=== PATIENT | male | born 1940 | race Caucasian/White ===

== ENCOUNTER 2023-09-08 05:59 | Emergency (ER) | payer MEDICARE, SELFPAY ==
[2023-09-08 05:59] VITALS: BP 202/78; PULSE 56; RESP 18; TEMP 36.4; O2SAT 100
--- NOTE | 2023-09-08 06:22 | PC.NURSE ---
Pt presents to ER via EMS for altered mental status Pt is extremely hard of hearing - to communicate we must write out our questions on paper Pt states he formerly had hearing aids but was told he needs implants Pt denies friends or family, he lives alone, pt explains his nightly and morning routine pt states he had driven to [employer] this morning but they were not open yet and he fell asleep in his car Employees called 911 This nurse believes PD and EMS did not recognize the pt's level of deafness and were not efficiently able to communicate with the pt which is what made them believe he was altered Pt denies allergies and medications Pt is angery that they made him come here, pt has a sense of humor but just wants to go home
--- NOTE | 2023-09-08 06:30 | ED_ITS ---
HPI - Altered Mental Status General Chief Complaint: Altered Mental Status Stated Complaint: altered mental status Time Seen by Provider: 09/08/23 06:30 Source: patient, EMR and law enforcement Mode of arrival: ambulance Limitations: no limitations History of Present Illness HPI narrative: This 82-year-old male is brought to the emergency department by EMS. The patient was found sleeping in the parking lot of the [facility] [employer]. It was thought that he was confused and altered. It is cold outside. Upon arrival to the emergency department the patient is angry and admits that he is deaf. 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. He is able to provide his Route that he drives. He states that he goes to [facility] [employer] in the morning to get his breakfast before going home. He states that when he got to [employer] this morning they were not open yet so he fell asleep in his car. He states that he formerly had hearing aids and was told that he needed cochlear implants but he refused that. He denies any complaint of pain. He lives alone. He is a . He denies that he has any friends, family or children locally that can come pick him up. He is agitated and angry that he was brought to the ER. He is oriented to person, place and time and gives detailed history when questions are written down for him. Related Data Allergies Allergy/AdvReac Type Severity Reaction Status Date / Time No Known Drug Allergies Allergy Verified 09/08/23 06:12 Review of Systems ROS Status of ROS 10 or more systems reviewed and unremarkable except as noted in history and below [facility] Social History Smoking status: Never smoker Exam Narrative Exam Narrative: Nurses note and vital signs reviewed and patient is not hypoxic. Blood pressure is elevated upon arrival at 202/78 General: The patient appears well and in no apparent distress. Patient is resting comfortably on cart. He is well appearing and well groomed, clothes are clean. Skin: Warm, dry, no pallor noted. There is no rash noted. Head: Normocephalic, atraumatic Eye: Normal conjunctiva, no drainage, EOMI. PERRL, vision grossly intact, extremely hard of hearing/deaf Ears, Nose, Mouth, and Throat: oral mucosa is moist. Nares patent. Mouth without vesicles. Ear canals patent. Tm's without Erythema Cardiovascular: Regular Rate and Rhythm Respiratory: Patient is in no distress, no accessory muscle use, lungs are clear to auscultation, no wheezing, rales or rhonchi Back: non-tender, no CVA tenderness bilaterally to percussion. GI: Normal bowel sounds, no tenderness to palpation, no masses appreciated. No rebound, guarding, or rigidity noted. Musculoskeletal: The patient has no evidence of calf tenderness, no pitting edema, symmetrical pulses noted bilaterally Neurological: A&O x4, normal speech Constitutional Vital Signs, click to edit/add: Last Vital Signs Temp 97.6 F 09/08/23 05:59 Pulse 56 L 09/08/23 05:59 Resp 18 09/08/23 05:59 BP 160/80 H 09/08/23 07:39 Pulse Ox 100 09/08/23 05:59 O2 Del Method Room Air 09/08/23 05:59 Course Vital Signs Vital signs: Vital Signs Temperature 97.6 F 09/08/23 05:59 Pulse Rate 56 L 09/08/23 05:59 Respiratory Rate 18 09/08/23 05:59 Blood Pressure 202/78 H 09/08/23 05:59 Pulse Oximetry 100 09/08/23 05:59 Oxygen Delivery Method Room Air 09/08/23 05:59 Temperature 97.6 F 09/08/23 05:59 Pulse Rate 56 L 09/08/23 05:59 Respiratory Rate 18 09/08/23 05:59 Blood Pressure 160/80 H 09/08/23 07:39 Pulse Oximetry 100 09/08/23 05:59 Oxygen Delivery Method Room Air 09/08/23 05:59 MDM - Altered Mental Status MDM Narrative Medical decision making narrative: This 82-year-old male with a history of hearing loss is brought to the emergency department by EMS after he was found sleeping in the parking lot at [facility]. He does not appear to be confused. I spoke to his family practitioner, Dr. Patel, the story that he gives about going to see fisherman in the [facility] is something that he talks about during his office visits. He does not have a history of dementia and does not appear to be confused this morning. He is well- known to Dr. Patel and does have a history of severe hearing loss. He does not have any local friends or family to pick him up. The police will be called to return him to his car so that he can return home. He was encouraged to follow-up for hearing aids. Discharge Plan Discharge Chief Complaint: Altered Mental Status Clinical Impression: Hearing loss Patient Disposition: Home, Self-Care Time of Disposition Decision: 06:43 Condition: Good Mode of Transportation: Other Instructions: Hearing Loss (ED) Additional Instructions: Follow-up with your physician for further evaluation of your hearing loss and consider hearing aid use Stand Alone Forms: Portal Instructions Discharge Date/Time: 09/08/23 07:41
[2023-09-08 07:39] VITALS: BP 160/80
== END 2023-09-08 07:41 | disposition home or self-care (01) ==
PROVIDERS: Emergency Provider Emergency Medicine; PCP Family Medicine
DX: H91.93 Unspecified hearing loss, bilateral (principal)
CPT/HCPCS: 99281

== ENCOUNTER 2023-10-22 12:00 | Observation (INO) | payer MEDICARE, SELFPAY ==
[2023-10-22] VITALS (25 sets, daily range): BP systolic 142–179; BP diastolic 63–105; PULSE 41–55; RESP 10–22; TEMP 36.6–36.8; O2SAT 94–100; BMI 28.2; BMI 26.0
--- NOTE | 2023-10-22 12:20 | PC.NURSE ---
nonbleeding area to inside ankle
--- NOTE | 2023-10-22 12:21 | PC.NURSE ---
pt's daughter has not seen pt in 5-6 yrs, has been in contact for the last 2 wks. pt presents like dementia. no slurred speech and no facial dropping.
--- NOTE | 2023-10-22 12:22 | XR_ITS ---
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 Poststernotomy changes are again identified There are a few scattered subcentimeter granuloma of the lungs, stable from 01/11/2017. The lungs are otherwise clear. There is no evidence of pleural effusion or pneumothorax. XR/XR chest 1V IMPRESSION: Stable poststernotomy chest. Electronically authenticated by: CHRISTINE BECERRIL Date: 10/22/2023 13:52
--- NOTE | 2023-10-22 12:22 | CT_ITS ---
The [address] [address] Patient Name: KAPIL FUNES MRN: [id number] date: 1940 Sex: M Assigned Patient Location: ED.MAIN Current Patient Location: Accession/Order Number: [id number] Exam Date: 10/22/2023 13:14 Report Date: 10/22/2023 13:57 At the request of: KARLY AGUAYO Procedure: CT head/brain wo con EXAM: CT head/brain wo con HISTORY: Altered mentation. COMPARISON: Study: CT head without contrast 01/30/2020. HISTORY: altered mentation Technique: CT images of the head were acquired without intravenous contrast. Dose reduction technique used: Automatic exposure control and/or adjustment of the mA and/or kV according to patient size and/or use of degenerative reconstruction technique. Findings: No acute hemorrhage. Senescent calcifications are noted at the basal ganglia. No mass effect or herniation. No territorial loss of cunningham-white matter differentiation. Periventricular and deep white matter hypoattenuation is nonspecific, favored to represent chronic microvascular ischemic changes. Generalized parenchymal volume loss is associated with compensatory prominence of the ventricles and CSF spaces. 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 EXTRACRANIAL STRUCTURES: No destructive osseous lesion. Normal soft tissues. Mastoids are clear. ORBITS: Negative lenses are surgically absent. PARANASAL SINUSES: Normal. CT/CT head/brain wo con IMPRESSION: 1. No acute intracranial abnormality. 2. Senescent parenchymal volume loss and chronic microangiopathic ischemic changes. Electronically authenticated by: AJAY ALARCON Date: 10/22/2023 13:57
--- NOTE | 2023-10-22 12:22 | ECG_ITS ---
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
[2023-10-22 12:34] LABS: PCO2 VBG 42.3 mmHg (40.0-52.0); pH VBG 7.403 (7.330-7.430)
[2023-10-22 12:38] LABS: Basophils Absolute Auto 0.1 10^3/uL (0.0-0.1); Basophils Percent Auto 1.2 % (0.2-2.0); Eosinophils Absolute Auto 0.3 10^3/uL (0.0-0.7); Eosinophils Percent Auto 4.6 % (0.9-7.0); Hematocrit 39.6 % (42.0-54.0); Hemoglobin 12.9 g/dL (14.0-18.0); Immature Granulocytes Abs Auto 0.02 10^3/uL (0.00-0.03); Immature Granulocytes Pct Auto 0.4 % (0.0-0.5); Lymphocytes Absolute Auto 1.2 10^3/uL (1.2-3.8); Lymphocytes Percent Auto 20.9 % (20.5-60.0); Mean Corpuscular HGB Conc 32.6 g/dL (29.9-35.2); Mean Corpuscular Hemoglobin 30.9 pg (25.9-34.0); Mean Platelet Volume 11.7 fL (9.5-13.5); Monocytes Absolute Auto 0.5 10^3/uL (0.3-0.8); Monocytes Percent Auto 8.2 % (1.7-12.0); Neutrophils Absolute Auto 3.7 10^3/uL (1.4-6.5); Neutrophils Percent Auto 64.7 % (43.0-75.0); Platelet Count 111 10^3/uL (150-450); Red Blood Count 4.17 10^6/uL (4.70-6.10); Red Cell Distribution Width 13.4 % (11.0-15.0); White Blood Count 5.7 10^3/uL (4.0-11.0)
[2023-10-22 12:42] LABS: Acetone NEGATIVE (NEGATIVE)
[2023-10-22 12:55] LABS: Acetaminophen <2.0 ug/mL (10.0-30.0); Ethanol <3 mg/dL
[2023-10-22 12:56] LABS: Alanine Aminotransferase 19 U/L (16-63); Albumin Globulin Ratio 0.8; Alkaline Phosphatase 98 U/L (46-116); Ammonia <10 umol/L (11-32); Anion Gap 10.7; Aspartate Amino Transferase 15 U/L (15-37); BUN Creatinine Ratio 16.4; Bilirubin Total 0.6 mg/dL (0.2-1.0); Calcium 8.5 mg/dL (8.5-10.1); Carbon Dioxide 26.4 mmol/L (21.0-32.0); Chloride 101 mmol/L (98-107); Estimated GFR (African America 51 (>=60); Estimated GFR (Non-African Ame 42 (>=60); Globulin 3.7 g/dL; Glucose 365 mg/dL (74-106); Potassium 4.1 mmol/L (3.5-5.1); Sodium 134 mmol/L (136-145); Total Protein 6.7 g/dL (6.4-8.2)
[2023-10-22 12:58] LABS: Salicylate <2.8 mg/dL (<=19.9)
--- NOTE | 2023-10-22 13:12 | ED_ITS ---
HPI - Altered Mental Status General Chief Complaint: Altered Mental Status Stated Complaint: ALTERED MENTAL Time Seen by Provider: 10/22/23 12:05 Source: family Mode of arrival: Wheelchair History of Present Illness HPI narrative: Patient lives alone. Daughter - who had been estranged for the last 5 years, she told me, got phone calls from neighbors and friends of the patient stating that his behavior had become erratic, so she came to his house to see him. She said that she has been staying with him for the past 2 weeks and during that time noted that he is: - confused, sometimes calling his daughter by another name or confusing who she is - forgetful - complaining of pain along the low back bilaterally - unkempt and hoarding items in his house, which is not properly cleaned. On questioning she admits that he eats and drinks normally. He is very hard of hearing so she often communicates with him through writing. No fever or chills. No vomiting or diarrhea. No cough. She said that his left arm seemed weak . She has concerns that he is unable to care for himself. She also mentioned that this morning, the patient complained of increased pain in the right lower leg and had difficulty walking due to the pain. He has a chronic right lower leg wound that has never fully healed - a small ulcer that gets a bloody scab and in the past has been infected and required antibiotics but no surgery, she told me. She is concerned that he might have an infection or possibly had a stroke. 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 His PCP is Dr Patel. Related Data Home Medications Medication Instructions Recorded Confirmed mupirocin 2 % topical ointment 1 applic topical DAILY 10/22/23 10/22/23 Allergies Allergy/AdvReac Type Severity Reaction Status Date / Time No Known Drug Allergies Allergy Verified 09/08/23 06:12 [facility] Medical History (Updated 10/22/23 @ 14:24 by Karly Aguayo) Fall ?W19.XXXA - Unspecified fall, initial encounter (ICD-10) Diabetes ?E11.9 - Type 2 diabetes mellitus without complications (ICD-10) FH: CABG (coronary artery bypass surgery) ?Z82.49 - Family history of ischemic heart disease and other diseases of the circulatory system (ICD-10) Leg fracture, right ?S82.91XA - Unspecified fracture of right lower leg, initial encounter for closed fracture (ICD-10) Social History Smoking status: Never smoker Exam Narrative Exam Narrative: Nurses notes and vital signs reviewed and patient is not hypoxic. afebrile General: Well-appearing and in no apparent distress. Skin: Warm, dry, no pallor noted. No rash. Head: Normocephalic, atraumatic. Neck: Supple, non-tender. No meningismus Eye: Pupils are equal, round and EOMI. No scleral icterus. No nystagmus Ears, Nose, Mouth, and Throat: TM are clear, no posterior oropharynx erythema or nasal mucosal hypertrophy, uvula is mid-line Oral mucosa is moist Cardiovascular: James Rate and Regular Rhythm without murmur, gallop or rub. Respiratory: No accessory muscle use or respiratory distress. Lungs are clear to auscultation, no wheezing, rales or rhonchi Back: No midline thoracic or lumbar vertebral tenderness. No CVA tenderness Musculoskeletal: all extremities with normal ROM, no calf or popliteal tenderness, no lower extremity edema/swelling. No weakness observed. Right lower leg with bloody scab anteriorly - no surrounding erythema or purulent discharge. GI: Abdomen is soft, non-distended. Normal bowel sounds. No masses appreciated. No tenderness to palpation. No rebound, guarding, or rigidity noted. Neurological: A&O x4. He is very hard of hearing. No additional cranial nerve dysfunction observed. No truncal ataxia. Moves all extremities. Sensation intact. Psychiatric: Cooperative and interactive. Normal mood and affect. Constitutional Vital Signs, click to edit/add: Last Vital Signs Temp 98.2 F 10/22/23 12:04 Pulse 49 L 10/22/23 13:50 Resp 15 10/22/23 13:50 BP 168/74 H 10/22/23 13:32 Pulse Ox 99 10/22/23 13:32 O2 Del Method Room Air 10/22/23 12:19 Course Vital Signs Vital signs: Vital Signs Temperature 98.2 F 10/22/23 12:04 Pulse Rate 54 L 10/22/23 12:04 Respiratory Rate 16 10/22/23 12:04 Blood Pressure 164/82 H 10/22/23 12:04 Pulse Oximetry 98 10/22/23 12:04 Oxygen Delivery Method Room Air 10/22/23 12:04 Temperature 98.2 F 10/22/23 12:04 Pulse Rate 49 L 10/22/23 13:50 Respiratory Rate 15 10/22/23 13:50 Blood Pressure 168/74 H 10/22/23 13:32 Pulse Oximetry 99 10/22/23 13:32 Oxygen Delivery Method Room Air 10/22/23 12:19 MDM - Altered Mental Status MDM Narrative Medical decision making narrative: Patient was placed on ekg monitor and EKG obtained. Blood drawn and sent for evaluation. Noncontrast head CT and chest x-ray obtained. CBC with normal white blood cell count, minimally decreased hemoglobin and hematocrit, decreased platelet at 111. Venous blood gas with normal pH. Acetone negative. CMP revealed essentially normal electrolytes with elevated BUN and creatinine at 2 6, 1.59, respectively. Glucose also elevated at 365. LFTs normal. Ammonia negative. Ethanol, salicylate and acetaminophen all negative. Head CT and chest x-ray did not reveal any focal worrisome findings. Patient unable to care for himself at home. He is confused and not taking his meds. I discussed the case with Dr Patel - who knows the patient well - and he agreed to admit the patient to his service - inpatient, medsur - to continue to work him up for his altereed mentation and difficulty walking. Jose informed of the plan and is agreeable. Lab Data Attestation: I reviewed the patient's lab results. Labs: Lab Results 10/22/23 Range/Units 12:30 WBC 5.7 (4.0-11.0) 10^3/uL RBC 4.17 L (4.70-6.10) 10^6/uL Hgb 12.9 L (14.0-18.0) g/dL Hct 39.6 L (42.0-54.0) % MCV 95.0 H (80.0-94.0) fL MCH 30.9 (25.9-34.0) pg MCHC 32.6 (29.9-35.2) g/dL RDW 13.4 (11.0-15.0) % Plt Count 111 L (150-450) 10^3/uL MPV 11.7 (9.5-13.5) fL Neut % (Auto) 64.7 (43.0-75.0) % Lymph % (Auto) 20.9 (20.5-60.0) % [place] % (Auto) 8.2 (1.7-12.0) % Eos % (Auto) 4.6 (0.9-7.0) % Baso % (Auto) 1.2 (0.2-2.0) % Neut # (Auto) 3.7 (1.4-6.5) 10^3/uL Lymph # (Auto) 1.2 (1.2-3.8) 10^3/uL [place] # (Auto) 0.5 (0.3-0.8) 10^3/uL Eos # (Auto) 0.3 (0.0-0.7) 10^3/uL Baso # (Auto) 0.1 (0.0-0.1) 10^3/uL Abs Immat Gran (auto) 0.02 (0.00-0.03) 10^3/uL Imm/Tot Granulo (auto) 0.4 (0.0-0.5) % VBG pH 7.403 (7.330-7.430) VBG pCO2 42.3 (40.0-52.0) mmHg Sodium 134 L (136-145) mmol/L Potassium 4.1 (3.5-5.1) mmol/L Chloride 101 (98-107) mmol/L Carbon Dioxide 26.4 (21.0-32.0) mmol/L Anion Gap 10.7 BUN 26.0 H (7.0-18.0) mg/dL Creatinine 1.59 H (0.70-1.30) mg/dL Est GFR ( Amer) 51 L (>=60) Est GFR (Non-Af Amer) 42 L (>=60) BUN/Creatinine Ratio 16.4 Glucose 365 H (74-106) mg/dL Calcium 8.5 (8.5-10.1) mg/dL Total Bilirubin 0.6 (0.2-1.0) mg/dL AST 15 (15-37) U/L ALT 19 (16-63) U/L Alkaline Phosphatase 98 (46-116) U/L Ammonia <10 L (11-32) umol/L Total Protein 6.7 (6.4-8.2) g/dL Albumin 3.0 L (3.4-5.0) g/dL Globulin 3.7 g/dL Albumin/Globulin Ratio 0.8 Salicylates <2.8 (<=19.9) mg/dL Acetaminophen <2.0 L (10.0-30.0) ug/mL Ethanol Quant <3 mg/dL Acetone, Qual Negative (NEGATIVE) Imaging Data Chest x-ray: Radiologist's impression: Patient Name: KAPIL FUNES MRN: [id number] date: 1940 Sex: M Assigned Patient Location: ER Current Patient Location: ER Accession/Order Number: [id number] Exam Date: 10/22/2023 13:10 Report Date: 10/22/2023 13:52 At the request of: KARLY AGUAYO Procedure: XR chest 1V PROCEDURE: XR chest 1V DATE: 10/22/2023 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 Poststernotomy changes are again identified There are a few scattered subcentimeter granuloma of the lungs, stable from 01/11/2017. The lungs are otherwise clear. There is no evidence of pleural effusion or pneumothorax. IMPRESSION: Stable poststernotomy chest. Electronically authenticated by: CHRISTINE BECERRIL Date: 10/22/2023 13:52 CT scan - head: Radiologist's impression: Patient Name: KAPIL FUNES MRN: [id number] date: 1940 Sex: M Assigned Patient Location: ED.MAIN Current Patient Location: ER Accession/Order Number: [id number] Exam Date: 10/22/2023 13:14 Report Date: 10/22/2023 13:57 At the request of: KARLY AGUAYO Procedure: CT head/brain wo con EXAM: CT head/brain wo con HISTORY: Altered mentation. COMPARISON: Study: CT head without contrast 01/30/2020. HISTORY: altered mentation Technique: CT images of the head were acquired without intravenous contrast. Dose reduction technique used: Automatic exposure control and/or adjustment of the mA and/or kV according to patient size and/or use of degenerative reconstruction technique. Findings: No acute hemorrhage. Senescent calcifications are noted at the basal ganglia. No mass effect or herniation. No territorial loss of cunningham-white matter differentiation. Periventricular and deep white matter hypoattenuation is nonspecific, favored to represent chronic microvascular ischemic changes. Generalized parenchymal volume loss is associated with compensatory prominence of the ventricles and CSF spaces. 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 EXTRACRANIAL STRUCTURES: No destructive osseous lesion. Normal soft tissues. Mastoids are clear. ORBITS: Negative lenses are surgically absent. PARANASAL SINUSES: Normal. IMPRESSION: 1. No acute intracranial abnormality. 2. Senescent parenchymal volume loss and chronic microangiopathic ischemic changes. Electronically authenticated by: AJAY ALARCON Date: 10/22/2023 13:57 ECG Data Attestation: I personally reviewed and interpreted this ECG as follows: Interpretation: EKG interpretation: Emergency Department physician interpretation. James sinus rhythm at 52bpm. 1st degree AV block. Normal axis and no ST segment elevation or depression. Discharge Plan Discharge Chief Complaint: Altered Mental Status Clinical Impression: Medical non-compliance, Acute hyperglycemia, Altered mental status Patient Disposition: Admitted As Inpatient Time of Disposition Decision: 14:24 Prescriptions / Home Meds: No Action mupirocin 2 % ointment 1 applic TOPICAL DAILY Referrals: Savage Patel MD [Primary Care Provider] - 1 week
[2023-10-22] MEDS: INSULIN REGULAR 300 UNITS/3 ML 5 UNIT SUBQ (13:55)
[2023-10-22] MEDS: 0.9 % SODIUM CHLORIDE 1,000 ML 1000 ML IV (13:57)
[2023-10-22 14:35] LABS: Glucometer 220 mg/dL (74-106)
--- NOTE | 2023-10-22 14:40 | P.HP_ITS ---
H&P: HPI History of Present Illness Chief complaint: ALTERED MENTAL STATUS Narrative: Seen and evaluated patient while he was still in the emergency room secondary to altered mental status. I know this patient for a long period of time. As well as the rest of the family. He did recognize me when I came into the room, was not aware of where he was at. Discussed his living situation and was not aware of the degree of mass located at his house. Patient states has not been taking any medications since May Review of Systems ROS Status of ROS 10 or more systems reviewed and unremark able except as noted in history and below (Patient denying everything, showing lack of insight into overall condition) [facility] Medical History (Updated 10/22/23 @ 15:01 by Shayna Miller) Fall ?W19.XXXA - Unspecified fall, initial encounter (ICD-10) Diabetes ?E11.9 - Type 2 diabetes mellitus without complications (ICD-10) Leg fracture, right ?S82.91XA - Unspecified fracture of right lower leg, initial encounter for closed fracture (ICD-10) Surgical History (Updated 10/22/23 @ 15:01 by Shayna Miller) FH: CABG (coronary artery bypass surgery) ?Z82.49 - Family history of ischemic heart disease and other diseases of the circulatory system (ICD-10) Family History (Updated 10/22/23 @ 15:04 by Shayna Miller) Father Family history of cancer Social History (Updated 10/22/23 @ 15:07 by Shayna Miller) Within the past year, how often did you have a drink containing alcohol: never Within the past year, how many standard drinks containing alcohol did you have on a typical day: 1 or 2 Within the past year, how often did you have six or more drinks on one occasion: never Total score: 0 Score interpretation: A score less than 4 is consistent with normal alcohol consumption. Smoking status: Never smoker Non-prescribed substance use: denies use Previous occupational history: retired Highest level of school completed/degree received: 11th grade Are you now , , , , never or living with a partner: In a typical week, how many times do you talk on the telephone with family, friends, or neighbors: twice per week How often do you get together with friends or relatives: twice per week How often do you attend scientology or presybeterian services: never Do you belong to any clubs or organizations such as scientology groups unions, fraternal or athletic groups, or school groups: no Total score: 1 Score interpretation: A score of less than or equal to 1 indicates the most socially isolated. Little interest or pleasure in doing things: not at all Feeling down, depressed, or hopeless: not at all Feel stressed/tense/nervous/anxious/difficulty sleeping: not at all Meds Home Medications and Allergies Home Medications Medication Instructions Recorded Confirmed Type lisinopril 10 mg tablet 10 mg PO DAILY 10/22/23 10/22/23 History metformin 500 mg tablet 500 mg PO BID 10/22/23 10/22/23 History mupirocin 2 % topical ointment 1 applic topical DAILY 10/22/23 10/22/23 History Allergies Allergy/AdvReac Type Severity Reaction Status Date / Time No Known Drug Allergies Allergy Verified 09/08/23 06:12 Exam Constitutional Vital Signs, click to edit/add: Last Vital Signs Temp 98.2 F 10/23/23 06:00 Pulse 52 L 10/23/23 08:00 Resp 16 10/23/23 06:00 BP 144/67 H 10/23/23 06:00 Pulse Ox 93 L 10/23/23 06:00 O2 Del Method Room Air 10/23/23 06:00 Documenting provider has reviewed patient's vital signs: yes Common normals: no apparent distress (Not oriented to location) HENMT Common normals: oral mucous membranes not moist Chest Common normals: inspection of chest normal Respiratory Common normals: normal respiratory effort, no use of accessory muscles and clear to auscultation bilaterally Cardio Common normals: regular rate, regular rhythm and no murmurs GI Common normals: Normal to inspection, nondistended, normoactive bowel sounds present Neuro Common normals: not oriented x3 Sensorium/orientation: oriented to person; not oriented to place Other: No focal neurological deficits Results Labs Labs: Short CBC 10/22/23 10/23/23 Range/Units 12:30 05:23 WBC 5.7 6.3 (4.0-11.0) 10^3/uL Hgb 12.9 L 13.0 L (14.0-18.0) g/dL Hct 39.6 L 39.3 L (42.0-54.0) % Plt Count 111 L 127 L (150-450) 10^3/uL BMP 10/22/23 10/23/23 12:30 05:23 Sodium 134 L 135 L Potassium 4.1 4.1 Chloride 101 102 Carbon Dioxide 26.4 24.3 BUN 26.0 H 25.0 H Creatinine 1.59 H 1.41 H Glucose 365 H 313 H Calcium 8.5 8.3 L Liver Function 10/22/23 10/23/23 Range/Units 12:30 05:23 Total Bilirubin 0.6 0.3 (0.2-1.0) mg/dL AST 15 17 (15-37) U/L ALT 19 18 (16-63) U/L Alkaline Phosphatase 98 97 (46-116) U/L Albumin 3.0 L 2.8 L (3.4-5.0) g/dL Urine 10/22/23 Range/Units 14:20 Urine Color Lt. yellow (YELLOW) Urine Clarity Clear (CLEAR) Urine pH 7.0 (5.0-9.0) Ur Specific [place] 1.015 (1.005-1.025) Urine Protein 30 A (NEG/TRACE) mg/dL Urine Glucose (UA) >=1000 A (NEGATIVE) mg/dL ABG ABG results: 10/22/23 12:30 VBG pH 7.403 VBG pCO2 42.3 Assessment and Plan Assessment and Plan (1) Altered mental status: (2) Acute hyperglycemia: (3) Medical non-compliance: (4) Hearing loss: Plan Altered mental status with lack of insight into overall condition-patient appears to be dehydrated. Will start IV fluids and reinstitute home medications Tachycardia, hyperglycemia secondary to dehydration-IV fluids Poorly controlled diabetes mellitus-restart home medications, insulin sliding scale, IV fluid resuscitation Uncontrolled hypertension-restart home medications Iron deficiency anemia monitor daily Thrombocytopenia-monitor daily Acute kidney injury-1-1/2 times his baseline-monitor daily This is a degree of altered mental status and pertinent abnormal labs will place patient inpatient status-likely here 2 to 3-day hospital stay
[2023-10-22 14:45] LABS: Bilirubin Urine NEGATIVE (NEGATIVE); Blood Urine NEGATIVE (NEGATIVE); Clarity Urine CLEAR (CLEAR); Color Urine LT. YELLOW (YELLOW); Glucose Urine UA >=1000 mg/dL (NEGATIVE); Ketones Urine NEGATIVE (NEGATIVE); Leukocyte Esterase Urine NEGATIVE (NEGATIVE); Nitrite Urine NEGATIVE (NEGATIVE); Protein Urine 30 mg/dL (NEG/TRACE); Specific Gravity Urine 1.015 (1.005-1.025); Urobilinogen Urine 0.2 EU/dL (0.2-1.0)
[2023-10-22 14:46] LABS: Urine Microscopic Indicated YES
[2023-10-22 14:51] LABS: Bacteria Urine NONE SEEN #/HPF (NONE SEEN); Cast Seen? NONE SEEN #/LPF (NONE SEEN); Crystals Seen? None Seen #/HPF (None Seen); Mucus Urine NONE SEEN (NONE SEEN); RBC Urine NONE SEEN #/HPF (0-2); Squamous Epithelial Cell Urine RARE #/LPF (NONE/RARE); Urine Culture Indicated NO; WBC Urine NONE SEEN #/HPF (NONE SEEN)
--- NOTE | 2023-10-22 14:51 | PM.HP ---
H&P: HPI History of Present Illness Chief complaint: ALTERED MENTAL STATUS [facility] Medical History (Updated 10/22/23 @ 14:24 by Louis Ye) Fall ?W19.XXXA - Unspecified fall, initial encounter (ICD-10) Diabetes ?E11.9 - Type 2 diabetes mellitus without complications (ICD-10) FH: CABG (coronary artery bypass surgery) ?Z82.49 - Family history of ischemic heart disease and other diseases of the circulatory system (ICD-10) Leg fracture, right ?S82.91XA - Unspecified fracture of right lower leg, initial encounter for closed fracture (ICD-10) Social History Smoking status: Never smoker Meds Home Medications and Allergies Home Medications Medication Instructions Recorded Confirmed Type mupirocin 2 % topical ointment 1 applic topical DAILY 10/22/23 10/22/23 History Allergies Allergy/AdvReac Type Severity Reaction Status Date / Time No Known Drug Allergies Allergy Verified 09/08/23 06:12 Exam Constitutional Vital Signs, click to edit/add: Last Vital Signs Temp 98.2 F 10/22/23 12:04 Pulse 49 L 10/22/23 13:50 Resp 15 10/22/23 13:50 BP 168/74 H 10/22/23 13:32 Pulse Ox 99 10/22/23 13:32 O2 Del Method Room Air 10/22/23 12:19 Results Labs Labs: Short CBC 10/22/23 Range/Units 12:30 WBC 5.7 (4.0-11.0) 10^3/uL Hgb 12.9 L (14.0-18.0) g/dL Hct 39.6 L (42.0-54.0) % Plt Count 111 L (150-450) 10^3/uL BMP 10/22/23 12:30 Sodium 134 L Potassium 4.1 Chloride 101 Carbon Dioxide 26.4 BUN 26.0 H Creatinine 1.59 H Glucose 365 H Calcium 8.5 Liver Function 10/22/23 Range/Units 12:30 Total Bilirubin 0.6 (0.2-1.0) mg/dL AST 15 (15-37) U/L ALT 19 (16-63) U/L Alkaline Phosphatase 98 (46-116) U/L Albumin 3.0 L (3.4-5.0) g/dL Urine 10/22/23 Range/Units 14:20 Urine Color Lt. yellow (YELLOW) Urine Clarity Clear (CLEAR) Urine pH 7.0 (5.0-9.0) Ur Specific [place] 1.015 (1.005-1.025) Urine Protein 30 A (NEG/TRACE) mg/dL Urine Glucose (UA) >=1000 A (NEGATIVE) mg/dL ABG ABG results: 10/22/23 12:30 VBG pH 7.403 VBG pCO2 42.3
[2023-10-22 15:03] LABS: C Reactive Protein <0.50 mg/dL (<=0.50)
[2023-10-22 15:08] LABS: Lactate/Lactic Acid 1.8 mmol/L (0.4-2.0)
[2023-10-22 15:17] LABS: Free T3 1.73 pg/mL (2.18-3.98); Thyroid Stimulating Hormone 1.135 uIU/mL (0.358-3.740)
[2023-10-22 16:09] LABS: Glucometer 138 mg/dL (74-106)
[2023-10-22] MEDS: CEFTRIAXONE 1,000 MG in 0.9 % SODIUM CHLORIDE 50 ML 100 MG IV (16:14)
[2023-10-22] MEDS: CLINDAMYCIN PHOSPHATE/D5W 600 MG/50 ML PIGGYBACK 100 MG IV ×2 (16:14→22:21)
[2023-10-22] MEDS: METFORMIN HCL 500 MG TABLET PO (16:15)
[2023-10-22] MEDS: INSULIN ASPART 300 UNIT/3 ML PEN SUBQ (16:15)
[2023-10-22] MEDS: LISINOPRIL 10 MG TABLET PO (16:15)
[2023-10-22] MEDS: LACTATED RINGER'S SOLUTION 1,000 ML 100 ML IV (16:15)
[2023-10-22 18:55] LABS: Glucometer 66 mg/dL (74-106)
[2023-10-22 19:37] LABS: Glucometer 97 mg/dL (74-106)
[2023-10-22] MEDS: L. ACIDOPHILUS/L.BULGARICUS 1 PACKET GRAN.PACK PO (22:21)
[2023-10-23] VITALS (19 sets, daily range): BP systolic 144–170; BP diastolic 61–75; PULSE 47–65; RESP 16–18; TEMP 36.8–37.1; O2SAT 92–97
[2023-10-23] MEDS: LACTATED RINGER'S SOLUTION 1,000 ML 100 ML IV ×3 (03:36→23:41)
[2023-10-23] MEDS: CLINDAMYCIN PHOSPHATE/D5W 600 MG/50 ML PIGGYBACK 100 MG IV ×4 (04:00→23:42)
[2023-10-23 05:33] LABS: Basophils Absolute Auto 0.1 10^3/uL (0.0-0.1); Basophils Percent Auto 0.9 % (0.2-2.0); Eosinophils Absolute Auto 0.4 10^3/uL (0.0-0.7); Eosinophils Percent Auto 6.3 % (0.9-7.0); Hematocrit 39.3 % (42.0-54.0); Immature Granulocytes Abs Auto 0.02 10^3/uL (0.00-0.03); Immature Granulocytes Pct Auto 0.3 % (0.0-0.5); Lymphocytes Absolute Auto 1.5 10^3/uL (1.2-3.8); Lymphocytes Percent Auto 24.3 % (20.5-60.0); Mean Corpuscular HGB Conc 33.1 g/dL (29.9-35.2); Mean Corpuscular Hemoglobin 31.4 pg (25.9-34.0); Mean Corpuscular Volume 94.9 fL (80.0-94.0); Monocytes Absolute Auto 0.6 10^3/uL (0.3-0.8); Monocytes Percent Auto 9.5 % (1.7-12.0); Neutrophils Absolute Auto 3.7 10^3/uL (1.4-6.5); Neutrophils Percent Auto 58.7 % (43.0-75.0); Platelet Count 127 10^3/uL (150-450); Red Blood Count 4.14 10^6/uL (4.70-6.10); Red Cell Distribution Width 13.3 % (11.0-15.0); White Blood Count 6.3 10^3/uL (4.0-11.0)
[2023-10-23 06:18] LABS: Alanine Aminotransferase 18 U/L (16-63); Albumin Globulin Ratio 0.8; Albumin Level 2.8 g/dL (3.4-5.0); Alkaline Phosphatase 97 U/L (46-116); Anion Gap 12.8; Aspartate Amino Transferase 17 U/L (15-37); BUN Creatinine Ratio 17.7; Bilirubin Total 0.3 mg/dL (0.2-1.0); Calcium 8.3 mg/dL (8.5-10.1); Carbon Dioxide 24.3 mmol/L (21.0-32.0); Chloride 102 mmol/L (98-107); Estimated GFR (African America 59 (>=60); Estimated GFR (Non-African Ame 48 (>=60); Globulin 3.6 g/dL; Glucose 313 mg/dL (74-106); Magnesium 1.8 mg/dL (1.8-2.4); Potassium 4.1 mmol/L (3.5-5.1); Sodium 135 mmol/L (136-145); Total Protein 6.4 g/dL (6.4-8.2); Troponin I High Sensitivity 24.2 pg/mL (4.0-76.1)
[2023-10-23 06:54] LABS: Ammonia 35 umol/L (11-32)
[2023-10-23 07:43] LABS: Glucometer 306 mg/dL (74-106)
[2023-10-23] MEDS: INSULIN ASPART 300 UNIT/3 ML PEN SUBQ ×2 (08:59→21:23)
[2023-10-23] MEDS: LACTULOSE 10 GM/15 ML (237ML) SOLUTION 30 GM PO ×2 (09:00→20:43)
[2023-10-23] MEDS: LISINOPRIL 20 MG TABLET PO (09:01)
[2023-10-23] MEDS: METFORMIN HCL 500 MG TABLET PO ×2 (09:01→16:26)
[2023-10-23] MEDS: L. ACIDOPHILUS/L.BULGARICUS 1 PACKET GRAN.PACK PO ×2 (09:01→20:43)
[2023-10-23] MEDS: LIOTHYRONINE SODIUM 5 MCG TABLET 10 MCG PO (09:01)
[2023-10-23] MEDS: MUPIROCIN 2% OINTMENT 22 GRAM TUBE 1 APPLIC TOPICAL (09:02)
--- NOTE | 2023-10-23 09:31 | P.PN_ITS ---
Progress Note: Subjective Subjective Interval history: Difficult to have conversation with secondary to him being hard of hearing, no new complaints Exam Constitutional Vital Signs, click to edit/add: Last Vital Signs Temp 98.2 F 10/23/23 06:00 Pulse 52 L 10/23/23 08:00 Resp 16 10/23/23 06:00 BP 144/67 H 10/23/23 06:00 Pulse Ox 93 L 10/23/23 06:00 O2 Del Method Room Air 10/23/23 06:00 Documenting provider has reviewed patient's vital signs: yes Common normals: no apparent distress HENMT Common normals: oral mucous membranes not moist Chest Common normals: inspection of chest normal Respiratory Common normals: normal respiratory effort, no use of accessory muscles and clear to auscultation bilaterally Cardio Common normals: regular rate, regular rhythm and no murmurs GI Common normals: Normal to inspection, nondistended, normoactive bowel sounds present Neuro Sensorium/orientation: oriented to person, oriented to place and oriented to time Other: No focal neurological deficits Progress Note: Objective Labs Labs: Short CBC 10/22/23 10/23/23 Range/Units 12:30 05:23 WBC 5.7 6.3 (4.0-11.0) 10^3/uL Hgb 12.9 L 13.0 L (14.0-18.0) g/dL Hct 39.6 L 39.3 L (42.0-54.0) % Plt Count 111 L 127 L (150-450) 10^3/uL BMP 10/22/23 10/23/23 12:30 05:23 Sodium 134 L 135 L Potassium 4.1 4.1 Chloride 101 102 Carbon Dioxide 26.4 24.3 BUN 26.0 H 25.0 H Creatinine 1.59 H 1.41 H Glucose 365 H 313 H Calcium 8.5 8.3 L Liver Function 10/22/23 10/23/23 Range/Units 12:30 05:23 Total Bilirubin 0.6 0.3 (0.2-1.0) mg/dL AST 15 17 (15-37) U/L ALT 19 18 (16-63) U/L Alkaline Phosphatase 98 97 (46-116) U/L Albumin 3.0 L 2.8 L (3.4-5.0) g/dL Urine 10/22/23 Range/Units 14:20 Urine Color Lt. yellow (YELLOW) Urine Clarity Clear (CLEAR) Urine pH 7.0 (5.0-9.0) Ur Specific [place] 1.015 (1.005-1.025) Urine Protein 30 A (NEG/TRACE) mg/dL Urine Glucose (UA) >=1000 A (NEGATIVE) mg/dL Progress Note: A&P Assessment and Plan (1) Altered mental status: Plan Altered mental status with lack of insight into overall condition-patient appears to be dehydrated. Will start IV fluids and reinstitute home medications-continue with fluid resuscitation Hyperammonemia-this may be the cause for his altered mental status, continue to monitor liver enzymes and repeat ammonia in a.m., start lactulose today. Tachycardia, hyperglycemia secondary to dehydration-IV fluids-improved Poorly controlled diabetes mellitus-restart home medications, insulin sliding scale, IV fluid resuscitation-fluctuating a lot here. Will continue to monitor and adjust as needed Uncontrolled hypertension-increase dose of lisinopril today Iron deficiency anemia monitor daily Thrombocytopenia-monitor daily-improved Hypothyroidism-this could be a combination of his cause for his altered mental status-will start Cytomel today. Acute kidney injury-1-1/2 times his baseline-monitor daily This is a degree of altered mental status and pertinent abnormal labs will place patient inpatient status-likely here 1-2 more days
[2023-10-23 11:12] LABS: Glucometer 101 mg/dL (74-106)
[2023-10-23 15:57] LABS: Glucometer 130 mg/dL (74-106)
[2023-10-23] MEDS: CEFTRIAXONE 1,000 MG in 0.9 % SODIUM CHLORIDE 50 ML 100 MG IV (16:26)
[2023-10-23 19:58] LABS: Glucometer 227 mg/dL (74-106)
[2023-10-24] VITALS (17 sets, daily range): BP systolic 140–177; BP diastolic 68–98; PULSE 47–59; RESP 16–18; TEMP 36.4–36.8; O2SAT 93–95
[2023-10-24 05:11] LABS: Basophils Absolute Auto 0.1 10^3/uL (0.0-0.1); Basophils Percent Auto 1.2 % (0.2-2.0); Eosinophils Absolute Auto 0.5 10^3/uL (0.0-0.7); Eosinophils Percent Auto 7.1 % (0.9-7.0); Hematocrit 39.8 % (42.0-54.0); Hemoglobin 12.9 g/dL (14.0-18.0); Immature Granulocytes Abs Auto 0.02 10^3/uL (0.00-0.03); Immature Granulocytes Pct Auto 0.3 % (0.0-0.5); Lymphocytes Absolute Auto 1.7 10^3/uL (1.2-3.8); Lymphocytes Percent Auto 25.8 % (20.5-60.0); Mean Corpuscular HGB Conc 32.4 g/dL (29.9-35.2); Mean Corpuscular Hemoglobin 30.7 pg (25.9-34.0); Mean Corpuscular Volume 94.8 fL (80.0-94.0); Mean Platelet Volume 11.7 fL (9.5-13.5); Monocytes Absolute Auto 0.5 10^3/uL (0.3-0.8); Neutrophils Absolute Auto 3.8 10^3/uL (1.4-6.5); Neutrophils Percent Auto 57.6 % (43.0-75.0); Platelet Count 129 10^3/uL (150-450); Red Cell Distribution Width 13.6 % (11.0-15.0); White Blood Count 6.6 10^3/uL (4.0-11.0)
[2023-10-24 05:22] LABS: Ammonia 17 umol/L (11-32)
[2023-10-24 05:37] LABS: Alanine Aminotransferase 9 U/L (16-63); Albumin Globulin Ratio 0.8; Albumin Level 2.8 g/dL (3.4-5.0); Alkaline Phosphatase 86 U/L (46-116); Anion Gap 10.9; Aspartate Amino Transferase 15 U/L (15-37); BUN Creatinine Ratio 16.8; Bilirubin Total 0.5 mg/dL (0.2-1.0); Calcium 8.6 mg/dL (8.5-10.1); Carbon Dioxide 26.9 mmol/L (21.0-32.0); Chloride 102 mmol/L (98-107); Estimated GFR (African America >60 (>=60); Estimated GFR (Non-African Ame 50 (>=60); Globulin 3.6 g/dL; Glucose 141 mg/dL (74-106); Magnesium 1.7 mg/dL (1.8-2.4); Potassium 3.8 mmol/L (3.5-5.1); Sodium 136 mmol/L (136-145); Total Protein 6.4 g/dL (6.4-8.2)
[2023-10-24] MEDS: CLINDAMYCIN PHOSPHATE/D5W 600 MG/50 ML PIGGYBACK 100 MG IV ×3 (05:46→16:37)
[2023-10-24] MEDS: LIOTHYRONINE SODIUM 5 MCG TABLET 10 MCG PO (08:33)
[2023-10-24] MEDS: L. ACIDOPHILUS/L.BULGARICUS 1 PACKET GRAN.PACK PO ×2 (08:34→20:40)
[2023-10-24] MEDS: MAGNESIUM OXIDE 400 MG TABLET PO (08:34)
[2023-10-24] MEDS: LISINOPRIL 20 MG TABLET 30 MG PO (08:34)
[2023-10-24] MEDS: METFORMIN HCL 500 MG TABLET PO ×2 (08:34→16:37)
[2023-10-24] MEDS: MUPIROCIN 2% OINTMENT 22 GRAM TUBE 1 APPLIC TOPICAL (08:35)
--- NOTE | 2023-10-24 08:52 | P.PN_ITS ---
Progress Note: Subjective Subjective Interval history: Difficult to have conversation with secondary to him being hard of hearing, patient confused this morning. 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 Exam Constitutional Vital Signs, click to edit/add: Last Vital Signs Temp 98.3 F 10/24/23 05:04 Pulse 54 L 10/24/23 07:51 Resp 18 10/24/23 05:04 BP 163/71 H 10/24/23 05:53 Pulse Ox 94 L 10/24/23 05:04 O2 Del Method Room Air 10/24/23 05:04 Documenting provider has reviewed patient's vital signs: yes Common normals: no apparent distress HENMT Common normals: oral mucous membranes not moist Chest Common normals: inspection of chest normal Respiratory Common normals: normal respiratory effort, no use of accessory muscles and clear to auscultation bilaterally Cardio Common normals: regular rate, regular rhythm and no murmurs GI Common normals: Normal to inspection, nondistended, normoactive bowel sounds present Neuro Sensorium/orientation: not oriented to person, not oriented to place and not oriented to time Other: No focal neurological deficits Progress Note: Objective Labs Labs: Short CBC 10/24/23 Range/Units 05:00 WBC 6.6 (4.0-11.0) 10^3/uL Hgb 12.9 L (14.0-18.0) g/dL Hct 39.8 L (42.0-54.0) % Plt Count 129 L (150-450) 10^3/uL BMP 10/24/23 05:00 Sodium 136 Potassium 3.8 Chloride 102 Carbon Dioxide 26.9 BUN 23.0 H Creatinine 1.37 H Glucose 141 H Calcium 8.6 Liver Function 10/24/23 Range/Units 05:00 Total Bilirubin 0.5 (0.2-1.0) mg/dL AST 15 (15-37) U/L ALT 9 L (16-63) U/L Alkaline Phosphatase 86 (46-116) U/L Albumin 2.8 L (3.4-5.0) g/dL Progress Note: A&P Assessment and Plan (1) Altered mental status: Plan Altered mental status with lack of insight into overall condition-dehydration seems to be improving, mental status continues to fluctuate, will check teleneuro consult-patient overall from mental status is worse this morning Hyperammonemia-this may be the cause for his altered mental status, improved this morning Tachycardia, hyperglycemia secondary to zpcgpyyffiq-elklqwlu-rebsow locked Poorly controlled diabetes mellitus-restart home medications, insulin sliding scale, IV fluid resuscitation-fluctuating a lot here. Will continue to monitor and adjust as needed Uncontrolled hypertension-increase dose of lisinopril today Iron deficiency anemia monitor daily Thrombocytopenia-monitor daily-improved Hypothyroidism-this could be a combination of his cause for his altered mental status-will start Cytomel. Acute kidney injury-1-1/2 times his baseline-monitor daily-improving Wound on left lower extremity-continue with current antibiotics, cellulitis appears to be improving Patient likely here at least 1-2 more days with waxing and waning mental status. I think his overall physical condition is somewhat better but neurologically is unstable
--- NOTE | 2023-10-24 09:12 | CM.NOTE ---
Rounds made with Dr. Patel. Potential plan for discharge today depending on the living situation. Dr. Patel to call and speak with daughter.
--- NOTE | 2023-10-24 10:35 | CM.NOTE ---
Important Message From Medicare discussed with pt, pt verbalizes understanding and signs paper. Original given to pt and copy placed on pt's chart.
[2023-10-24 11:35] LABS: Glucometer 293 mg/dL (74-106)
[2023-10-24] MEDS: INSULIN ASPART 300 UNIT/3 ML PEN SUBQ ×2 (11:44→21:38)
--- NOTE | 2023-10-24 12:07 | CM.NOTE ---
No discharge needs identified for patient.
[2023-10-24] MEDS: CEFTRIAXONE 1,000 MG in 0.9 % SODIUM CHLORIDE 50 ML 100 MG IV (16:37)
[2023-10-24 20:44] LABS: Glucometer 158 mg/dL (74-106)
[2023-10-24] MEDS: QUETIAPINE FUMARATE 25 MG TABLET PO (21:38)
[2023-10-25] VITALS (14 sets, daily range): BP systolic 145–176; BP diastolic 60–90; PULSE 47–58; RESP 16–18; TEMP 36.3–36.6; O2SAT 91–95
[2023-10-25 04:55] LABS: Ammonia <10 umol/L (11-32); Basophils Absolute Auto 0.1 10^3/uL (0.0-0.1); Basophils Percent Auto 0.9 % (0.2-2.0); Eosinophils Absolute Auto 0.5 10^3/uL (0.0-0.7); Eosinophils Percent Auto 7.1 % (0.9-7.0); Hematocrit 38.9 % (42.0-54.0); Hemoglobin 12.4 g/dL (14.0-18.0); Immature Granulocytes Abs Auto 0.02 10^3/uL (0.00-0.03); Immature Granulocytes Pct Auto 0.3 % (0.0-0.5); Lymphocytes Absolute Auto 1.8 10^3/uL (1.2-3.8); Lymphocytes Percent Auto 27.6 % (20.5-60.0); Mean Corpuscular HGB Conc 31.9 g/dL (29.9-35.2); Mean Corpuscular Hemoglobin 30.4 pg (25.9-34.0); Mean Corpuscular Volume 95.3 fL (80.0-94.0); Mean Platelet Volume 12.4 fL (9.5-13.5); Monocytes Absolute Auto 0.6 10^3/uL (0.3-0.8); Monocytes Percent Auto 8.4 % (1.7-12.0); Neutrophils Absolute Auto 3.6 10^3/uL (1.4-6.5); Neutrophils Percent Auto 55.7 % (43.0-75.0); Platelet Count 118 10^3/uL (150-450); Red Blood Count 4.08 10^6/uL (4.70-6.10); Red Cell Distribution Width 13.6 % (11.0-15.0); White Blood Count 6.5 10^3/uL (4.0-11.0)
[2023-10-25 05:13] LABS: Alanine Aminotransferase 12 U/L (16-63); Albumin Globulin Ratio 0.8; Albumin Level 2.5 g/dL (3.4-5.0); Alkaline Phosphatase 80 U/L (46-116); Anion Gap 11.9; Aspartate Amino Transferase 12 U/L (15-37); BUN Creatinine Ratio 16.2; Bilirubin Total 0.5 mg/dL (0.2-1.0); Calcium 8.3 mg/dL (8.5-10.1); Chloride 107 mmol/L (98-107); Estimated GFR (African America >60 (>=60); Estimated GFR (Non-African Ame 50 (>=60); Globulin 3.2 g/dL; Glucose 132 mg/dL (74-106); Magnesium 1.8 mg/dL (1.8-2.4); Potassium 3.9 mmol/L (3.5-5.1); Sodium 142 mmol/L (136-145); Total Protein 5.7 g/dL (6.4-8.2); Troponin I High Sensitivity 21.1 pg/mL (4.0-76.1)
--- NOTE | 2023-10-25 07:29 | CM.NOTE ---
Rounding with Dr. Patel. Pt. is extremely hard of hearing. Pt. does know who Dr. Patel is and does answer that he is in the hospital. Dr. Patel discussed with patient getting MRI of Brain today. Discharge plan to be determined.
[2023-10-25] MEDS: JUVEN PACKET 1 PACKET PO ×2 (08:40→21:15)
[2023-10-25] MEDS: ENSURE HP 237 ML LIQUID PO ×2 (08:40→21:15)
[2023-10-25] MEDS: LACTULOSE 10 GM/15 ML UD CUP 15 GM PO (08:40)
[2023-10-25] MEDS: LISINOPRIL 20 MG TABLET 40 MG PO (08:41)
[2023-10-25] MEDS: LIOTHYRONINE SODIUM 5 MCG TABLET 10 MCG PO (08:41)
[2023-10-25] MEDS: METFORMIN HCL 500 MG TABLET PO ×2 (08:41→16:17)
[2023-10-25] MEDS: L. ACIDOPHILUS/L.BULGARICUS 1 PACKET GRAN.PACK PO ×2 (08:41→21:15)
[2023-10-25] MEDS: MAGNESIUM OXIDE 400 MG TABLET PO (08:41)
[2023-10-25] MEDS: MUPIROCIN 2% OINTMENT 22 GRAM TUBE 1 APPLIC TOPICAL (08:42)
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
--- NOTE | 2023-10-25 10:54 | PT.DAILY ---
Physical Therapy Daily Note PT Daily Note/Assess Start: 10/24/23 09:59 Freq: Status: Active Protocol: Document 10/25/23 10:46 CHEVY (Rec: 10/25/23 10:54 CHEVY [id number]) Physical Therapy Daily Note/Assessment Time In/Time Out Time In 10:25 Time Out 10:35 Pain In Pain N/A Pain Out Pain N/A Subjective Subjective Sitting in BS chair. Needs to write on white board to communicate with PT. Initially refused but then does agree to seated ex in BS chair. Therapeutic Exercise Time Therapeutic Exercise Minutes (minutes) 8 Therapeutic Exercise Units 1 Therapeutic Exercise Treatment Therapeutic Exercise Treatment Seated bilat AP, LAQ, marches, add squeezes, abd step outs, manually resisted abd and marches 10x ea. Pt does doze off while in chair - offered to assist him to lay down but he declines and wishes to stay in chair. remains seated in BS chair with call light in reach and needs met. Total Physical Therapy Time Total Therapy Minutes 8 Total Physical Therapy Units 1 Summary Daily Note Summary limited session due to cooperation. Pt is very [place] so there is also a communication barrier that makes it difficult to persuade to participate. Denies pain with seated ex.
[2023-10-25 11:26] LABS: Glucometer 269 mg/dL (74-106)
--- NOTE | 2023-10-25 12:01 | PC.NURSE ---
Daughter, Fanta, arrived at bedside. Engine Installer wrote on white board in patient's room, asking if she could be added as his emergency contact and also to give her health information. Patient states this is OK. Nurse Kickboxing Instructor present and heard the OK as well. Information send to registration to add as emergency contact.
[2023-10-25] MEDS: CEFTRIAXONE 1,000 MG in 0.9 % SODIUM CHLORIDE 50 ML 100 MG IV (16:07)
[2023-10-25] MEDS: INSULIN ASPART 300 UNIT/3 ML PEN SUBQ (16:21)
[2023-10-25 16:24] LABS: Glucometer 179 mg/dL (74-106)
--- NOTE | 2023-10-25 16:40 | CM.NOTE ---
Pt's daughter arrives and would like to speak with Case Management. Daughter requesting pt to go into a skilled rehab, explained to daughter requirements for skilled therapy. Pt does well with occupational therapy, Physical therapy ( no needs). Explained that he would be able to go to skilled rehab for out of pocket expense but pt does not agree to skilled therapy at this time. Daughter states he would not be able to afford to pay out of pocket expense. Pt is oriented to self, and where he is at when asked. Pt answers questions appropriately at this time. Discussed HH options, pt is in agreement to HH services. Daughter also states he is [facility] and [facility], again pt would have to be in agreement and is not agreeing at this time. Case Management and daughter will further discuss discharge plan with Dr. Patel in the AM. Daughter states she has also notified Adult protective services d/t hoarding issues and she feels as he has underlying mental issues. Daughter states they were unable to give her assistance at this time.
--- NOTE | 2023-10-25 19:38 | MR_ITS ---
The [address] [address] Patient Name: KAPIL FUNES MRN: [id number] date: 1940 Sex: M Assigned Patient Location: [place] Current Patient Location: [place] Accession/Order Number: [id number] Exam Date: 10/25/2023 11:40 Report Date: 10/25/2023 12:41 At the request of: JONH POOLE Procedure: MR head/brain wo con EXAM: MR head/brain wo con HISTORY: Lewy body dementia Comparison: CT head 10/12/2023 Technique: Sagittal T1-weighted and axial T2-weighted, turboFLAIR and diffusion-weighted with ADC map images of the brain were obtained without intravenous contrast. Findings: These images reveal no intracranial mass lesion, mass effect, midline shift or abnormal extraaxial fluid collection. The ventricles and sulci are normal for age. No abnormality of reduced diffusion. Normal intravascular flow voids. There is marked generalized cerebral atrophy, as well as moderate to marked periventricular and subcortical high signal intensity abnormality on T2/flair, statistically most consistent with sequelae of small vessel ischemic disease. Mild to moderate high signal patchy signal changes are also seen in the cerebellar hemispheres. There is moderate cerebellar atrophy. The brainstem appears within normal limits. Bilateral pseudophakia. MR/MR head/brain wo con Impression: No acute intracranial pathology. No evidence for acute infarct. There is marked generalized cerebral atrophy, as well as moderate to marked high signal intensity abnormality in the white matter, statistically most consistent with sequelae of small vessel ischemic disease. Electronically authenticated by: PADDY WHITE Date: 10/25/2023 12:41
[2023-10-25 19:58] LABS: Glucometer 124 mg/dL (74-106)
[2023-10-25] MEDS: QUETIAPINE FUMARATE 25 MG TABLET PO (21:15)
[2023-10-26] VITALS (11 sets, daily range): BP systolic 129–160; BP diastolic 67–68; PULSE 51–68; RESP 18; TEMP 36.4–36.7; O2SAT 94–98
[2023-10-26 05:14] LABS: Basophils Absolute Auto 0.1 10^3/uL (0.0-0.1); Basophils Percent Auto 1.1 % (0.2-2.0); Eosinophils Absolute Auto 0.5 10^3/uL (0.0-0.7); Eosinophils Percent Auto 6.6 % (0.9-7.0); Hematocrit 38.4 % (42.0-54.0); Hemoglobin 12.5 g/dL (14.0-18.0); Immature Granulocytes Abs Auto 0.02 10^3/uL (0.00-0.03); Immature Granulocytes Pct Auto 0.3 % (0.0-0.5); Lymphocytes Absolute Auto 1.9 10^3/uL (1.2-3.8); Lymphocytes Percent Auto 24.5 % (20.5-60.0); Mean Corpuscular HGB Conc 32.6 g/dL (29.9-35.2); Mean Corpuscular Hemoglobin 31.3 pg (25.9-34.0); Mean Corpuscular Volume 96.2 fL (80.0-94.0); Mean Platelet Volume 11.9 fL (9.5-13.5); Monocytes Absolute Auto 0.6 10^3/uL (0.3-0.8); Monocytes Percent Auto 8.1 % (1.7-12.0); Neutrophils Absolute Auto 4.7 10^3/uL (1.4-6.5); Neutrophils Percent Auto 59.4 % (43.0-75.0); Platelet Count 119 10^3/uL (150-450); Red Blood Count 3.99 10^6/uL (4.70-6.10); Red Cell Distribution Width 13.4 % (11.0-15.0); White Blood Count 7.9 10^3/uL (4.0-11.0)
[2023-10-26 05:33] LABS: Ammonia 34 umol/L (11-32)
[2023-10-26 05:42] LABS: Alanine Aminotransferase 18 U/L (16-63); Albumin Globulin Ratio 0.7; Albumin Level 2.5 g/dL (3.4-5.0); Alkaline Phosphatase 80 U/L (46-116); Anion Gap 10.5; Aspartate Amino Transferase 14 U/L (15-37); Bilirubin Total 0.3 mg/dL (0.2-1.0); Carbon Dioxide 26.5 mmol/L (21.0-32.0); Chloride 105 mmol/L (98-107); Estimated GFR (African America >60 (>=60); Estimated GFR (Non-African Ame 54 (>=60); Globulin 3.5 g/dL; Glucose 190 mg/dL (74-106); Magnesium 1.8 mg/dL (1.8-2.4); Sodium 138 mmol/L (136-145); Troponin I High Sensitivity 19.9 pg/mL (4.0-76.1)
[2023-10-26 07:25] LABS: Glucometer 159 mg/dL (74-106)
--- NOTE | 2023-10-26 07:53 | CM.NOTE ---
Spoke with pt and Dr. Patel today regarding discharge planning, pt is ok [facility] or [facility] for medication adjustment when discussed. Dr. Ptael will also reach out to pt's daughter regarding plan of care. Called and faxed clinical to intake department at [facility] and also left message at [facility] [place] to check on bed availability.
--- NOTE | 2023-10-26 08:07 | CM.NOTE ---
Dr. Patel just spoke with pt's daughter, if unable to get pt into [facility] or [facility] for terminal computer operator care the plan is for patient to stay with a friend in [place].
--- NOTE | 2023-10-26 08:10 | P.DS_ITS ---
DS: Providers Provider Date of admission: 10/22/23 14:40 Primary care physician: Savage Patel MD Consults: 10/22/23 14:43 Occupational Therapy Eval and Treat Routine Reason for consultation: Only if needed for Rehab Has provider been notified: No Physical Therapy Eval and Treat Routine Reason for consultation: Eval and Treat Has provider been notified: No 10/24/23 08:53 Consult to Oral And Maxillofacial Surgeon Routine Reason for consult:: Intermediate Other reason:: Assisted living - unsafe to go home 10/24/23 13:30 Consult to TeleNeurology Routine Reason for consultation: AMS - waxing and waning Has provider been notified: No DS: Diagnosis Discharge Diagnosis (1) Altered mental status: Assessment and plan: Altered mental status with 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 In ER was not aware to person place or time. This slowly improved although he still confused as to place. Evaluation by teleneurology looking at the whole big picture he does have a metabolic encephalopathy but complicated by Lewy body dementia. He was started on Seroquel. Also some mild hypothyroidism that may be contributing factor. This can be followed as an outpatient. Patient is not necessarily stable at this point but no further intervention necessary in the hospital. Looking at 3 options of discharge, 1 being [facility], for [facility] of [facility], as a last resort he is going to go stay with a friend. Deftly needs to be monitored closely. Scripts were printed. I will continue to follow patient as an outpatient if he does go to the friend's house otherwise we will follow-up after discharge from surgery was placed, hopefully states that the [facility] is a long-term solution second long-term solution is to possibly go to [place] where he has a sister. Time Spent with Patient Time attestation: Total time spent providing and/or coordinating discharge services: Exam Constitutional Vital Signs, click to edit/add: Last Vital Signs Temp 97.6 F 10/26/23 05:43 Pulse 63 10/26/23 06:00 Resp 18 10/26/23 05:43 BP 160/68 H 10/26/23 05:43 Pulse Ox 95 10/26/23 05:43 O2 Del Method Room Air 10/26/23 05:43 Documenting provider has reviewed patient's vital signs: yes Common normals: no apparent distress HENMT Common normals: oral mucous membranes not moist Chest Common normals: inspection of chest normal Respiratory Common normals: normal respiratory effort, no use of accessory muscles and clear to auscultation bilaterally Cardio Common normals: regular rate, regular rhythm and no murmurs GI Common normals: Normal to inspection, nondistended, normoactive bowel sounds present Neuro Sensorium/orientation: not oriented to person, not oriented to place and not oriented to time Other: No focal neurological deficits DS: Data Data Completed and Pending Labs on day of discharge: Labs from last 24 hours 10/26/23 10/26/23 10/25/23 07:25 04:49 19:56 WBC 7.9 RBC 3.99 L Hgb 12.5 L Hct 38.4 L MCV 96.2 H MCH 31.3 MCHC 32.6 RDW 13.4 Plt Count 119 L MPV 11.9 Neut % (Auto) 59.4 Lymph % (Auto) 24.5 [place] % (Auto) 8.1 Eos % (Auto) 6.6 Baso % (Auto) 1.1 Neut # (Auto) 4.7 Lymph # (Auto) 1.9 [place] # (Auto) 0.6 Eos # (Auto) 0.5 Baso # (Auto) 0.1 Abs Immat Gran (auto) 0.02 Imm/Tot Granulo (auto) 0.3 Sodium 138 Potassium 4.0 Chloride 105 Carbon Dioxide 26.5 Anion Gap 10.5 BUN 33.0 H Creatinine 1.27 Est GFR ( Amer) >60 Est GFR (Non-Af Amer) 54 L BUN/Creatinine Ratio 26.0 Glucose 190 H Calcium 9.0 Magnesium 1.8 Total Bilirubin 0.3 AST 14 L ALT 18 Alkaline Phosphatase 80 Ammonia 34 H Troponin I High Sens 19.9 NT-Pro-B Natriuret Pep 1057.0 Total Protein 6.0 L Albumin 2.5 L Globulin 3.5 Albumin/Globulin Ratio 0.7 POC Glucose 159 H 124 H 10/25/23 10/25/23 16:13 11:23 WBC RBC Hgb Hct MCV MCH MCHC RDW Plt Count MPV Neut % (Auto) Lymph % (Auto) [place] % (Auto) Eos % (Auto) Baso % (Auto) Neut # (Auto) Lymph # (Auto) [place] # (Auto) Eos # (Auto) Baso # (Auto) Abs Immat Gran (auto) Imm/Tot Granulo (auto) Sodium Potassium Chloride Carbon Dioxide Anion Gap BUN Creatinine Est GFR ( Amer) Est GFR (Non-Af Amer) BUN/Creatinine Ratio Glucose Calcium Magnesium Total Bilirubin AST ALT Alkaline Phosphatase Ammonia Troponin I High Sens NT-Pro-B Natriuret Pep Total Protein Albumin Globulin Albumin/Globulin Ratio POC Glucose 179 H 269 H Discharge Plan Discharge Disposition: Xfer SNF Discharge Medications: New quetiapine 25 mg Tablet 25 mg PO HS Qty: 30 11RF clonidine HCl 0.1 mg Tablet 0.1 mg PO BID Qty: 60 11RF doxycycline monohydrate 100 mg Capsule 100 mg PO BID Qty: 20 0RF Continued mupirocin 2 % ointment 1 applic TOPICAL DAILY metformin 500 mg tablet 500 mg PO BID lisinopril 10 mg tablet 10 mg PO DAILY Forms: Portal Instructions Follow Up Appointments: @ 1:30pm with Dr. Patel [phone]
[2023-10-26] MEDS: LISINOPRIL 20 MG TABLET PO (08:29)
[2023-10-26] MEDS: JUVEN PACKET 1 PACKET PO (08:29)
[2023-10-26] MEDS: ENSURE HP 237 ML LIQUID PO (08:29)
[2023-10-26] MEDS: CLONIDINE HCL 0.1 MG TABLET PO (08:30)
[2023-10-26] MEDS: DOXYCYCLINE MONOHYDRATE 100 MG CAPSULE PO (08:30)
[2023-10-26] MEDS: METFORMIN HCL 500 MG TABLET PO (08:30)
[2023-10-26] MEDS: MAGNESIUM OXIDE 400 MG TABLET PO (08:30)
[2023-10-26] MEDS: L. ACIDOPHILUS/L.BULGARICUS 1 PACKET GRAN.PACK PO (08:30)
[2023-10-26] MEDS: INSULIN ASPART 300 UNIT/3 ML PEN SUBQ ×2 (08:34→12:11)
[2023-10-26] MEDS: MUPIROCIN 2% OINTMENT 22 GRAM TUBE 1 APPLIC TOPICAL (08:35)
[2023-10-26] MEDS: LACTULOSE 10 GM/15 ML UD CUP 15 GM PO (08:44)
[2023-10-26 09:06] LABS: SARS-CoV-2 Ag NEGATIVE (NEGATIVE)
[2023-10-26] MEDS: LIOTHYRONINE SODIUM 5 MCG TABLET 10 MCG PO (09:27)
--- NOTE | 2023-10-26 10:39 | CM.NOTE ---
Called [facility] again, message left to get update on referral.
[2023-10-26 10:58] LABS: Glucometer 188 mg/dL (74-106)
--- NOTE | 2023-10-26 11:06 | PT.DAILY ---
Physical Therapy Daily Note PT Daily Note/Assess Start: 10/24/23 09:59 Freq: Status: Active Protocol: Document 10/26/23 11:02 JAVITENARAHAT (Rec: 10/26/23 11:05 CHEVY [id number]) Physical Therapy Daily Note/Assessment Time In/Time Out Time In 10:50 Time Out 11:01 Pain In Pain N/A Pain Out Pain N/A Subjective Subjective Supine upon arrival. Using writing board to communicate - pt is agreeable to amb in [place]. Therapeutic Activity Time Therapeutic Activity Minutes (minutes) 10 Therapeutic Activity Units 1 Therapeutic Activity Treatment Bed Mobility Ability Independent Chair Transfer Ability Independent Therapeutic Activity Comments Supine>sit IND. Able to tanja and tie shoes while sitting EOB with set up only. Pt sit> stand IND. Amb 300' without AD , fast yessy. Stair training up/down 12 steps SUP with bilat UE support for safety. Amb another 300' back to room and remains in BS chair upon completion. Call light within reach and chair alarm set. Total Physical Therapy Time Total Therapy Minutes 10 Total Physical Therapy Units 1 Summary Daily Note Summary Ind with transfer. Steady with gait. Safe with stair training.
--- NOTE | 2023-10-26 13:16 | CM.NOTE ---
Andrade from [facility] called back and does not feel patient has enough to meet for inpatient. Andrade will run it by the physician at [facility] and call case management back with response.
--- NOTE | 2023-10-26 14:54 | CM.NOTE ---
[facility] called back and are unable to accept pt. Pt will go home and stay with a friend in [place]. Daughter is speaking with [facility] to get him on [facility] list for [facility] [place]. Pt would like services at discharge. Called [facility] and they do take pt's insurance, clinical faxed. Updated pt's RN and Dr. Patel on discharge plan.
--- NOTE | 2023-10-26 15:14 | CM.NOTE ---
[facility] called and [facility] Once application completed [facility] will call him to schedule an interview. Updated pt's daughter and RN.
--- NOTE | 2023-10-26 15:42 | CM.NOTE ---
[facility] confirms they can accept the patient and the [facility] for [facility] facility. Application placed in a bright yellow folder and highlighted the area for daughter of where to send the completed application and contact phone number. Also updated patient's RN Alyssa with the above information and gave the folder to Alyssa to give to his friend picking him up to ensure his daughter receives the application.
--- NOTE | 2023-10-26 20:52 | PC.NURSE ---
pt's family called and said that the script for the pt were not at the drug store. [facility] [place] [facility] and did not have any new scripts on file. Attempted to contact Daughter that called ( Fanta Venegas [phone]) but no answer and message left. Did call pts home number and talked to a lady who pt was with. She said that they would like the scripts sent [facility] the [facility] [place]. [facility] contacted, Fax number obtained and scripts for Clonidine, Doxycycline and quetiapine faxed.
[2023-10-27 16:01] LABS: SARS-CoV-2 NAA INCONCLUSIVE (NOT DETECTE)
--- NOTE | 2023-10-28 14:12 | CM.NOTE ---
Fanta( pt's daughter) called and friend that pt was staying with was unable to handle patient. Pt was brought back to daughter's house and daughter picked up groceries for patient and took him back home. She is working on [facility] to turn in for placement. Fanta would like Case Management to notify [facility] that patient is now at his residence. Called [facility] to update and called pt's daughter back. [facility] was also given daughter's telephone number. Discussed with daughter about bringing in care givers around the clock. Daughter states he is unable to afford this service as out of pocket expense.
== END 2023-10-26 15:50 | disposition home health service (06) ==
LOC: ER 14:24 → MS 10-24 07:32
PROVIDERS: Admitting Provider Family Medicine; Emergency Provider Emergency Medicine; PCP Family Medicine; Visit Provider Family Medicine
DX: E86.0 Dehydration (principal); N17.9 Acute kidney failure, unspecified; G93.41 Metabolic encephalopathy; G31.83 Neurocognitive disorder with Lewy bodies; F02.80 Dementia in other diseases classified elsewhere, unspecified severity, without behavioral disturbance, psychotic disturbance, mood disturbance, and anxiety; E72.20 Disorder of urea cycle metabolism, unspecified; R00.0 Tachycardia, unspecified; E11.65 Type 2 diabetes mellitus with hyperglycemia; L03.115 Cellulitis of right lower limb; B95.61 Methicillin susceptible Staphylococcus aureus infection as the cause of diseases classified elsewhere; I10 Essential (primary) hypertension; D50.9 Iron deficiency anemia, unspecified; E03.9 Hypothyroidism, unspecified; D69.6 Thrombocytopenia, unspecified; Z79.899 Other long term (current) drug therapy; Z79.84 Long term (current) use of oral hypoglycemic drugs; H91.90 Unspecified hearing loss, unspecified ear; Z91.148 Patient's other noncompliance with medication regimen for other reason; Z20.822 Contact with and (suspected) exposure to COVID-19
CPT/HCPCS: 36415; 70450; 70551; 71045; 80053; 80179; 80320; 80329; 81001; 82009; 82140; 82800; 82948; 83605; 83735; 83880; 84436; 84443; 84481; 84484; 85025; 86140; 87070; 87086; 87150; 87186; 87635; 87811; 93005; 94761; 96361; 96365; 96366; 96368; 97110; 97161; 97165; 97530; 99285; G0378; Q3014

== ENCOUNTER 2023-11-28 15:50 | Observation (INO) | payer MEDICARE, SELFPAY ==
[2023-11-28] VITALS (34 sets, daily range): BP systolic 108–180; BP diastolic 53–96; PULSE 40–57; RESP 0–18; TEMP 36.6–36.8; O2SAT 79–100; BMI 31.6; BMI 26.3
--- NOTE | 2023-11-28 16:10 | XR_ITS ---
The [address] [address] Patient Name: KAPIL FUNES MRN: [id number] date: 1940 Sex: M Assigned Patient Location: ER Current Patient Location: ER Accession/Order Number: [id number] Exam Date: 11/28/2023 16:25 Report Date: 11/28/2023 16:49 At the request of: NENITA DIAMOND Procedure: XR chest 1V EXAM: XR chest 1V at 1620 hours HISTORY: Confusion COMPARISON: 10/22/2023 TECHNIQUE: AP upright portable chest x-ray FINDINGS: The heart is not enlarged and the vasculature is not distended. No acute infiltrate, effusion or pneumothorax is identified. Slight chronic interstitial changes are seen at the right lung base. Multiple sternal wire sutures are present. A calcified granuloma seen at the left lung base. The osseous structures are grossly intact. XR/XR chest 1V IMPRESSION: No acute infiltrate or evidence of cardiac decompensation. Chronic changes are present. The overall appearance of the chest is unchanged. Electronically authenticated by: ZANE MARTINEZ Date: 11/28/2023 16:49
--- NOTE | 2023-11-28 16:10 | ECG_ITS ---
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
[2023-11-28 16:11] LABS: Glucometer 202 mg/dL (74-106)
--- NOTE | 2023-11-28 16:11 | CT_ITS ---
[address] [address] Patient Name: KAPIL FUNES MRN: [id number] date: 1940 Sex: M Assigned Patient Location: ER Current Patient Location: ER Accession/Order Number: [id number] Exam Date: 11/28/2023 16:28 Report Date: 11/28/2023 16:54 At the request of: NENITA DIAMOND Procedure: CT head/brain wo con EXAM: CT head/brain wo con CLINICAL INDICATION: Confusion COMPARISON: CT head 10/22/2023. TECHNIQUE: Axial CT images of the brain were obtained without contrast. Coronal and sagittal reformats were obtained. Dose reduction techniques were achieved by using automated exposure control and/or adjustment of mA and/or kV according to patient size and/or use of iterative reconstruction technique. FINDINGS: No intracranial hemorrhage, extra-axial fluid collection, hydrocephalus, midline shift, or acute large vessel territory infarction. No other mass effect. Patchy and confluent periventricular and subcortical hypoattenuation is likely on the basis of chronic microvascular angiopathic changes. Moderate symmetric global volume loss without lobar predominance. Commensurate prominence of the ventricular system. Basal cisterns are patent. Left cerebellar encephalomalacia/gliosis. No calvarial fracture. Normal soft tissues. Paranasal sinuses and mastoid air cells are well-aerated. CT/CT head/brain wo con IMPRESSION: No acute intracranial process. No substantial change since 10/22/2023. Electronically authenticated by: CHUY MARQUEZ Date: 11/28/2023 16:54
--- NOTE | 2023-11-28 16:12 | ED.GENADUL1 ---
HPI - General Adult General Chief complaint: Altered Mental Status Stated complaint: General Weakness Time Seen by Provider: 11/28/23 15:59 Source: patient Mode of arrival: Wheelchair Limitations: no limitations Related Data Home Medications Medication Instructions Recorded Confirmed lisinopril 10 mg tablet 10 mg PO DAILY 10/22/23 10/22/23 metformin 500 mg tablet 500 mg PO BID 10/22/23 10/22/23 mupirocin 2 % topical ointment 1 applic topical DAILY 10/22/23 10/22/23 Previous Rx's Medication Instructions Recorded clonidine HCl 0.1 mg tablet 0.1 mg PO BID #60 tabs 10/26/23 doxycycline monohydrate 100 mg 100 mg PO BID #20 caps 10/26/23 capsule quetiapine 25 mg tablet 25 mg PO HS #30 tabs 10/26/23 Allergies Allergy/AdvReac Type Severity Reaction Status Date / Time No Known Drug Allergies Allergy Verified 09/08/23 06:12 [facility] Medical History (Updated 10/30/23 @ 00:00 by ) Altered mental status ?R41.82 - Altered mental status, unspecified (ICD-10) Acute hyperglycemia ?R73.9 - Hyperglycemia, unspecified (ICD-10) Medical non-compliance ?Z91.199 - Patient's noncompliance with other medical treatment and regimen due to unspecified reason (ICD-10) Hearing loss ?H91.90 - Unspecified hearing loss, unspecified ear (ICD-10) Fall ?W19.XXXA - Unspecified fall, initial encounter (ICD-10) Diabetes ?E11.9 - Type 2 diabetes mellitus without complications (ICD-10) Leg fracture, right ?S82.91XA - Unspecified fracture of right lower leg, initial encounter for closed fracture (ICD-10) Surgical History (Updated 10/22/23 @ 15:01 by Shayna Miller) FH: CABG (coronary artery bypass surgery) ?Z82.49 - Family history of ischemic heart disease and other diseases of the circulatory system (ICD-10) Family History (Updated 10/22/23 @ 15:04 by Shayna Miller) Father Family history of cancer Social History (Updated 10/22/23 @ 15:07 by Shayna Miller) Within the past year, how often did you have a drink containing alcohol: never Within the past year, how many standard drinks containing alcohol did you have on a typical day: 1 or 2 Within the past year, how often did you have six or more drinks on one occasion: never Total score: 0 Score interpretation: A score less than 4 is consistent with normal alcohol consumption. Smoking status: Never smoker Non-prescribed substance use: denies use Previous occupational history: retired Highest level of school completed/degree received: 11th grade Are you now , , , , never or living with a partner: In a typical week, how many times do you talk on the telephone with family, friends, or neighbors: twice per week How often do you get together with friends or relatives: twice per week How often do you attend orthodoxy or buddhism services: never Do you belong to any clubs or organizations such as orthodoxy groups unions, [employer] or athletic groups, or school groups: no Total score: 1 Score interpretation: A score of less than or equal to 1 indicates the most socially isolated. Little interest or pleasure in doing things: not at all Feeling down, depressed, or hopeless: not at all Feel stressed/tense/nervous/anxious/difficulty sleeping: not at all Exam Constitutional Vital Signs, click to edit/add: Last Vital Signs Temp 98.2 F 11/28/23 15:58 Pulse 42 L 11/28/23 15:58 Resp 10 L 11/28/23 15:58 BP 110/53 11/28/23 15:58 Pulse Ox 96 11/28/23 15:58 O2 Del Method Room Air 11/28/23 15:58 Course Vital Signs Vital signs: Vital Signs Temperature 98.2 F 11/28/23 15:58 Pulse Rate 42 L 11/28/23 15:58 Respiratory Rate 10 L 11/28/23 15:58 Blood Pressure 110/53 11/28/23 15:58 Pulse Oximetry 96 11/28/23 15:58 Oxygen Delivery Method Room Air 11/28/23 15:58 Temperature 98.2 F 11/28/23 15:58 Pulse Rate 42 L 11/28/23 15:58 Respiratory Rate 10 L 11/28/23 15:58 Blood Pressure 110/53 11/28/23 15:58 Pulse Oximetry 96 11/28/23 15:58 Oxygen Delivery Method Room Air 11/28/23 15:58 Medical Decision Making Lab Data Labs: Lab Results 11/28/23 Range/Units 16:10 POC Glucose 202 H (74-106) mg/dL Discharge Plan Discharge Chief Complaint: Altered Mental Status Prescriptions / Home Meds: No Action mupirocin 2 % ointment 1 applic TOPICAL DAILY metformin 500 mg tablet 500 mg PO BID lisinopril 10 mg tablet 10 mg PO DAILY quetiapine 25 mg Tablet 25 mg PO HS Qty: 30 11RF clonidine HCl 0.1 mg Tablet 0.1 mg PO BID Qty: 60 11RF doxycycline monohydrate 100 mg Capsule 100 mg PO BID Qty: 20 0RF Referrals: Savage Patel MD [Primary Care Provider] - 1 week
--- OUTSIDE RECORDS SUMMARY | 2023-11-28 16:17 | XMS_ITS | CCD ---
Author Name Unknown Address [address] [facility] [address] [place] [address] Organization [facility] Care Team Providers Care Credit Reporter Name Role Phone CHARISMA MCKEON Unavailable Unavailable CHARISMA MCKEON Unavailable Unavailable JONH PATEL Unavailable Unavailable JONH PATEL Unavailable Unavailable MD Jonh Patel Primary Care Provider [phone] MD Jonh Patel Attending Provider [phone] JONH PATEL Attending Unavailable VIRGILIO, DR BORJA Consulting Unavailable DR JONH PATEL Primary Care Unavailable DR JONH PATEL Admitting Unavailable MD Jonh Patel Primary Care Provider [phone] MD Grady Peters Attending Provider [phone] Grady Peters Unavailable Jonh Patel Primary Care Unavailable Jonh Patel Attending Unavailable Jonh Patel Admitting Unavailable Grady Peters Admitting Unavailable Grady Peters Attending Unavailable Jonh Patel Primary Care Unavailable Medications Current Medications Medication Drug Class(es) Dates Sig (Normalized) Sig (Original) Lisinopril (1 source) Angiotensin Converting Enzyme Inhibitor Lisinopril Active metFORMIN hydrochloride 500 mg oral tablet (1 source) Biguanide metFORMIN HCl 50 0 MG 1 tablet with a meal Orally Active simvastatin 80 mg oral tablet (1 source) HMG-CoA Reductase Inhibitor take 1 tablet by mouth in the evening Simvastatin 80 MG 1 tablet in the evening Orally Active Problems Active Problems Problem Classification Problem Date Documented Da te Episodic/Chronic Open wounds of extremities (5 sources) Unspecified open wound, right lower leg, initial encounter; Translations: [UNS OPEN WOUND RT LOWER LEG INITIAL] Onset: 06-17-2022 Episodic Unclassified (2 sources) Unknown / UNK(Unknown) Onset: 01-06-2017 Unclassified (1 source) 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; Translations: [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] Onset: 04-27-2022 Past or Other Problems Problem Classification Problem Date Documented Da te Episodic/Chronic Fracture of lower limb (5 sources) Displaced segmental fracture of shaft of right tibia, subsequent encounter for open fracture type I or II with routine healing; Translations: [Displaced segmental fracture of shaft of right fibula, subsequent encounter for closed fracture with routine healing] Onset: 01-06-2017 Episodic Other diseases of veins and lymphatics (1 source) Other specified disorders of veins; Translations: [Other specified disorders of veins] Onset: 07-30-2022 Episodic Results Test Name Value Interpretation Reference Range Facility US ankle/arm indiceson 07-31 US ankle/arm indices [facility] Main [place] [address] [place] [address] Ultrasound Report Signed Patient: Navi Funes Jr MR#: [id number] : 1940 Acct:[id number] Age/Sex: 81 / M ADM Date: 07/30/22 Loc: Room: Type: [facility] Attending Dr: Grady Peters MD Ordering Provider: Grady Peters MD Date of Service: 07/30/22 US/US ankle/arm indices: FRACTURE, NON HEALING WOUND Copies to: Grady Peters MD LOWER EXTREMITY SEGMENTAL ARTERIAL DOPSCAN (PVR) INDICATION: Nonhealing leg wound PROCEDURE: Right arm blood pressure is 122 , left is 122 . Pressures at the right ankle are 139 using the posterior tibial artery, and 149 using the dorsalis pedis artery with ankle- brachial index of 1.14 1.22 . Pressures at the left ankle are 150 using the posterior tibial artery, and 150 with ankle- brachial index of 1.23 1.23 . Wave forms by plethysmography are normal. US/US ankle/arm indices IMPRESSION: NO HEMODYNAMICALLY SIGNIFICANT PERIPHERAL VASCULAR OCCLUSIVE DISEASE AT REST IN EITHER LOWER EXTREMITY. Impression dictated by: Ruben Dumont MD07/31/2022 3:20 PM Dictation Location: [place] [address] Tech: Katt Baron Transcribed By: HANNAH 07/31/22 1520 Dictated By: Ruben Dumont MD 07/31/22 1519 Signed By: 07/31/22 152 [facility] US venous duplex LE BIon US venous duplex LE BI [facility] Main [place] [id number] Ultrasound Report Signed Patient: Navi Funes Jr MR#: [id number] : 1940 Acct:[id number] Age/Sex: 81 / M ADM Date: 07/30/22 Loc: Room: Type: [facility] Attending Dr: Grady Peters MD Ordering Provider: Grady Peters MD Date of Service: 07/30/22 US/US venous duplex LE BI: FRACTURE, NON HEALING WOUND Copies to: Grady Peters MD BILATERAL LOWER EXTREMITY VENOUS DUPLEX INDICATION: Nonhealing leg wounds PROCEDURE: Color-flow duplex scanning is used to interrogate the deep venous system of the right and left lower extremities. The common femoral vein, femoral vein and popliteal vein show good compressibility with normal proximal and distal augmentation. The calf veins are compressible. US/US venous duplex LE BI IMPRESSION: NO EVIDENCE FOR DEEP VEIN THROMBOSIS OR PROXIMAL SUPERFICIAL THROMBOPHLEBITIS IN THE RIGHT OR LEFT LOWER EXTREMITY. Continuous flow was identified in the right common femoral and superficial femoral junction. Otherwise no reflux was identified in the deep or superficial system, bilaterally. This was a technically challenging study. The patient is a poor historian and unable to follow commands. Impression dictated by: Ruben Dumont MD07/31/2022 3:22 PM Dictation Location: [id number] Tech: Katt Mendez Transcribed By: HANNAH 07/31/22 152 Dictated By: Ruben Dumont MD 07/31/22 152 Signed By: 07/31/22 152 [facility] XR ankle RT min 3V*on 2021 XR ankle RT min 3V* [facility] Main [address] [address] XRay Report Signed Patient: Navi Funes Jr MR#: [id number] : 1940 Acct:[id number] Age/Sex: 81 / M ADM Date: 07/30/22 Loc: Room: Type: [facility] Attending Dr: Grady Peters MD Copies to: Grady Peters MD Ordering Provider: Grady Peters MD Date of Service: 07/30/22 XR/XR ankle RT min 3V*: .. RIGHT ANKLE - 3 views CLINICAL HISTORY: Right ankle fracture with nonhealing wound medial side with drainage. COMPARISON: None FINDINGS: Mild soft tissue swelling is noted. Partially visualized internal fixation involving the tibia without radiographic complication. Residual deformity of a healed distal fibular fracture. Ankle mortise appears intact. XR/XR ankle RT min 3V* IMPRESSION: SOFT TISSUE SWELLING WITHOUT ACUTE BONY PROCESS. Impression dictated by: Navi King Jr., D.O.07/30/2022 4:33 PM Dictation Location: [place] [address] Transcribed By: [facility] 07/30/22 1633 Dictated By: Navi King Jr, DO 07/30/22 1632 Signed By: 07/30/22 1633 Normal [facility] Consultation Noteon 07-15-20 Consultation Note [id number] .[id number]:127 Normal [facility] HIPAA Privacy Documentson HIPAA Privacy Documents [id number] .[id number]:127 Normal [facility] WOUND CULTUREon 06-20-2022 Bacteria identified Aer cx Nom (Unsp spec) Final report Normal [facility] Comment on above: Performed By: #### C XWND #### [facility] [address] [place] [address] [address] Eddie Gaitan Result 1 Comment Normal [facility] Comment on above: Result Comment: No g rowth in 36 - 48 hours. Performed By: #### C XWND #### [facility] [address] [place] [address] [address] Eddie Gaitan Physician Referralon 022 Physician Referral [id number] .[id number]:127 Normal [facility] A1C with Estimated Average Bin hernandez 04-27-2022 Glucose [Mass/Vol] 151 mg/dL Normal [facility] Comment on above: Result Comment: PERF ORMED BY: [place] [address] PATHOLOGIST CHEMICAL APPLICATOR BRIDGETT MANZO M.D. Performed By: #### T 4T, TSH3, CBC, PSAS, T3F, A1C WT eA, CMP, LIPID #### [facility] [address] HbA1c (Bld) [Mass fraction] 6.9 % High 4.3-5.6 [facility] Comment on above: Result Comment: Incr eased risk for diabetes: 5.7 - 6.4 diabetes: >6.4 glycemic control for adults with diabetes: <7.0 Performed By: #### T 4T, TSH3, CBC, PSAS, T3F, A1C WTH eA, CMP, LIPID #### [facility] [address] Basophils Auto (Bld) [#/Vol] Ordered By: Jonh Patel on 04-27-2022 Basophils (Bld) [#/Vol] 0.1 10*3/uL 0.0-0.2 [facility] Basophils/100 WBC Auto (Bld) Ordered By: Jonh Patel on 04-27-2022 Basophils/100 WBC (Bld) 1.1 % F [facility] Blood hemoglobin measurement (mass/volume)Ordered By: Jonh Patel on 04-27-2022 Hemoglobin (Bld) [Mass/Vol] 13.3 g/dL 13.0-17.0 [facility] Blood leukocytes automated c ount (number/volume)Ordered By: Jonh Patel on 04-27-2022 WBC (Bld) [#/Vol] 5.0 10*3/uL 4.5-11.0 [facility] Body fluid albumin measureme nt (mass/volume)Ordered By: Jonh Patel on 04-27-2022 Albumin (Body fld) [Mass/Vol] 3.6 g/dL 3.2-5.5 [facility] Cholesterol [Mass/volume] in Serum or PlasmaOrdered By: Jonh Patel on 04-27-2022 Cholesterol [Mass/Vol] 168 mg/dL 140-200 [facility] Comment on above: Chol less than 200 m g/dl low risk Chol 201-239 mg/dl borderline risk Chol 240 mg/dl and greater high risk Cholesterol in LDL Calc [Mas s/Vol]Ordered By: Jonh Patel on 04-27-2022 Cholesterol in LDL [Mass/Vol] 112 mg/dL 0-100 [facility] Comment on above: LDL ATP III CLASSIFI CATION LDL less than 100 mg/dL Optimal LDL 100-129 mg/dL Near or above optimal LDL 130-159 mg/dL Borderline high LDL 160-189 mg/dL High LDL greater than 189 mg/dL Very high Cholesterol in VLDL Calc [Ma ss/Vol]Ordered By: Jonh Patel on 04-27-2022 Cholesterol in VLDL [Mass/Vol] 17 mg/dL [facility] Complete Blood Count Auto Di ffon 04-27-2022 Basophils (Bld) [#/Vol] 0.1 10*3/uL Normal 0.0-0.2 [facility] Comment on above: Result Comment: PERF ORMED BY: [place] [address] PATHOLOGIST CHEMICAL APPLICATOR BRIDGETT MANZO M.D. Performed By: #### T 4T, TSH3, CBC, PSAS, T3F, A1C WTH eA, CMP, LIPID #### [facility] [address] [place] [address] [place] Basophils/100 WBC (Bld) 1.1 % Normal . F [facility] Comment on above: Performed By: #### T 4T, TSH3, CBC, PSAS, T3F, A1C WTH eA, CMP, LIPID #### [facility] [address] [place] [address] [place] Eosinophils (Bld) [#/Vol] 0.3 10*3/uL Normal 0.0-0.45 [facility] Comment on above: Performed By: #### T 4T, TSH3, CBC, PSAS, T3F, A1C WTH eA, CMP, LIPID #### [facility] [address] [place] [address] [place] Eosinophils/100 WBC (Bld) 6.5 % Normal . [facility] Comment on above: Performed By: #### T 4T, TSH3, CBC, PSAS, T3F, A1C WTH eA, CMP, LIPID #### [address] Erythrocyte distribution width (RBC) [Ratio] 15.0 % High 12.0-14.8 [facility] Comment on above: Performed By: #### T 4T, TSH3, CBC, PSAS, T3F, A1C WTH eA, CMP, LIPID #### [address] Hematocrit (Bld) [Volume fraction] 39.9 % Normal 38.8-50.0 [facility] Comment on above: Performed By: #### T 4T, TSH3, CBC, PSAS, T3F, A1C WTH eA, CMP, LIPID #### [address] Hemoglobin (Bld) [Mass/Vol] 13.3 g/dL Normal 13.0-17.0 [facility] Comment on above: Performed By: #### T 4T, TSH3, CBC, PSAS, T3F, A1C WTH eA, CMP, LIPID #### [address] Lymphocytes (Bld) [#/Vol] 1.3 10*3/uL Normal 1.00-4.8 [facility] Comment on above: Performed By: #### T 4T, TSH3, CBC, PSAS, T3F, A1C WTH eA, CMP, LIPID #### [address] Lymphocytes/100 WBC (Bld) 25.6 % Normal . [facility] Comment on above: Performed By: #### T 4T, TSH3, CBC, PSAS, T3F, A1C WTH eA, CMP, LIPID #### [facility] [address] MCH (RBC) [Entitic mass] 31.2 pg Normal 27.5-35.2 [facility] Comment on above: Performed By: #### T 4T, TSH3, CBC, PSAS, T3F, A1C WTH eA, CMP, LIPID #### [facility] [address] MCV (RBC) [Entitic vol] 93.5 fL Normal 83.5-101 F [facility] Comment on above: Performed By: #### T 4T, TSH3, CBC, PSAS, T3F, A1C WTH eA, CMP, LIPID #### [address] Mean Corpuscular HGB Conc 33.4 g/dL Normal 32.5-35.6 [facility] Comment on above: Performed By: #### T 4T, TSH3, CBC, PSAS, T3F, A1C WTH eA, CMP, LIPID #### [address] Monocytes (Bld) [#/Vol] 0.4 10*3/uL Normal 0.0-0.8 [facility] Comment on above: Performed By: #### T 4T, TSH3, CBC, PSAS, T3F, A1C WTH eA, CMP, LIPID #### [address] Monocytes/100 WBC (Bld) 8.3 % Normal . [facility] Comment on above: Performed By: #### T 4T, TSH3, CBC, PSAS, T3F, A1C WTH eA, CMP, LIPID #### [address] Neutrophils (Bld) [#/Vol] 2.9 10*3/uL Normal 1.8-7.7 [facility] Comment on above: Performed By: #### T 4T, TSH3, CBC, PSAS, T3F, A1C WTH eA, CMP, LIPID #### [facility] [address] [place] [address] [place] Neutrophils/100 WBC (Bld) 58.5 % Normal . [facility] Comment on above: Performed By: #### T 4T, TSH3, CBC, PSAS, T3F, A1C WTH eA, CMP, LIPID #### [facility] [address] [place] [address] [place] Nucleated RBC/100 WBC (Bld) [Ratio] 0.0 % Normal 0-0.5 [facility] Comment on above: Performed By: #### T 4T, TSH3, CBC, PSAS, T3F, A1C WTH eA, CMP, LIPID #### [facility] [address] [place] [address] [place] Platelet mean volume (Bld) [Entitic vol] 11.0 fL High 6.6-10.1 [facility] Comment on above: Performed By: #### T 4T, TSH3, CBC, PSAS, T3F, A1C WTH eA, CMP, LIPID #### [facility] [address] [place] [address] [place] Platelets (Bld) [#/Vol] 116 10*3/uL Low 150-450 [facility] Comment on above: Performed By: #### T 4T, TSH3, CBC, PSAS, T3F, A1C WTH eA, CMP, LIPID #### [facility] [address] [place] [address] [place] RBC (Bld) [#/Vol] 4.27 10*6/uL Normal 3.90-5.60 [facility] Comment on above: Performed By: #### T 4T, TSH3, CBC, PSAS, T3F, A1C WTH eA, CMP, LIPID #### [facility] [address] [place] [address] [place] WBC (Bld) [#/Vol] 5.0 10*3/uL Normal 4.5-11.0 [facility] Comment on above: Performed By: #### T 4T, TSH3, CBC, PSAS, T3F, A1C WTH eA, CMP, LIPID #### [facility] [address] Comprehensive Metabolic Pane alexandra 04-27-2022 Albumin [Mass/Vol] 3.6 g/dL Normal 3.2-5.5 [facility] Comment on above: Performed By: #### T 4T, TSH3, CBC, PSAS, T3F, A1C WTH eA, CMP, LIPID #### [facility] [address] Albumin/Globulin [Mass ratio] 1.3 {ratio} Normal [facility] Comment on above: Performed By: #### T 4T, TSH3, CBC, PSAS, T3F, A1C WTH eA, CMP, LIPID #### [facility] [address] ALP [Catalytic activity/Vol] 71 U/L Normal 32-92 [facility] Comment on above: Performed By: #### T 4T, TSH3, CBC, PSAS, T3F, A1C WTH eA, CMP, LIPID #### [facility] [address] ALT [Catalytic activity/Vol] 12 U/L Normal 10-60 [facility] Comment on above: Performed By: #### T 4T, TSH3, CBC, PSAS, T3F, A1C WTH eA, CMP, LIPID #### [facility] [address] [place] [id number] [facility] AST [Catalytic activity/Vol] 18 U/L Normal 10-42 [facility] Comment on above: Performed By: #### T 4T, TSH3, CBC, PSAS, T3F, A1C WTH eA, CMP, LIPID #### [facility] [address] [place] [address] [place] Bilirubin [Mass/Vol] 0.8 mg/dL Normal 0.3-1.2 [facility] Comment on above: Performed By: #### T 4T, TSH3, CBC, PSAS, T3F, A1C WTH eA, CMP, LIPID #### [facility] [address] [place] [address] [place] Calcium [Mass/Vol] 9.0 mg/dL Normal 8.2-10.2 [facility] Comment on above: Performed By: #### T 4T, TSH3, CBC, PSAS, T3F, A1C WTH eA, CMP, LIPID #### [facility] [address] Chloride [Moles/Vol] 104 mmol/L Normal 95-114 [facility] Comment on above: Performed By: #### T 4T, TSH3, CBC, PSAS, T3F, A1C WTH eA, CMP, LIPID #### [facility] [address] CO2 [Moles/Vol] 22.4 mmol/L Normal 22.0-30.0 [facility] Comment on above: Performed By: #### T 4T, TSH3, CBC, PSAS, T3F, A1C WTH eA, CMP, LIPID #### [facility] [address] Creatinine [Mass/Vol] 1.47 mg/dL High 0.64-1.27 [facility] Comment on above: Performed By: #### T 4T, TSH3, CBC, PSAS, T3F, A1C WTH eA, CMP, LIPID #### [facility] [address] Estimated GFR ( Evelyn 56 [facility] Comment on above: Result Comment: GFR estimated reference range: According to KDOQI guidelines, <60 ml/min/1.73m2 is sufficient to diagnose a patient with chronic kidney disease. Performed By: #### T 4T, TSH3, CBC, PSAS, T3F, A1C WTH eA, CMP, LIPID #### [facility] [address] Estimated GFR (Non- Am 46 [facility] Comment on above: Performed By: #### T 4T, TSH3, CBC, PSAS, T3F, A1C WTH eA, CMP, LIPID #### [facility] [address] Globulin (S) [Mass/Vol] 2.8 g/dL Normal F [facility] Comment on above: Performed By: #### T 4T, TSH3, CBC, PSAS, T3F, A1C WTH eA, CMP, LIPID #### [facility] [address] Glucose [Mass/Vol] 139 mg/dL High 70-100 [facility] Comment on above: Result Comment: [facility] Glucose Reference Range is dependent on time and content of last meal. Glucose of more than 200 mg/dL in a nonstressed, ambulatory subject supports the diagnosis of Diabetes Mellitus. ADA recommended reference range Performed By: #### T 4T, TSH3, CBC, PSAS, T3F, A1C WTH eA, CMP, LIPID #### [facility] [address] Potassium [Moles/Vol] 4.4 mmol/L Normal 3.5-5.1 [facility] Comment on above: Performed By: #### T 4T, TSH3, CBC, PSAS, T3F, A1C WTH eA, CMP, LIPID #### [facility] [address] [place] [address] [place] Protein [Mass/Vol] 6.4 g/dL Normal 6.1-7.9 [facility] Comment on above: Performed By: #### T 4T, TSH3, CBC, PSAS, T3F, A1C WTH eA, CMP, LIPID #### [facility] [address] [place] [address] [place] Sodium [Moles/Vol] 136 mmol/L Normal 136-146 [facility] Comment on above: Performed By: #### T 4T, TSH3, CBC, PSAS, T3F, A1C WTH eA, CMP, LIPID #### [facility] [address] [place] [address] [place] Urea nitrogen [Mass/Vol] 23 mg/dL Normal 9-23 [facility] Comment on above: Performed By: #### T 4T, TSH3, CBC, PSAS, T3F, A1C WTH eA, CMP, LIPID #### [facility] [address] [place] [address] [place] Creatinine and Glomerular fi ltration rate.predicted panel (S/P/Bld)Ordered By: Jonh Patel on 04-27-2022 Creatinine [Mass/Vol] 1.47 mg/dL 0.64-1.27 [facility] Eosinophils Auto (Bld) [#/Vo l]Ordered By: Jonh Patel on 04-27-2022 Eosinophils (Bld) [#/Vol] 0.3 10*3/uL 0.0-0.45 [facility] Eosinophils/100 WBC Auto (Bl d)Ordered By: Jonh Patel on 04-27-2022 Eosinophils/100 WBC (Bld) 6.5 % [facility] Erythrocyte distribution wid th Auto (RBC) [Ratio]Ordered By: Jonh Patel on 04-27-2022 Erythrocyte distribution width (RBC) [Ratio] 15.0 % 12.0-14.8 [facility] Estimated glomerular filtrat ion rate (GFR) non- AmericanOrdered By: Jonh Patel on 04-27-2022 GFR/1.73 sq M.predicted among non-blacks MDRD (S/P/Bld) [Vol rate/Area] 46 mL/Min [facility] Globulin Calc (S) [Mass/Vol] Ordered By: Jonh Patel on 04-27-2022 Globulin (S) [Mass/Vol] 2.8 g/dL F [facility] Glucose mean value [Mass/vol ume] in Blood Estimated from glycated hemoglobinOrdered By: Jonh Patel on 04-27-2022 Average glucose Estimated from glycated hemoglobin (Bld) [Mass/Vol] 151 mg/dL [facility] Hematocrit Auto (Bld) [Volum e fraction]Ordered By: Jonh Patel on 04-27-2022 Hematocrit (Bld) [Volume fraction] 39.9 % 38.8-50.0 [facility] Hemoglobin A1c percentageOrd ered By: Jonh Patel on 04-27-2022 HbA1c (Bld) [Mass fraction] 6.9 % 4.3-5.6 [facility] Comment on above: Increased risk for d iabetes: 5.7 - 6.4 diabetes: >6.4 glycemic control for adults with diabetes: <7.0 Laboratory - Hematology and Cell countsOrdered By: Jonh Patel on 04-27-2022 Nucleated RBC/100 WBC (Bld) [Ratio] 0.0 % 0-0.5 [facility] Lipid Panelon 04-27-2022 Cholesterol [Mass/Vol] 168 mg/dL Normal 140-200 [facility] Comment on above: Result Comment: Chol less than 200 mg/dl low risk Chol 201-239 mg/dl borderline risk Chol 240 mg/dl and greater high risk Performed By: #### T 4T, TSH3, CBC, PSAS, T3F, A1C WTH eA, CMP, LIPID #### [facility] [address] [place] [address] [place] Cholesterol in HDL [Mass/Vol] 38 mg/dL Normal 29-71 [facility] Comment on above: Result Comment: HDL CHOL ATP-III CLASSIFICATION Cardiovascular Risk HDL > or equal to 60 mg/dL LOW HDL < 40 mg/dL HIGH Performed By: #### T 4T, TSH3, CBC, PSAS, T3F, A1C WTH eA, CMP, LIPID #### [facility] [address] [place] [address] [place] Cholesterol.total/Tresa sterol in HDL [Mass ratio] 4.4 {ratio} Normal <5.0 [facility] Comment on above: Performed By: #### T 4T, TSH3, CBC, PSAS, T3F, A1C WTH eA, CMP, LIPID #### [facility] [address] [place] [address] [place] LDL Cholesterol,Calculated 112 mg/dL High 0-100 [facility] Comment on above: Result Comment: LDL ATP III CLASSIFICATION LDL less than 100 mg/dL Optimal LDL 100-129 mg/dL Near or above optimal LDL 130-159 mg/dL Borderline high LDL 160-189 mg/dL High LDL greater than 189 mg/dL Very high Performed By: #### T 4T, TSH3, CBC, PSAS, T3F, A1C WTH eA, CMP, LIPID #### [facility] [address] [place] [address] [place] Triglyceride w/Reflex 88 mg/dL Normal 35-149 [facility] Comment on above: Result Comment: TRIG ATP III CLASSIFICATION TRIG less than 150 mg/dL Normal TRIG 150-199 mg/dL Borderline high TRIG 200-500 mg/dL High TRIG greater than 500 mg/dL Very high Standard traceable to the Center for Disease Conrtrol and Prevention (CDC) test method. Performed By: #### T 4T, TSH3, CBC, PSAS, T3F, A1C WTH eA, CMP, LIPID #### [facility] [address] VLDL CHOLESTEROL 17 mg/dL Normal [facility] Comment on above: Performed By: #### T 4T, TSH3, CBC, PSAS, T3F, A1C WTH eA, CMP, LIPID #### [facility] [address] Lymphocytes Auto (Bld) [#/Vo l]Ordered By: Jonh Patel on 04-27-2022 Lymphocytes (Bld) [#/Vol] 1.3 10*3/uL 1.00-4.8 [facility] Lymphocytes/100 WBC Auto (Bl d)Ordered By: Jonh Patel on 04-27-2022 Lymphocytes/100 WBC (Bld) 25.6 % [facility] MCH Auto (RBC) [Entitic mass ]Ordered By: Jonh Patel on 04-27-2022 MCH (RBC) [Entitic mass] 31.2 pg 27.5-35.2 [facility] MCHC Auto (RBC) [Mass/Vol]Or dered By: Jonh Patel on 04-27-2022 MCHC (RBC) [Mass/Vol] 33.4 g/dL 32.5-35.6 [facility] MCV Auto (RBC) [Entitic vol] Ordered By: Jonh Patel on 04-27-2022 MCV (RBC) [Entitic vol] 93.5 fL 83.5-101 F [facility] Monocytes Auto (Bld) [#/Vol] Ordered By: Jonh Patel on 04-27-2022 Monocytes (Bld) [#/Vol] 0.4 10*3/uL 0.0-0.8 [facility] Monocytes/100 WBC Auto (Bld) Ordered By: Jonh Patel on 04-27-2022 Monocytes/100 WBC (Bld) 8.3 % F [facility] Neutrophils Auto (Bld) [#/Vo l]Ordered By: Jonh Patel on 04-27-2022 Neutrophils (Bld) [#/Vol] 2.9 10*3/uL 1.8-7.7 [facility] Neutrophils/100 WBC Auto (Bl d)Ordered By: Jonh Patel on 04-27-2022 Neutrophils/100 WBC (Bld) 58.5 % [facility] No Panel InformationOrdered By: Jonh Patel on 04-27-2022 Estimated GFR () 56 mL/Min [facility] Comment on above: GFR estimated refere nce range: According to KDOQI guidelines, <60 ml/min/1.73m2 is sufficient to diagnose a patient with chronic kidney disease. Pharmacy Creatinine Clearance (Chem N/A [facility] Prostate Specific Antigen Screen 0.860 ng/mL 0.000-4.000 [facility] PSA Screen (Yearly Only)on 0 04-27-2022 PSA Screen (Yearly Only) 0.860 ng/mL Normal 0.000-4.000 [facility] Comment on above: Order Comment: Is pa tient <50 yrs? Medicare does not pay <50.: Y Is Medicare the insurance?: Y Result Comment: PERF ORMED BY: [place] [address] PATHOLOGIST CHEMICAL APPLICATOR BRIDGETT MANZO M.D. Performed By: #### T 4T, TSH3, CBC, PSAS, T3F, A1C WTH eA, CMP, LIPID #### [facility] [address] Platelet mean volume Auto (B ld) [Entitic vol]Ordered By: Jonh Patel on 04-27-2022 Platelet mean volume (Bld) [Entitic vol] 11.0 fL 6.6-10.1 [facility] Platelets Auto (Bld) [#/Vol] Ordered By: Jonh Patel on 04-27-2022 Platelets (Bld) [#/Vol] 116 10*3/uL 150-450 [facility] Protein [Mass/volume] in Ser um or PlasmaOrdered By: Jonh Patel on 04-27-2022 Protein [Mass/Vol] 6.4 g/dL 6.1-7.9 [facility] RBC Auto (Bld) [#/Vol]Ordere d By: Jonh Patel on 04-27-2022 RBC (Bld) [#/Vol] 4.27 10*6/uL 3.90-5.60 [facility] Serum or plasma alanine garner otransferase measurement without P-5'-P (enzymatic activiOrdered By: Jonh Patel on 04-27-2022 ALT No additional P-5'-P [Catalytic activity/Vol] 12 U/L 10-60 [facility] Serum or plasma albumin/glob ulin mass ratioOrdered By: Jonh Patel on 04-27-2022 Albumin/Globulin [Mass ratio] 1.3 {ratio} [facility] Serum or plasma alkaline anna sphatase measurement (enzymatic activity/volume)Ordered By: Jonh Patel on 04-27-2022 ALP [Catalytic activity/Vol] 71 U/L 32-92 [facility] Serum or plasma aspartate am inotransferase measurement (enzymatic activity/volume)Ordered By: Jonh Patel on 04-27-2022 AST [Catalytic activity/Vol] 18 U/L 10-42 [facility] Serum or plasma calcium josiah urement (mass/volume)Ordered By: Jonh Patel on 04-27-2022 Calcium [Mass/Vol] 9.0 mg/dL 8.2-10.2 [facility] Serum or plasma chloride jerica surement (moles/volume)Ordered By: Jonh Patel on 04-27-2022 Chloride [Moles/Vol] 104 mmol/L 95-114 [facility] Serum or plasma glucose josiah urement (mass/volume)Ordered By: Jonh Patel on 04-27-2022 Glucose [Mass/Vol] 139 mg/dL 70-100 [facility] Comment on above: ADA recommended refe rence range Random Glucose Reference Range is dependent on time and content of last meal. Glucose of more than 200 mg/dL in a nonstressed, ambulatory subject supports the diagnosis of Diabetes Mellitus. Serum or plasma high density lipoprotein (HDL) cholesterol measurementOrdered By: Jonh Patel on 04-27-2022 Cholesterol in HDL [Mass/Vol] 38 mg/dL 29-71 [facility] Comment on above: HDL CHOL ATP-III CLA SSIFICATION Cardiovascular Risk HDL > or equal to 60 mg/dL LOW HDL < 40 mg/dL HIGH Serum or plasma potassium me asurement (moles/volume)Ordered By: Jonh Patel on 04-27-2022 Potassium [Moles/Vol] 4.4 mmol/L 3.5-5.1 [facility] Serum or plasma sodium measu rement (moles/volume)Ordered By: Jonh Patel on 04-27-2022 Sodium [Moles/Vol] 136 mmol/L 136-146 [facility] Serum or plasma thyroxine (T 4) measurement (mass/volume)Ordered By: Jonh Patel on 04-27-2022 T4 [Mass/Vol] 9.08 ug/dL 5.39-11.82 [facility] Serum or plasma total biliru bin measurement (mass/volume)Ordered By: Jonh Patel on 04-27-2022 Bilirubin [Mass/Vol] 0.8 mg/dL 0.3-1.2 [facility] Serum or plasma total carbon dioxide measurement (moles/volume)Ordered By: Jonh Patel on 04-27-2022 CO2 [Moles/Vol] 22.4 mmol/L 22.0-30.0 [facility] Serum or plasma total choles terol/high density lipoprotein (HDL) cholesterol mass ratOrdered By: Jonh Patel on 04-27-2022 Cholesterol.total/Tresa sterol in HDL [Mass ratio] 4.4 {ratio} [facility] Serum or plasma urea nitroge n measurement (mass/volume)Ordered By: Jonh Patel on 04-27-2022 Urea nitrogen [Mass/Vol] 23 mg/dL 9-23 [facility] Stool Occult Blood (Immuno)o n 04-27-2022 Stool Occult Blood (Immuno) Occult Blood (Immuno) Negative for Occult Blood by Immunochemical Methodology Reference range = Negative PERFORMED BY: [place] [address] PATHOLOGIST CHEMICAL APPLICATOR BRIDGETT MANZO M.D. Normal [facility] Comment on above: Performed By: #### O B(IMMUNO) #### [facility] [address] [place] [address] TSH DL <= 0.005 mIU/L QnOrde red By: Jonh Patel on 04-27-2022 TSH Qn 1.16 m[IU]/L 0.45-5.33 [facility] Thyroid Stimulating Hormoneo n 04-27-2022 TSH Qn 1.16 m[IU]/L Normal 0.45-5.33 [facility] Comment on above: Result Comment: PERF ORMED BY: [place] [address] PATHOLOGIST CHEMICAL APPLICATOR BRIDGETT MANZO M.D. Performed By: #### T 4T, TSH3, CBC, PSAS, T3F, A1C WTH eA, CMP, LIPID ####[place] [id number] [place] [id number] [facility] Thyroxine (T4) Totalon 04-27 T4 [Mass/Vol] 9.08 ug/dL Normal 5.39-11.82 [facility] Comment on above: Performed By: #### T 4T, TSH3, CBC, PSAS, T3F, A1C WTH eA, CMP, LIPID ####[place] [id number] [place] [id number] [facility] Triglyceride [Mass/volume] i n Serum or PlasmaOrdered By: Jonh Patel on 04-27-2022 Triglyceride [Mass/Vol] 88 mg/dL 35-149 [facility] Comment on above: TRIG ATP III CLASSIF ICATION TRIG less than 150 mg/dL Normal TRIG 150-199 mg/dL Borderline high TRIG 200-500 mg/dL High TRIG greater than 500 mg/dL Very high Standard traceable to the Center for Disease Conrtrol and Prevention (CDC) test method. Triiodothyronine (T3) Freeon 04-27-2022 Triiodothyronine (T3) Free 2.51 pg/mL Normal 2.50-3.90 [facility] Comment on above: Result Comment: PERF ORMED BY: [facility] [address] [place] [id number] PATHOLOGIST CHEMICAL APPLICATOR BRIDGETT MANZO M.D. Performed By: #### T 4T, TSH3, CBC, PSAS, T3F, A1C WTH eA, CMP, LIPID #### [facility] [address] Triiodothyronine (T3) Free [ Mass/volume] in Serum or PlasmaOrdered By: Jonh Patel on 04-27-2022 Free T3 [Mass/Vol] 2.51 pg/mL 2.50-3.90 [facility] [place] [facility] October 27, 2021 Jonh Patel, [address] [facility] [facility] [address] [place] [address] Re: NAVI FUNES Date of : 1940 Thank you for your referral of Navi Funes who was seen on consultation on 10/23/2021, for nodule right taylor with underlying cellulitis. I have enclosed my consultation note for your review. I will be happy to follow Navi. Sincerely, Josiah Gallego MD General Surgery Normal [facility] Ambulatory Clinical Summaryo n 10-23-2021 Ambulatory Clinical Summary {[id number] Normal [facility] Physician Referralon 021 Physician Referral [id number] 2 [id number] Normal [facility] Vital Signs Date Time Vital Sign Value Performing Clinician Facility 08-10-2022 10:45-0400 Body height 177.8 cm Grady Peters Other [facility] Other 08-10-2022 10:45-0400 Body mass index (BMI) [Ratio] 26.54 kg/m2 Grady Peters Other [facility] Other 08-10-2022 10:45-0400 Body temperature 97.3 [degF] Grady Peters Other [facility] Other 08-10-2022 10:45-0400 Body weight 83.92 kg Grady Peters Other [facility] Other 08-10-2022 10:45-0400 Diastolic blood pressure 72 mm[Hg] Grady Peters Other [facility] Other 08-10-2022 10:45-0400 SaO2% (BldA) [Mass fraction] 98 % Grady Peters Other [facility] Other 08-10-2022 10:45-0400 Systolic blood pressure 146 mm[Hg] Grady Juarezredari Other [facility] Other Encounters Encounter Date Encounter Type Care Provider Facility Start: 08-10-2022 End: 08-10-2022 ambulatory Grady Peters Other [facility] Other Start: 08-10-2022 Office outpatient vi sit 25 minutes Grady Peters [facility] Start: 07-30-2022 End: 07-30-2022 ambulatory Grady Peters Facility:[facility] Start: 07-30-2022 End: 07-30-2022 Patient encounter procedure MD Jonh Patel Work Phone: [facility] [place] Start: 06-17-2022 End: 06-17-[address] JONH PATEL Facility: Start: 04-27-2022 End: 04-27-2022 ambulatory Jonh Patel Facility:[facility] Start: 04-27-2022 End: 04-27-2022 Patient encounter procedure MD Jonh Patel Work Phone: [facility] Start: 01-06-2017 End: 01-07-2017 Ambulatory CHARISMA MCKEON Facility:[facility] [[email or web address] Procedures Date Procedure Procedure Detail Performing Clinician Start: 07-30-2022 X-ray of right ankle MD Jonh Patel Work Phone: Start: 04-27-2022 End: 04-27-2022 Screening for occult blood in feces MD Jonh Patel Work Phone: Plan of Treatment Date Care Activity Detail Author Start: 07-30-2022 Ankle brachial press ure index [facility] Start: 07-30-2022 Duplex scan of lower limb veins US venous duplex LE BI [facility] Start: 07-30-2022 US Lower extremity v ein - bilateral [facility] Work Phone: Payers Date Payer Category Payer Medicaid [id number] 2022 Self-pay [id number] 1957 Unknown [id number] 1940 Unknown [id number] Unknown [facility] [id number] Unknown [id number] Unknown [id number] Social History Date Type Detail Facility Tobacco smoking status NHIS Unknown if ever smoked [facility] Work Phone: Start: 1940 Sex Assigned At Male F [facility] Sex Assigned At Sex Assigned At Bir th [facility] Other Evaluation note 08-10-2022 Note Date & Type Note Facility 08-10-2022 Evaluation note Encounter Date Diagnosis Assessment Notes Aug, Non-healing wound of right lower extremity (ICD-10 - S81.801A) Aug, Other Nonhealing wound right leg Arterial studies are certainly normal and he does not require revascularizatio n. Venous studies show mild abnormalities but I doubt if venous insufficiency is the primary etiology of his nonhealing wound. There is no hardware immediately under the punctate opening on his malleolus but there is a screw in close proximity. Whether or not removal of this would help is uncertain at this time. I called Dr. Gallego and informed him of the findings. We will see this patient back on an as-needed basis. [facility] Other Clinical Note 06-22-2022 Note Date & Type Note Facility 06-22-2022 Note Chief Complaint consultation for cellulitis HPI Staff 81 year old male presents on consultation from Dr. Patel for right lower extremity cellulitis. Reports long standing history of leg issues post fracture 7 years ago. Reports intermittent redness and swelling with occasional open areas. Prescribed Cipro 500mg BID x 10 days and Doxycycline 100mg BID x 10 days, continues antibiotics with noted improvement. History of Present Illness 81 yo male with h/o DM, htn, CAD, hyperlipidemia, referred for possible RLE cellulitis; had 2 areas of right lower extremity with swelling/erythema and drainage; more proximal area was hit and had increased swelling after that; patient has h/o extensive fractures to RLE with hardware in place; was treated by Dr Patel with antibiotics, improvement in erythema, only minimal drainage from lower area; denies pain. Review of Systems PHQ Score Initial Depression Screen Score: 0 ROS - Provider Constitutional: no fever, no sweats, no weight loss. Eyes: no glasses, no blurred vision, no visual loss. ENMT: no dentures, no hoarseness, no swallowing difficulties, no hearing loss, no ear infection(s), no nose bleeds. Cardiovascular: normal blood pressure, no chest pain, regular heartbeat, no heart murmur. Respiratory: no shortness of breath, no cough, no asthma, no wheezing. Gastrointestinal: no nausea, no vomiting, no diarrhea, no constipation, no blood in stool, no change in bowel habits, no abdominal pain, no hepatitis. Genitourinary: no kidney stones, no urine infection, no dysuria. Musculoskeletal: no pain, no weakness. Skin: no changing moles, no rash, no skin lumps. Neurologic: no seizures, no epilepsy, no headache. Psychiatric: no emotional or psychiatric problem. Heme/Lymph: no bleeding problems, no anemia, no blood clots, no transfusions. Allergy/Immunologic: no swollen lymph nodes/glands, no IV drug abuse. Other: Additional ROS info: Except as noted in the above Review of Systems and in the History of Present Illness, all other systems have been reviewed and are negative or noncontributory. Physical Exam Vitals & Measurements HR: 80(Peripheral) RR: 16 BP: 128/84 HT: 177.8 cm HT: 177.8 cm WT: 86.4 kg WT: 86.4 kg BMI: 27.33 HEENT: normal conjunctiva, sclera clear, no scleral icterus, EOM intact, PERRLA, oral mucosa moist without lesions. Neck: trachea midline, no mass, symmetric, no thyromegaly or nodules, no adenopathy Musculoskeletal: abnormal gait, digits and nails without infection, nodes, clubbing. Skin: no rashes, no lesions, RLE with chronic venous stasis changes; scarring; small superficial ulceration over medial malleolus, no drainage; some cyanosis of right foot. Psychiatric/Neuro: oriented to time, place, person, judgement normal, affect appropriate for age, insight intact, no focal deficits. Tests: review of old records completed, Assessment/Plan 1. Venous stasis dermatitis (I87.2: Venous insufficiency (chronic) (peripheral)) possible chronic ischemic changes as well, patient denies pain; will refer to Vascular surgery for recommendations; patient requests [facility]. Ordered: E&M of Est. Patient Low 20-29 Min [id number] [facility] External Ambulatory Referral Follow-up No qualifying data available Problem List/Past Medical History Ongoing BMI 27.0-27.9,adult Diabetes Diabetic neuropathy Dysequilibrium Elevated blood pressure reading with diagnosis of hypertension Familial hypercholesterolemia GERD (gastroesophageal reflux disease) Hearing deficit Hematoma of right lower extremity Venous stasis dermatitis Historical No qualifying data Procedure/Surgical History ORIF - Open reduction and internal fixation of fracture (12/21/2016), CABG - Coronary artery bypass graft, CE - Cataract extraction. Medications Amaryl 4 mg Tab, 4 mg= 1 tab(s), Oral, Daily aspirin 81 mg Oral EC Tab, 81 mg= 1 tab(s), Oral, Daily Januvia 100 mg Tab, 100 mg= 1 tab(s), Oral, Daily lisinopril 10 mg Tab, 10 mg= 1 tab(s), Oral, Daily metformin 500 mg oral tablet, 500 mg= 1 tab(s), Oral, Daily simvastatin 80 mg Tab, 80 mg= 1 tab(s), Oral, Once a day (at bedtime) Allergies No Known Allergies No Known Medication Allergies Social History Alcohol - Denies Alcohol Use, 10/23/2021 Substance Abuse - Denies Substance Abuse, 10/23/2021 Tobacco Former smoker, quit more than 30 days ago Tobacco Use:. Never Smokeless Tobacco Use:. Cigarettes, 0.25 per day. Started age 21.0 Years. Stopped age 22 Years., 10/23/2021 Family History Cardiac arrest: Mother and Father. Primary malignant neoplasm of lung: Brother. Immunizations Vaccine Date Status SARS-CoV-2 (COVID-19) Ad26 vaccine 04/09/2021 Recorded SARS-CoV-2 (COVID-19) Ad26 vaccine 03/19/2021 Recorded [facility] Comment on above: Result Comment: Elec tronically Signed By: CLAUDIA OG, Josiah Daley\Date and Time Signed: 06/22/22 10:14 EDT Clinical Note 10-23-2021 Note Date & Type Note Facility 10-23-2021 Note Chief Complaint consultation for right taylor nodule HPI Staff 81 year old male presents on consultation from Dr. Patel for nodule right taylor with underlying cellulitis. Roughly one week ago, ladder fell on top of limb. By the next morning, he noted large mass, redness and pain to extremity. Saw PCP 10/19- placed on Cipro 500mg BID x 10 days and Doxycycline 100mg BID x 10 days, he is taking both as prescribed. Mass has decreased in size. Redness and pain have resolved. History of Present Illness 81 yo male with multiple medical problems, including chronic venous stasis disease; multiple fractures of RLE; referred for selling/mass RLE after trauma several weeks ago; had latter fall on area; had acute swelling/hematoma; had some bloody drainage, then fluctuance; treatment with several antibiotics with marked improvement; no pain or drainage currently, no fevers; area shrinking down. Review of Systems PHQ Score Initial Depression Screen Score: 0 ROS - Provider Constitutional: no fever, no sweats, no weight loss. Eyes: no glasses, no blurred vision, no visual loss. ENMT: no dentures, no hoarseness, no swallowing difficulties, no hearing loss, no ear infection(s), no nose bleeds. Cardiovascular: normal blood pressure, no chest pain, regular heartbeat, no heart murmur. Respiratory: no shortness of breath, no cough, no asthma, no wheezing. Gastrointestinal: no nausea, no vomiting, no diarrhea, no constipation, no blood in stool, no change in bowel habits, no abdominal pain, no hepatitis. Genitourinary: no kidney stones, no urine infection, no dysuria. Musculoskeletal: no pain, no weakness. Skin: no changing moles, no rash, yes skin lumps. Neurologic: no seizures, no epilepsy, no headache. Psychiatric: no emotional or psychiatric problem. Heme/Lymph: no bleeding problems, no anemia, no blood clots, no transfusions. Allergy/Immunologic: no swollen lymph nodes/glands, no IV drug abuse. Other: Additional ROS info: Except as noted in the above Review of Systems and in the History of Present Illness, all other systems have been reviewed and are negative or noncontributory. Physical Exam Vitals & Measurements T: 36.4 ?C(Temporal Artery) HR: 68(Peripheral) RR: 16 BP: 128/76 HT: 177.8 cm HT: 177.8 cm WT: 87.9 kg WT: 87.9 kg BMI: 27.81 HEENT: normal conjunctiva, sclera clear, no scleral icterus, EOM intact, PERRLA, oral mucosa moist without lesions. Neck: trachea midline, no mass, symmetric, no thyromegaly or nodules, no adenopathy Musculoskeletal: normal gait, digits and nails without infection, nodes, cyanosis, clubbing. Skin: no rashes, no lesions, RLE with 3 cm area of flat induration, nontender, no fluctuance, 5 mm central scab. Psychiatric/Neuro: oriented to time, place, person, judgement normal, affect appropriate for age, insight intact, no focal deficits. Tests: review of old records completed, Assessment/Plan 1. Hematoma of right lower extremity (S80.11XA: Contusion of right lower leg, initial encounter) resolving, no evidence of infection or skin necrosis; small central scab; keep area clean and dry; call with problems/questions. Follow-up No qualifying data available Problem List/Past Medical History Ongoing BMI 27.0-27.9,adult Diabetes Diabetic neuropathy Dysequilibrium Elevated blood pressure reading with diagnosis of hypertension Familial hypercholesterolemia GERD (gastroesophageal reflux disease) Hearing deficit Hematoma of right lower extremity Venous stasis dermatitis Historical No qualifying data Procedure/Surgical History ORIF - Open reduction and internal fixation of fracture (12/21/2016), CABG - Coronary artery bypass graft, CE - Cataract extraction. Medications Amaryl 4 mg Tab, 4 mg= 1 tab(s), Oral, Daily aspirin 81 mg Oral EC Tab, 81 mg= 1 tab(s), Oral, Daily Cipro 500 mg Tab, 500 mg= 1 tab(s), Oral, q12hr doxycycline monohydrate 100 mg oral capsule, 100 mg= 1 cap(s), Oral, BID Januvia 100 mg Tab, 100 mg= 1 tab(s), Oral, Daily levofloxacin 750 mg Tab, 750 mg= 1 tab(s), Oral, q24hr lisinopril 10 mg Tab, 10 mg= 1 tab(s), Oral, Daily metformin 500 mg oral tablet, 500 mg= 1 tab(s), Oral, Daily simvastatin 80 mg Tab, 80 mg= 1 tab(s), Oral, Once a day (at bedtime) Allergies No Known Allergies No Known Medication Allergies Social History Alcohol - Denies Alcohol Use, 10/23/2021 Substance Abuse - Denies Substance Abuse, 10/23/2021 Tobacco Former smoker, quit more than 30 days ago Tobacco Use:. Never Smokeless Tobacco Use:. Cigarettes, 0.25 per day. Started age 21.0 Years. Stopped age 22 Years., 10/23/2021 Family History Cardiac arrest: Mother and Father. Primary malignant neoplasm of lung: Brother. Immunizations Vaccine Date Status SARS-CoV-2 (COVID-19) Ad26 vaccine 04/09/2021 Recorded SARS-CoV-2 (COVID-19) Ad26 vaccine 03/19/2021 Recorded [facility] Comment on above: Result Comment: Elec tronically Signed By: CLAUDIA OG, Josiah Daley\Date and Time Signed: 10/23/21 16:30 EST Evaluation note Note Date & Type Note Facility Evaluation note No assessment information availa [facility] Work Phone: History general Narrative - Reported Note Date & Type Note Facility History general Narrative - Reported Type Medical History hypercholesterolemia Medical History hypertension Medical History diabetes mallitus Surgical History CABG Surgical History Open reduction inter nal fixation right lower extremity fracture Hospitalization History see above [facility] Other Summary Purpose Family History No Family History Records FoundNo Family History Records FoundNo Family History Records FoundNo Family History Records Found Advance Directives No Advanced Directives Records Found Advance Directive Response Recorded Date/ Time Advance Directives No April 27 7:54am Chief Complaint and Reason for Visit Chief Complaint E78.01 I10 E11.65 Z7 9.899 Z12.5 Z12.11 Chief Complaint Fx w/ nonhealing wou nd, venous stasis Additional Source Comments (unrecognized sect ion and content) No Status Records FoundNo Status Records FoundNo Status Records FoundNo Status Records Found INFORMATION SOURCE (unrecogn ized section and content) DATE CREATED AUTHOR 05/03/2018 [facility] DATE CREATED AUTHOR AUTHOR'S ORGANIZ ATION 06/20/2022 [facility] DATE CREATED AUTHOR AUTHOR'S ORGANIZ ATION 07/16/2022 [facility] DATE CREATED AUTHOR AUTHOR'S ORGANIZ ATION 12/23/2022 [facility] Care Teams (unrecognized sec tion and content) Team Status: Inactive Member Role Status Vianca Patel MD Primary Care Provider, Attending Pr gigi Active Team Status: Active Member Role Status Dates Jonh Patel MD Primary Care Provider Active Team Status: Inactive Member Role Status Dates Jonh Patel MD Primary Care Provider Active Grady Peters MD Attending Provider Active Goals (unrecognized section and content) Goals may be documented in a n alternate sectionGoals may be documented in an alternate sectionNo Information REASON FOR VISIT (unrecogniz ed section and content) REVIEW TESTING; MARIAH AND FF V ENOUS AT [facility], Follow-up noninvasive studies FOR RECORDS PERTAINING TO PATIENTS WHO ARE OR HAVE BEEN ENROLLED IN A CHEMICAL DEPENDENCY/SUBSTANCEABUSE PROGRAM, SOME INFORMATION MAY BE OMITTED. This clinical summary was aggregated from multiple sources. Caution should be exercised in using it in the provision of clinical care. This summary normalizes information from multiple sources, and as a consequence, information in this document may materially change the coding, format and clinical context of patient data. In addition, data may be omitted in some cases. CLINICAL DECISIONS SHOULD BE BASED ON THE PRIMARY CLINICAL RECORDS. [facility] [employer] provides no warranty or guarantee of the accuracy or completeness of information in this document.
[2023-11-28 16:32] LABS: Basophils Absolute Auto 0.1 10^3/uL (0.0-0.1); Basophils Percent Auto 1.3 % (0.2-2.0); Eosinophils Absolute Auto 0.3 10^3/uL (0.0-0.7); Eosinophils Percent Auto 4.5 % (0.9-7.0); Hematocrit 36.9 % (42.0-54.0); Lymphocytes Absolute Auto 1.7 10^3/uL (1.2-3.8); Lymphocytes Percent Auto 30.4 % (20.5-60.0); Mean Corpuscular HGB Conc 32.5 g/dL (29.9-35.2); Mean Corpuscular Hemoglobin 31.1 pg (25.9-34.0); Mean Corpuscular Volume 95.6 fL (80.0-94.0); Mean Platelet Volume 11.5 fL (9.5-13.5); Monocytes Absolute Auto 0.5 10^3/uL (0.3-0.8); Monocytes Percent Auto 9.7 % (1.7-12.0); Neutrophils Percent Auto 54.1 % (43.0-75.0); Platelet Count 139 10^3/uL (150-450); Red Blood Count 3.86 10^6/uL (4.70-6.10); Red Cell Distribution Width 13.7 % (11.0-15.0); White Blood Count 5.6 10^3/uL (4.0-11.0)
[2023-11-28] MEDS: 0.9 % SODIUM CHLORIDE 1,000 ML 1000 ML IV (16:41)
[2023-11-28 16:44] LABS: Prothrombin Time 10.6 sec (9.0-11.6)
[2023-11-28 16:48] LABS: Ammonia 22 umol/L (11-32); Lactate/Lactic Acid 0.6 mmol/L (0.4-2.0)
[2023-11-28 16:55] LABS: Alanine Aminotransferase 18 U/L (16-63); Albumin Globulin Ratio 0.9; Albumin Level 3.2 g/dL (3.4-5.0); Alkaline Phosphatase 90 U/L (46-116); Anion Gap 6.9; Aspartate Amino Transferase 12 U/L (15-37); BUN Creatinine Ratio 20.3; Bilirubin Total 0.7 mg/dL (0.2-1.0); Calcium 8.8 mg/dL (8.5-10.1); Carbon Dioxide 29.5 mmol/L (21.0-32.0); Chloride 102 mmol/L (98-107); Estimated GFR (African America 58 (>=60); Estimated GFR (Non-African Ame 47 (>=60); Globulin 3.7 g/dL; Glucose 206 mg/dL (74-106); Potassium 4.4 mmol/L (3.5-5.1); Sodium 134 mmol/L (136-145); Thyroid Stimulating Hormone 1.444 uIU/mL (0.358-3.740); Total Protein 6.9 g/dL (6.4-8.2); Troponin I High Sensitivity 12.6 pg/mL (4.0-76.1)
[2023-11-28 17:31] LABS: Ethanol <3 mg/dL
--- NOTE | 2023-11-28 17:44 | ED_ITS ---
HPI - Altered Mental Status General Chief Complaint: Altered Mental Status Stated Complaint: General Weakness Time Seen by Provider: 11/28/23 15:59 Source: patient Mode of arrival: Wheelchair Limitations: no limitations History of Present Illness HPI narrative: Patient is an 83-year-old male who presents to the emergency department with his daughter for the evaluation of worsening confusion, generalized weakness and medication noncompliance. Patient was seen in this emergency department 1 month ago, daughter states he is unstable at home and unable to care for himself. She is not able to be a caregiver for him as they were estranged up until recently. She states that the patient has been more weak, confused and was recently diagnosed with dementia. He was discharged from this facility 1 month ago as he was not able to be placed in long-term care. Patient has been refusing to take his medications at home. No falls or injuries that the family is aware of. Related Data Home Medications Medication Instructions Recorded Confirmed lisinopril 10 mg tablet 10 mg PO DAILY 10/22/23 10/22/23 metformin 500 mg tablet 500 mg PO BID 10/22/23 10/22/23 mupirocin 2 % topical ointment 1 applic topical DAILY 10/22/23 10/22/23 Previous Rx's Medication Instructions Recorded clonidine HCl 0.1 mg tablet 0.1 mg PO BID #60 tabs 10/26/23 doxycycline monohydrate 100 mg 100 mg PO BID #20 caps 10/26/23 capsule quetiapine 25 mg tablet 25 mg PO HS #30 tabs 10/26/23 Allergies Allergy/AdvReac Type Severity Reaction Status Date / Time No Known Drug Allergies Allergy Verified 09/08/23 06:12 Review of Systems ROS Constitutional Denies: fever or chills Ears, nose, mouth, and throat Denies: throat pain or nasal congestion Cardiovascular Denies: chest pain Respiratory Denies: shortness of breath Gastrointestinal Denies: nausea or vomiting Integumentary/Breast Denies: rash Neurological Reports: weakness in extremities, lack of coordination, confusion, behavioral changes and slurred speech Hematologic/Lymphatic Denies: easy bruising [facility] Medical History (Updated 11/28/23 @ 17:51 by CALVIN Escobedo) Altered mental status ?R41.82 - Altered mental status, unspecified (ICD-10) Acute hyperglycemia ?R73.9 - Hyperglycemia, unspecified (ICD-10) Medical non-compliance ?Z91.199 - Patient's noncompliance with other medical treatment and regimen due to unspecified reason (ICD-10) Hearing loss ?H91.90 - Unspecified hearing loss, unspecified ear (ICD-10) Fall ?W19.XXXA - Unspecified fall, initial encounter (ICD-10) Diabetes ?E11.9 - Type 2 diabetes mellitus without complications (ICD-10) Leg fracture, right ?S82.91XA - Unspecified fracture of right lower leg, initial encounter for closed fracture (ICD-10) Surgical History (Updated 10/22/23 @ 15:01 by Shayna Miller) FH: CABG (coronary artery bypass surgery) ?Z82.49 - Family history of ischemic heart disease and other diseases of the circulatory system (ICD-10) Family History (Updated 10/22/23 @ 15:04 by Shayna Miller) Father Family history of cancer Social History Within the past year, how often did you have a drink containing alcohol: never Within the past year, how many standard drinks containing alcohol did you have on a typical day: 1 or 2 Within the past year, how often did you have six or more drinks on one occasion: never Total score: 0 Score interpretation: A score less than 4 is consistent with normal alcohol consumption. Smoking status: Never smoker Non-prescribed substance use: denies use Previous occupational history: retired Highest level of school completed/degree received: 11th grade Are you now , , , , never or living with a partner: In a typical week, how many times do you talk on the telephone with family, friends, or neighbors: twice per week How often do you get together with friends or relatives: twice per week How often do you attend yazidi or adventism services: never Do you belong to any clubs or organizations such as yazidi groups unions, fraternal or athletic groups, or school groups: no Total score: 1 Score interpretation: A score of less than or equal to 1 indicates the most socially isolated. Little interest or pleasure in doing things: not at all Feeling down, depressed, or hopeless: not at all Feel stressed/tense/nervous/anxious/difficulty sleeping: not at all Exam Narrative Exam Narrative: Gen.: Awake, alert, in no distress Head: Normocephalic, atraumatic ENT: Moist mucous membranes Respiratory: No respiratory distress, lungs clear bilaterally Cardio: Regular rate and rhythm Gastrointestinal: Abdomen is soft, nondistended and nontender to palpation Extremities: Moves extremities equally Psych: Normal mood and affect Neuro: No focal neuro deficit Skin: Warm, dry, intact Constitutional Vital Signs, click to edit/add: Last Vital Signs Temp 98.2 F 11/28/23 15:58 Pulse 51 L 11/28/23 17:10 Resp 16 11/28/23 17:10 BP 150/61 H 11/28/23 17:01 Pulse Ox 99 11/28/23 17:10 O2 Del Method Room Air 11/28/23 15:58 Course Vital Signs Vital signs: Vital Signs Temperature 98.2 F 11/28/23 15:58 Pulse Rate 42 L 11/28/23 15:58 Respiratory Rate 10 L 11/28/23 15:58 Blood Pressure 110/53 11/28/23 15:58 Pulse Oximetry 96 11/28/23 15:58 Oxygen Delivery Method Room Air 11/28/23 15:58 Temperature 98.2 F 11/28/23 15:58 Pulse Rate 51 L 11/28/23 17:10 Respiratory Rate 16 11/28/23 17:10 Blood Pressure 150/61 H 11/28/23 17:01 Pulse Oximetry 99 11/28/23 17:10 Oxygen Delivery Method Room Air 11/28/23 15:58 MDM - Altered Mental Status MDM Narrative Medical decision making narrative: Patient treated with IV fluids, labs, urine obtained. CT of the brain and chest x-ray are unremarkable. Patient will be admitted to PCP for further evaluation and treatment as his altered mental status is worsening. He is otherwise hemodynamically stable, bradycardia is not new for the patient. Medical Records Attestation: I reviewed the patient's medical records. Lab Data Attestation: I reviewed the patient's lab results. Labs: Lab Results 11/28/23 Range/Units 16:10 WBC 5.6 (4.0-11.0) 10^3/uL RBC 3.86 L (4.70-6.10) 10^6/uL Hgb 12.0 L (14.0-18.0) g/dL Hct 36.9 L (42.0-54.0) % MCV 95.6 H (80.0-94.0) fL MCH 31.1 (25.9-34.0) pg MCHC 32.5 (29.9-35.2) g/dL RDW 13.7 (11.0-15.0) % Plt Count 139 L (150-450) 10^3/uL MPV 11.5 (9.5-13.5) fL Neut % (Auto) 54.1 (43.0-75.0) % Lymph % (Auto) 30.4 (20.5-60.0) % Gregg % (Auto) 9.7 (1.7-12.0) % Eos % (Auto) 4.5 (0.9-7.0) % Baso % (Auto) 1.3 (0.2-2.0) % Neut # (Auto) 3.0 (1.4-6.5) 10^3/uL Lymph # (Auto) 1.7 (1.2-3.8) 10^3/uL Gregg # (Auto) 0.5 (0.3-0.8) 10^3/uL Eos # (Auto) 0.3 (0.0-0.7) 10^3/uL Baso # (Auto) 0.1 (0.0-0.1) 10^3/uL Abs Immat Gran (auto) 0.00 (0.00-0.03) 10^3/uL Imm/Tot Granulo (auto) 0.0 (0.0-0.5) % PT 10.6 (9.0-11.6) sec INR 1.00 Sodium 134 L (136-145) mmol/L Potassium 4.4 (3.5-5.1) mmol/L Chloride 102 (98-107) mmol/L Carbon Dioxide 29.5 (21.0-32.0) mmol/L Anion Gap 6.9 BUN 29.0 H (7.0-18.0) mg/dL Creatinine 1.43 H (0.70-1.30) mg/dL Est GFR ( Amer) 58 L (>=60) Est GFR (Non-Af Amer) 47 L (>=60) BUN/Creatinine Ratio 20.3 Glucose 206 H (74-106) mg/dL Lactate 0.6 (0.4-2.0) mmol/L Calcium 8.8 (8.5-10.1) mg/dL Total Bilirubin 0.7 (0.2-1.0) mg/dL AST 12 L (15-37) U/L ALT 18 (16-63) U/L Alkaline Phosphatase 90 (46-116) U/L Ammonia 22 (11-32) umol/L Troponin I High Sens 12.6 (4.0-76.1) pg/mL Total Protein 6.9 (6.4-8.2) g/dL Albumin 3.2 L (3.4-5.0) g/dL Globulin 3.7 g/dL Albumin/Globulin Ratio 0.9 TSH 1.444 (0.358-3.740) uIU/mL Ethanol Quant <3 mg/dL POC Glucose 202 H (74-106) mg/dL Imaging Data CT scan - head: Radiologist's impression: ITS Impressions Chest X-Ray 11/28/23 16:10 IMPRESSION: No acute infiltrate or evidence of cardiac decompensation. Chronic changes are present. The overall appearance of the chest is unchanged. Electronically authenticated by: ZANE MARTINEZ Date: 11/28/2023 16:[address] 11/28/23 16:11 IMPRESSION: No acute intracranial process. No substantial change since 10/22/2023. Electronically authenticated by: CHUY MARQUEZ Date: 11/28/2023 16:54 ECG Data Attestation: I personally reviewed and interpreted this ECG as follows: (Sinus bradycardia at a rate of 43, first-degree AV block with no acute ST elevation or ectopy. EKG reviewed by attending physician) Discharge Plan Discharge Chief Complaint: Altered Mental Status Patient Disposition: Admitted as Observation Time of Disposition Decision: 17:51 Prescriptions / Home Meds: No Action mupirocin 2 % ointment 1 applic TOPICAL DAILY metformin 500 mg tablet 500 mg PO BID lisinopril 10 mg tablet 10 mg PO DAILY quetiapine 25 mg Tablet 25 mg PO HS Qty: 30 11RF clonidine HCl 0.1 mg Tablet 0.1 mg PO BID Qty: 60 11RF doxycycline monohydrate 100 mg Capsule 100 mg PO BID Qty: 20 0RF Referrals: Savage Patel MD [Primary Care Provider] - 1 week
[2023-11-28 18:08] LABS: Bilirubin Urine NEGATIVE (NEGATIVE); Blood Urine NEGATIVE (NEGATIVE); Clarity Urine CLEAR (CLEAR); Color Urine YELLOW (YELLOW); Glucose Urine UA NEGATIVE (NEGATIVE); Ketones Urine NEGATIVE (NEGATIVE); Leukocyte Esterase Urine NEGATIVE (NEGATIVE); Nitrite Urine NEGATIVE (NEGATIVE); Protein Urine 100 mg/dL (NEG/TRACE); Urobilinogen Urine 0.2 EU/dL (0.2-1.0)
[2023-11-28 18:45] LABS: Urine Microscopic Indicated YES
--- OUTSIDE RECORDS SUMMARY | 2023-11-28 18:53 | XMS_ITS | CCD ---
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 Name Role Phone CHARISMA MCKEON Unavailable Unavailable CHARISMA MCKEON Unavailable Unavailable JONH PATEL Unavailable Unavailable JONH PATEL Unavailable Unavailable MD Jonh Patel Primary Care Provider [phone] MD Jonh Patel Attending Provider DR JONH PATEL Attending Unavailable VIRGILIO, DR BORJA Consulting Unavailable DR JONH PATEL Primary Care Unavailable DR JONH PATEL Admitting Unavailable MD Jonh Patel Primary Care Provider [phone] MD Grady Peters Attending Provider [phone] Grady Peters Unavailable Jonh Patel Primary Care [...] US ankle/arm indiceson 07-31 US ankle/arm indices [facility] Main [place] [address] [place] [address] Ultrasound Report Signed Patient: Navi Funes Jr MR#: [id number] : 1940 Acct:[id number] Age/Sex: 81 / M ADM Date: 07/30/22 Loc: Room: Type: [facility] Attending Dr: Grady Peters MD Ordering [...] Ruben Dumont MD07/31/2022 3:20 PM Dictation Location: [place] [address] Tech: Katt Baron Transcribed By: HANNAH 07/31/22 1520 Dictated By: Ruben Dumont MD 07/31/22 1519 Signed By: 07/31/[address] [facility] US venous duplex LE BIon US venous duplex LE BI [facility] Main [place] [id number] Ultrasound Report Signed Patient: Navi Funes Jr MR#: [id number] : 1940 Acct:[id number] Age/Sex: 81 / M ADM Date: 07/30/22 Loc: Room: Type: [facility] Attending Dr: Grady Peters MD Ordering [...] MD 07/31/22 152 Signed By: 07/31/[address] [facility] XR ankle RT min 3V*on 2021 XR ankle RT min 3V* [facility] Main [address] [address] XRay Report Signed Patient: Navi Funes Jr MR#: [id number] : 1940 Acct:[id number] Age/Sex: 81 / M ADM Date: 07/30/22 Loc: Room: Type: [facility] Attending Dr: Grady Peters MD Copies to: [...] King Jr., D.O.07/30/2022 4:33 PM Dictation Location: [place] [address] Transcribed By: [facility] 07/30/22 1633 Dictated By: Navi King Jr, DO 07/30/22 1632 Signed By: 07/30/22 1633 Normal [facility] Consultation Noteon 07-15-20 Consultation Note [id number]:127 Normal [facility] HIPAA Privacy Documentson HIPAA Privacy Documents [id number]:127 Normal [facility] WOUND CULTUREon 06-20-2022 Bacteria identified Aer cx Nom (Unsp spec) Final report Normal [facility] Comment on above: Performed By: #### C XWND #### [facility] [address] [place] [address] [address] Eddie Gaitan Result 1 Comment Normal [facility] Comment on above: Result Comment: No g rowth in 36 - 48 hours. Performed By: #### C XWND #### [facility] [address] [place] [address] [address] Eddie Gaitan Physician Referralon 022 Physician Referral [id number]:127 Normal [facility] A1C with Estimated Average Bin hernandez 04-27-2022 Glucose [Mass/Vol] 151 mg/dL Normal [facility] Comment on above: Result Comment: PERF ORMED BY: [place] [address] PATHOLOGIST RISK MANAGEMENT MANAGER BRIDGETT MANZO M.D. Performed By: #### T 4T, TSH3, CBC, PSAS, T3F, A1C WT eA, CMP, LIPID #### [facility] [address] HbA1c (Bld) [Mass fraction] 6.9 % High 4.3-5.6 [facility] Comment on above: Result Comment: Incr eased risk for diabetes: 5.7 - 6.4 diabetes: >6.4 glycemic control for adults with diabetes: <7.0 Performed By: #### T 4T, TSH3, CBC, PSAS, T3F, A1C WTH eA, CMP, LIPID #### [facility] [address] Basophils Auto (Bld) [#/Vol] Ordered By: Jonh Patel on 04-27-2022 Basophils (Bld) [#/Vol] 0.1 10*3/uL 0.0-0.2 [facility] Basophils/100 WBC Auto (Bld) Ordered By: Jonh Patel on 04-27-2022 Basophils/100 WBC (Bld) 1.1 % [facility] Blood hemoglobin measurement (mass/volume)Ordered By: Jonh Patel on 04-27-2022 Hemoglobin (Bld) [Mass/Vol] 13.3 g/dL 13.0-17.0 [facility] Blood leukocytes automated c ount (number/volume)Ordered By: Jonh Patel on 04-27-2022 WBC (Bld) [#/Vol] 5.0 10*3/uL 4.5-11.0 [facility] Body fluid albumin measureme nt (mass/volume)Ordered By: Jonh Patel on 04-27-2022 Albumin (Body fld) [Mass/Vol] 3.6 g/dL 3.2-5.5 [facility] Cholesterol [Mass/volume] in Serum or PlasmaOrdered By: John Patel on 04-27-2022 Cholesterol [Mass/Vol] 168 mg/dL 140-200 [facility] Comment on above: Chol less than 200 m g/dl low risk Chol 201-239 mg/dl borderline risk Chol 240 mg/dl and greater high risk Cholesterol in LDL Calc [Mas s/Vol]Ordered By: Jonh Patel on 04-27-2022 Cholesterol in LDL [Mass/Vol] 112 mg/dL 0-100 [facility] Comment on above: LDL ATP III CLASSIFI CATION LDL less than 100 mg/dL Optimal LDL 100-129 mg/dL Near or above optimal LDL 130-159 mg/dL Borderline high LDL 160-189 mg/dL High LDL greater than 189 mg/dL Very high Cholesterol in VLDL Calc [Ma ss/Vol]Ordered By: Jonh Patel on 04-27-2022 Cholesterol in VLDL [Mass/Vol] 17 mg/dL [facility] Complete Blood Count Auto Di ffon 04-27-2022 Basophils (Bld) [#/Vol] 0.1 10*3/uL Normal 0.0-0.2 [facility] Comment on above: Result Comment: PERF ORMED BY: [place] [address] PATHOLOGIST RISK MANAGEMENT MANAGER BRIDGETT MANZO M.D. Performed By: #### T 4T, TSH3, CBC, PSAS, T3F, A1C WTH eA, CMP, LIPID #### [facility] [address] [place] [address] [place] Basophils/100 WBC (Bld) 1.1 % Normal . [facility] Comment on above: Performed By: #### T 4T, TSH3, CBC, PSAS, T3F, A1C WTH eA, CMP, LIPID #### [facility] [address] [place] [address] [place] Eosinophils (Bld) [#/Vol] 0.3 10*3/uL Normal 0.0-0.45 [facility] Comment on above: Performed By: #### T 4T, TSH3, CBC, PSAS, T3F, A1C WTH eA, CMP, LIPID #### [facility] [address] [place] [address] [place] Eosinophils/100 WBC (Bld) 6.5 % Normal . [facility] Comment on above: Performed By: #### T 4T, TSH3, CBC, PSAS, T3F, A1C WTH eA, CMP, LIPID #### [address] Erythrocyte distribution width (RBC) [Ratio] 15.0 % High 12.0-14.8 [facility] Comment on above: Performed By: #### T 4T, TSH3, CBC, PSAS, T3F, A1C WTH eA, CMP, LIPID #### [address] Hematocrit (Bld) [Volume fraction] 39.9 % Normal 38.8-50.0 [facility] Comment on above: Performed By: #### T 4T, TSH3, CBC, PSAS, T3F, A1C WTH eA, CMP, LIPID #### [address] Hemoglobin (Bld) [Mass/Vol] 13.3 g/dL Normal 13.0-17.0 [facility] Comment on above: Performed By: #### T 4T, TSH3, CBC, PSAS, T3F, A1C WTH eA, CMP, LIPID #### [address] Lymphocytes (Bld) [#/Vol] 1.3 10*3/uL Normal 1.00-4.8 [facility] Comment on above: Performed By: #### T 4T, TSH3, CBC, PSAS, T3F, A1C WTH eA, CMP, LIPID #### [address] Lymphocytes/100 WBC (Bld) 25.6 % Normal . [facility] Comment on above: Performed By: #### T 4T, TSH3, CBC, PSAS, T3F, A1C WTH eA, CMP, LIPID #### [facility] [address] MCH (RBC) [Entitic mass] 31.2 pg Normal 27.5-35.2 [facility] Comment on above: Performed By: #### T 4T, TSH3, CBC, PSAS, T3F, A1C WTH eA, CMP, LIPID #### [facility] [address] MCV (RBC) [Entitic vol] 93.5 fL Normal 83.5-101 [facility] Comment on above: Performed By: #### T 4T, TSH3, CBC, PSAS, T3F, A1C WTH eA, CMP, LIPID #### [address] Mean Corpuscular HGB Conc 33.4 g/dL Normal 32.5-35.6 [facility] Comment on above: Performed By: #### T 4T, TSH3, CBC, PSAS, T3F, A1C WTH eA, CMP, LIPID #### [address] Monocytes (Bld) [#/Vol] 0.4 10*3/uL Normal 0.0-0.8 [facility] Comment on above: Performed By: #### T 4T, TSH3, CBC, PSAS, T3F, A1C WTH eA, CMP, LIPID #### [address] Monocytes/100 WBC (Bld) 8.3 % Normal . [facility] Comment on above: Performed By: #### T 4T, TSH3, CBC, PSAS, T3F, A1C WTH eA, CMP, LIPID #### [address] Neutrophils (Bld) [#/Vol] 2.9 10*3/uL Normal 1.8-7.7 [facility] Comment on above: Performed By: #### T 4T, TSH3, CBC, PSAS, T3F, A1C WTH eA, CMP, LIPID #### [facility] [address] [place] [address] [place] Neutrophils/100 WBC (Bld) 58.5 % Normal . [facility] Comment on above: Performed By: #### T 4T, TSH3, CBC, PSAS, T3F, A1C WTH eA, CMP, LIPID #### [facility] [address] [place] [address] [place] Nucleated RBC/100 WBC (Bld) [Ratio] 0.0 % Normal 0-0.5 [facility] Comment on above: Performed By: #### T 4T, TSH3, CBC, PSAS, T3F, A1C WTH eA, CMP, LIPID #### [facility] [address] [place] [address] [place] Platelet mean volume (Bld) [Entitic vol] 11.0 fL High 6.6-10.1 [facility] Comment on above: Performed By: #### T 4T, TSH3, CBC, PSAS, T3F, A1C WTH eA, CMP, LIPID #### [facility] [address] [place] [address] [place] Platelets (Bld) [#/Vol] 116 10*3/uL Low 150-450 [facility] Comment on above: Performed By: #### T 4T, TSH3, CBC, PSAS, T3F, A1C WTH eA, CMP, LIPID #### [facility] [address] [place] [address] [place] RBC (Bld) [#/Vol] 4.27 10*6/uL Normal 3.90-5.60 [facility] Comment on above: Performed By: #### T 4T, TSH3, CBC, PSAS, T3F, A1C WTH eA, CMP, LIPID #### [facility] [address] [place] [address] [place] WBC (Bld) [#/Vol] 5.0 10*3/uL Normal 4.5-11.0 [facility] Comment on above: Performed By: #### T 4T, TSH3, CBC, PSAS, T3F, A1C WTH eA, CMP, LIPID #### [facility] [address] Comprehensive Metabolic Pane alexandra 04-27-2022 Albumin [Mass/Vol] 3.6 g/dL Normal 3.2-5.5 [facility] Comment on above: Performed By: #### T 4T, TSH3, CBC, PSAS, T3F, A1C WTH eA, CMP, LIPID #### [facility] [address] Albumin/Globulin [Mass ratio] 1.3 {ratio} Normal [facility] Comment on above: Performed By: #### T 4T, TSH3, CBC, PSAS, T3F, A1C WTH eA, CMP, LIPID #### [facility] [address] ALP [Catalytic activity/Vol] 71 U/L Normal 32-92 [facility] Comment on above: Performed By: #### T 4T, TSH3, CBC, PSAS, T3F, A1C WTH eA, CMP, LIPID #### [facility] [address] ALT [Catalytic activity/Vol] 12 U/L Normal 10-60 [facility] Comment on above: Performed By: #### T 4T, TSH3, CBC, PSAS, T3F, A1C WTH eA, CMP, LIPID #### [facility] [address] [place] [id number] [facility] AST [Catalytic activity/Vol] 18 U/L Normal 10-42 [facility] Comment on above: Performed By: #### T 4T, TSH3, CBC, PSAS, T3F, A1C WTH eA, CMP, LIPID #### [facility] [address] [place] [address] [place] Bilirubin [Mass/Vol] 0.8 mg/dL Normal 0.3-1.2 [facility] Comment on above: Performed By: #### T 4T, TSH3, CBC, PSAS, T3F, A1C WTH eA, CMP, LIPID #### [facility] [address] [place] [address] [place] Calcium [Mass/Vol] 9.0 mg/dL Normal 8.2-10.2 [facility] Comment on above: Performed By: #### T 4T, TSH3, CBC, PSAS, T3F, A1C WTH eA, CMP, LIPID #### [facility] [address] Chloride [Moles/Vol] 104 mmol/L Normal 95-114 [facility] Comment on above: Performed By: #### T 4T, TSH3, CBC, PSAS, T3F, A1C WTH eA, CMP, LIPID #### [facility] [address] CO2 [Moles/Vol] 22.4 mmol/L Normal 22.0-30.0 [facility] Comment on above: Performed By: #### T 4T, TSH3, CBC, PSAS, T3F, A1C WTH eA, CMP, LIPID #### [facility] [address] Creatinine [Mass/Vol] 1.47 mg/dL High 0.64-1.27 [facility] Comment on above: Performed By: #### T 4T, TSH3, CBC, PSAS, T3F, A1C WTH eA, CMP, LIPID #### [facility] [address] Estimated GFR ( Evelyn [address] [facility] Comment on above: Result Comment: GFR estimated reference range: According to KDOQI guidelines, <60 ml/min/1.73m2 is sufficient to diagnose a patient with chronic kidney disease. Performed By: #### T 4T, TSH3, CBC, PSAS, T3F, A1C WTH eA, CMP, LIPID #### [facility] [address] Estimated GFR (Non- Am [address] [facility] Comment on above: Performed By: #### T 4T, TSH3, CBC, PSAS, T3F, A1C WTH eA, CMP, LIPID #### [facility] [address] Globulin (S) [Mass/Vol] 2.8 g/dL Normal [facility] Comment on above: Performed By: #### T 4T, TSH3, CBC, PSAS, T3F, A1C WTH eA, CMP, LIPID #### [facility] [address] Glucose [Mass/Vol] 139 mg/dL High 70-100 [facility] Comment on above: Result Comment: [facility] Glucose Reference Range is dependent on time and content of last meal. Glucose of more than 200 mg/dL in a nonstressed, ambulatory subject supports the diagnosis of Diabetes Mellitus. ADA recommended reference range Performed By: #### T 4T, TSH3, CBC, PSAS, T3F, A1C WTH eA, CMP, LIPID #### [facility] [address] Potassium [Moles/Vol] 4.4 mmol/L Normal 3.5-5.1 [facility] Comment on above: Performed By: #### T 4T, TSH3, CBC, PSAS, T3F, A1C WTH eA, CMP, LIPID #### [facility] [address] [place] [address] [place] Protein [Mass/Vol] 6.4 g/dL Normal 6.1-7.9 [facility] Comment on above: Performed By: #### T 4T, TSH3, CBC, PSAS, T3F, A1C WTH eA, CMP, LIPID #### [facility] [address] [place] [address] [place] Sodium [Moles/Vol] 136 mmol/L Normal 136-146 [facility] Comment on above: Performed By: #### T 4T, TSH3, CBC, PSAS, T3F, A1C WTH eA, CMP, LIPID #### [facility] [address] [place] [address] [place] Urea nitrogen [Mass/Vol] 23 mg/dL Normal 9-23 [facility] Comment on above: Performed By: #### T 4T, TSH3, CBC, PSAS, T3F, A1C WTH eA, CMP, LIPID #### [facility] [address] [place] [address] [place] Creatinine and Glomerular fi ltration rate.predicted panel (S/P/Bld)Ordered By: Jonh Patel on 04-27-2022 Creatinine [Mass/Vol] 1.47 mg/dL 0.64-1.27 [facility] Eosinophils Auto (Bld) [#/Vo l]Ordered By: Jonh Patel on 04-27-2022 Eosinophils (Bld) [#/Vol] 0.3 10*3/uL 0.0-0.45 [facility] Eosinophils/100 WBC Auto (Bl d)Ordered By: Jonh Patel on 04-27-2022 Eosinophils/100 WBC (Bld) 6.5 % [facility] Erythrocyte distribution wid th Auto (RBC) [Ratio]Ordered By: Jonh Patel on 04-27-2022 Erythrocyte distribution width (RBC) [Ratio] 15.0 % 12.0-14.8 [facility] Estimated glomerular filtrat ion rate (GFR) non- AmericanOrdered By: Jonh Patel on 04-27-2022 GFR/1.73 sq M.predicted among non-blacks MDRD (S/P/Bld) [Vol rate/Area] 46 mL/Min [facility] Globulin Calc (S) [Mass/Vol] Ordered By: Jonh Patel on 04-27-2022 Globulin (S) [Mass/Vol] 2.8 g/dL [facility] Glucose mean value [Mass/vol ume] in Blood Estimated from glycated hemoglobinOrdered By: Jonh Patel on 04-27-2022 Average glucose Estimated from glycated hemoglobin (Bld) [Mass/Vol] 151 mg/dL [facility] Hematocrit Auto (Bld) [Volum e fraction]Ordered By: Jonh Patel on 04-27-2022 Hematocrit (Bld) [Volume fraction] 39.9 % 38.8-50.0 [facility] Hemoglobin A1c percentageOrd ered By: Jonh Patel on 04-27-2022 HbA1c (Bld) [Mass fraction] 6.9 % 4.3-5.6 [facility] Comment on above: Increased risk for d iabetes: 5.7 - 6.4 diabetes: >6.4 glycemic control for adults with diabetes: <7.0 Laboratory - Hematology and Cell countsOrdered By: Jonh Patel on 04-27-2022 Nucleated RBC/100 WBC (Bld) [Ratio] 0.0 % 0-0.5 [facility] Lipid Panelon 04-27-2022 Cholesterol [Mass/Vol] 168 mg/dL Normal 140-200 [facility] Comment on above: Result Comment: Chol less than 200 mg/dl low risk Chol 201-239 mg/dl borderline risk Chol 240 mg/dl and greater high risk Performed By: #### T 4T, TSH3, CBC, PSAS, T3F, A1C WTH eA, CMP, LIPID #### [facility] [address] [place] [address] [place] Cholesterol in HDL [Mass/Vol] 38 mg/dL Normal 29-71 [facility] Comment on above: Result Comment: HDL CHOL ATP-III CLASSIFICATION Cardiovascular Risk HDL > or equal to 60 mg/dL LOW HDL < 40 mg/dL HIGH Performed By: #### T 4T, TSH3, CBC, PSAS, T3F, A1C WTH eA, CMP, LIPID #### [facility] [address] [place] [address] [place] Cholesterol.total/Tresa sterol in HDL [Mass ratio] 4.4 {ratio} Normal <5.0 [facility] Comment on above: Performed By: #### T 4T, TSH3, CBC, PSAS, T3F, A1C WTH eA, CMP, LIPID #### [facility] [address] [place] [address] [place] LDL Cholesterol,Calculated 112 mg/dL High 0-100 [facility] Comment on above: Result Comment: LDL ATP III CLASSIFICATION LDL less than 100 mg/dL Optimal LDL 100-129 mg/dL Near or above optimal LDL 130-159 mg/dL Borderline high LDL 160-189 mg/dL High LDL greater than 189 mg/dL Very high Performed By: #### T 4T, TSH3, CBC, PSAS, T3F, A1C WTH eA, CMP, LIPID #### [facility] [address] [place] [address] [place] Triglyceride w/Reflex 88 mg/dL Normal 35-149 [facility] Comment on above: Result Comment: TRIG ATP III CLASSIFICATION TRIG less than 150 mg/dL Normal TRIG 150-199 mg/dL Borderline high TRIG 200-500 mg/dL High TRIG greater than 500 mg/dL Very high Standard traceable to the Center for Disease Conrtrol and Prevention (CDC) test method. Performed By: #### T 4T, TSH3, CBC, PSAS, T3F, A1C WTH eA, CMP, LIPID #### [facility] [address] VLDL CHOLESTEROL 17 mg/dL Normal [facility] Comment on above: Performed By: #### T 4T, TSH3, CBC, PSAS, T3F, A1C WTH eA, CMP, LIPID #### [facility] [address] Lymphocytes Auto (Bld) [#/Vo l]Ordered By: Jonh Patel on 04-27-2022 Lymphocytes (Bld) [#/Vol] 1.3 10*3/uL 1.00-4.8 [facility] Lymphocytes/100 WBC Auto (Bl d)Ordered By: Jonh Patel on 04-27-2022 Lymphocytes/100 WBC (Bld) 25.6 % [facility] MCH Auto (RBC) [Entitic mass ]Ordered By: Jonh Patel on 04-27-2022 MCH (RBC) [Entitic mass] 31.2 pg 27.5-35.2 [facility] MCHC Auto (RBC) [Mass/Vol]Or dered By: Jonh Patel on 04-27-2022 MCHC (RBC) [Mass/Vol] 33.4 g/dL 32.5-35.6 [facility] MCV Auto (RBC) [Entitic vol] Ordered By: Jonh Patel on 04-27-2022 MCV (RBC) [Entitic vol] 93.5 fL 83.5-101 [facility] Monocytes Auto (Bld) [#/Vol] Ordered By: Jonh Patel on 04-27-2022 Monocytes (Bld) [#/Vol] 0.4 10*3/uL 0.0-0.8 [facility] Monocytes/100 WBC Auto (Bld) Ordered By: Jonh Patel on 04-27-2022 Monocytes/100 WBC (Bld) 8.3 % [facility] Neutrophils Auto (Bld) [#/Vo l]Ordered By: Jonh Patel on 04-27-2022 Neutrophils (Bld) [#/Vol] 2.9 10*3/uL 1.8-7.7 [facility] Neutrophils/100 WBC Auto (Bl d)Ordered By: Jonh Patel on 04-27-2022 Neutrophils/100 WBC (Bld) 58.5 % [facility] No Panel InformationOrdered By: Jonh Patel on 04-27-2022 Estimated GFR () 56 mL/Min [facility] Comment on above: GFR estimated refere nce range: According to KDOQI guidelines, <60 ml/min/1.73m2 is sufficient to diagnose a patient with chronic kidney disease. Pharmacy Creatinine Clearance (Chem N/A [facility] Prostate Specific Antigen Screen 0.860 ng/mL 0.000-4.000 [facility] PSA Screen (Yearly Only)on 0 04-27-2022 PSA Screen (Yearly Only) 0.860 ng/mL Normal 0.000-4.000 [facility] Comment on above: Order Comment: Is pa tient <50 yrs? Medicare does not pay <50.: Y Is Medicare the insurance?: Y Result Comment: PERF ORMED BY: [place] [address] PATHOLOGIST RISK MANAGEMENT MANAGER BRIDGETT MANZO M.D. Performed By: #### T 4T, TSH3, CBC, PSAS, T3F, A1C WTH eA, CMP, LIPID #### [facility] [address] Platelet mean volume Auto (B ld) [Entitic vol]Ordered By: Jonh Patel on 04-27-2022 Platelet mean volume (Bld) [Entitic vol] 11.0 fL 6.6-10.1 [facility] Platelets Auto (Bld) [#/Vol] Ordered By: Jonh Patel on 04-27-2022 Platelets (Bld) [#/Vol] 116 10*3/uL 150-450 [facility] Protein [Mass/volume] in Ser um or PlasmaOrdered By: Jonh Patel on 04-27-2022 Protein [Mass/Vol] 6.4 g/dL 6.1-7.9 [facility] RBC Auto (Bld) [#/Vol]Ordere d By: Jonh Patel on 04-27-2022 RBC (Bld) [#/Vol] 4.27 10*6/uL 3.90-5.60 [facility] Serum or plasma alanine garner otransferase measurement without P-5'-P (enzymatic activiOrdered By: Jonh Patel on 04-27-2022 ALT No additional P-5'-P [Catalytic activity/Vol] 12 U/L 10-60 [facility] Serum or plasma albumin/glob ulin mass ratioOrdered By: Jonh Patel on 04-27-2022 Albumin/Globulin [Mass ratio] 1.3 {ratio} [facility] Serum or plasma alkaline anna sphatase measurement (enzymatic activity/volume)Ordered By: Jonh Patel on 04-27-2022 ALP [Catalytic activity/Vol] 71 U/L 32-92 [facility] Serum or plasma aspartate am inotransferase measurement (enzymatic activity/volume)Ordered By: Jonh Patel on 04-27-2022 AST [Catalytic activity/Vol] 18 U/L 10-42 [facility] Serum or plasma calcium josiah urement (mass/volume)Ordered By: Jonh Patel on 04-27-2022 Calcium [Mass/Vol] 9.0 mg/dL 8.2-10.2 [facility] Serum or plasma chloride jerica surement (moles/volume)Ordered By: Jonh Patel on 04-27-2022 Chloride [Moles/Vol] 104 mmol/L 95-114 [facility] Serum or plasma glucose josiah urement (mass/volume)Ordered By: Jonh Patel on 04-27-2022 Glucose [Mass/Vol] 139 mg/dL 70-100 [facility] Comment on above: ADA recommended refe rence range Random Glucose Reference Range is dependent on time and content of last meal. Glucose of more than 200 mg/dL in a nonstressed, ambulatory subject supports the diagnosis of Diabetes Mellitus. Serum or plasma high density lipoprotein (HDL) cholesterol measurementOrdered By: Jonh Patel on 04-27-2022 Cholesterol in HDL [Mass/Vol] 38 mg/dL 29-71 [facility] Comment on above: HDL CHOL ATP-III CLA SSIFICATION Cardiovascular Risk HDL > or equal to 60 mg/dL LOW HDL < 40 mg/dL HIGH Serum or plasma potassium me asurement (moles/volume)Ordered By: Jonh Patel on 04-27-2022 Potassium [Moles/Vol] 4.4 mmol/L 3.5-5.1 [facility] Serum or plasma sodium measu rement (moles/volume)Ordered By: Jonh Patel on 04-27-2022 Sodium [Moles/Vol] 136 mmol/L 136-146 [facility] Serum or plasma thyroxine (T 4) measurement (mass/volume)Ordered By: Jonh Patel on 04-27-2022 T4 [Mass/Vol] 9.08 ug/dL 5.39-11.82 [facility] Serum or plasma total biliru bin measurement (mass/volume)Ordered By: Jonh Patel on 04-27-2022 Bilirubin [Mass/Vol] 0.8 mg/dL 0.3-1.2 [facility] Serum or plasma total carbon dioxide measurement (moles/volume)Ordered By: Jonh Patel on 04-27-2022 CO2 [Moles/Vol] 22.4 mmol/L 22.0-30.0 [facility] Serum or plasma total choles terol/high density lipoprotein (HDL) cholesterol mass ratOrdered By: Jonh Patel on 04-27-2022 Cholesterol.total/Tresa sterol in HDL [Mass ratio] 4.4 {ratio} [facility] Serum or plasma urea nitroge n measurement (mass/volume)Ordered By: Jonh Patel on 04-27-2022 Urea nitrogen [Mass/Vol] 23 mg/dL 9-23 [facility] Stool Occult Blood (Immuno)o n 04-27-2022 Stool Occult Blood (Immuno) Occult Blood (Immuno) Negative for Occult Blood by Immunochemical Methodology Reference range = Negative PERFORMED BY: [place] [address] PATHOLOGIST RISK MANAGEMENT MANAGER BRIDGETT MANZO M.D. Normal [facility] Comment on above: Performed By: #### O B(IMMUNO) #### [facility] [address] [place] [address] TSH DL <= 0.005 mIU/L QnOrde red By: Jonh aPtel on 04-27-2022 TSH Qn 1.16 m[IU]/L 0.45-5.33 [facility] Thyroid Stimulating Hormoneo n 04-27-2022 TSH Qn 1.16 m[IU]/L Normal 0.45-5.33 [facility] Comment on above: Result Comment: PERF ORMED BY: [place] [address] PATHOLOGIST RISK MANAGEMENT MANAGER BRIDGETT MANZO M.D. Performed By: #### T 4T, TSH3, CBC, PSAS, T3F, A1C WTH eA, CMP, LIPID ####[place] [id number] [place] [id number] [facility] Thyroxine (T4) Totalon 04-27 T4 [Mass/Vol] 9.08 ug/dL Normal 5.39-11.82 [facility] Comment on above: Performed By: #### T 4T, TSH3, CBC, PSAS, T3F, A1C WTH eA, CMP, LIPID ####[place] [id number] [place] [id number] [facility] Triglyceride [Mass/volume] i n Serum or PlasmaOrdered By: Jonh Patel on 04-27-2022 Triglyceride [Mass/Vol] 88 mg/dL 35-149 [facility] Comment on above: TRIG ATP III CLASSIF ICATION TRIG less than 150 mg/dL Normal TRIG 150-199 mg/dL Borderline high TRIG 200-500 mg/dL High TRIG greater than 500 mg/dL Very high Standard traceable to the Center for Disease Conrtrol and Prevention (CDC) test method. Triiodothyronine (T3) Freeon 04-27-2022 Triiodothyronine (T3) Free 2.51 pg/mL Normal 2.50-3.90 [facility] Comment on above: Result Comment: PERF ORMED BY: [facility] [address] [place] [id number] PATHOLOGIST RISK MANAGEMENT MANAGER BRIDGETT MANZO M.D. Performed By: #### T 4T, TSH3, CBC, PSAS, T3F, A1C WTH eA, CMP, LIPID #### [facility] [address] Triiodothyronine (T3) Free [ Mass/volume] in Serum or PlasmaOrdered By: Jonh Patel on 04-27-2022 Free T3 [Mass/Vol] 2.51 pg/mL 2.50-3.90 [facility] October 27, 2021 Jonh Patel, [address] [place] [address] [place] [address] Re: NAVI FUNES Date of : 1940 Thank you for your referral of Navi Funes who was seen on consultation on 10/23/2021, for nodule right taylor with underlying cellulitis. I have enclosed my consultation note for your review. I will be happy to follow Navi. Sincerely, Josiah Gallego MD General Surgery Normal [facility] Ambulatory Clinical Summaryo n 10-23-2021 Ambulatory Clinical Summary {[id number]}CD:[id number] Normal [facility] Physician Referralon 021 Physician Referral [id number]:[id number] Normal [facility] Vital Signs Date Time Vital Sign Value Performing Clinician Facility 08-10-2022 10:45-0400 Body height 177.8 cm Grady Peters Other CX Other 08-10-2022 10:45-0400 Body mass index (BMI) [Ratio] 26.54 kg/m2 Grady Peters Other CX Other 08-10-2022 10:45-0400 Body temperature 97.3 [degF] Grady Peters Other CX Other 08-10-2022 10:45-0400 Body weight 83.92 kg Gardy Peters Other CX Other 08-10-2022 10:45-0400 Diastolic blood pressure 72 mm[Hg] Grady Peters Other CX Other 08-10-2022 10:45-0400 SaO2% (BldA) [Mass fraction] 98 % Grady Peters Other CX Other 08-10-2022 10:45-0400 Systolic blood pressure 146 mm[Hg] Grady Juarezredari Other CX Other Encounters Encounter Date Encounter Type Care Provider Facility Start: 08-10-2022 End: 08-10-2022 ambulatory Grady Peters Other CX Other Start: 08-10-2022 Office outpatient vi sit 25 minutes Grady Peters [facility] Start: 07-30-2022 End: 07-30-2022 ambulatory Grady Peters Facility:[facility] Start: 07-30-2022 End: 07-30-2022 Patient encounter procedure MD Jonh Patel Work Phone: [facility] [place] Start: 06-17-2022 End: 06-17-[address] JONH PATEL Facility: Start: 04-27-2022 End: 04-27-2022 ambulatory Jonh Patel Facility:[facility] Start: 04-27-2022 End: 04-27-2022 Patient encounter procedure MD Jonh Patel Work Phone: [facility] Start: 01-06-2017 End: 01-07-2017 Ambulatory CHARISMA MCKEON Facility:[facility] Procedures Date Procedure Procedure Detail Performing Clinician Start: 07-30-2022 X-ray of right ankle MD Jonh Patel Work Phone: Start: 04-27-2022 End: 04-27-2022 Screening for occult blood in feces MD Jonh Patel Work Phone: Plan of Treatment Date Care Activity Detail Author Start: 07-30-2022 Ankle brachial press ure index [facility] Start: 07-30-2022 Duplex scan of lower limb veins US venous duplex LE BI [facility] Start: 07-30-2022 US Lower extremity v ein - bilateral [facility] Work Phone: Payers Date Payer Category Payer Medicaid [id number] 2022 Self-pay [id number] b 1957 Unknown [id number] 1940 Unknown [id number] Unknown [facility] [id number] Unknown [id number] Unknown [id number] Social History Date Type Detail Facility Tobacco smoking status NHIS Unknown if ever smoked [facility] Work Phone: Start: 1940 Sex Assigned At Male [facility] Sex Assigned At Sex Assigned At Bir th CX Other Evaluation note 08-10-2022 Note Date & [...] this patient back on an as-needed basis. CX Other Clinical Note 06-22-2022 Note Date & [...] to Vascular surgery for recommendations; patient requests [facility]. Ordered: E&M of Est. Patient Low 20-29 Min [id number] [facility] External Ambulatory Referral Follow-up No qualifying data [...] Recorded SARS-CoV-2 (COVID-19) Ad26 vaccine 03/19/2021 Recorded [facility] Comment on above: Result Comment: Elec tronically [...] Recorded SARS-CoV-2 (COVID-19) Ad26 vaccine 03/19/2021 Recorded [facility] Comment on above: Result Comment: Elec tronically Signed By: CLAUDIA OG, Josiah Daley\Date and Time Signed: 10/23/21 16:30 EST Evaluation note Note Date & Type Note Facility Evaluation note No assessment information availa [facility] Work Phone: History general Narrative - Reported Note Date & Type Note Facility History general Narrative - Reported Type Medical History hypercholesterolemia Medical History hypertension Medical History diabetes mallitus Surgical History CABG Surgical History Open reduction inter nal fixation right lower extremity fracture Hospitalization History see above CX Other Summary Purpose Family History No Family [...] section and content) DATE CREATED AUTHOR 05/03/2018 [facility] DATE CREATED AUTHOR AUTHOR'S ORGANIZ ATION 06/20/2022 [facility] DATE CREATED AUTHOR AUTHOR'S ORGANIZ ATION 07/16/2022 [facility] DATE CREATED AUTHOR AUTHOR'S ORGANIZ ATION 12/23/2022 [facility] Care Teams (unrecognized sec tion and content) [...] TESTING; MARIAH AND FF V ENOUS AT [facility], Follow-up noninvasive studies FOR RECORDS PERTAINING TO [...] BE BASED ON THE PRIMARY CLINICAL RECORDS. [facility] [employer] provides no warranty or guarantee of the accuracy or completeness of information in this document.
[2023-11-28 18:57] LABS: Bacteria Urine NONE SEEN #/HPF (NONE SEEN); Cast Seen? NONE SEEN #/LPF (NONE SEEN); Crystals Seen? None Seen #/HPF (None Seen); Mucus Urine NONE SEEN (NONE SEEN); RBC Urine 0-2 #/HPF (0-2); Squamous Epithelial Cell Urine NONE SEEN #/LPF (NONE/RARE); WBC Urine 0-2 #/HPF (NONE SEEN)
--- NOTE | 2023-11-28 20:33 | PC.NURSE ---
Patient poor historian. Unable to obtain med rec
[2023-11-28 20:39] LABS: Glucometer 149 mg/dL (74-106)
[2023-11-28] MEDS: 0.9 % SODIUM CHLORIDE 1,000 ML 75 ML IV (22:30)
[2023-11-28] MEDS: MEMANTINE HCL 7 MG CAP XR PO (22:31)
[2023-11-28] MEDS: QUETIAPINE FUMARATE 25 MG TABLET PO (22:31)
[2023-11-28] MEDS: METFORMIN HCL 500 MG TABLET PO (22:31)
[2023-11-28] MEDS: CLONIDINE HCL 0.1 MG TABLET PO (22:31)
[2023-11-28] MEDS: INSULIN ASPART 300 UNIT/3 ML PEN SUBQ (22:44)
[2023-11-29] VITALS (9 sets, daily range): BP systolic 158–172; BP diastolic 54–58; PULSE 45–56; RESP 18; TEMP 36.5; O2SAT 96
[2023-11-29 05:34] LABS: Basophils Absolute Auto 0.1 10^3/uL (0.0-0.1); Basophils Percent Auto 1.1 % (0.2-2.0); Eosinophils Absolute Auto 0.3 10^3/uL (0.0-0.7); Eosinophils Percent Auto 6.3 % (0.9-7.0); Hematocrit 36.6 % (42.0-54.0); Hemoglobin 11.9 g/dL (14.0-18.0); Lymphocytes Absolute Auto 1.8 10^3/uL (1.2-3.8); Lymphocytes Percent Auto 32.2 % (20.5-60.0); Mean Corpuscular HGB Conc 32.5 g/dL (29.9-35.2); Mean Corpuscular Hemoglobin 30.6 pg (25.9-34.0); Mean Corpuscular Volume 94.1 fL (80.0-94.0); Mean Platelet Volume 12.1 fL (9.5-13.5); Monocytes Absolute Auto 0.5 10^3/uL (0.3-0.8); Monocytes Percent Auto 9.4 % (1.7-12.0); Neutrophils Absolute Auto 2.8 10^3/uL (1.4-6.5); Platelet Count 118 10^3/uL (150-450); Red Blood Count 3.89 10^6/uL (4.70-6.10); Red Cell Distribution Width 13.6 % (11.0-15.0); White Blood Count 5.4 10^3/uL (4.0-11.0)
[2023-11-29 05:38] LABS: Ammonia <11 umol/L (11-32)
[2023-11-29 06:03] LABS: Alanine Aminotransferase 16 U/L (16-63); Albumin Globulin Ratio 0.8; Albumin Level 2.7 g/dL (3.4-5.0); Alkaline Phosphatase 77 U/L (46-116); Anion Gap 10.9; Aspartate Amino Transferase 15 U/L (15-37); BUN Creatinine Ratio 18.9; Bilirubin Total 0.7 mg/dL (0.2-1.0); Calcium 8.7 mg/dL (8.5-10.1); Carbon Dioxide 25.1 mmol/L (21.0-32.0); Chloride 109 mmol/L (98-107); Estimated GFR (African America >60 (>=60); Estimated GFR (Non-African Ame >60 (>=60); Globulin 3.4 g/dL; Glucose 115 mg/dL (74-106); Sodium 141 mmol/L (136-145); Total Protein 6.1 g/dL (6.4-8.2)
--- NOTE | 2023-11-29 07:08 | P.HP_ITS ---
H&P: HPI History of Present Illness Chief complaint: General Weakness Altered Mental Status Narrative: Patient is emergency room with some slurred speech noted by family. Leg weakness as well. In ER workup for stroke with negative. Appeared to be dehydrated. Patient not taking his medications given. Patient also states he was out of his house for 2 days and that was why he did not take his medications. Cannot state where he was at. Confused to location this morning. Patient was admitted secondary to the dehydration and worsening altered mental status Review of Systems ROS Status of ROS 10 or more systems reviewed and unremark able except as noted in history and below [facility] Medical History (Updated 11/28/23 @ 17:51 by CALVIN Escobedo) Altered mental status ?R41.82 - Altered mental status, unspecified (ICD-10) Acute hyperglycemia ?R73.9 - Hyperglycemia, unspecified (ICD-10) Medical non-compliance ?Z91.199 - Patient's noncompliance with other medical treatment and regimen due to unspecified reason (ICD-10) Hearing loss ?H91.90 - Unspecified hearing loss, unspecified ear (ICD-10) Fall ?W19.XXXA - Unspecified fall, initial encounter (ICD-10) Diabetes ?E11.9 - Type 2 diabetes mellitus without complications (ICD-10) Leg fracture, right ?S82.91XA - Unspecified fracture of right lower leg, initial encounter for closed fracture (ICD-10) Surgical History (Updated 10/22/23 @ 15:01 by Shayna Miller) FH: CABG (coronary artery bypass surgery) ?Z82.49 - Family history of ischemic heart disease and other diseases of the circulatory system (ICD-10) Family History (Updated 10/22/23 @ 15:04 by Shayna Miller) Father Family history of cancer Social History Within the past year, how often did you have a drink containing alcohol: never Within the past year, how many standard drinks containing alcohol did you have on a typical day: 1 or 2 Within the past year, how often did you have six or more drinks on one occasion: never Total score: 0 Score interpretation: A score less than 4 is consistent with normal alcohol consumption. Smoking status: Never smoker Non-prescribed substance use: denies use Previous occupational history: retired Highest level of school completed/degree received: 11th grade Are you now , , , , never or living with a partner: In a typical week, how many times do you talk on the telephone with family, friends, or neighbors: twice per week How often do you get together with friends or relatives: twice per week How often do you attend shinto or gnosticist services: never Do you belong to any clubs or organizations such as shinto groups unions, [employer] or athletic groups, or school groups: no Total score: 1 Score interpretation: A score of less than or equal to 1 indicates the most socially isolated. Little interest or pleasure in doing things: not at all Feeling down, depressed, or hopeless: not at all Feel stressed/tense/nervous/anxious/difficulty sleeping: not at all Meds Home Medications and Allergies Home Medications Medication Instructions Recorded Confirmed Type lisinopril 10 mg tablet 10 mg PO DAILY 10/22/23 10/22/23 History metformin 500 mg tablet 500 mg PO BID 10/22/23 10/22/23 History mupirocin 2 % topical ointment 1 applic topical DAILY 10/22/23 10/22/23 History clonidine HCl 0.1 mg tablet 0.1 mg PO BID #60 tabs 10/26/23 Rx doxycycline monohydrate 100 mg 100 mg PO BID #20 caps 10/26/23 Rx capsule quetiapine 25 mg tablet 25 mg PO HS #30 tabs 10/26/23 Rx Allergies Allergy/AdvReac Type Severity Reaction Status Date / Time No Known Drug Allergies Allergy Verified 09/08/23 06:12 Exam Constitutional Vital Signs, click to edit/add: Last Vital Signs Temp 97.7 F 11/29/23 05:33 Pulse 52 L 11/29/23 05:53 Resp 18 11/29/23 05:33 BP 158/58 H 11/29/23 05:33 Pulse Ox 96 11/29/23 05:33 O2 Del Method Room Air 11/29/23 05:33 Documenting provider has reviewed patient's vital signs: yes Common normals: no apparent distress HENMT Common normals: normocephalic and head/scalp atraumatic Chest Common normals: inspection of chest normal Respiratory Common normals: normal respiratory effort and no retractions Cardio Common normals: regular rhythm; irregular rate Rate: bradycardic Neuro Common normals: CN's II-XII intact bilaterally and moves all extremities; not oriented x3 (altered to location and my name) Results Labs Labs: Short CBC 11/28/23 11/29/23 Range/Units 16:10 04:59 WBC 5.6 5.4 (4.0-11.0) 10^3/uL Hgb 12.0 L 11.9 L (14.0-18.0) g/dL Hct 36.9 L 36.6 L (42.0-54.0) % Plt Count 139 L 118 L (150-450) 10^3/uL BMP 11/28/23 11/29/23 16:10 04:59 Sodium 134 L 141 Potassium 4.4 4.0 Chloride 102 109 H Carbon Dioxide 29.5 25.1 BUN 29.0 H 21.0 H Creatinine 1.43 H 1.11 Glucose 206 H 115 H Calcium 8.8 8.7 Liver Function 11/28/23 11/29/23 Range/Units 16:10 04:59 Total Bilirubin 0.7 0.7 (0.2-1.0) mg/dL AST 12 L 15 (15-37) U/L ALT 18 16 (16-63) U/L Alkaline Phosphatase 90 77 (46-116) U/L Albumin 3.2 L 2.7 L (3.4-5.0) g/dL Urine 11/28/23 Range/Units 17:10 Urine Color Yellow (YELLOW) Urine Clarity Clear (CLEAR) Urine pH 6.0 (5.0-9.0) Ur Specific [place] 1.020 (1.005-1.025) Urine Protein 100 A (NEG/TRACE) mg/dL Urine Glucose (UA) Negative (NEGATIVE) mg/dL Assessment and Plan Assessment and Plan (1) Altered mental status: (2) Weakness: (3) Acute hyperglycemia: Plan Altered mental status secondary to worsening dementia and complicated by the d ehydration. Start patient on dementia medications. Hopefully continue these as an outpatient. Dehydration-continue with IV fluids, sodium is improving creatinine is improved Acute kidney injury with elevation in his creatinine of over 30%. Improved Diabetes mellitus-sugars improved this morning, continue with medications Hypertension-continue with current medications, blood pressure improved With the altered mental status. Patient unable to care for himself secondary to the dementia. Needs further evaluation in the prolonged treatment. Recommend [facility] evaluation Will maintain current observation status
[2023-11-29] MEDS: LISINOPRIL 10 MG TABLET PO (09:11)
[2023-11-29] MEDS: METFORMIN HCL 500 MG TABLET PO (09:12)
[2023-11-29] MEDS: CLONIDINE HCL 0.1 MG TABLET PO (09:12)
[2023-11-29] MEDS: DONEPEZIL HCL 5 MG TABLET PO (09:13)
[2023-11-29] MEDS: MEMANTINE HCL 7 MG CAP XR PO (09:43)
--- NOTE | 2023-11-29 10:41 | SWNOTE1 ---
MELINDA spoke with case management prior to seeing pt. Pt was here back in October. He has 1 daughter and until recently they were estranged. Pt was up ambulatory in halls during last stay and had no need for SNF. The last stay pt had agreed to visit with the [facility] assisted [facility] and potentially move in. Case management had called and they had an opening. Once pt was discharged, unsure if they went to [facility] for assessment. Pt is hard of hearing, but was alert and oriented. MELINDA met with pt and daughter in room. Once pt was discharged last time, he did not go to the [facility] for the assessment and meeting. Pt's daughter did voice he is weaker than last time and has forgot to take meds at times. She also voiced he only has a small walk way that she has cleared through out his home. She also voiced she does not know how he will manage finances at home, get groceries, go up the stairs. SW did let her know that we will have therapy work with him and we can determine if he is appropriate for SNF. SW explained that his insurance will look at the therapy evaluations, but if he is walking up and down the hallway, he would not qualify for SNF. SW let her know that SW called [facility] [place] and they take [place] as payment. Daughter voiced she does not want that close to his home because he will just go home. Pt's daughter stated his medicaid just kicked back in yesterday. She stated he had medicaid but let it lapse. Daughter asked about the [facility]. SW let her know that the [facility] has limited medicaid beds. SW let her know [facility] [place] and [facility]. [facility]INDA then [facility] and [facility] would [facility] get him. MELINDA explained to the daughter that if pt is alert and oriented, I can not force him to go to a facility. MELINDA then spoke with the patient. Pt is alert and oriented. MELINDA spoke with him about going to the [facility] [place]. MELINDA explained it may not be forever, potentially just a few months so his daughter can get his house organized and get caregivers lined up to come to the home. Pt stated no. SW and pt spoke for about 30-45 minutes in regards to going in to assisted or independent living. Pt told several stories about his past. Pt did not voice any concerns about returning home. SW asked several times what he was going to do about food, bills, etc. Pt did not voice concerns, but also avoided the questions. SW asked several times if he was willing to go to Independent living or assisted living. Pt answered no to this question every time. Physical therapy came in room to completed assessment. SW to stop back in after. SW reviewed RICE form with pt's daughter. Pt's daughter voiced understanding, no questions. Pt's daughter signed form. Copy placed in chart, original given to daughter.
[2023-11-29 11:06] LABS: Glucometer 174 mg/dL (74-106)
--- NOTE | 2023-11-29 12:34 | SWNOTE1 ---
MELINDA spoke with pt and family again. MELINDA spent another 30-45 minutes in room. Pt still refusing to go to any facility, he wants to go home. At this time MELINDA explained to daughter we can't force him to go and that SW can call APS, daughter is familiar with the process of calling APS and she called when they first saw the home. SW to reach out to doctor and work on getting tour scheduled. Daughter has voiced to MELINDA that she is going stop bringing food, stop cleaning for him, stop doing laundry. She voiced she has his bills set up for auto pay. She will take him to a tour if we get scheduled. MELINDA updated doctor.
--- NOTE | 2023-11-29 13:14 | SWNOTE1 ---
MELINDA spoke Yue from the [place] and she remembered pt and daughter. She stated to have daughter call her to re-schedule tour/interview. They still have openings at the [place]. SW called and spoke with daughter to let her know pt will be discharged today. SW let her know to call Yue from the [place] to schedule tour. SW let her know that SW will call Adult Protective Services. SW asked daughter if she would like SW to schedule transport home or if she is taking pt home. At this time pt's daughter is trying to step away and will have SW set up transport. MELINDA updated nursing.
[2023-11-29] MEDS: INSULIN ASPART 300 UNIT/3 ML PEN SUBQ (13:15)
--- NOTE | 2023-11-29 13:55 | SWNOTE1 ---
SW called Adult Protective Services and made report.
--- NOTE | 2023-11-29 16:00 | P.DS_ITS ---
DS: Providers Provider Date of admission: 11/28/23 18:48 Primary care physician: Savage Patel MD Consults: 11/28/23 17:57 Consult to Rn Case Management Routine Reason for consult:: Housing/Halfway Other reason:: Sojourns? [facility] AL? 11/28/23 18:02 Physical Therapy Eval and Treat Routine Reason for consultation: Eval and Treat Has provider been notified: No DS: Diagnosis Discharge Diagnosis (1) Altered mental status: (2) Weakness: (3) Acute hyperglycemia: Plan Altered mental status secondary to worsening dementia and complicated by the dehydration. Dehydration Acute kidney injury with elevation in his creatinine of over 30%. Diabetes mellitus Hypertension With the altered mental status. DS: Summary Hospital Course Hospital Course: Patient mated to hospital with dehydration and acute kidney injury with creatinine 30% above baseline, given IV fluids, still confused in the morning. To me and to place. Over the course of the day however patient's cognition did improve. He was ambulating well. Patient will be discharged home in improving condition. Medications see list. Follow-up with me in the office within the next week. Patient needs placement in either an assisted living program or [facility] the [facility]. Time Spent with Patient Time attestation: Total time spent providing and/or coordinating discharge services: Exam Constitutional Vital Signs, click to edit/add: Last Vital Signs Temp 97.7 F 11/29/23 05:33 Pulse 51 L 11/29/23 12:00 Resp 18 11/29/23 08:00 BP 172/54 H 11/29/23 09:12 Pulse Ox 96 11/29/23 05:33 O2 Del Method Room Air 11/29/23 05:33 Documenting provider has reviewed patient's vital signs: yes Common normals: no apparent distress HENMT Common normals: normocephalic and head/scalp atraumatic Chest Common normals: inspection of chest normal Respiratory Common normals: normal respiratory effort and no retractions Cardio Common normals: regular rhythm; irregular rate Rate: bradycardic Neuro Common normals: CN's II-XII intact bilaterally and moves all extremities; not oriented x3 (altered to location and my name) Discharge Plan Discharge Disposition: Home, Self-Care Discharge Medications: New donepezil 5 mg Tablet 5 mg PO QD Qty: 30 11RF memantine 7 mg Capsule,Sprinkle,Er 24hr 7 mg PO QD Qty: 30 11RF Continued mupirocin 2 % ointment 1 applic TOPICAL DAILY metformin 500 mg tablet 500 mg PO BID lisinopril 10 mg tablet 10 mg PO DAILY quetiapine 25 mg Tablet 25 mg PO HS Qty: 30 11RF clonidine HCl 0.1 mg Tablet 0.1 mg PO BID Qty: 60 11RF doxycycline monohydrate 100 mg Capsule 100 mg PO BID Qty: 20 0RF Activity: increase activity as tolerated Diet: advance to your usual diet Patient Instructions: Donepezil (By mouth) (Aricept, Aricept ODT), Memantine (By mouth) (Namenda, Namenda XR, Namenda XR en envase..., Dementia (ED) Forms: Portal Instructions Follow Up Appointments: @ 1:30pm with Dr. Patel [phone] Discharge Date/Time: 11/29/23 13:57
--- NOTE | 2023-11-30 15:09 | CM.DCFOLLOWU ---
Person spoke with: Daughter How are you feeling? He is good, but wondering all over town and hitchhiking. [facility]t [facility] with [facility] to [facility]. How is your pain? None Did you understand your discharge instructions? Yes Do you have any questions about your discharge instructions? No Were you given any prescriptions at discharge? Yes we just filled them and dropped them off Were you able to get your prescriptions filled? yes Do you understand how to take your medications as ordered? Yes Do you have any questions about your follow up appointment and do you plan to keep your follow up appointment? No they are scheduled Is there anything else that you would like to discuss? No Questions/Comments/Concerns/Other:
== END 2023-11-29 13:57 | disposition home or self-care (01) ==
LOC: ER 17:51 → MS 18:51
PROVIDERS: Physician Assistant; Admitting Provider Family Medicine; Emergency Provider Emergency Medicine; PCP Family Medicine; Visit Provider Family Medicine
DX: E86.0 Dehydration (principal); F03.90 Unspecified dementia, unspecified severity, without behavioral disturbance, psychotic disturbance, mood disturbance, and anxiety; N17.9 Acute kidney failure, unspecified; I10 Essential (primary) hypertension; E11.65 Type 2 diabetes mellitus with hyperglycemia; R41.82 Altered mental status, unspecified; R53.1 Weakness; Z91.148 Patient's other noncompliance with medication regimen for other reason; H91.90 Unspecified hearing loss, unspecified ear; Z79.899 Other long term (current) drug therapy; Z79.84 Long term (current) use of oral hypoglycemic drugs
CPT/HCPCS: 36415; 70450; 71045; 80053; 80320; 81001; 82140; 82948; 83605; 83735; 83880; 84443; 84481; 84484; 85025; 85610; 87086; 93005; 94667; 94761; 96360; 96361; 97163; 99285; G0378

== ENCOUNTER 2023-12-26 15:36 | Inpatient (IN) | payer MEDICARE, SELFPAY ==
[2023-12-26 15:44] VITALS: BP 143/60; PULSE 50; RESP 20; TEMP 36.6; O2SAT 94; BMI 27.3
--- OUTSIDE RECORDS SUMMARY | 2023-12-26 15:47 | XMS_ITS | CCD ---
Author Name Unknown Address [address] [facility] [address] [place] [address] Organization [facility] Care Team Providers Care [employer] Layup Line Back Feeder Name Role Phone CHARISMA MCKEON Unavailable Unavailable CHARISMA MCKEON Unavailable Unavailable JONH PATEL Unavailable Unavailable JONH PATEL Unavailable Unavailable MD Jonh Patel Primary Care Provider [phone] MD Jonh Patel Attending Provider [phone] JONH PATEL Attending Unavailable VIRGILIO, DR BORJA Consulting Unavailable DR JONH PATEL Primary Care Unavailable DR JONH PATEL Admitting Unavailable MD Jonh Patel Primary Care Provider [phone] MD Grady Peters Attending Provider Grady Peters Unavailable Jonh Patel Primary Care [...] US ankle/arm indiceson 07-31 US ankle/arm indices [facility] Main [place] [address] [place] [address] Ultrasound Report Signed Patient: Navi Funes Jr MR#: [id number] : 1940 Acct:[id number] Age/Sex: 81 / M ADM Date: 07/30/22 Loc: Room: Type: [facility] Attending Dr: Grady Peters MD Ordering [...] Ruben Dumont MD07/31/2022 3:20 PM Dictation Location: [place] [address] Tech: Katt Baron Transcribed By: HANNAH 07/31/22 1520 Dictated By: Ruben Dumont MD 07/31/22 1519 Signed By: 07/31/22 152 [facility] US venous duplex LE BIon US venous duplex LE BI [facility] Main [place] [id number] Ultrasound Report Signed Patient: Navi Funes Jr MR#: [id number] : 1940 Acct:[id number] Age/Sex: 81 / M ADM Date: 07/30/22 Loc: Room: Type: [facility] Attending Dr: Grady Peters MD Ordering [...] MD 07/31/22 152 Signed By: 07/31/22 152 [facility] XR ankle RT min 3V*on 2021 XR ankle RT min 3V* [facility] Main [address] [address] XRay Report Signed Patient: Navi Funes Jr MR#: [id number] : 1940 Acct:[id number] Age/Sex: 81 / M ADM Date: 07/30/22 Loc: Room: Type: [facility] Attending Dr: Grady Peters MD Copies [...] King Jr., D.O.07/30/2022 4:33 PM Dictation Location: [place] [address] Transcribed By: [facility] 07/30/22 1633 Dictated By: Navi King Jr, DO 07/30/22 1632 Signed By: 07/30/22 1633 Normal [facility] Consultation Noteon 07-15-20 Consultation Note [id number]:127 Normal [facility] HIPAA Privacy Documentson HIPAA Privacy Documents [id number]:127 Normal [facility] WOUND CULTUREon 06-20-2022 Bacteria identified Aer cx Nom (Unsp spec) Final report Normal [facility] Comment on above: Performed By: #### C XWND #### [facility] [address] [place] [address] [address] Eddie Gaitan Result 1 Comment Normal [facility] Comment on above: Result Comment: No g rowth in 36 - 48 hours. Performed By: #### C XWND #### [facility] [address] [address] [address] Eddie Gaitan Physician Referralon 022 Physician Referral [id number]:127 Normal [facility] A1C with Estimated Average Bin hernandez 04-27-2022 Glucose [Mass/Vol] 151 mg/dL Normal [facility] Comment on above: Result Comment: PERF ORMED BY: [place] [address] PATHOLOGIST DIRECTOR OF PROMOTIONS BRIDGETT MANZO M.D. Performed By: #### T 4T, TSH3, CBC, PSAS, T3F, A1C WT eA, CMP, LIPID #### [facility] [address] HbA1c (Bld) [Mass fraction] 6.9 % High 4.3-5.6 [facility] Comment on above: Result Comment: Incr eased risk for diabetes: 5.7 - 6.4 diabetes: >6.4 glycemic control for adults with diabetes: <7.0 Performed By: #### T 4T, TSH3, CBC, PSAS, T3F, A1C WTH eA, CMP, LIPID #### [facility] [address] Basophils Auto (Bld) [#/Vol] Ordered By: Jonh Patel on 04-27-2022 Basophils (Bld) [#/Vol] 0.1 10*3/uL 0.0-0.2 [facility] Basophils/100 WBC Auto (Bld) Ordered By: Jonh Patel on 04-27-2022 Basophils/100 WBC (Bld) 1.1 % F [facility] Blood hemoglobin measurement (mass/volume)Ordered By: Jonh Patel on 04-27-2022 Hemoglobin (Bld) [Mass/Vol] 13.3 g/dL 13.0-17.0 [facility] Blood leukocytes automated c ount (number/volume)Ordered By: Jonh Patel on 04-27-2022 WBC (Bld) [#/Vol] 5.0 10*3/uL 4.5-11.0 [facility] Body fluid albumin measureme nt (mass/volume)Ordered By: Jonh Patel on 04-27-2022 Albumin (Body fld) [Mass/Vol] 3.6 g/dL 3.2-5.5 [facility] Cholesterol [Mass/volume] in Serum or PlasmaOrdered By: Jonh Patel on 04-27-2022 Cholesterol [Mass/Vol] 168 mg/dL 140-200 [facility] Comment on above: Chol less than 200 m g/dl low risk Chol 201-239 mg/dl borderline risk Chol 240 mg/dl and greater high risk Cholesterol in LDL Calc [Mas s/Vol]Ordered By: Jonh Patel on 04-27-2022 Cholesterol in LDL [Mass/Vol] 112 mg/dL 0-100 [facility] Comment on above: LDL ATP III CLASSIFI CATION LDL less than 100 mg/dL Optimal LDL 100-129 mg/dL Near or above optimal LDL 130-159 mg/dL Borderline high LDL 160-189 mg/dL High LDL greater than 189 mg/dL Very high Cholesterol in VLDL Calc [Ma ss/Vol]Ordered By: Jonh Patel on 04-27-2022 Cholesterol in VLDL [Mass/Vol] 17 mg/dL [facility] Complete Blood Count Auto Di ffon 04-27-2022 Basophils (Bld) [#/Vol] 0.1 10*3/uL Normal 0.0-0.2 [facility] Comment on above: Result Comment: PERF ORMED BY: [place] [address] PATHOLOGIST DIRECTOR OF [employer]OMOTIONS BRIDGETT MANZO M.D. Performed By: #### T 4T, TSH3, CBC, PSAS, T3F, A1C WTH eA, CMP, LIPID #### [facility] [address] [place] [address] [place] Basophils/100 WBC (Bld) 1.1 % Normal . F [facility] Comment on above: Performed By: #### T 4T, TSH3, CBC, PSAS, T3F, A1C WTH eA, CMP, LIPID #### [facility] [address] [place] [address] [place] Eosinophils (Bld) [#/Vol] 0.3 10*3/uL Normal 0.0-0.45 [facility] Comment on above: Performed By: #### T 4T, TSH3, CBC, PSAS, T3F, A1C WTH eA, CMP, LIPID #### [facility] [address] [place] [address] [place] Eosinophils/100 WBC (Bld) 6.5 % Normal . [facility] Comment on above: Performed By: #### T 4T, TSH3, CBC, PSAS, T3F, A1C WTH eA, CMP, LIPID #### [address] Erythrocyte distribution width (RBC) [Ratio] 15.0 % High 12.0-14.8 [facility] Comment on above: Performed By: #### T 4T, TSH3, CBC, PSAS, T3F, A1C WTH eA, CMP, LIPID #### [address] Hematocrit (Bld) [Volume fraction] 39.9 % Normal 38.8-50.0 [facility] Comment on above: Performed By: #### T 4T, TSH3, CBC, PSAS, T3F, A1C WTH eA, CMP, LIPID #### [address] Hemoglobin (Bld) [Mass/Vol] 13.3 g/dL Normal 13.0-17.0 [facility] Comment on above: Performed By: #### T 4T, TSH3, CBC, PSAS, T3F, A1C WTH eA, CMP, LIPID #### [address] Lymphocytes (Bld) [#/Vol] 1.3 10*3/uL Normal 1.00-4.8 [facility] Comment on above: Performed By: #### T 4T, TSH3, CBC, PSAS, T3F, A1C WTH eA, CMP, LIPID #### [address] Lymphocytes/100 WBC (Bld) 25.6 % Normal . [facility] Comment on above: Performed By: #### T 4T, TSH3, CBC, PSAS, T3F, A1C WTH eA, CMP, LIPID #### [facility] [address] MCH (RBC) [Entitic mass] 31.2 pg Normal 27.5-35.2 [facility] Comment on above: Performed By: #### T 4T, TSH3, CBC, PSAS, T3F, A1C WTH eA, CMP, LIPID #### [facility] [address] MCV (RBC) [Entitic vol] 93.5 fL Normal 83.5-[address] [facility] Comment on above: Performed By: #### T 4T, TSH3, CBC, PSAS, T3F, A1C WTH eA, CMP, LIPID #### [address] Mean Corpuscular HGB Conc 33.4 g/dL Normal 32.5-35.6 [facility] Comment on above: Performed By: #### T 4T, TSH3, CBC, PSAS, T3F, A1C WTH eA, CMP, LIPID #### [address] Monocytes (Bld) [#/Vol] 0.4 10*3/uL Normal 0.0-0.8 [facility] Comment on above: Performed By: #### T 4T, TSH3, CBC, PSAS, T3F, A1C WTH eA, CMP, LIPID #### [address] Monocytes/100 WBC (Bld) 8.3 % Normal . F [facility] Comment on above: Performed By: #### T 4T, TSH3, CBC, PSAS, T3F, A1C WTH eA, CMP, LIPID #### [address] Neutrophils (Bld) [#/Vol] 2.9 10*3/uL Normal 1.8-7.7 [facility] Comment on above: Performed By: #### T 4T, TSH3, CBC, PSAS, T3F, A1C WTH eA, CMP, LIPID #### [facility] [address] [place] [address] [place] Neutrophils/100 WBC (Bld) 58.5 % Normal . [facility] Comment on above: Performed By: #### T 4T, TSH3, CBC, PSAS, T3F, A1C WTH eA, CMP, LIPID #### [facility] [address] [place] [address] [place] Nucleated RBC/100 WBC (Bld) [Ratio] 0.0 % Normal 0-0.5 [facility] Comment on above: Performed By: #### T 4T, TSH3, CBC, PSAS, T3F, A1C WTH eA, CMP, LIPID #### [facility] [address] [place] [address] [place] Platelet mean volume (Bld) [Entitic vol] 11.0 fL High 6.6-10.1 [facility] Comment on above: Performed By: #### T 4T, TSH3, CBC, PSAS, T3F, A1C WTH eA, CMP, LIPID #### [facility] [address] [place] [address] [place] Platelets (Bld) [#/Vol] 116 10*3/uL Low 150-450 [facility] Comment on above: Performed By: #### T 4T, TSH3, CBC, PSAS, T3F, A1C WTH eA, CMP, LIPID #### [facility] [address] [place] [address] [place] RBC (Bld) [#/Vol] 4.27 10*6/uL Normal 3.90-5.[address] [facility] Comment on above: Performed By: #### T 4T, TSH3, CBC, PSAS, T3F, A1C WTH eA, CMP, LIPID #### [facility] [address] [place] [address] [place] WBC (Bld) [#/Vol] 5.0 10*3/uL Normal 4.5-11.0 [facility] Comment on above: Performed By: #### T 4T, TSH3, CBC, PSAS, T3F, A1C WTH eA, CMP, LIPID #### [facility] [address] Comprehensive Metabolic Pane alexandra 04-27-2022 Albumin [Mass/Vol] 3.6 g/dL Normal 3.2-5.5 [facility] Comment on above: Performed By: #### T 4T, TSH3, CBC, PSAS, T3F, A1C WTH eA, CMP, LIPID #### [facility] [address] Albumin/Globulin [Mass ratio] 1.3 {ratio} Normal [facility] Comment on above: Performed By: #### T 4T, TSH3, CBC, PSAS, T3F, A1C WTH eA, CMP, LIPID #### [facility] [address] ALP [Catalytic activity/Vol] 71 U/L Normal 32-92 [facility] Comment on above: Performed By: #### T 4T, TSH3, CBC, PSAS, T3F, A1C WTH eA, CMP, LIPID #### [facility] [address] ALT [Catalytic activity/Vol] 12 U/L Normal 10-60 [facility] Comment on above: Performed By: #### T 4T, TSH3, CBC, PSAS, T3F, A1C WTH eA, CMP, LIPID #### [facility] [address] [place] [id number] [facility] AST [Catalytic activity/Vol] 18 U/L Normal 10-42 [facility] Comment on above: Performed By: #### T 4T, TSH3, CBC, PSAS, T3F, A1C WTH eA, CMP, LIPID #### [facility] [address] [place] [address] [place] Bilirubin [Mass/Vol] 0.8 mg/dL Normal 0.3-1.2 [facility] Comment on above: Performed By: #### T 4T, TSH3, CBC, PSAS, T3F, A1C WTH eA, CMP, LIPID #### [facility] [address] [place] [address] [place] Calcium [Mass/Vol] 9.0 mg/dL Normal 8.2-10.2 [facility] Comment on above: Performed By: #### T 4T, TSH3, CBC, PSAS, T3F, A1C WTH eA, CMP, LIPID #### [facility] [address] Chloride [Moles/Vol] 104 mmol/L Normal 95-114 [facility] Comment on above: Performed By: #### T 4T, TSH3, CBC, PSAS, T3F, A1C WTH eA, CMP, LIPID #### [facility] [address] CO2 [Moles/Vol] 22.4 mmol/L Normal 22.0-30.0 [facility] Comment on above: Performed By: #### T 4T, TSH3, CBC, PSAS, T3F, A1C WTH eA, CMP, LIPID #### [facility] [address] Creatinine [Mass/Vol] 1.47 mg/dL High 0.64-1.27 [facility] Comment on above: Performed By: #### T 4T, TSH3, CBC, PSAS, T3F, A1C WTH eA, CMP, LIPID #### [facility] [address] Estimated GFR ( Evelyn 56 [facility] Comment on above: Result Comment: GFR estimated reference range: According to KDOQI guidelines, <60 ml/min/1.73m2 is sufficient to diagnose a patient with chronic kidney disease. Performed By: #### T 4T, TSH3, CBC, PSAS, T3F, A1C WTH eA, CMP, LIPID #### [facility] [address] Estimated GFR (Non- Am 46 [facility] Comment on above: Performed By: #### T 4T, TSH3, CBC, PSAS, T3F, A1C WTH eA, CMP, LIPID #### [facility] [address] Globulin (S) [Mass/Vol] 2.8 g/dL Normal F [facility] Comment on above: Performed By: #### T 4T, TSH3, CBC, PSAS, T3F, A1C WTH eA, CMP, LIPID #### [facility] [address] Glucose [Mass/Vol] 139 mg/dL High 70-100 [facility] Comment on above: Result Comment: Formerly named [facility] Glucose Reference Range is dependent on time and content of last meal. Glucose of more than 200 mg/dL in a nonstressed, ambulatory subject supports the diagnosis of Diabetes Mellitus. ADA recommended reference range Performed By: #### T 4T, TSH3, CBC, PSAS, T3F, A1C WTH eA, CMP, LIPID #### [facility] [address] Potassium [Moles/Vol] 4.4 mmol/L Normal 3.5-5.1 [facility] Comment on above: Performed By: #### T 4T, TSH3, CBC, PSAS, T3F, A1C WTH eA, CMP, LIPID #### [facility] [address] [place] [address] [place] Protein [Mass/Vol] 6.4 g/dL Normal 6.1-7.9 [facility] Comment on above: Performed By: #### T 4T, TSH3, CBC, PSAS, T3F, A1C WTH eA, CMP, LIPID #### [facility] [address] [place] [address] [place] Sodium [Moles/Vol] 136 mmol/L Normal 136-146 [facility] Comment on above: Performed By: #### T 4T, TSH3, CBC, PSAS, T3F, A1C WTH eA, CMP, LIPID #### [facility] [address] [place] [address] [place] Urea nitrogen [Mass/Vol] 23 mg/dL Normal 9-23 [facility] Comment on above: Performed By: #### T 4T, TSH3, CBC, PSAS, T3F, A1C WTH eA, CMP, LIPID #### [facility] [address] [place] [address] [place] Creatinine and Glomerular fi ltration rate.predicted panel (S/P/Bld)Ordered By: Jonh Patel on 04-27-2022 Creatinine [Mass/Vol] 1.47 mg/dL 0.64-1.27 [facility] Eosinophils Auto (Bld) [#/Vo l]Ordered By: Jonh Patel on 04-27-2022 Eosinophils (Bld) [#/Vol] 0.3 10*3/uL 0.0-0.45 [facility] Eosinophils/100 WBC Auto (Bl d)Ordered By: Jonh Patel on 04-27-2022 Eosinophils/100 WBC (Bld) 6.5 % [facility] Erythrocyte distribution wid th Auto (RBC) [Ratio]Ordered By: Jonh Patel on 04-27-2022 Erythrocyte distribution width (RBC) [Ratio] 15.0 % 12.0-14.8 [facility] Estimated glomerular filtrat ion rate (GFR) non- AmericanOrdered By: Jonh Patel on 04-27-2022 GFR/1.73 sq M.predicted among non-blacks MDRD (S/P/Bld) [Vol rate/Area] 46 mL/Min [facility] Globulin Calc (S) [Mass/Vol] Ordered By: Jonh Patel on 04-27-2022 Globulin (S) [Mass/Vol] 2.8 g/dL F [facility] Glucose mean value [Mass/vol ume] in Blood Estimated from glycated hemoglobinOrdered By: Jonh Patel on 04-27-2022 Average glucose Estimated from glycated hemoglobin (Bld) [Mass/Vol] 151 mg/dL [facility] Hematocrit Auto (Bld) [Volum e fraction]Ordered By: Jonh Patel on 04-27-2022 Hematocrit (Bld) [Volume fraction] 39.9 % 38.8-50.0 [facility] Hemoglobin A1c percentageOrd ered By: Jonh Patel on 04-27-2022 HbA1c (Bld) [Mass fraction] 6.9 % 4.3-5.6 [facility] Comment on above: Increased risk for d iabetes: 5.7 - 6.4 diabetes: >6.4 glycemic control for adults with diabetes: <7.0 Laboratory - Hematology and Cell countsOrdered By: Jonh Patel on 04-27-2022 Nucleated RBC/100 WBC (Bld) [Ratio] 0.0 % 0-0.5 [facility] Lipid Panelon 04-27-2022 Cholesterol [Mass/Vol] 168 mg/dL Normal 140-200 [facility] Comment on above: Result Comment: Chol less than 200 mg/dl low risk Chol 201-239 mg/dl borderline risk Chol 240 mg/dl and greater high risk Performed By: #### T 4T, TSH3, CBC, PSAS, T3F, A1C WTH eA, CMP, LIPID #### [facility] [address] [place] [address] [place] Cholesterol in HDL [Mass/Vol] 38 mg/dL Normal 29-71 [facility] Comment on above: Result Comment: HDL CHOL ATP-III CLASSIFICATION Cardiovascular Risk HDL > or equal to 60 mg/dL LOW HDL < 40 mg/dL HIGH Performed By: #### T 4T, TSH3, CBC, PSAS, T3F, A1C WTH eA, CMP, LIPID #### [facility] [address] [place] [address] [place] Cholesterol.total/Tresa sterol in HDL [Mass ratio] 4.4 {ratio} Normal <5.0 [facility] Comment on above: Performed By: #### T 4T, TSH3, CBC, PSAS, T3F, A1C WTH eA, CMP, LIPID #### [facility] [address] [place] [address] [place] LDL Cholesterol,Calculated 112 mg/dL High 0-100 [facility] Comment on above: Result Comment: LDL ATP III CLASSIFICATION LDL less than 100 mg/dL Optimal LDL 100-129 mg/dL Near or above optimal LDL 130-159 mg/dL Borderline high LDL 160-189 mg/dL High LDL greater than 189 mg/dL Very high Performed By: #### T 4T, TSH3, CBC, PSAS, T3F, A1C WTH eA, CMP, LIPID #### [facility] [address] [place] [address] [place] Triglyceride w/Reflex 88 mg/dL Normal 35-149 [facility] Comment on above: Result Comment: TRIG ATP III CLASSIFICATION TRIG less than 150 mg/dL Normal TRIG 150-199 mg/dL Borderline high TRIG 200-500 mg/dL High TRIG greater than 500 mg/dL Very high Standard traceable to the Center for Disease Conrtrol and Prevention (CDC) test method. Performed By: #### T 4T, TSH3, CBC, PSAS, T3F, A1C WTH eA, CMP, LIPID #### [facility] [address] VLDL CHOLESTEROL 17 mg/dL Normal [facility] Comment on above: Performed By: #### T 4T, TSH3, CBC, PSAS, T3F, A1C WTH eA, CMP, LIPID #### [facility] [address] Lymphocytes Auto (Bld) [#/Vo l]Ordered By: Jonh Patel on 04-27-2022 Lymphocytes (Bld) [#/Vol] 1.3 10*3/uL 1.00-4.8 [facility] Lymphocytes/100 WBC Auto (Bl d)Ordered By: Jonh Patel on 04-27-2022 Lymphocytes/100 WBC (Bld) 25.6 % [facility] MCH Auto (RBC) [Entitic mass ]Ordered By: Jonh Patel on 04-27-2022 MCH (RBC) [Entitic mass] 31.2 pg 27.5-35.2 [facility] MCHC Auto (RBC) [Mass/Vol]Or dered By: Jonh Patel on 04-27-2022 MCHC (RBC) [Mass/Vol] 33.4 g/dL 32.5-35.6 [facility] MCV Auto (RBC) [Entitic vol] Ordered By: Jonh Patel on 04-27-2022 MCV (RBC) [Entitic vol] 93.5 fL 83.5-[address] [facility] Monocytes Auto (Bld) [#/Vol] Ordered By: Jonh Patel on 04-27-2022 Monocytes (Bld) [#/Vol] 0.4 10*3/uL 0.0-0.8 [facility] Monocytes/100 WBC Auto (Bld) Ordered By: Jonh Patel on 04-27-2022 Monocytes/100 WBC (Bld) 8.3 % F [facility] Neutrophils Auto (Bld) [#/Vo l]Ordered By: Jonh Patel on 04-27-2022 Neutrophils (Bld) [#/Vol] 2.9 10*3/uL 1.8-7.7 [facility] Neutrophils/100 WBC Auto (Bl d)Ordered By: Jonh Patel on 04-27-2022 Neutrophils/100 WBC (Bld) 58.5 % [facility] No Panel InformationOrdered By: Jonh Patel on 04-27-2022 Estimated GFR () 56 mL/Min [facility] Comment on above: GFR estimated refere nce range: According to KDOQI guidelines, <60 ml/min/1.73m2 is sufficient to diagnose a patient with chronic kidney disease. Pharmacy Creatinine Clearance (Chem N/A [facility] Prostate Specific Antigen Screen 0.860 ng/mL 0.000-4.000 [facility] PSA Screen (Yearly Only)on 0 04-27-2022 PSA Screen (Yearly Only) 0.860 ng/mL Normal 0.000-4.000 [facility] Comment on above: Order Comment: Is pa tient <50 yrs? Medicare does not pay <50.: Y Is Medicare the insurance?: Y Result Comment: PERF ORMED BY: [place] [address] PATHOLOGIST DIRECTOR OF PROMOTIONS BRIDGETT MANZO M.D. Performed By: #### T 4T, TSH3, CBC, PSAS, T3F, A1C WTH eA, CMP, LIPID #### [facility] [address] Platelet mean volume Auto (B ld) [Entitic vol]Ordered By: Jonh Patel on 04-27-2022 Platelet mean volume (Bld) [Entitic vol] 11.0 fL 6.6-10.1 [facility] Platelets Auto (Bld) [#/Vol] Ordered By: Jonh Patel on 04-27-2022 Platelets (Bld) [#/Vol] 116 10*3/uL 150-450 [facility] Protein [Mass/volume] in Ser um or PlasmaOrdered By: Jonh Patel on 04-27-2022 Protein [Mass/Vol] 6.4 g/dL 6.1-7.9 [facility] RBC Auto (Bld) [#/Vol]Ordere d By: Jonh Patel on 04-27-2022 RBC (Bld) [#/Vol] 4.27 10*6/uL 3.90-5.[address] [facility] Serum or plasma alanine garner otransferase measurement without P-5'-P (enzymatic activiOrdered By: Jonh Patel on 04-27-2022 ALT No additional P-5'-P [Catalytic activity/Vol] 12 U/L 10-60 [facility] Serum or plasma albumin/glob ulin mass ratioOrdered By: Jonh Patel on 04-27-2022 Albumin/Globulin [Mass ratio] 1.3 {ratio} [facility] Serum or plasma alkaline anna sphatase measurement (enzymatic activity/volume)Ordered By: Jonh Patel on 04-27-2022 ALP [Catalytic activity/Vol] 71 U/L 32-92 [facility] Serum or plasma aspartate am inotransferase measurement (enzymatic activity/volume)Ordered By: Jonh Patel on 04-27-2022 AST [Catalytic activity/Vol] 18 U/L 10-42 [facility] Serum or plasma calcium josiah urement (mass/volume)Ordered By: Jonh Patel on 04-27-2022 Calcium [Mass/Vol] 9.0 mg/dL 8.2-10.2 [facility] Serum or plasma chloride jerica surement (moles/volume)Ordered By: Jonh Patel on 04-27-2022 Chloride [Moles/Vol] 104 mmol/L 95-114 [facility] Serum or plasma glucose josiah urement (mass/volume)Ordered By: Jonh Patel on 04-27-2022 Glucose [Mass/Vol] 139 mg/dL 70-100 [facility] Comment on above: ADA recommended refe rence range Random Glucose Reference Range is dependent on time and content of last meal. Glucose of more than 200 mg/dL in a nonstressed, ambulatory subject supports the diagnosis of Diabetes Mellitus. Serum or plasma high density lipoprotein (HDL) cholesterol measurementOrdered By: Jonh Patel on 04-27-2022 Cholesterol in HDL [Mass/Vol] 38 mg/dL 29-71 [facility] Comment on above: HDL CHOL ATP-III CLA SSIFICATION Cardiovascular Risk HDL > or equal to 60 mg/dL LOW HDL < 40 mg/dL HIGH Serum or plasma potassium me asurement (moles/volume)Ordered By: Jonh Patel on 04-27-2022 Potassium [Moles/Vol] 4.4 mmol/L 3.5-5.1 [facility] Serum or plasma sodium measu rement (moles/volume)Ordered By: Jonh Patel on 04-27-2022 Sodium [Moles/Vol] 136 mmol/L 136-146 [facility] Serum or plasma thyroxine (T 4) measurement (mass/volume)Ordered By: Jonh Patel on 04-27-2022 T4 [Mass/Vol] 9.08 ug/dL 5.39-11.82 [facility] Serum or plasma total biliru bin measurement (mass/volume)Ordered By: Jonh Patel on 04-27-2022 Bilirubin [Mass/Vol] 0.8 mg/dL 0.3-1.2 [facility] Serum or plasma total carbon dioxide measurement (moles/volume)Ordered By: Jonh Patel on 04-27-2022 CO2 [Moles/Vol] 22.4 mmol/L 22.0-30.0 [facility] Serum or plasma total choles terol/high density lipoprotein (HDL) cholesterol mass ratOrdered By: Jonh Patel on 04-27-2022 Cholesterol.total/Tresa sterol in HDL [Mass ratio] 4.4 {ratio} [facility] Serum or plasma urea nitroge n measurement (mass/volume)Ordered By: Jonh Patel on 04-27-2022 Urea nitrogen [Mass/Vol] 23 mg/dL 9-23 [facility] Stool Occult Blood (Immuno)o n 04-27-2022 Stool Occult Blood (Immuno) Occult Blood (Immuno) Negative for Occult Blood by Immunochemical Methodology Reference range = Negative PERFORMED BY: [place] [address] PATHOLOGIST DIRECTOR OF PROMOTIONS BRIDGETT MANZO M.D. Normal [facility] Comment on above: Performed By: #### O B(IMMUNO) #### [facility] [address] [place] [address] TSH DL <= 0.005 mIU/L QnOrde red By: Jonh Patel on 04-27-2022 TSH Qn 1.16 m[IU]/L 0.45-5.33 [facility] Thyroid Stimulating Hormoneo n 04-27-2022 TSH Qn 1.16 m[IU]/L Normal 0.45-5.33 [facility] Comment on above: Result Comment: PERF ORMED BY: [place] [address] PATHOLOGIST DIRECTOR OF PROMOTIONS BRIDGETT MANZO M.D. Performed By: #### T 4T, TSH3, CBC, PSAS, T3F, A1C WTH eA, CMP, LIPID ####[place] [address] [place] [id number] [facility] Thyroxine (T4) Totalon 04-27 T4 [Mass/Vol] 9.08 ug/dL Normal 5.39-11.82 [facility] Comment on above: Performed By: #### T 4T, TSH3, CBC, PSAS, T3F, A1C WTH eA, CMP, LIPID ####[place] [address] [place] [id number] [facility] Triglyceride [Mass/volume] i n Serum or PlasmaOrdered By: Jonh Patel on 04-27-2022 Triglyceride [Mass/Vol] 88 mg/dL 35-[address] [facility] Comment on above: TRIG ATP III CLASSIF ICATION TRIG less than 150 mg/dL Normal TRIG 150-199 mg/dL Borderline high TRIG 200-500 mg/dL High TRIG greater than 500 mg/dL Very high Standard traceable to the Center for Disease Conrtrol and Prevention (CDC) test method. Triiodothyronine (T3) Freeon 04-27-2022 Triiodothyronine (T3) Free 2.51 pg/mL Normal 2.50-3.90 [facility] Comment on above: Result Comment: PERF ORMED BY: [facility] [address] [place] [id number] PATHOLOGIST DIRECTOR OF PROMOTIONS BRIDGETT MANZO M.D. Performed By: #### T 4T, TSH3, CBC, PSAS, T3F, A1C WTH eA, CMP, LIPID #### [facility] [address] Triiodothyronine (T3) Free [ Mass/volume] in Serum or PlasmaOrdered By: Jonh Patel on 04-27-2022 Free T3 [Mass/Vol] 2.51 pg/mL 2.50-3.90 [facility] Provider [place] [facility] Provider Letter [facility] October 27, 2021 Jonh Patel, [address] [place] [address] [place] [address] Re: NAVI FUNES Date of : 1940 Thank you for your referral of Navi Funes who was seen on consultation on 10/23/2021, for nodule right taylor with underlying cellulitis. I have enclosed my consultation note for your review. I will be happy to follow Navi. Sincerely, Josiah Gallego MD General Surgery Normal [facility] Ambulatory Clinical Summaryo n 10-23-2021 Ambulatory Clinical Summary {[id number]}CD:[id number] Normal [facility] Physician Referralon 021 Physician Referral [id number] 2 [id number]:127 Normal [facility] Vital Signs Date Time Vital Sign Value Performing Clinician Facility 08-10-2022 10:45-0400 Body height 177.8 cm Grady Peters Other [facility] Other 08-10-2022 10:45-0400 Body mass index (BMI) [Ratio] 26.54 kg/m2 Grady Peters Other [facility] Other 08-10-2022 10:45-0400 Body temperature 97.3 [degF] Grady Peters Other [facility] Other 08-10-2022 10:45-0400 Body weight 83.92 kg Grady Peters Other [facility] Other 08-10-2022 10:45-0400 Diastolic blood pressure 72 mm[Hg] Grady Peters Other [facility] Other 08-10-2022 10:45-0400 SaO2% (BldA) [Mass fraction] 98 % Grady Peters Other [facility] Other 08-10-2022 10:45-0400 Systolic blood pressure 146 mm[Hg] Grady Juarezredari Other [facility] Other Encounters Encounter Date Encounter Type Care Provider Facility Start: 08-10-2022 End: 08-10-2022 ambulatory Grady Peters Other [facility] Other Start: 08-10-2022 Office outpatient vi sit 25 minutes Grady Peters [facility] Start: 07-30-2022 End: 07-30-2022 ambulatory Grayd Peters Facility:[facility] Start: 07-30-2022 End: 07-30-2022 Patient encounter procedure MD Jonh Patel Work Phone: [facility] [place] Start: 06-17-2022 End: 06-17-[address] JONH PATEL Facility: Start: 04-27-2022 End: 04-27-2022 ambulatory Jonh Patel Facility:[facility] Start: 04-27-2022 End: 04-27-2022 Patient encounter procedure MD Jonh Patel Work Phone: [facility] Start: 01-06-2017 End: 01-07-2017 Ambulatory CHARISMA MCKEON Facility:[facility] Procedures Date Procedure Procedure Detail Performing Clinician Start: 07-30-2022 X-ray of right ankle MD Jonh Patel Work Phone: Start: 04-27-2022 End: 04-27-2022 Screening for occult blood in feces MD Jonh Patel Work Phone: Plan of Treatment Date Care Activity Detail Author Start: 07-30-2022 Ankle brachial press ure index [facility] Start: 07-30-2022 Duplex scan of lower limb veins US venous duplex LE BI [facility] Start: 07-30-2022 US Lower extremity v ein - bilateral [facility] Work Phone: Payers Date Payer Category Payer Medicaid [id number] a 2022 Self-pay [id number] 1957 Unknown [id number] 1940 Unknown [id number] Unknown [facility] [id number] Unknown [id number] Unknown [id number] Social History Date Type Detail Facility Tobacco smoking status NHIS Unknown if ever smoked [facility] Work Phone: Start: 1940 Sex Assigned At Male F [facility] Sex Assigned At Sex Assigned At Bir th [facility] Other Evaluation note 08-10-2022 Note Date & [...] this patient back on an as-needed basis. [facility] Other Clinical Note 06-22-2022 Note Date & [...] to Vascular surgery for recommendations; patient requests [facility]. Ordered: E&M of Est. Patient Low 20-29 Min [id number] [facility] External Ambulatory Referral Follow-up No qualifying data [...] Recorded SARS-CoV-2 (COVID-19) Ad26 vaccine 03/19/2021 Recorded [facility] Comment on above: Result Comment: Elec tronically [...] Recorded SARS-CoV-2 (COVID-19) Ad26 vaccine 03/19/2021 Recorded [facility] Comment on above: Result Comment: Elec tronically Signed By: CLAUDIA OG, Josiah Daley\Date and Time Signed: 10/23/21 16:30 EST Evaluation note Note Date & Type Note Facility Evaluation note No assessment information availa [facility] Work Phone: History general Narrative - Reported Note Date & Type Note Facility History general Narrative - Reported Type Medical History hypercholesterolemia Medical History hypertension Medical History diabetes mallitus Surgical History CABG Surgical History Open reduction inter nal fixation right lower extremity fracture Hospitalization History see above [facility] Other Summary Purpose Family History No Family [...] section and content) DATE CREATED AUTHOR 05/03/2018 [facility] DATE CREATED AUTHOR AUTHOR'S ORGANIZ ATION 06/20/2022 [facility] DATE CREATED AUTHOR AUTHOR'S ORGANIZ ATION 07/16/2022 [facility] DATE CREATED AUTHOR AUTHOR'S ORGANIZ ATION 12/23/2022 [facility] Care Teams (unrecognized sec tion and [...] TESTING; MARIAH AND FF V ENOUS AT [facility], Follow-up noninvasive studies FOR RECORDS PERTAINING TO [...] BE BASED ON THE PRIMARY CLINICAL RECORDS. [facility] [employer] provides no warranty or guarantee of the accuracy or completeness of information in this document.
--- NOTE | 2023-12-26 17:58 | US_ITS ---
The [place] [id number] Patient Name: KAPIL FUNES MRN: [id number] date: 1940 Sex: M Assigned Patient Location: [place] Current Patient Location: [place] Accession/Order Number: [id number] Exam Date: 12/26/2023 19:26 Report Date: 12/26/2023 20:50 At the request of: JONH POOLE Procedure: US venous doppler LE BI US venous doppler LE BI, 12/26/2023 7:26 PM EST INDICATION: edema COMPARISON: None available at the time of dictation. FINDINGS: Bilateral lower extremity venous duplex The visualized veins of the venous system of each lower extremity are within normal limits with regard to spontaneous flow, phasic flow, augmentation and compression. No intraluminal thrombus formation is identified. No superficial venous thrombus is present. US/US venous doppler LE BI IMPRESSION: No evidence of acute deep or superficial venous thrombosis. Electronically authenticated by: MONI MOHAMUD Date: 12/26/2023 20:50
[2023-12-26 18:53] LABS: Basophils Absolute Auto 0.1 10^3/uL (0.0-0.1); Basophils Percent Auto 0.8 % (0.2-2.0); Eosinophils Absolute Auto 0.3 10^3/uL (0.0-0.7); Eosinophils Percent Auto 3.9 % (0.9-7.0); Hematocrit 41.3 % (42.0-54.0); Hemoglobin 12.4 g/dL (14.0-18.0); Immature Granulocytes Abs Auto 0.02 10^3/uL (0.00-0.03); Immature Granulocytes Pct Auto 0.3 % (0.0-0.5); Lymphocytes Absolute Auto 1.6 10^3/uL (1.2-3.8); Mean Corpuscular Hemoglobin 30.5 pg (25.9-34.0); Mean Corpuscular Volume 101.7 fL (80.0-94.0); Mean Platelet Volume 12.8 fL (9.5-13.5); Monocytes Absolute Auto 0.7 10^3/uL (0.3-0.8); Monocytes Percent Auto 8.8 % (1.7-12.0); Neutrophils Absolute Auto 5.1 10^3/uL (1.4-6.5); Neutrophils Percent Auto 66.2 % (43.0-75.0); Platelet Count 72 10^3/uL (150-450); Red Blood Count 4.06 10^6/uL (4.70-6.10); Red Cell Distribution Width 14.5 % (11.0-15.0); White Blood Count 7.8 10^3/uL (4.0-11.0)
[2023-12-26 19:07] LABS: Erythrocyte Sedimentation Rate 21 mm/hr (<=20)
[2023-12-26 19:08] LABS: Ammonia 18 umol/L (11-32)
[2023-12-26 19:21] LABS: Alanine Aminotransferase 17 U/L (16-63); Albumin Globulin Ratio 0.8; Albumin Level 3.1 g/dL (3.4-5.0); Alkaline Phosphatase 97 U/L (46-116); Anion Gap 12.1; Aspartate Amino Transferase 13 U/L (15-37); BUN Creatinine Ratio 16.9; Bilirubin Total 0.5 mg/dL (0.2-1.0); C Reactive Protein 2.57 mg/dL (<=0.50); Calcium 8.7 mg/dL (8.5-10.1); Carbon Dioxide 28.6 mmol/L (21.0-32.0); Chloride 109 mmol/L (98-107); Estimated GFR (African America 55 (>=60); Estimated GFR (Non-African Ame 46 (>=60); Globulin 3.8 g/dL; Glucose 150 mg/dL (74-106); Potassium 4.7 mmol/L (3.5-5.1); Sodium 145 mmol/L (136-145); Thyroid Stimulating Hormone 1.342 uIU/mL (0.358-3.740); Total Protein 6.9 g/dL (6.4-8.2)
[2023-12-26] MEDS: VANCOMYCIN HCL 1,500 MG in 0.9 % SODIUM CHLORIDE 500 ML 175 MG IV (19:59)
[2023-12-26 20:24] VITALS: O2SAT 95
[2023-12-26 21:26] VITALS: BP 173/69; PULSE 56; RESP 16; TEMP 36.9; O2SAT 94
[2023-12-26 21:33] LABS: Glucometer 202 mg/dL (74-106)
[2023-12-26] MEDS: INSULIN ASPART 300 UNIT/3 ML PEN SUBQ (21:41)
[2023-12-26] MEDS: QUETIAPINE FUMARATE 25 MG TABLET PO (21:41)
[2023-12-26] MEDS: CLONIDINE HCL 0.1 MG TABLET PO (21:41)
[2023-12-26] MEDS: PIPERACILLIN SODIUM/TAZOBACTAM 3.375 GM in 0.9 % SODIUM CHLORIDE 50 ML IV (21:41)
[2023-12-26] MEDS: DONEPEZIL HCL 5 MG TABLET PO (21:41)
[2023-12-27 04:47] VITALS: BP 132/83; PULSE 57; RESP 20; TEMP 37.2; O2SAT 92
[2023-12-27] MEDS: PIPERACILLIN SODIUM/TAZOBACTAM 3.375 GM in 0.9 % SODIUM CHLORIDE 50 ML IV ×3 (05:14→21:56)
[2023-12-27 05:32] LABS: Basophils Absolute Auto 0.1 10^3/uL (0.0-0.1); Basophils Percent Auto 0.7 % (0.2-2.0); Eosinophils Absolute Auto 0.3 10^3/uL (0.0-0.7); Hematocrit 34.1 % (42.0-54.0); Hemoglobin 10.6 g/dL (14.0-18.0); Lymphocytes Absolute Auto 1.3 10^3/uL (1.2-3.8); Mean Corpuscular HGB Conc 31.1 g/dL (29.9-35.2); Mean Corpuscular Hemoglobin 30.2 pg (25.9-34.0); Mean Corpuscular Volume 97.2 fL (80.0-94.0); Mean Platelet Volume 11.8 fL (9.5-13.5); Monocytes Absolute Auto 0.6 10^3/uL (0.3-0.8); Neutrophils Absolute Auto 4.7 10^3/uL (1.4-6.5); Neutrophils Percent Auto 67.3 % (43.0-75.0); Platelet Count 112 10^3/uL (150-450); Red Blood Count 3.51 10^6/uL (4.70-6.10); Red Cell Distribution Width 14.5 % (11.0-15.0)
[2023-12-27 05:43] LABS: Erythrocyte Sedimentation Rate 14 mm/hr (<=20)
[2023-12-27 05:51] VITALS: O2SAT 90
[2023-12-27 06:03] LABS: Alanine Aminotransferase 15 U/L (16-63); Albumin Globulin Ratio 0.8; Albumin Level 2.6 g/dL (3.4-5.0); Alkaline Phosphatase 80 U/L (46-116); Anion Gap 11.6; Aspartate Amino Transferase 17 U/L (15-37); BUN Creatinine Ratio 17.4; Bilirubin Total 0.7 mg/dL (0.2-1.0); Calcium 8.1 mg/dL (8.5-10.1); Carbon Dioxide 24.8 mmol/L (21.0-32.0); Chloride 108 mmol/L (98-107); Estimated GFR (African America 60 (>=60); Estimated GFR (Non-African Ame 49 (>=60); Globulin 3.3 g/dL; Glucose 136 mg/dL (74-106); Potassium 4.4 mmol/L (3.5-5.1); Sodium 140 mmol/L (136-145); Total Protein 5.9 g/dL (6.4-8.2)
--- OUTSIDE RECORDS SUMMARY | 2023-12-27 08:04 | XMS_ITS | CCD ---
Author Name Unknown Address [address] [place] [address] Organization [facility] Care Team Providers Care Lead Maintenance Technician Name Role Phone CHARISMA MCKEON Unavailable Unavailable CHARISMA MCKEON Unavailable Unavailable JONH PATEL Unavailable Unavailable JONH PATLE Unavailable Unavailable MD Jonh Patel Primary Care Provider [phone] MD Jonh Patel Attending Provider DR JONH PATEL Attending Unavailable VIRGILIO, DR BORJA Consulting Unavailable DR JONH PATEL Primary Care Unavailable DR JONH PATEL Admitting Unavailable MD Jonh Patel Primary Care Provider [phone] MD Grady Peters Attending Provider [phone] Grady Peters Unavailable Jonh Patel Primary Care Unavailable Jonh Patel Attending Unavailable Jonh Patel Admitting Unavailable Grady Peters Admitting Unavailable Grady Peters Attending Unavailable oJnh Patel Primary Care Unavailable Medications Current Medications [...] US ankle/arm indiceson 07-31 US ankle/arm indices [facility] Main [place] [address] [place] [address] Ultrasound Report Signed Patient: Navi Funes Jr MR#: [id number] : 1940 Acct:[id number] Age/Sex: 81 / M ADM Date: 07/30/22 Loc: Room: Type: [facility] Attending Dr: Grady Peters MD Ordering [...] Ruben Dumont MD07/31/2022 3:20 PM Dictation Location: [place] [address] Tech: Katt Baron Transcribed By: HANNAH 07/31/22 1520 Dictated By: Ruben Dumont MD 07/31/22 1519 Signed By: 07/31/22 152 [facility] US venous duplex LE BIon US venous duplex LE BI [facility] Main [place] [id number] Ultrasound Report Signed Patient: Navi Funes Jr MR#: [id number] : 1940 Acct:[id number] Age/Sex: 81 / M ADM Date: 07/30/22 Loc: Room: Type: [facility] Attending Dr: Grady Peters MD Ordering [...] MD 07/31/22 152 Signed By: 07/31/22 152 [facility] XR ankle RT min 3V*on 2021 XR ankle RT min 3V* [facility] Main [address] [address] XRay Report Signed Patient: Navi Funes Jr MR#: [id number] : 1940 Acct:[id number] Age/Sex: 81 / M ADM Date: 07/30/22 Loc: Room: Type: [facility] Attending Dr: Grady Peters MD Copies to: [...] King Jr., D.O.07/30/2022 4:33 PM Dictation Location: [place] [address] Transcribed By: [facility] 07/30/22 1633 Dictated By: Navi King Jr, DO 07/30/22 1632 Signed By: 07/30/22 1633 Normal [facility] Consultation Noteon 07-15-20 Consultation Note [id number]:127 Normal [facility] HIPAA Privacy Documentson HIPAA Privacy Documents [id number]:127 Normal [facility] WOUND CULTUREon 06-20-2022 Bacteria identified Aer cx Nom (Unsp spec) Final report Normal [facility] Comment on above: Performed By: #### C XWND #### [facility] [address] [place] [address] [address] Eddie Gaitan Result [address] [facility] Comment on above: Result Comment: No g rowth in 36 - 48 hours. Performed By: #### C XWND #### [facility] [address] [place] [address] [address] Eddie Gaitan Physician Referralon 022 Physician Referral [id number]:127 Normal [facility] A1C with Estimated Average Bin hernandez 04-27-2022 Glucose [Mass/Vol] 151 mg/dL Normal [facility] Comment on above: Result Comment: PERF ORMED BY: [place] [address] PATHOLOGIST BIOPHYSICS SCIENTIST BRIDGETT MANZO M.D. Performed By: #### T 4T, TSH3, CBC, PSAS, T3F, A1C WT eA, CMP, LIPID #### [facility] [address] HbA1c (Bld) [Mass fraction] 6.9 % High 4.3-5.6 [facility] Comment on above: Result Comment: Incr eased risk for diabetes: 5.7 - 6.4 diabetes: >6.4 glycemic control for adults with diabetes: <7.0 Performed By: #### T 4T, TSH3, CBC, PSAS, T3F, A1C WTH eA, CMP, LIPID #### [facility] [address] Basophils Auto (Bld) [#/Vol] Ordered By: Jonh Patel on 04-27-2022 Basophils (Bld) [#/Vol] 0.1 10*3/uL 0.0-0.2 [facility] Basophils/100 WBC Auto (Bld) Ordered By: Jonh Patel on 04-27-2022 Basophils/100 WBC (Bld) 1.1 % F [facility] Blood hemoglobin measurement (mass/volume)Ordered By: Jonh Patel on 04-27-2022 Hemoglobin (Bld) [Mass/Vol] 13.3 g/dL 13.0-17.0 [facility] Blood leukocytes automated c ount (number/volume)Ordered By: Jonh Patel on 04-27-2022 WBC (Bld) [#/Vol] 5.0 10*3/uL 4.5-11.0 [facility] Body fluid albumin measureme nt (mass/volume)Ordered By: Jonh Patel on 04-27-2022 Albumin (Body fld) [Mass/Vol] 3.6 g/dL 3.2-5.5 [facility] Cholesterol [Mass/volume] in Serum or PlasmaOrdered By: Jonh Patel on 04-27-2022 Cholesterol [Mass/Vol] 168 mg/dL 140-200 [facility] Comment on above: Chol less than 200 m g/dl low risk Chol 201-239 mg/dl borderline risk Chol 240 mg/dl and greater high risk Cholesterol in LDL Calc [Mas s/Vol]Ordered By: Jonh Patel on 04-27-2022 Cholesterol in LDL [Mass/Vol] 112 mg/dL 0-100 [facility] Comment on above: LDL ATP III CLASSIFI CATION LDL less than 100 mg/dL Optimal LDL 100-129 mg/dL Near or above optimal LDL 130-159 mg/dL Borderline high LDL 160-189 mg/dL High LDL greater than 189 mg/dL Very high Cholesterol in VLDL Calc [Ma ss/Vol]Ordered By: Jonh Patel on 04-27-2022 Cholesterol in VLDL [Mass/Vol] 17 mg/dL [facility] Complete Blood Count Auto Di ffon 04-27-2022 Basophils (Bld) [#/Vol] 0.1 10*3/uL Normal 0.0-0.2 [facility] Comment on above: Result Comment: PERF ORMED BY: [place] [address] PATHOLOGIST BIOPHYSICS SCIENTIST BRIDGETT MANZO M.D. Performed By: #### T 4T, TSH3, CBC, PSAS, T3F, A1C WTH eA, CMP, LIPID #### [facility] [address] [place] [address] [place] Basophils/100 WBC (Bld) 1.1 % Normal . F [facility] Comment on above: Performed By: #### T 4T, TSH3, CBC, PSAS, T3F, A1C WTH eA, CMP, LIPID #### [facility] [address] [place] [address] [place] Eosinophils (Bld) [#/Vol] 0.3 10*3/uL Normal 0.0-0.45 [facility] Comment on above: Performed By: #### T 4T, TSH3, CBC, PSAS, T3F, A1C WTH eA, CMP, LIPID #### [facility] [address] [place] [address] [place] Eosinophils/100 WBC (Bld) 6.5 % Normal . [facility] Comment on above: Performed By: #### T 4T, TSH3, CBC, PSAS, T3F, A1C WTH eA, CMP, LIPID #### [address] Erythrocyte distribution width (RBC) [Ratio] 15.0 % High 12.0-14.8 [facility] Comment on above: Performed By: #### T 4T, TSH3, CBC, PSAS, T3F, A1C WTH eA, CMP, LIPID #### [address] Hematocrit (Bld) [Volume fraction] 39.9 % Normal 38.8-50.0 [facility] Comment on above: Performed By: #### T 4T, TSH3, CBC, PSAS, T3F, A1C WTH eA, CMP, LIPID #### [address] Hemoglobin (Bld) [Mass/Vol] 13.3 g/dL Normal 13.0-17.0 [facility] Comment on above: Performed By: #### T 4T, TSH3, CBC, PSAS, T3F, A1C WTH eA, CMP, LIPID #### [address] Lymphocytes (Bld) [#/Vol] 1.3 10*3/uL Normal 1.00-4.8 [facility] Comment on above: Performed By: #### T 4T, TSH3, CBC, PSAS, T3F, A1C WTH eA, CMP, LIPID #### [address] Lymphocytes/100 WBC (Bld) 25.6 % Normal . [facility] Comment on above: Performed By: #### T 4T, TSH3, CBC, PSAS, T3F, A1C WTH eA, CMP, LIPID #### [facility] [address] MCH (RBC) [Entitic mass] 31.2 pg Normal 27.5-35.2 [facility] Comment on above: Performed By: #### T 4T, TSH3, CBC, PSAS, T3F, A1C WTH eA, CMP, LIPID #### [facility] [address] MCV (RBC) [Entitic vol] 93.5 fL Normal 83.5-101 F [facility] Comment on above: Performed By: #### T 4T, TSH3, CBC, PSAS, T3F, A1C WTH eA, CMP, LIPID #### [address] Mean Corpuscular HGB Conc 33.4 g/dL Normal 32.5-35.6 [facility] Comment on above: Performed By: #### T 4T, TSH3, CBC, PSAS, T3F, A1C WTH eA, CMP, LIPID #### [address] Monocytes (Bld) [#/Vol] 0.4 10*3/uL Normal 0.0-0.8 [facility] Comment on above: Performed By: #### T 4T, TSH3, CBC, PSAS, T3F, A1C WTH eA, CMP, LIPID #### [address] Monocytes/100 WBC (Bld) 8.3 % Normal . F [facility] Comment on above: Performed By: #### T 4T, TSH3, CBC, PSAS, T3F, A1C WTH eA, CMP, LIPID #### [address] Neutrophils (Bld) [#/Vol] 2.9 10*3/uL Normal 1.8-7.7 [facility] Comment on above: Performed By: #### T 4T, TSH3, CBC, PSAS, T3F, A1C WTH eA, CMP, LIPID #### [facility] [address] [place] [address] [place] Neutrophils/100 WBC (Bld) 58.5 % Normal . [facility] Comment on above: Performed By: #### T 4T, TSH3, CBC, PSAS, T3F, A1C WTH eA, CMP, LIPID #### [facility] [address] [place] [address] [place] Nucleated RBC/100 WBC (Bld) [Ratio] 0.0 % Normal 0-0.5 [facility] Comment on above: Performed By: #### T 4T, TSH3, CBC, PSAS, T3F, A1C WTH eA, CMP, LIPID #### [facility] [address] [place] [address] [place] Platelet mean volume (Bld) [Entitic vol] 11.0 fL High 6.6-10.1 [facility] Comment on above: Performed By: #### T 4T, TSH3, CBC, PSAS, T3F, A1C WTH eA, CMP, LIPID #### [facility] [address] [place] [address] [place] Platelets (Bld) [#/Vol] 116 10*3/uL Low 150-450 [facility] Comment on above: Performed By: #### T 4T, TSH3, CBC, PSAS, T3F, A1C WTH eA, CMP, LIPID #### [facility] [address] [place] [address] [place] RBC (Bld) [#/Vol] 4.27 10*6/uL Normal 3.90-5.60 [facility] Comment on above: Performed By: #### T 4T, TSH3, CBC, PSAS, T3F, A1C WTH eA, CMP, LIPID #### [facility] [address] [place] [address] [place] WBC (Bld) [#/Vol] 5.0 10*3/uL Normal 4.5-11.0 [facility] Comment on above: Performed By: #### T 4T, TSH3, CBC, PSAS, T3F, A1C WTH eA, CMP, LIPID #### [facility] [address] Comprehensive Metabolic Pane alexandra 04-27-2022 Albumin [Mass/Vol] 3.6 g/dL Normal 3.2-5.5 [facility] Comment on above: Performed By: #### T 4T, TSH3, CBC, PSAS, T3F, A1C WTH eA, CMP, LIPID #### [facility] [address] Albumin/Globulin [Mass ratio] 1.3 {ratio} Normal [facility] Comment on above: Performed By: #### T 4T, TSH3, CBC, PSAS, T3F, A1C WTH eA, CMP, LIPID #### [facility] [address] ALP [Catalytic activity/Vol] 71 U/L Normal 32-92 [facility] Comment on above: Performed By: #### T 4T, TSH3, CBC, PSAS, T3F, A1C WTH eA, CMP, LIPID #### [facility] [address] ALT [Catalytic activity/Vol] 12 U/L Normal 10-60 [facility] Comment on above: Performed By: #### T 4T, TSH3, CBC, PSAS, T3F, A1C WTH eA, CMP, LIPID #### [facility] [address] [place] [id number] [facility] AST [Catalytic activity/Vol] 18 U/L Normal 10-42 [facility] Comment on above: Performed By: #### T 4T, TSH3, CBC, PSAS, T3F, A1C WTH eA, CMP, LIPID #### [facility] [address] [place] [address] [place] Bilirubin [Mass/Vol] 0.8 mg/dL Normal 0.3-1.2 [facility] [place] Comment on above: Performed By: #### T 4T, TSH3, CBC, PSAS, T3F, A1C WTH eA, CMP, LIPID #### [facility] [address] [place] [address] [place] Calcium [Mass/Vol] 9.0 mg/dL Normal 8.2-10.2 [facility] Comment on above: Performed By: #### T 4T, TSH3, CBC, PSAS, T3F, A1C WTH eA, CMP, LIPID #### [facility] [address] Chloride [Moles/Vol] 104 mmol/L Normal 95-114 [facility] [place] Comment on above: Performed By: #### T 4T, TSH3, CBC, PSAS, T3F, A1C WTH eA, CMP, LIPID #### [facility] [address] CO2 [Moles/Vol] 22.4 mmol/L Normal 22.0-30.0 [facility] Comment on above: Performed By: #### T 4T, TSH3, CBC, PSAS, T3F, A1C WTH eA, CMP, LIPID #### [facility] [address] Creatinine [Mass/Vol] 1.47 mg/dL High 0.64-1.27 [facility] Comment on above: Performed By: #### T 4T, TSH3, CBC, PSAS, T3F, A1C WTH eA, CMP, LIPID #### [facility] [address] Estimated GFR ( Evelyn 56 [facility] Comment on above: Result Comment: GFR estimated reference range: According to KDOQI guidelines, <60 ml/min/1.73m2 is sufficient to diagnose a patient with chronic kidney disease. Performed By: #### T 4T, TSH3, CBC, PSAS, T3F, A1C WTH eA, CMP, LIPID #### [facility] [address] Estimated GFR (Non- Am 46 [facility] Comment on above: Performed By: #### T 4T, TSH3, CBC, PSAS, T3F, A1C WTH eA, CMP, LIPID #### [facility] [address] Globulin (S) [Mass/Vol] 2.8 g/dL Normal F [facility] Comment on above: Performed By: #### T 4T, TSH3, CBC, PSAS, T3F, A1C WTH eA, CMP, LIPID #### [facility] [address] Glucose [Mass/Vol] 139 mg/dL High 70-100 [facility] Comment on above: Result Comment: [facility] Glucose Reference Range is dependent on time and content of last meal. Glucose of more than 200 mg/dL in a nonstressed, ambulatory subject supports the diagnosis of Diabetes Mellitus. ADA recommended reference range Performed By: #### T 4T, TSH3, CBC, PSAS, T3F, A1C WTH eA, CMP, LIPID #### [facility] [address] Potassium [Moles/Vol] 4.4 mmol/L Normal 3.5-5.1 [facility] Comment on above: Performed By: #### T 4T, TSH3, CBC, PSAS, T3F, A1C WTH eA, CMP, LIPID #### [facility] [address] [place] [address] [place] Protein [Mass/Vol] 6.4 g/dL Normal 6.1-7.9 [facility] Comment on above: Performed By: #### T 4T, TSH3, CBC, PSAS, T3F, A1C WTH eA, CMP, LIPID #### [facility] [address] [place] [address] [place] Sodium [Moles/Vol] 136 mmol/L Normal 136-146 [facility] Comment on above: Performed By: #### T 4T, TSH3, CBC, PSAS, T3F, A1C WTH eA, CMP, LIPID #### [facility] [address] [place] [address] [place] Urea nitrogen [Mass/Vol] 23 mg/dL Normal 9-23 [facility] Comment on above: Performed By: #### T 4T, TSH3, CBC, PSAS, T3F, A1C WTH eA, CMP, LIPID #### [facility] [address] [place] [address] [place] Creatinine and Glomerular fi ltration rate.predicted panel (S/P/Bld)Ordered By: Jonh Patel on 04-27-2022 Creatinine [Mass/Vol] 1.47 mg/dL 0.64-1.27 [facility] Eosinophils Auto (Bld) [#/Vo l]Ordered By: Jonh Patel on 04-27-2022 Eosinophils (Bld) [#/Vol] 0.3 10*3/uL 0.0-0.45 [facility] Eosinophils/100 WBC Auto (Bl d)Ordered By: Jonh Patel on 04-27-2022 Eosinophils/100 WBC (Bld) 6.5 % [facility] Erythrocyte distribution wid th Auto (RBC) [Ratio]Ordered By: Jonh Patel on 04-27-2022 Erythrocyte distribution width (RBC) [Ratio] 15.0 % 12.0-14.8 [facility] Estimated glomerular filtrat ion rate (GFR) non- AmericanOrdered By: Jonh Patel on 04-27-2022 GFR/1.73 sq M.predicted among non-blacks MDRD (S/P/Bld) [Vol rate/Area] 46 mL/Min [facility] Globulin Calc (S) [Mass/Vol] Ordered By: Jonh Patel on 04-27-2022 Globulin (S) [Mass/Vol] 2.8 g/dL F [facility] Glucose mean value [Mass/vol ume] in Blood Estimated from glycated hemoglobinOrdered By: Jonh Patel on 04-27-2022 Average glucose Estimated from glycated hemoglobin (Bld) [Mass/Vol] 151 mg/dL [facility] Hematocrit Auto (Bld) [Volum e fraction]Ordered By: Jonh Patel on 04-27-2022 Hematocrit (Bld) [Volume fraction] 39.9 % 38.8-50.0 [facility] Hemoglobin A1c percentageOrd ered By: Jonh Patel on 04-27-2022 HbA1c (Bld) [Mass fraction] 6.9 % 4.3-5.6 [facility] Comment on above: Increased risk for d iabetes: 5.7 - 6.4 diabetes: >6.4 glycemic control for adults with diabetes: <7.0 Laboratory - Hematology and Cell countsOrdered By: Jonh Patel on 04-27-2022 Nucleated RBC/100 WBC (Bld) [Ratio] 0.0 % 0-0.5 [facility] Lipid Panelon 04-27-2022 Cholesterol [Mass/Vol] 168 mg/dL Normal 140-200 [facility] Comment on above: Result Comment: Chol less than 200 mg/dl low risk Chol 201-239 mg/dl borderline risk Chol 240 mg/dl and greater high risk Performed By: #### T 4T, TSH3, CBC, PSAS, T3F, A1C WTH eA, CMP, LIPID #### [facility] [address] [place] [address] [place] Cholesterol in HDL [Mass/Vol] 38 mg/dL Normal 29-71 [facility] Comment on above: Result Comment: HDL CHOL ATP-III CLASSIFICATION Cardiovascular Risk HDL > or equal to 60 mg/dL LOW HDL < 40 mg/dL HIGH Performed By: #### T 4T, TSH3, CBC, PSAS, T3F, A1C WTH eA, CMP, LIPID #### [facility] [address] [place] [address] [place] Cholesterol.total/Tresa sterol in HDL [Mass ratio] 4.4 {ratio} Normal <5.0 [facility] Comment on above: Performed By: #### T 4T, TSH3, CBC, PSAS, T3F, A1C WTH eA, CMP, LIPID #### [facility] [address] [place] [address] [place] LDL Cholesterol,Calculated 112 mg/dL High 0-100 [facility] Comment on above: Result Comment: LDL ATP III CLASSIFICATION LDL less than 100 mg/dL Optimal LDL 100-129 mg/dL Near or above optimal LDL 130-159 mg/dL Borderline high LDL 160-189 mg/dL High LDL greater than 189 mg/dL Very high Performed By: #### T 4T, TSH3, CBC, PSAS, T3F, A1C WTH eA, CMP, LIPID #### [facility] [address] [place] [address] [place] Triglyceride w/Reflex 88 mg/dL Normal 35-149 [facility] Comment on above: Result Comment: TRIG ATP III CLASSIFICATION TRIG less than 150 mg/dL Normal TRIG 150-199 mg/dL Borderline high TRIG 200-500 mg/dL High TRIG greater than 500 mg/dL Very high Standard traceable to the Center for Disease Conrtrol and Prevention (CDC) test method. Performed By: #### T 4T, TSH3, CBC, PSAS, T3F, A1C WTH eA, CMP, LIPID #### [facility] [address] VLDL CHOLESTEROL 17 mg/dL Normal [facility] Comment on above: Performed By: #### T 4T, TSH3, CBC, PSAS, T3F, A1C WTH eA, CMP, LIPID #### [facility] [address] Lymphocytes Auto (Bld) [#/Vo l]Ordered By: Jonh Patel on 04-27-2022 Lymphocytes (Bld) [#/Vol] 1.3 10*3/uL 1.00-4.8 [facility] Lymphocytes/100 WBC Auto (Bl d)Ordered By: Jonh Patel on 04-27-2022 Lymphocytes/100 WBC (Bld) 25.6 % [facility] MCH Auto (RBC) [Entitic mass ]Ordered By: Jonh Patel on 04-27-2022 MCH (RBC) [Entitic mass] 31.2 pg 27.5-35.2 [facility] MCHC Auto (RBC) [Mass/Vol]Or dered By: Jonh Patel on 04-27-2022 MCHC (RBC) [Mass/Vol] 33.4 g/dL 32.5-35.6 [facility] MCV Auto (RBC) [Entitic vol] Ordered By: Jonh Patel on 04-27-2022 MCV (RBC) [Entitic vol] 93.5 fL 83.5-101 F [facility] Monocytes Auto (Bld) [#/Vol] Ordered By: Jonh Patel on 04-27-2022 Monocytes (Bld) [#/Vol] 0.4 10*3/uL 0.0-0.8 [facility] Monocytes/100 WBC Auto (Bld) Ordered By: Jonh Patel on 04-27-2022 Monocytes/100 WBC (Bld) 8.3 % F [facility] Neutrophils Auto (Bld) [#/Vo l]Ordered By: Jonh Patel on 04-27-2022 Neutrophils (Bld) [#/Vol] 2.9 10*3/uL 1.8-7.7 [facility] Neutrophils/100 WBC Auto (Bl d)Ordered By: Jonh Patel on 04-27-2022 Neutrophils/100 WBC (Bld) 58.5 % [facility] No Panel InformationOrdered By: Jonh Patel on 04-27-2022 Estimated GFR () 56 mL/Min [facility] Comment on above: GFR estimated refere nce range: According to KDOQI guidelines, <60 ml/min/1.73m2 is sufficient to diagnose a patient with chronic kidney disease. Pharmacy Creatinine Clearance (Chem N/A [facility] Prostate Specific Antigen Screen 0.860 ng/mL 0.000-4.000 [facility] PSA Screen (Yearly Only)on 0 04-27-2022 PSA Screen (Yearly Only) 0.860 ng/mL Normal 0.000-4.000 [facility] Comment on above: Order Comment: Is pa tient <50 yrs? Medicare does not pay <50.: Y Is Medicare the insurance?: Y Result Comment: PERF ORMED BY: [place] [address] PATHOLOGIST BIOPHYSICS SCIENTIST BRIDGETT MANZO M.D. Performed By: #### T 4T, TSH3, CBC, PSAS, T3F, A1C WTH eA, CMP, LIPID #### [facility] [address] Platelet mean volume Auto (B ld) [Entitic vol]Ordered By: Jonh Patel on 04-27-2022 Platelet mean volume (Bld) [Entitic vol] 11.0 fL 6.6-10.1 [facility] Platelets Auto (Bld) [#/Vol] Ordered By: Jonh Patel on 04-27-2022 Platelets (Bld) [#/Vol] 116 10*3/uL 150-450 [facility] Protein [Mass/volume] in Ser um or PlasmaOrdered By: Jonh Patel on 04-27-2022 Protein [Mass/Vol] 6.4 g/dL 6.1-7.9 [facility] RBC Auto (Bld) [#/Vol]Ordere d By: Jonh Patel on 04-27-2022 RBC (Bld) [#/Vol] 4.27 10*6/uL 3.90-5.60 [facility] Serum or plasma alanine garner otransferase measurement without P-5'-P (enzymatic activiOrdered By: Jonh Patel on 04-27-2022 ALT No additional P-5'-P [Catalytic activity/Vol] 12 U/L 10-60 [facility] Serum or plasma albumin/glob ulin mass ratioOrdered By: Jonh Patel on 04-27-2022 Albumin/Globulin [Mass ratio] 1.3 {ratio} [facility] Serum or plasma alkaline anna sphatase measurement (enzymatic activity/volume)Ordered By: Jonh Patel on 04-27-2022 ALP [Catalytic activity/Vol] 71 U/L 32-92 [facility] Serum or plasma aspartate am inotransferase measurement (enzymatic activity/volume)Ordered By: Jonh Patel on 04-27-2022 AST [Catalytic activity/Vol] 18 U/L 10-42 [facility] Serum or plasma calcium josiah urement (mass/volume)Ordered By: Jonh Patel on 04-27-2022 Calcium [Mass/Vol] 9.0 mg/dL 8.2-10.2 [facility] Serum or plasma chloride jerica surement (moles/volume)Ordered By: Jonh Patel on 04-27-2022 Chloride [Moles/Vol] 104 mmol/L 95-114 [facility] [place] Serum or plasma glucose josiah urement (mass/volume)Ordered By: Jonh Patel on 04-27-2022 Glucose [Mass/Vol] 139 mg/dL 70-100 [facility] Comment on above: ADA recommended refe rence range Random Glucose Reference Range is dependent on time and content of last meal. Glucose of more than 200 mg/dL in a nonstressed, ambulatory subject supports the diagnosis of Diabetes Mellitus. Serum or plasma high density lipoprotein (HDL) cholesterol measurementOrdered By: Jonh Patel on 04-27-2022 Cholesterol in HDL [Mass/Vol] 38 mg/dL 29-71 [facility] Comment on above: HDL CHOL ATP-III CLA SSIFICATION Cardiovascular Risk HDL > or equal to 60 mg/dL LOW HDL < 40 mg/dL HIGH Serum or plasma potassium me asurement (moles/volume)Ordered By: Jonh Patel on 04-27-2022 Potassium [Moles/Vol] 4.4 mmol/L 3.5-5.1 [facility] Serum or plasma sodium measu rement (moles/volume)Ordered By: Jonh Patel on 04-27-2022 Sodium [Moles/Vol] 136 mmol/L 136-146 [facility] Serum or plasma thyroxine (T 4) measurement (mass/volume)Ordered By: Jonh Patel on 04-27-2022 T4 [Mass/Vol] 9.08 ug/dL 5.39-11.82 [facility] Serum or plasma total biliru bin measurement (mass/volume)Ordered By: Jonh Patel on 04-27-2022 Bilirubin [Mass/Vol] 0.8 mg/dL 0.3-1.2 [facility] Serum or plasma total carbon dioxide measurement (moles/volume)Ordered By: Jonh Patel on 04-27-2022 CO2 [Moles/Vol] 22.4 mmol/L 22.0-30.0 [facility] Serum or plasma total choles terol/high density lipoprotein (HDL) cholesterol mass ratOrdered By: Jonh Patel on 04-27-2022 Cholesterol.total/Tresa sterol in HDL [Mass ratio] 4.4 {ratio} [facility] Serum or plasma urea nitroge n measurement (mass/volume)Ordered By: Jonh Patel on 04-27-2022 Urea nitrogen [Mass/Vol] 23 mg/dL 9-23 [facility] Stool Occult Blood (Immuno)o n 04-27-2022 Stool Occult Blood (Immuno) Occult Blood (Immuno) Negative for Occult Blood by Immunochemical Methodology Reference range = Negative PERFORMED BY: [place] [address] PATHOLOGIST BIOPHYSICS SCIENTIST BRIDGETT MANZO M.D. Normal [facility] [facility] Comment on above: Performed By: #### O B(IMMUNO) #### [facility] [address] [place] [address] TSH DL <= 0.005 mIU/L QnOrde red By: Jonh Patel on 04-27-2022 TSH Qn 1.16 m[IU]/L 0.45-5.33 [facility] Thyroid Stimulating Hormoneo n 04-27-2022 TSH Qn 1.16 m[IU]/L Normal 0.45-5.33 [facility] Comment on above: Result Comment: PERF ORMED BY: [place] [address] PATHOLOGIST BIOPHYSICS SCIENTIST BRIDGETT MANZO M.D. Performed By: #### T 4T, TSH3, CBC, PSAS, T3F, A1C WTH eA, CMP, LIPID ####[place] [id number] [place] [id number] [facility] Thyroxine (T4) Totalon 04-27 T4 [Mass/Vol] 9.08 ug/dL Normal 5.39-11.82 [facility] Comment on above: Performed By: #### T 4T, TSH3, CBC, PSAS, T3F, A1C WTH eA, CMP, LIPID ####[place] [id number] [place] [id number] [facility] Triglyceride [Mass/volume] i n Serum or PlasmaOrdered By: Jonh Patel on 04-27-2022 Triglyceride [Mass/Vol] 88 mg/dL 35-149 F [facility] Comment on above: TRIG ATP III CLASSIF ICATION TRIG less than 150 mg/dL Normal TRIG 150-199 mg/dL Borderline high TRIG 200-500 mg/dL High TRIG greater than 500 mg/dL Very high Standard traceable to the Center for Disease Conrtrol and Prevention (CDC) test method. Triiodothyronine (T3) Freeon 04-27-2022 Triiodothyronine (T3) Free 2.51 pg/mL Normal 2.50-3.90 [facility] Comment on above: Result Comment: PERF ORMED BY: [facility] [address] [place] [place] [id number] PATHOLOGIST BIOPHYSICS SCIENTIST BRIDGETT MANZO M.D. Performed By: #### T 4T, TSH3, CBC, PSAS, T3F, A1C WTH eA, CMP, LIPID #### [facility] [address] Triiodothyronine (T3) Free [ Mass/volume] in Serum or PlasmaOrdered By: Jonh Patel on 04-27-2022 Free T3 [Mass/Vol] 2.51 pg/mL 2.50-3.90 [facility] October 27, 2021 Jonh Patel, [address] [place] [address] [place] [address] Re: NAVI FUNES Date of : 1940 Thank you for your referral of Navi Funes who was seen on consultation on 10/23/2021, for nodule right taylor with underlying cellulitis. I have enclosed my consultation note for your review. I will be happy to follow Navi. Sincerely, Josiah Gallego MD General Surgery Normal [facility] Ambulatory Clinical Summaryo n 10-23-2021 Ambulatory Clinical Summary {[id number]}CD:[id number] Normal [facility] Physician Referralon 021 Physician Referral [id number]:[id number] Normal [facility] Vital Signs Date Time Vital Sign Value Performing Clinician Facility 08-10-2022 10:45-0400 Body height 177.8 cm Grady Peters Other [facility] Other 08-10-2022 10:45-0400 Body mass index (BMI) [Ratio] 26.54 kg/m2 Grady Peters Other [facility] Other 08-10-2022 10:45-0400 Body temperature 97.3 [degF] Grady Peters Other [facility] Other 08-10-2022 10:45-0400 Body weight 83.92 kg Grady Peters Other [facility] Other 08-10-2022 10:45-0400 Diastolic blood pressure 72 mm[Hg] Grady Peters Other [facility] Other 08-10-2022 10:45-0400 SaO2% (BldA) [Mass fraction] 98 % Grady Peters Other [facility] Other 08-10-2022 10:45-0400 Systolic blood pressure 146 mm[Hg] Grady Juarezredari Other [facility] Other Encounters Encounter Date Encounter Type Care Provider Facility Start: 08-10-2022 End: 08-10-2022 ambulatory Grady Peters Other [facility] Other Start: 08-10-2022 Office outpatient vi sit 25 minutes Grady Peters [facility] Start: 07-30-2022 End: 07-30-2022 ambulatory Grady Peters Facility:[facility] Start: 07-30-2022 End: 07-30-2022 Patient encounter procedure MD Jonh Patel Work Phone: [facility] [place] Start: 06-17-2022 End: 06-17-[address] JONH PATEL Facility: Start: 04-27-2022 End: 04-27-2022 ambulatory Jonh Patel Facility:[facility] Start: 04-27-2022 End: 04-27-2022 Patient encounter procedure MD Jonh Patel Work Phone: [facility] Start: 01-06-2017 End: 01-07-2017 Ambulatory CHARSIMA MCKEON Facility:[facility] Procedures Date Procedure Procedure Detail Performing Clinician Start: 07-30-2022 X-ray of right ankle MD Jonh Patel Work Phone: Start: 04-27-2022 End: 04-27-2022 Screening for occult blood in feces MD Jonh Patel Work Phone: Plan of Treatment Date Care Activity Detail Author Start: 07-30-2022 Ankle brachial press ure index [facility] Start: 07-30-2022 Duplex scan of lower limb veins US venous duplex LE BI [facility] Start: 07-30-2022 US Lower extremity v ein - bilateral [facility] Work Phone: Payers Date Payer Category Payer Medicaid [id number] a 2022 Self-pay [id number] 1957 Unknown [id number] 1940 Unknown [id number] Unknown [facility] [id number] Unknown [id number] Unknown [id number] Social History Date Type Detail Facility Tobacco smoking status NHIS Unknown if ever smoked [facility] Work Phone: Start: 1940 Sex Assigned At Male F [facility] Sex Assigned At Sex Assigned At Bir th [facility] Other Evaluation note 08-10-2022 Note Date & [...] this patient back on an as-needed basis. [facility] Other Clinical Note 06-22-2022 Note Date & [...] to Vascular surgery for recommendations; patient requests [facility]. Ordered: E&M of Est. Patient Low 20-29 Min [id number] [facility] External Ambulatory Referral Follow-up No qualifying data [...] Recorded SARS-CoV-2 (COVID-19) Ad26 vaccine 03/19/2021 Recorded [facility] Comment on above: Result Comment: [...] Recorded SARS-CoV-2 (COVID-19) Ad26 vaccine 03/19/2021 Recorded [facility] Comment on above: Result Comment: Elec tronically Signed By: CLAUDIA OG, Josiah Daley\Date and Time Signed: 10/23/21 16:30 EST Evaluation note Note Date & Type Note Facility Evaluation note No assessment information availa [facility] Work Phone: History general Narrative - Reported Note Date & Type Note Facility History general Narrative - Reported Type Medical History hypercholesterolemia Medical History hypertension Medical History diabetes mallitus Surgical History CABG Surgical History Open reduction inter nal fixation right lower extremity fracture Hospitalization History see above [facility] Other Summary Purpose Family History No Family [...] section and content) DATE CREATED AUTHOR 05/03/2018 [facility] DATE CREATED AUTHOR AUTHOR'S ORGANIZ ATION 06/20/2022 [facility] DATE CREATED AUTHOR AUTHOR'S ORGANIZ ATION 07/16/2022 [facility] DATE CREATED AUTHOR AUTHOR'S ORGANIZ ATION 12/23/2022 [facility] Care Teams (unrecognized sec tion and [...] TESTING; MARIAH AND FF V ENOUS AT [facility], Follow-up noninvasive studies FOR RECORDS PERTAINING TO [...] BE BASED ON THE PRIMARY CLINICAL RECORDS. [facility] [employer] provides no warranty or guarantee of the accuracy or completeness of information in this document.
--- NOTE | 2023-12-27 08:31 | P.PN_ITS ---
Progress Note: Subjective Subjective Interval history: Patient intermittent confusion is persisting. He was found wandering down [address], would not describe to the [employer] police officer what he was looking for. Return home. Was seen in the office due to the increasing swelling of his right lower extremity with purulent drainage from open wound. Patient was admitted for IV antibiotics. Patient also needed for possible placement. Exam Constitutional Vital Signs, click to edit/add: Last Vital Signs Temp 99 F 12/27/23 04:47 Pulse 57 L 12/27/23 04:47 Resp 20 12/27/23 04:47 BP 132/83 12/27/23 04:47 Pulse Ox 92 L 12/27/23 04:47 O2 Del Method Room Air 12/27/23 04:47 Documenting provider has reviewed patient's vital signs: yes Common normals: no apparent distress HENMT Common normals: normocephalic Respiratory Common normals: normal respiratory effort Cardio Common normals: regular rate and regular rhythm GI Common normals: Normal to inspection, nondistended, normoactive bowel sounds present Extremity Common normals: abnormal to inspection (Purulent drainage from open wound right lower extremity, edema better today) Progress Note: Objective Labs Labs: Short CBC 12/26/23 12/27/23 Range/Units 18:29 05:17 WBC 7.8 7.0 (4.0-11.0) 10^3/uL Hgb 12.4 L 10.6 L (14.0-18.0) g/dL Hct 41.3 L 34.1 L (42.0-54.0) % Plt Count 72 L 112 L (150-450) 10^3/uL BMP 12/26/23 12/27/23 18:35 05:17 Sodium 145 140 Potassium 4.7 4.4 Chloride 109 H 108 H Carbon Dioxide 28.6 24.8 BUN 25.0 H 24.0 H Creatinine 1.48 H 1.38 H Glucose 150 H 136 H Calcium 8.7 8.1 L Liver Function 12/26/23 12/27/23 Range/Units 18:35 05:17 Total Bilirubin 0.5 0.7 (0.2-1.0) mg/dL AST 13 L 17 (15-37) U/L ALT 17 15 L (16-63) U/L Alkaline Phosphatase 97 80 (46-116) U/L Albumin 3.1 L 2.6 L (3.4-5.0) g/dL Progress Note: A&P Assessment and Plan (1) Altered mental status: (2) Dementia: (3) Ulcer of right leg: Plan Increasing altered mental status with infection of right lower extremity due to diabetes mellitus poorly controlled, check on ultrasound results, culture obtained, consult to wound management-IV antibiotics, blood cultures pending also. Less edema today. CRP further elevated today. Iron deficiency anemia-Down somewhat today. More than expected. Check occult blood Thrombocytopenia-improved slightly today. Chronic kidney disease stage III-improved today. Moderate protein calorie malnutrition-diet management Dementia-deteriorating. Patient [place], state rate [place], look into placement. For patient safety. Hypertension-continue with home medications Diabetes mellitus-insulin sliding scale With purulent drainage persisting, edema persisting, altered mental status persisting, medical treatment will span 2 midnights, will change patient to inpatient status. Likely here 2-3 more days. Initial hope was rapid resolution of his edema and mental status. Unfortunately that did not happen
[2023-12-27] MEDS: METFORMIN HCL 500 MG TABLET PO ×2 (09:37→17:23)
[2023-12-27] MEDS: LISINOPRIL 10 MG TABLET PO (09:37)
[2023-12-27] MEDS: CLONIDINE HCL 0.1 MG TABLET PO ×2 (09:38→21:55)
[2023-12-27] MEDS: JUVEN PACKET 1 PACKET PO ×2 (09:38→21:55)
[2023-12-27] MEDS: ENSURE HP 237 ML LIQUID PO ×2 (09:38→21:55)
[2023-12-27] MEDS: MEMANTINE HCL 7 MG CAP XR 14 MG PO (09:46)
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
[2023-12-27 11:23] VITALS: PULSE 56; O2SAT 96
[2023-12-27 11:39] LABS: Glucometer 218 mg/dL (74-106)
[2023-12-27] MEDS: INSULIN ASPART 300 UNIT/3 ML PEN SUBQ ×2 (11:39→17:23)
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
--- NOTE | 2023-12-27 12:00 | SWNOTE1 ---
MELINDA and case management called and spoke with Adult Protective Services in regards to pt and the process to get guardianship. They took down pt's name, date, and address. MELINDA and case management expressed concerns for pt's safety at home. He has had several admission and ED visits and has been found wandering as well. Adult Protective Services advised MELINDA and complex case manager the first thing that has to be done is an expert evaluation has to be completed. This can be done by a [facility], psych professional, which [facility] does not have on staff, or by the pt's primary care doctor. Once this is completed it dictionary editor be sent along with the application for guardianship. The daughter can complete application for guardianship and once it gets to court she does not have to be the guardian and the fees will likely be waived. The expert evaluation is the first step. MELINDA to update the daughter once she is in. Expert evaluation forms sent to MELINDA Thomas also sent him a message to update him.
[2023-12-27 13:49] VITALS: BP 141/74; PULSE 57; RESP 18; TEMP 36.6; O2SAT 93
--- NOTE | 2023-12-27 16:14 | SWNOTE1 ---
MELINDA let doctor know that pt has not PT/OT needs and was independent and walked in the halls. [facility]DA to attempt.
[2023-12-27 16:29] LABS: Glucometer 186 mg/dL (74-106)
[2023-12-27] MEDS: VANCOMYCIN HCL 1,500 MG in 0.9 % SODIUM CHLORIDE 500 ML 200 MG IV (19:41)
[2023-12-27 20:06] VITALS: O2SAT 91
[2023-12-27 20:56] LABS: Glucometer 141 mg/dL (74-106)
[2023-12-27 20:58] VITALS: BP 145/55; PULSE 57; RESP 18; TEMP 37; O2SAT 90
[2023-12-27] MEDS: PROSTAT 15 GM PROTEIN/100 CAL 30 ML LIQUID PACKET PO (21:55)
[2023-12-27] MEDS: DONEPEZIL HCL 5 MG TABLET PO (21:56)
[2023-12-27] MEDS: QUETIAPINE FUMARATE 25 MG TABLET PO (21:56)
[2023-12-28] VITALS (8 sets, daily range): BP systolic 142–162; BP diastolic 62–70; PULSE 47–63; RESP 18–20; TEMP 36.6–36.9; O2SAT 90–95
[2023-12-28 04:57] LABS: Basophils Absolute Auto 0.1 10^3/uL (0.0-0.1); Eosinophils Absolute Auto 0.3 10^3/uL (0.0-0.7); Eosinophils Percent Auto 4.2 % (0.9-7.0); Hematocrit 34.3 % (42.0-54.0); Hemoglobin 10.8 g/dL (14.0-18.0); Immature Granulocytes Abs Auto 0.02 10^3/uL (0.00-0.03); Immature Granulocytes Pct Auto 0.3 % (0.0-0.5); Lymphocytes Absolute Auto 1.7 10^3/uL (1.2-3.8); Lymphocytes Percent Auto 23.9 % (20.5-60.0); Mean Corpuscular HGB Conc 31.5 g/dL (29.9-35.2); Mean Corpuscular Hemoglobin 30.7 pg (25.9-34.0); Mean Corpuscular Volume 97.4 fL (80.0-94.0); Mean Platelet Volume 11.5 fL (9.5-13.5); Monocytes Absolute Auto 0.7 10^3/uL (0.3-0.8); Monocytes Percent Auto 10.2 % (1.7-12.0); Neutrophils Absolute Auto 4.3 10^3/uL (1.4-6.5); Neutrophils Percent Auto 60.4 % (43.0-75.0); Platelet Count 110 10^3/uL (150-450); Red Blood Count 3.52 10^6/uL (4.70-6.10); Red Cell Distribution Width 14.4 % (11.0-15.0); White Blood Count 7.1 10^3/uL (4.0-11.0)
[2023-12-28 05:29] LABS: Alanine Aminotransferase 15 U/L (16-63); Albumin Globulin Ratio 0.7; Albumin Level 2.5 g/dL (3.4-5.0); Alkaline Phosphatase 77 U/L (46-116); Anion Gap 10.8; Aspartate Amino Transferase 20 U/L (15-37); BUN Creatinine Ratio 22.5; Bilirubin Total 0.5 mg/dL (0.2-1.0); C Reactive Protein 2.02 mg/dL (<=0.50); Calcium 8.6 mg/dL (8.5-10.1); Carbon Dioxide 25.6 mmol/L (21.0-32.0); Chloride 109 mmol/L (98-107); Estimated GFR (African America 54 (>=60); Estimated GFR (Non-African Ame 45 (>=60); Globulin 3.4 g/dL; Glucose 169 mg/dL (74-106); Potassium 4.4 mmol/L (3.5-5.1); Sodium 141 mmol/L (136-145); Total Protein 5.9 g/dL (6.4-8.2)
[2023-12-28] MEDS: PIPERACILLIN SODIUM/TAZOBACTAM 3.375 GM in 0.9 % SODIUM CHLORIDE 50 ML IV ×3 (05:36→21:50)
[2023-12-28 05:52] LABS: Erythrocyte Sedimentation Rate 19 mm/hr (<=20)
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
[2023-12-28 08:09] LABS: Glucometer 143 mg/dL (74-106)
--- NOTE | 2023-12-28 08:44 | CM.NOTE ---
Pt was changed to Inpatient status. Important Message From Medicare discussed with pt, pt verbalizes understanding and signs paper. Original given to pt and copy placed in pt's chart.
[2023-12-28] MEDS: JUVEN PACKET 1 PACKET PO ×2 (09:20→21:09)
[2023-12-28] MEDS: PROSTAT 15 GM PROTEIN/100 CAL 30 ML LIQUID PACKET PO ×2 (09:20→21:08)
[2023-12-28] MEDS: LISINOPRIL 10 MG TABLET PO (09:21)
[2023-12-28] MEDS: MEMANTINE HCL 7 MG CAP XR 14 MG PO (09:21)
[2023-12-28] MEDS: ENSURE HP 237 ML LIQUID PO ×2 (09:22→21:09)
[2023-12-28] MEDS: METFORMIN HCL 500 MG TABLET PO ×2 (09:24→17:46)
[2023-12-28] MEDS: CLONIDINE HCL 0.1 MG TABLET PO ×2 (09:24→21:09)
[2023-12-28] MEDS: INSULIN ASPART 300 UNIT/3 ML PEN SUBQ ×3 (09:25→21:59)
[2023-12-28] MEDS: CLINDAMYCIN PHOSPHATE/D5W 600 MG/50 ML PIGGYBACK 100 MG IV ×3 (09:25→21:09)
[2023-12-28] MEDS: METOPROLOL SUCCINATE 50 MG TAB.ER.24H PO (09:25)
[2023-12-28] MEDS: AMMONIUM LACTATE 226 GM BOTTLE 1 APPLIC TOPICAL (09:26)
--- NOTE | 2023-12-28 09:35 | SWNOTE1 ---
MELINDA called the [place] [facility] in [place], left a message for Shaniqua in the [place] [facility] of [facility], waiting for her to call back.
--- NOTE | 2023-12-28 10:37 | SWNOTE1 ---
MELINDA spoke to Shaniqua at [place]. She voiced she has received message the daughter to call her. Shaniqua explained that pt does not qualify for the [facility] ([facility] at [facility]) due to risk of him wandering and due to him not being able to take meds appropriately. The [facility] sn[facility] is a wait list to get in. Shaniqua recommended calling [facility] in [place] and they have a assisted type of building called [facility] and they may be able to assist. MELINDA called and spoke to admissions at [facility] and she stated he would have to be transferred to [facility] and they would have to assess him. She is willing to take pt's information and will need SW to send clinical. MELINDA asked if family took him to [facility] to be triaged would he get admitted? She stated they would have to assess and no guarantee pt would be admitted. SW gave admissions his information and will send clinical. SW to call pt's daughter.
--- NOTE | 2023-12-28 10:49 | SWNOTE1 ---
SW spoke to akbar, pt's daughter and updated her.
[2023-12-28 11:16] LABS: Glucometer 226 mg/dL (74-106)
--- NOTE | 2023-12-28 12:27 | SWNOTE1 ---
MELINDA spoke with another person from the [facility], she was calling to get more information. MELINDA explained the situation and she stated [facility] a SN[facility] for vets, he would not qualify. She then stated there is a dementia unit,she recommended SW send the clinicals to her and she will send to physician in the dementia unit to review. SW to send.
--- NOTE | 2023-12-28 14:14 | PC.NURSE ---
Dressing changed Medihoney applied, lonny wrap reapplied.
--- NOTE | 2023-12-28 14:42 | SWNOTE1 ---
SW spoke to daughter and she would like SW to pursue getting pt to [facility] [address] in [place]. SW to speak with pt. SW did update doctor.
[2023-12-28 15:08] LABS: SARS-CoV-2 Ag NEGATIVE (NEGATIVE)
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
[2023-12-28 16:45] LABS: Glucometer 110 mg/dL (74-106)
[2023-12-28] MEDS: QUETIAPINE FUMARATE 25 MG TABLET PO (21:08)
[2023-12-28] MEDS: DONEPEZIL HCL 5 MG TABLET 10 MG PO (21:09)
[2023-12-28 22:16] LABS: Glucometer 181 mg/dL (74-106)
[2023-12-29] MEDS: CLINDAMYCIN PHOSPHATE/D5W 600 MG/50 ML PIGGYBACK 100 MG IV ×2 (01:01→10:35)
[2023-12-29] MEDS: PIPERACILLIN SODIUM/TAZOBACTAM 3.375 GM in 0.9 % SODIUM CHLORIDE 50 ML IV (04:53)
[2023-12-29 05:39] VITALS: BP 151/58; PULSE 48; RESP 18; TEMP 36.4; O2SAT 93
[2023-12-29 05:39] LABS: Basophils Absolute Auto 0.1 10^3/uL (0.0-0.1); Eosinophils Absolute Auto 0.4 10^3/uL (0.0-0.7); Eosinophils Percent Auto 5.6 % (0.9-7.0); Hematocrit 34.9 % (42.0-54.0); Hemoglobin 11.2 g/dL (14.0-18.0); Immature Granulocytes Abs Auto 0.02 10^3/uL (0.00-0.03); Immature Granulocytes Pct Auto 0.3 % (0.0-0.5); Lymphocytes Absolute Auto 1.8 10^3/uL (1.2-3.8); Lymphocytes Percent Auto 26.3 % (20.5-60.0); Mean Corpuscular HGB Conc 32.1 g/dL (29.9-35.2); Mean Corpuscular Hemoglobin 30.9 pg (25.9-34.0); Mean Corpuscular Volume 96.4 fL (80.0-94.0); Monocytes Absolute Auto 0.7 10^3/uL (0.3-0.8); Monocytes Percent Auto 10.4 % (1.7-12.0); Neutrophils Absolute Auto 3.9 10^3/uL (1.4-6.5); Neutrophils Percent Auto 56.4 % (43.0-75.0); Platelet Count 132 10^3/uL (150-450); Red Blood Count 3.62 10^6/uL (4.70-6.10); Red Cell Distribution Width 14.2 % (11.0-15.0); White Blood Count 6.9 10^3/uL (4.0-11.0)
[2023-12-29 05:43] LABS: Alanine Aminotransferase 18 U/L (16-63); Albumin Globulin Ratio 0.7; Albumin Level 2.5 g/dL (3.4-5.0); Alkaline Phosphatase 71 U/L (46-116); Anion Gap 14.8; Aspartate Amino Transferase 20 U/L (15-37); BUN Creatinine Ratio 24.4; Bilirubin Total 0.4 mg/dL (0.2-1.0); C Reactive Protein 1.38 mg/dL (<=0.50); Calcium 8.6 mg/dL (8.5-10.1); Carbon Dioxide 24.8 mmol/L (21.0-32.0); Chloride 109 mmol/L (98-107); Estimated GFR (African America 51 (>=60); Estimated GFR (Non-African Ame 42 (>=60); Globulin 3.6 g/dL; Glucose 144 mg/dL (74-106); Potassium 4.6 mmol/L (3.5-5.1); Sodium 144 mmol/L (136-145); Total Protein 6.1 g/dL (6.4-8.2)
[2023-12-29 05:53] LABS: Erythrocyte Sedimentation Rate 22 mm/hr (<=20)
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
[2023-12-29 10:02] VITALS: PULSE 45; O2SAT 93
[2023-12-29] MEDS: JUVEN PACKET 1 PACKET PO (10:36)
[2023-12-29] MEDS: MEMANTINE HCL 7 MG CAP XR 14 MG PO (10:36)
[2023-12-29] MEDS: CLONIDINE HCL 0.1 MG TABLET PO (10:36)
[2023-12-29] MEDS: LISINOPRIL 10 MG TABLET PO (10:36)
[2023-12-29] MEDS: METOPROLOL SUCCINATE 50 MG TAB.ER.24H PO (10:36)
[2023-12-29] MEDS: PROSTAT 15 GM PROTEIN/100 CAL 30 ML LIQUID PACKET PO (10:36)
[2023-12-29] MEDS: METFORMIN HCL 500 MG TABLET PO (10:37)
[2023-12-29] MEDS: AMMONIUM LACTATE 226 GM BOTTLE 1 APPLIC TOPICAL (10:37)
[2023-12-29] MEDS: ENSURE HP 237 ML LIQUID PO (10:38)
[2023-12-29 11:11] LABS: Glucometer 203 mg/dL (74-106)
--- NOTE | 2023-12-29 12:49 | SWNOTE1 ---
MELINDA called [facility] and left message with MELINDA Cabrera informed him that pt is not agreeable to go to [facility] at this time.
--- NOTE | 2023-12-30 15:17 | CM.DCFOLLOWU ---
First attempt at discharge follow up call at this time. No answer at number provided in chart. Unable to reach patient at this time.
--- NOTE | 2024-01-02 15:17 | CM.DCFOLLOWU ---
Person spoke with: Daughter How are you feeling? His leg is still draining How is your pain? No pain Did you understand your discharge instructions? Yes Do you have any questions about your discharge instructions? No, we have been back to his office for recheck Were you given any prescriptions at discharge? Yes Were you able to get your prescriptions filled? Yes Do you understand how to take your medications as ordered? Yes Do you have any questions about your follow up appointment and do you plan to keep your follow up appointment? No we have already went back to see Dr. Patel Is there anything else that you would like to discuss? No Questions/Comments/Concerns/Other:
== END 2023-12-29 12:58 | disposition home or self-care (01) | DRG 638 ==
PROVIDERS: Admitting Provider Family Medicine; PCP Family Medicine; Visit Provider Family Medicine
DX: E11.622 Type 2 diabetes mellitus with other skin ulcer (principal); E44.0 Moderate protein-calorie malnutrition; L97.819 Non-pressure chronic ulcer of other part of right lower leg with unspecified severity; E11.65 Type 2 diabetes mellitus with hyperglycemia; E11.22 Type 2 diabetes mellitus with diabetic chronic kidney disease; F03.90 Unspecified dementia, unspecified severity, without behavioral disturbance, psychotic disturbance, mood disturbance, and anxiety; R41.0 Disorientation, unspecified; I12.9 Hypertensive chronic kidney disease with stage 1 through stage 4 chronic kidney disease, or unspecified chronic kidney disease; N18.30 Chronic kidney disease, stage 3 unspecified; D50.9 Iron deficiency anemia, unspecified; D69.6 Thrombocytopenia, unspecified; Z68.27 Body mass index [BMI] 27.0-27.9, adult; Z79.84 Long term (current) use of oral hypoglycemic drugs; Z79.899 Other long term (current) drug therapy
CPT/HCPCS: 36415; 80053; 82140; 82948; 83605; 83735; 83880; 84436; 84443; 85025; 85652; 86140; 87040; 87070; 87811; 93970; 94667; 94668; 94761; 96365; 96366; 96367; 96368; 96376; 97165; G0328; G0378; J2543; J3370

== ENCOUNTER 2023-12-30 15:44 | Outpatient (REF) | payer MEDICARE, SELFPAY | END 2023-12-30 15:45 | disposition home or self-care (01) | LOC: LAB 15:44 | PROVIDERS: PCP Family Medicine; Visit Provider Family Medicine | DX: L97.909 Non-pressure chronic ulcer of unspecified part of unspecified lower leg with unspecified severity (principal) | CPT/HCPCS: 87070; 87150; 87186 ==

== ENCOUNTER 2024-01-03 11:38 | Outpatient (OUT) | payer MEDICARE, SELFPAY | END 2024-01-03 11:39 | disposition home or self-care (01) | LOC: WC 11:38 | PROVIDERS: PCP Family Medicine; Visit Provider Podiatrist Foot & Ankle Surgery | DX: L97.312 Non-pressure chronic ulcer of right ankle with fat layer exposed (principal); L97.811 Non-pressure chronic ulcer of other part of right lower leg limited to breakdown of skin | CPT/HCPCS: G0463 ==

== ENCOUNTER 2024-01-06 14:59 | Observation (INO) | payer MEDICARE, SELFPAY ==
[2024-01-06] VITALS (12 sets, daily range): BP systolic 121–148; BP diastolic 58–65; PULSE 46–54; RESP 10–18; TEMP 34.9–36.4; O2SAT 92–100; BMI 26.5
--- NOTE | 2024-01-06 15:08 | CT_ITS ---
The [address] [address] Patient Name: KAPIL FUNES MRN: [id number] date: 1940 Sex: M Assigned Patient Location: ED.MAIN Current Patient Location: ER Accession/Order Number: [id number] Exam Date: 01/06/2024 15:18 Report Date: 01/06/2024 15:36 At the request of: SARI BELTRAN Procedure: CT stroke head/brain wo con NONCONTRAST HEAD CT COMPARISON: Head CT 11/28/2023. CLINICAL HISTORY: Weakness. TECHNIQUE: Routine noncontrast images of the brain obtained. CT examination of the head without IV contrast. Dose reduction techniques were achieved by using: automated exposure control and/or adjustment of mA and /or kV according to patient size and/or use of iterative reconstruction technique. FINDINGS: Paranasal sinuses and mastoid air cells are clear. Intraorbital contents are unremarkable. No acute bony abnormality. Intracranially, there is no evidence of hemorrhage, mass effect, or midline shift. Brain is markedly atrophic. Severe chronic ischemic changes are present in the periventricular white matter. Dense carotid vascular calcifications.. CT/CT stroke head/brain wo con IMPRESSION: No acute intracranial abnormality. Severe atrophy unchanged. Electronically authenticated by: JAMILAH GARCIA Date: 01/06/2024 15:36
--- NOTE | 2024-01-06 15:09 | ECG_ITS ---
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
--- NOTE | 2024-01-06 15:09 | XR_ITS ---
The [address] [address] Patient Name: KAPIL FUNES MRN: [id number] date: 1940 Sex: M Assigned Patient Location: ER Current Patient Location: ER Accession/Order Number: [id number] Exam Date: 01/06/2024 15:25 Report Date: 01/06/2024 15:39 At the request of: SARI BELTRAN Procedure: XR chest 1V EXAMINATION: XR chest 1V HISTORY: weak COMPARISON: 11/28/2023 TECHNIQUE: Semierect FINDINGS: LUNGS: Low lung volumes. Bibasilar infiltrates. VASCULATURE: No increased pulmonary vasculature. PLEURA: No pneumothorax, effusion, or pleural thickening. CARDIAC: Stable cardiomegaly MEDIASTINUM: No visible mass or adenopathy. Median sternotomy wires. Aortic atherosclerosis BONES: No fracture or visible bone lesion. OTHER: Negative. XR/XR chest 1V IMPRESSION: Mild bibasilar infiltrates, atelectasis favored Electronically authenticated by: JABIER SCHULTZ Date: 01/06/2024 15:39
--- NOTE | 2024-01-06 15:09 | PC.NURSE ---
Very dry mouth. Temp not reading correctly. will recheck.
[2024-01-06] MEDS: AMMONIA 1 EACH AMPULE IH (15:13)
--- OUTSIDE RECORDS SUMMARY | 2024-01-06 15:22 | XMS_ITS | CCD ---
Author Name Unknown Address [address] [facility] [address] [place] [address] Organization [facility] Care Team Providers Care Computer Engineering Technician Name Role Phone CHARISMA MCKEON Unavailable Unavailable CHARISMA MCKEON Unavailable Unavailable JONH PATEL Unavailable Unavailable JONH PATEL Unavailable Unavailable MD oJnh Patel Primary Care Provider [phone] MD Jonh Patel Attending Provider [phone] JONH PATEL Attending Unavailable VIRGILIO, DR BORJA Consulting Unavailable DR JONH PATEL Primary Care Unavailable DR JONH PATEL Admitting Unavailable MD Jonh Patel Primary Care Provider [phone] MD Grady Peters Attending Provider Grady Peters [...] US ankle/arm indiceson 07-31 US ankle/arm indices [facility] Main [place] [address] [place] [address] Ultrasound Report Signed Patient: Navi Funes Jr MR#: [id number] : 1940 Acct:[id number] Age/Sex: 81 / M ADM Date: 07/30/22 Loc: Room: Type: [facility] Attending Dr: Grady Peters MD Ordering [...] Ruben Dumont MD07/31/2022 3:20 PM Dictation Location: [place] [address] Tech: Katt Baron Transcribed By: HANNAH 07/31/22 1520 Dictated By: Ruben Dumont MD 07/31/22 1519 Signed By: 07/31/22 152 [facility] US venous duplex LE BIon US venous duplex LE BI [facility] Main [place] [id number] Ultrasound Report Signed Patient: Navi Funes Jr MR#: [id number] : 1940 Acct:[id number] Age/Sex: 81 / M ADM Date: 07/30/22 Loc: Room: Type: [facility] Attending Dr: Grady Peters MD Ordering [...] MD 07/31/22 152 Signed By: 07/31/22 152 [facility] XR ankle RT min 3V*on 2021 XR ankle RT min 3V* [facility] Main [address] [address] XRay Report Signed Patient: Navi Funes Jr MR#: [id number] : 1940 Acct:[id number] Age/Sex: 81 / M ADM Date: 07/30/22 Loc: Room: Type: [facility] Attending Dr: Grady Peters MD Copies to: [...] King Jr., D.O.07/30/2022 4:33 PM Dictation Location: [place] [address] Transcribed By: [facility] 07/30/22 1633 Dictated By: Navi King Jr, DO 07/30/22 1632 Signed By: 07/30/22 1633 Normal [facility] Consultation Noteon 07-15-20 Consultation Note [id number]:127 Normal [facility] HIPAA Privacy Documentson HIPAA Privacy Documents [id number]:127 Normal [facility] WOUND CULTUREon 06-20-2022 Bacteria identified Aer cx Nom (Unsp spec) Final report Normal [facility] Comment on above: Performed By: #### C XWND #### [facility] [address] [place] [address] [address] Eddie Gaitan Result 1 Comment Normal [facility] Comment on above: Result Comment: No g rowth in 36 - 48 hours. Performed By: #### C XWND #### [facility] [address] [place] [address] [address] Eddie Gaitan Physician Referralon 022 Physician Referral [id number]:127 Normal [facility] A1C with Estimated Average Bin hernandez 04-27-2022 Glucose [Mass/Vol] 151 mg/dL Normal [facility] Comment on above: Result Comment: PERF ORMED BY: [place] [address] PATHOLOGIST GUN PROFILER BRIDGETT MANZO M.D. Performed By: #### T 4T, TSH3, CBC, PSAS, T3F, A1C WT eA, CMP, LIPID #### [facility] [address] HbA1c (Bld) [Mass fraction] 6.9 % High 4.3-5.6 [facility] Comment on above: Result Comment: Incr eased risk for diabetes: 5.7 - 6.4 diabetes: >6.4 glycemic control for adults with diabetes: <7.0 Performed By: #### T 4T, TSH3, CBC, PSAS, T3F, A1C WTH eA, CMP, LIPID #### [facility] [address] Basophils Auto (Bld) [#/Vol] Ordered By: Jonh Patel on 04-27-2022 Basophils (Bld) [#/Vol] 0.1 10*3/uL 0.0-0.2 [facility] Basophils/100 WBC Auto (Bld) Ordered By: Jonh Patel on 04-27-2022 Basophils/100 WBC (Bld) 1.1 % F [facility] Blood hemoglobin measurement (mass/volume)Ordered By: Jonh Patel on 04-27-2022 Hemoglobin (Bld) [Mass/Vol] 13.3 g/dL 13.0-17.0 [facility] Blood leukocytes automated c ount (number/volume)Ordered By: Jonh Patel on 04-27-2022 WBC (Bld) [#/Vol] 5.0 10*3/uL 4.5-11.0 [facility] Body fluid albumin measureme nt (mass/volume)Ordered By: Jonh Patel on 04-27-2022 Albumin (Body fld) [Mass/Vol] 3.6 g/dL 3.2-5.5 [facility] Cholesterol [Mass/volume] in Serum or PlasmaOrdered By: Jonh Patel on 04-27-2022 Cholesterol [Mass/Vol] 168 mg/dL 140-200 [facility] Comment on above: Chol less than 200 m g/dl low risk Chol 201-239 mg/dl borderline risk Chol 240 mg/dl and greater high risk Cholesterol in LDL Calc [Mas s/Vol]Ordered By: Jonh Patel on 04-27-2022 Cholesterol in LDL [Mass/Vol] 112 mg/dL 0-100 [facility] Comment on above: LDL ATP III CLASSIFI CATION LDL less than 100 mg/dL Optimal LDL 100-129 mg/dL Near or above optimal LDL 130-159 mg/dL Borderline high LDL 160-189 mg/dL High LDL greater than 189 mg/dL Very high Cholesterol in VLDL Calc [Ma ss/Vol]Ordered By: Jonh Patel on 04-27-2022 Cholesterol in VLDL [Mass/Vol] 17 mg/dL [facility] Complete Blood Count Auto Di ffon 04-27-2022 Basophils (Bld) [#/Vol] 0.1 10*3/uL Normal 0.0-0.2 [facility] Comment on above: Result Comment: PERF ORMED BY: [place] [address] PATHOLOGIST GUN PROFILER BRIDGETT MANZO M.D. Performed By: #### T 4T, TSH3, CBC, PSAS, T3F, A1C WTH eA, CMP, LIPID #### [facility] [address] [place] [address] [place] Basophils/100 WBC (Bld) 1.1 % Normal . [facility] Comment on above: Performed By: #### T 4T, TSH3, CBC, PSAS, T3F, A1C WTH eA, CMP, LIPID #### [facility] [address] [place] [address] [place] Eosinophils (Bld) [#/Vol] 0.3 10*3/uL Normal 0.0-0.45 [facility] Comment on above: Performed By: #### T 4T, TSH3, CBC, PSAS, T3F, A1C WTH eA, CMP, LIPID #### [facility] [address] [place] [address] [place] Eosinophils/100 WBC (Bld) 6.5 % Normal . [facility] Comment on above: Performed By: #### T 4T, TSH3, CBC, PSAS, T3F, A1C WTH eA, CMP, LIPID #### [address] Erythrocyte distribution width (RBC) [Ratio] 15.0 % High 12.0-14.8 [facility] Comment on above: Performed By: #### T 4T, TSH3, CBC, PSAS, T3F, A1C WTH eA, CMP, LIPID #### [address] Hematocrit (Bld) [Volume fraction] 39.9 % Normal 38.8-50.0 [facility] Comment on above: Performed By: #### T 4T, TSH3, CBC, PSAS, T3F, A1C WTH eA, CMP, LIPID #### [address] Hemoglobin (Bld) [Mass/Vol] 13.3 g/dL Normal 13.0-17.0 [facility] Comment on above: Performed By: #### T 4T, TSH3, CBC, PSAS, T3F, A1C WTH eA, CMP, LIPID #### [address] Lymphocytes (Bld) [#/Vol] 1.3 10*3/uL Normal 1.00-4.8 [facility] Comment on above: Performed By: #### T 4T, TSH3, CBC, PSAS, T3F, A1C WTH eA, CMP, LIPID #### [address] Lymphocytes/100 WBC (Bld) 25.6 % Normal . [facility] Comment on above: Performed By: #### T 4T, TSH3, CBC, PSAS, T3F, A1C WTH eA, CMP, LIPID #### [facility] [address] MCH (RBC) [Entitic mass] 31.2 pg Normal 27.5-35.2 [facility] Comment on above: Performed By: #### T 4T, TSH3, CBC, PSAS, T3F, A1C WTH eA, CMP, LIPID #### [facility] [address] MCV (RBC) [Entitic vol] 93.5 fL Normal 83.5-101 F [facility] Comment on above: Performed By: #### T 4T, TSH3, CBC, PSAS, T3F, A1C WTH eA, CMP, LIPID #### [address] Mean Corpuscular HGB Conc 33.4 g/dL Normal 32.5-35.6 [facility] Comment on above: Performed By: #### T 4T, TSH3, CBC, PSAS, T3F, A1C WTH eA, CMP, LIPID #### [address] Monocytes (Bld) [#/Vol] 0.4 10*3/uL Normal 0.0-0.8 [facility] Comment on above: Performed By: #### T 4T, TSH3, CBC, PSAS, T3F, A1C WTH eA, CMP, LIPID #### [address] Monocytes/100 WBC (Bld) 8.3 % Normal . [facility] Comment on above: Performed By: #### T 4T, TSH3, CBC, PSAS, T3F, A1C WTH eA, CMP, LIPID #### [address] Neutrophils (Bld) [#/Vol] 2.9 10*3/uL Normal 1.8-7.7 [facility] Comment on above: Performed By: #### T 4T, TSH3, CBC, PSAS, T3F, A1C WTH eA, CMP, LIPID #### [facility] [address] [place] [address] [place] Neutrophils/100 WBC (Bld) 58.5 % Normal . [facility] Comment on above: Performed By: #### T 4T, TSH3, CBC, PSAS, T3F, A1C WTH eA, CMP, LIPID #### [facility] [address] [place] [address] [place] Nucleated RBC/100 WBC (Bld) [Ratio] 0.0 % Normal 0-0.5 [facility] Comment on above: Performed By: #### T 4T, TSH3, CBC, PSAS, T3F, A1C WTH eA, CMP, LIPID #### [facility] [address] [place] [address] [place] Platelet mean volume (Bld) [Entitic vol] 11.0 fL High 6.6-10.1 [facility] Comment on above: Performed By: #### T 4T, TSH3, CBC, PSAS, T3F, A1C WTH eA, CMP, LIPID #### [facility] [address] [place] [address] [place] Platelets (Bld) [#/Vol] 116 10*3/uL Low 150-450 [facility] Comment on above: Performed By: #### T 4T, TSH3, CBC, PSAS, T3F, A1C WTH eA, CMP, LIPID #### [facility] [address] [place] [address] [place] RBC (Bld) [#/Vol] 4.27 10*6/uL Normal 3.90-5.[address] [facility] Comment on above: Performed By: #### T 4T, TSH3, CBC, PSAS, T3F, A1C WTH eA, CMP, LIPID #### [facility] [address] [place] [address] [place] WBC (Bld) [#/Vol] 5.0 10*3/uL Normal 4.5-11.0 [facility] Comment on above: Performed By: #### T 4T, TSH3, CBC, PSAS, T3F, A1C WTH eA, CMP, LIPID #### [facility] [address] Comprehensive Metabolic Pane alexandra 04-27-2022 Albumin [Mass/Vol] 3.6 g/dL Normal 3.2-5.5 [facility] Comment on above: Performed By: #### T 4T, TSH3, CBC, PSAS, T3F, A1C WTH eA, CMP, LIPID #### [facility] [address] Albumin/Globulin [Mass ratio] 1.3 {ratio} Normal [facility] Comment on above: Performed By: #### T 4T, TSH3, CBC, PSAS, T3F, A1C WTH eA, CMP, LIPID #### [facility] [address] ALP [Catalytic activity/Vol] 71 U/L Normal 32-92 [facility] Comment on above: Performed By: #### T 4T, TSH3, CBC, PSAS, T3F, A1C WTH eA, CMP, LIPID #### [facility] [address] ALT [Catalytic activity/Vol] 12 U/L Normal 10-60 [facility] Comment on above: Performed By: #### T 4T, TSH3, CBC, PSAS, T3F, A1C WTH eA, CMP, LIPID #### [facility] [address] [place] [id number] [facility] AST [Catalytic activity/Vol] 18 U/L Normal 10-42 [facility] Comment on above: Performed By: #### T 4T, TSH3, CBC, PSAS, T3F, A1C WTH eA, CMP, LIPID #### [facility] [address] [place] [address] [place] Bilirubin [Mass/Vol] 0.8 mg/dL Normal 0.3-1.2 [facility] Comment on above: Performed By: #### T 4T, TSH3, CBC, PSAS, T3F, A1C WTH eA, CMP, LIPID #### [facility] [address] [place] [address] [place] Calcium [Mass/Vol] 9.0 mg/dL Normal 8.2-10.2 [facility] Comment on above: Performed By: #### T 4T, TSH3, CBC, PSAS, T3F, A1C WTH eA, CMP, LIPID #### [facility] [address] Chloride [Moles/Vol] 104 mmol/L Normal 95-114 [facility] Comment on above: Performed By: #### T 4T, TSH3, CBC, PSAS, T3F, A1C WTH eA, CMP, LIPID #### [facility] [address] CO2 [Moles/Vol] 22.4 mmol/L Normal 22.0-30.0 [facility] Comment on above: Performed By: #### T 4T, TSH3, CBC, PSAS, T3F, A1C WTH eA, CMP, LIPID #### [facility] [address] Creatinine [Mass/Vol] 1.47 mg/dL High 0.64-1.27 [facility] Comment on above: Performed By: #### T 4T, TSH3, CBC, PSAS, T3F, A1C WTH eA, CMP, LIPID #### [facility] [address] Estimated GFR ( Evelyn 56 [facility] Comment on above: Result Comment: GFR estimated reference range: According to KDOQI guidelines, <60 ml/min/1.73m2 is sufficient to diagnose a patient with chronic kidney disease. Performed By: #### T 4T, TSH3, CBC, PSAS, T3F, A1C WTH eA, CMP, LIPID #### [facility] [address] Estimated GFR (Non- Am 46 [facility] Comment on above: Performed By: #### T 4T, TSH3, CBC, PSAS, T3F, A1C WTH eA, CMP, LIPID #### [facility] [address] Globulin (S) [Mass/Vol] 2.8 g/dL Normal F [facility] Comment on above: Performed By: #### T 4T, TSH3, CBC, PSAS, T3F, A1C WTH eA, CMP, LIPID #### [facility] [address] Glucose [Mass/Vol] 139 mg/dL High 70-100 [facility] Comment on above: Result Comment: [facility] Glucose Reference Range is dependent on time and content of last meal. Glucose of more than 200 mg/dL in a nonstressed, ambulatory subject supports the diagnosis of Diabetes Mellitus. ADA recommended reference range Performed By: #### T 4T, TSH3, CBC, PSAS, T3F, A1C WTH eA, CMP, LIPID #### [facility] [address] Potassium [Moles/Vol] 4.4 mmol/L Normal 3.5-5.1 [facility] Comment on above: Performed By: #### T 4T, TSH3, CBC, PSAS, T3F, A1C WTH eA, CMP, LIPID #### [facility] [address] [place] [address] [place] Protein [Mass/Vol] 6.4 g/dL Normal 6.1-7.9 [facility] Comment on above: Performed By: #### T 4T, TSH3, CBC, PSAS, T3F, A1C WTH eA, CMP, LIPID #### [facility] [address] [place] [address] [place] Sodium [Moles/Vol] 136 mmol/L Normal 136-146 [facility] Comment on above: Performed By: #### T 4T, TSH3, CBC, PSAS, T3F, A1C WTH eA, CMP, LIPID #### [facility] [address] [place] [address] [place] Urea nitrogen [Mass/Vol] 23 mg/dL Normal 9-23 [facility] Comment on above: Performed By: #### T 4T, TSH3, CBC, PSAS, T3F, A1C WTH eA, CMP, LIPID #### [facility] [address] [place] [address] [place] Creatinine and Glomerular fi ltration rate.predicted panel (S/P/Bld)Ordered By: Jonh Patel on 04-27-2022 Creatinine [Mass/Vol] 1.47 mg/dL 0.64-1.27 [facility] Eosinophils Auto (Bld) [#/Vo l]Ordered By: Jonh Patel on 04-27-2022 Eosinophils (Bld) [#/Vol] 0.3 10*3/uL 0.0-0.45 [facility] Eosinophils/100 WBC Auto (Bl d)Ordered By: Jonh Patel on 04-27-2022 Eosinophils/100 WBC (Bld) 6.5 % [facility] Erythrocyte distribution wid th Auto (RBC) [Ratio]Ordered By: Jonh Patel on 04-27-2022 Erythrocyte distribution width (RBC) [Ratio] 15.0 % 12.0-14.8 [facility] Estimated glomerular filtrat ion rate (GFR) non- AmericanOrdered By: Jonh Patel on 04-27-2022 GFR/1.73 sq M.predicted among non-blacks MDRD (S/P/Bld) [Vol rate/Area] 46 mL/Min [facility] Globulin Calc (S) [Mass/Vol] Ordered By: Jonh Patel on 04-27-2022 Globulin (S) [Mass/Vol] 2.8 g/dL F [facility] Glucose mean value [Mass/vol ume] in Blood Estimated from glycated hemoglobinOrdered By: Jonh Patel on 04-27-2022 Average glucose Estimated from glycated hemoglobin (Bld) [Mass/Vol] 151 mg/dL [facility] Hematocrit Auto (Bld) [Volum e fraction]Ordered By: Jonh Patel on 04-27-2022 Hematocrit (Bld) [Volume fraction] 39.9 % 38.8-50.0 [facility] Hemoglobin A1c percentageOrd ered By: Jonh Patel on 04-27-2022 HbA1c (Bld) [Mass fraction] 6.9 % 4.3-5.6 [facility] Comment on above: Increased risk for d iabetes: 5.7 - 6.4 diabetes: >6.4 glycemic control for adults with diabetes: <7.0 Laboratory - Hematology and Cell countsOrdered By: Jonh Patel on 04-27-2022 Nucleated RBC/100 WBC (Bld) [Ratio] 0.0 % 0-0.5 [facility] Lipid Panelon 04-27-2022 Cholesterol [Mass/Vol] 168 mg/dL Normal 140-200 [facility] Comment on above: Result Comment: Chol less than 200 mg/dl low risk Chol 201-239 mg/dl borderline risk Chol 240 mg/dl and greater high risk Performed By: #### T 4T, TSH3, CBC, PSAS, T3F, A1C WTH eA, CMP, LIPID #### [facility] [address] [place] [address] [place] Cholesterol in HDL [Mass/Vol] 38 mg/dL Normal 29-71 [facility] Comment on above: Result Comment: HDL CHOL ATP-III CLASSIFICATION Cardiovascular Risk HDL > or equal to 60 mg/dL LOW HDL < 40 mg/dL HIGH Performed By: #### T 4T, TSH3, CBC, PSAS, T3F, A1C WTH eA, CMP, LIPID #### [facility] [address] [place] [address] [place] Cholesterol.total/Tresa sterol in HDL [Mass ratio] 4.4 {ratio} Normal <5.0 [facility] Comment on above: Performed By: #### T 4T, TSH3, CBC, PSAS, T3F, A1C WTH eA, CMP, LIPID #### [facility] [address] [place] [address] [place] LDL Cholesterol,Calculated 112 mg/dL High 0-100 [facility] Comment on above: Result Comment: LDL ATP III CLASSIFICATION LDL less than 100 mg/dL Optimal LDL 100-129 mg/dL Near or above optimal LDL 130-159 mg/dL Borderline high LDL 160-189 mg/dL High LDL greater than 189 mg/dL Very high Performed By: #### T 4T, TSH3, CBC, PSAS, T3F, A1C WTH eA, CMP, LIPID #### [facility] [address] [place] [address] [place] Triglyceride w/Reflex 88 mg/dL Normal 35-149 [facility] Comment on above: Result Comment: TRIG ATP III CLASSIFICATION TRIG less than 150 mg/dL Normal TRIG 150-199 mg/dL Borderline high TRIG 200-500 mg/dL High TRIG greater than 500 mg/dL Very high Standard traceable to the Center for Disease Conrtrol and Prevention (CDC) test method. Performed By: #### T 4T, TSH3, CBC, PSAS, T3F, A1C WTH eA, CMP, LIPID #### [facility] [address] VLDL CHOLESTEROL 17 mg/dL Normal [facility] Comment on above: Performed By: #### T 4T, TSH3, CBC, PSAS, T3F, A1C WTH eA, CMP, LIPID #### [facility] [address] Lymphocytes Auto (Bld) [#/Vo l]Ordered By: Jonh Patel on 04-27-2022 Lymphocytes (Bld) [#/Vol] 1.3 10*3/uL 1.00-4.8 [facility] Lymphocytes/100 WBC Auto (Bl d)Ordered By: Jonh Patel on 04-27-2022 Lymphocytes/100 WBC (Bld) 25.6 % [facility] MCH Auto (RBC) [Entitic mass ]Ordered By: Jonh Patel on 04-27-2022 MCH (RBC) [Entitic mass] 31.2 pg 27.5-35.2 [facility] MCHC Auto (RBC) [Mass/Vol]Or dered By: Jonh Patel on 04-27-2022 MCHC (RBC) [Mass/Vol] 33.4 g/dL 32.5-35.6 [facility] MCV Auto (RBC) [Entitic vol] Ordered By: Jonh Patel on 04-27-2022 MCV (RBC) [Entitic vol] 93.5 fL 83.5-101 F [facility] Monocytes Auto (Bld) [#/Vol] Ordered By: Jonh Patel on 04-27-2022 Monocytes (Bld) [#/Vol] 0.4 10*3/uL 0.0-0.8 [facility] Monocytes/100 WBC Auto (Bld) Ordered By: Jonh Patel on 04-27-2022 Monocytes/100 WBC (Bld) 8.3 % [facility] Neutrophils Auto (Bld) [#/Vo l]Ordered By: Jonh Patel on 04-27-2022 Neutrophils (Bld) [#/Vol] 2.9 10*3/uL 1.8-7.7 [facility] Neutrophils/100 WBC Auto (Bl d)Ordered By: Jonh Patel on 04-27-2022 Neutrophils/100 WBC (Bld) 58.5 % [facility] No Panel InformationOrdered By: Jonh Patel on 04-27-2022 Estimated GFR () 56 mL/Min [facility] Comment on above: GFR estimated refere nce range: According to KDOQI guidelines, <60 ml/min/1.73m2 is sufficient to diagnose a patient with chronic kidney disease. Pharmacy Creatinine Clearance (Chem N/A [facility] Prostate Specific Antigen Screen 0.860 ng/mL 0.000-4.000 [facility] PSA Screen (Yearly Only)on 0 04-27-2022 PSA Screen (Yearly Only) 0.860 ng/mL Normal 0.000-4.000 [facility] Comment on above: Order Comment: Is pa tient <50 yrs? Medicare does not pay <50.: Y Is Medicare the insurance?: Y Result Comment: PERF ORMED BY: [place] [address] PATHOLOGIST GUN PROFILER BRIDGETT MANZO M.D. Performed By: #### T 4T, TSH3, CBC, PSAS, T3F, A1C WTH eA, CMP, LIPID #### [facility] [address] Platelet mean volume Auto (B ld) [Entitic vol]Ordered By: Jonh Patel on 04-27-2022 Platelet mean volume (Bld) [Entitic vol] 11.0 fL 6.6-10.1 [facility] Platelets Auto (Bld) [#/Vol] Ordered By: Jonh Patel on 04-27-2022 Platelets (Bld) [#/Vol] 116 10*3/uL 150-450 [facility] Protein [Mass/volume] in Ser um or PlasmaOrdered By: Jonh Patel on 04-27-2022 Protein [Mass/Vol] 6.4 g/dL 6.1-7.9 [facility] RBC Auto (Bld) [#/Vol]Ordere d By: Jonh Patel on 04-27-2022 RBC (Bld) [#/Vol] 4.27 10*6/uL 3.90-5.[address] [facility] Serum or plasma alanine garner otransferase measurement without P-5'-P (enzymatic activiOrdered By: Jonh Patel on 04-27-2022 ALT No additional P-5'-P [Catalytic activity/Vol] 12 U/L 10-60 [facility] Serum or plasma albumin/glob ulin mass ratioOrdered By: Jonh Patel on 04-27-2022 Albumin/Globulin [Mass ratio] 1.3 {ratio} [facility] Serum or plasma alkaline anna sphatase measurement (enzymatic activity/volume)Ordered By: Jonh Patel on 04-27-2022 ALP [Catalytic activity/Vol] 71 U/L 32-92 [facility] Serum or plasma aspartate am inotransferase measurement (enzymatic activity/volume)Ordered By: Jonh Patel on 04-27-2022 AST [Catalytic activity/Vol] 18 U/L 10-42 [facility] Serum or plasma calcium josiah urement (mass/volume)Ordered By: Jonh Patel on 04-27-2022 Calcium [Mass/Vol] 9.0 mg/dL 8.2-10.2 [facility] Serum or plasma chloride jerica surement (moles/volume)Ordered By: Jonh Patel on 04-27-2022 Chloride [Moles/Vol] 104 mmol/L 95-114 [facility] Serum or plasma glucose josiah urement (mass/volume)Ordered By: Jonh Patel on 04-27-2022 Glucose [Mass/Vol] 139 mg/dL 70-100 [facility] Comment on above: ADA recommended refe rence range Random Glucose Reference Range is dependent on time and content of last meal. Glucose of more than 200 mg/dL in a nonstressed, ambulatory subject supports the diagnosis of Diabetes Mellitus. Serum or plasma high density lipoprotein (HDL) cholesterol measurementOrdered By: Jonh Patel on 04-27-2022 Cholesterol in HDL [Mass/Vol] 38 mg/dL 29-71 [facility] Comment on above: HDL CHOL ATP-III CLA SSIFICATION Cardiovascular Risk HDL > or equal to 60 mg/dL LOW HDL < 40 mg/dL HIGH Serum or plasma potassium me asurement (moles/volume)Ordered By: Jonh Patel on 04-27-2022 Potassium [Moles/Vol] 4.4 mmol/L 3.5-5.1 [facility] Serum or plasma sodium measu rement (moles/volume)Ordered By: Jonh Patel on 04-27-2022 Sodium [Moles/Vol] 136 mmol/L 136-146 [facility] Serum or plasma thyroxine (T 4) measurement (mass/volume)Ordered By: Jonh Patel on 04-27-2022 T4 [Mass/Vol] 9.08 ug/dL 5.39-11.82 [facility] Serum or plasma total biliru bin measurement (mass/volume)Ordered By: Jonh Patel on 04-27-2022 Bilirubin [Mass/Vol] 0.8 mg/dL 0.3-1.2 [facility] Serum or plasma total carbon dioxide measurement (moles/volume)Ordered By: Jonh Patel on 04-27-2022 CO2 [Moles/Vol] 22.4 mmol/L 22.0-30.0 [facility] Serum or plasma total choles terol/high density lipoprotein (HDL) cholesterol mass ratOrdered By: Jonh Patel on 04-27-2022 Cholesterol.total/Tresa sterol in HDL [Mass ratio] 4.4 {ratio} [facility] Serum or plasma urea nitroge n measurement (mass/volume)Ordered By: Jonh Patel on 04-27-2022 Urea nitrogen [Mass/Vol] 23 mg/dL 9-23 [facility] Stool Occult Blood (Immuno)o n 04-27-2022 Stool Occult Blood (Immuno) Occult Blood (Immuno) Negative for Occult Blood by Immunochemical Methodology Reference range = Negative PERFORMED BY: [place] [address] PATHOLOGIST GUN PROFILER BRIDGETT MANZO M.D. Normal [facility] Comment on above: Performed By: #### O B(IMMUNO) #### [facility] [address] [place] [address] TSH DL <= 0.005 mIU/L QnOrde red By: Jonh Patel on 04-27-2022 TSH Qn 1.16 m[IU]/L 0.45-5.33 [facility] Thyroid Stimulating Hormoneo n 04-27-2022 TSH Qn 1.16 m[IU]/L Normal 0.45-5.33 [facility] Comment on above: Result Comment: PERF ORMED BY: [place] [address] PATHOLOGIST GUN PROFILER BRIDGETT MANZO M.D. Performed By: #### T 4T, TSH3, CBC, PSAS, T3F, A1C WTH eA, CMP, LIPID ####[place] [id number] [place] [id number] [facility] Thyroxine (T4) Totalon 04-27 T4 [Mass/Vol] 9.08 ug/dL Normal 5.39-11.82 [facility] Comment on above: Performed By: #### T 4T, TSH3, CBC, PSAS, T3F, A1C WTH eA, CMP, LIPID ####[place] [id number] [place] [id number] [facility] Triglyceride [Mass/volume] i n Serum or PlasmaOrdered By: Jonh Patel on 04-27-2022 Triglyceride [Mass/Vol] 88 mg/dL 35-149 F [facility] Comment on above: TRIG ATP III CLASSIF ICATION TRIG less than 150 mg/dL Normal TRIG 150-199 mg/dL Borderline high TRIG 200-500 mg/dL High TRIG greater than 500 mg/dL Very high Standard traceable to the Center for Disease Conrtrol and Prevention (CDC) test method. Triiodothyronine (T3) Freeon 04-27-2022 Triiodothyronine (T3) Free 2.51 pg/mL Normal 2.50-3.90 [facility] Comment on above: Result Comment: PERF ORMED BY: [facility] [address] [id number] PATHOLOGIST GUN PROFILER BRIDGETT MANZO M.D. Performed By: #### T 4T, TSH3, CBC, PSAS, T3F, A1C WTH eA, CMP, LIPID #### [facility] [address] Triiodothyronine (T3) Free [ Mass/volume] in Serum or PlasmaOrdered By: Jonh Patel on 04-27-2022 Free T3 [Mass/Vol] 2.51 pg/mL 2.50-3.90 [facility] Provider Letter [facility] [facility] October 27, 2021 Jonh Patel, [address] [place] [address] Re: NAVI FUNES Date of : 1940 Thank you for your referral of Navi Funes who was seen on consultation on 10/23/2021, for nodule right taylor with underlying cellulitis. I have enclosed my consultation note for your review. I will be happy to follow Navi. Sincerely, Josiah Gallego MD General Surgery Normal [facility] Ambulatory Clinical Summaryo n 10-23-2021 Ambulatory Clinical Summary {[id number]}CD:[id number] Normal [facility] Physician Referralon 021 Physician Referral [id number]:127 Normal [facility] Vital Signs Date Time Vital Sign Value Performing Clinician Facility 08-10-2022 10:45-0400 Body height 177.8 cm Grady Peters Other [facility] Other 08-10-2022 10:45-0400 Body mass index (BMI) [Ratio] 26.54 kg/m2 Grady Peters Other [facility] Other 08-10-2022 10:45-0400 Body temperature 97.3 [degF] Grady Peters Other [facility] Other 08-10-2022 10:45-0400 Body weight 83.92 kg Grady Peters Other [facility] [employer] Other 08-10-2022 10:45-0400 Diastolic blood pressure 72 mm[Hg] Grady Peters Other [facility] [employer] Other 08-10-2022 10:45-0400 SaO2% (BldA) [Mass fraction] 98 % Grady Peters Other [facility] [employer] [facility] Other 08-10-2022 10:45-0400 Systolic blood pressure 146 mm[Hg] Grady Juarezredari Other [facility] [employer] Other Encounters Encounter Date Encounter Type Care Provider Facility Start: 08-10-2022 End: 08-10-2022 ambulatory Grady Peters Other [facility] [employer] Other Start: 08-10-2022 Office outpatient vi sit 25 minutes Grady Peters [facility] Start: 07-30-2022 End: 07-30-2022 ambulatory Grady Peters Facility:[facility] Start: 07-30-2022 End: 07-30-2022 Patient encounter procedure MD Jonh Patel Work Phone: [facility] [place] Start: 06-17-2022 End: 06-17-[address] JONH PATEL Facility: Start: 04-27-2022 End: 04-27-2022 ambulatory Jonh Patel Facility:[facility] Start: 04-27-2022 End: 04-27-2022 Patient encounter procedure MD Jonh Patel Work Phone: [facility] Start: 01-06-2017 End: 01-07-2017 Ambulatory CHARISMA MCKEON Facility:[facility] Procedures Date Procedure Procedure Detail Performing Clinician Start: 07-30-2022 X-ray of right ankle MD Jonh Patel Work Phone: Start: 04-27-2022 End: 04-27-2022 Screening for occult blood in feces MD Jonh Patel Work Phone: Plan of Treatment Date Care Activity Detail Author Start: 07-30-2022 Ankle brachial press ure index [facility] Start: 07-30-2022 Duplex scan of lower limb veins US venous duplex LE BI [facility] Start: 07-30-2022 US Lower extremity v ein - bilateral [facility] Work Phone: Payers Date Payer Category Payer Medicaid [id number] 2022 Self-pay [id number] 1957 Unknown [id number] 1940 Unknown [id number] Unknown [facility] [id number] Unknown [id number] Unknown [id number] Social History Date Type Detail Facility Tobacco smoking status NHIS Unknown if ever smoked [facility] Work Phone: Start: 1940 Sex Assigned At Male F [facility] Sex Assigned At Sex Assigned At Bir th [employer] Other Evaluation note 08-10-2022 Note Date & [...] this patient back on an as-needed basis. [facility] [employer] Other Clinical Note 06-22-2022 Note Date & [...] to Vascular surgery for recommendations; patient requests [facility]. Ordered: E&M of Est. Patient Low 20-[id number] [facility] External Ambulatory Referral Follow-up No qualifying data [...] Recorded SARS-CoV-2 (COVID-19) Ad26 vaccine 03/19/2021 Recorded [facility] Comment on above: Result Comment: Elec [...] Recorded SARS-CoV-2 (COVID-19) Ad26 vaccine 03/19/2021 Recorded [facility] Comment on above: Result Comment: Elec tronically Signed By: CLAUDIA OG, Josiah Daley\Date and Time Signed: 10/23/21 16:30 EST Evaluation note Note Date & Type Note Facility Evaluation note No assessment information availa [facility] Work Phone: History general Narrative - Reported Note Date & Type Note Facility History general Narrative - Reported Type Medical History hypercholesterolemia Medical History hypertension Medical History diabetes mallitus Surgical History CABG Surgical History Open reduction inter nal fixation right lower extremity fracture Hospitalization History see above [facility] [employer] Other Summary Purpose Family History No Family [...] section and content) DATE CREATED AUTHOR 05/03/2018 [facility] DATE CREATED AUTHOR AUTHOR'S ORGANIZ ATION 06/20/2022 [facility] DATE CREATED AUTHOR AUTHOR'S ORGANIZ ATION 07/16/[address] [facility] DATE CREATED AUTHOR AUTHOR'S ORGANIZ ATION 12/23/2022 [facility] Care Teams (unrecognized sec tion and [...] TESTING; MARIAH AND FF V ENOUS AT [facility], Follow-up noninvasive studies FOR RECORDS PERTAINING TO [...] BE BASED ON THE PRIMARY CLINICAL RECORDS. [facility] [employer] provides no warranty or guarantee of the accuracy or completeness of information in this document.
[2024-01-06 15:27] LABS: Basophils Absolute Auto 0.1 10^3/uL (0.0-0.1); Basophils Percent Auto 1.1 % (0.2-2.0); Eosinophils Absolute Auto 0.3 10^3/uL (0.0-0.7); Eosinophils Percent Auto 4.4 % (0.9-7.0); Hematocrit 34.2 % (42.0-54.0); Hemoglobin 10.8 g/dL (14.0-18.0); Immature Granulocytes Abs Auto 0.02 10^3/uL (0.00-0.03); Immature Granulocytes Pct Auto 0.3 % (0.0-0.5); Lymphocytes Absolute Auto 1.6 10^3/uL (1.2-3.8); Lymphocytes Percent Auto 23.9 % (20.5-60.0); Mean Corpuscular HGB Conc 31.6 g/dL (29.9-35.2); Mean Corpuscular Hemoglobin 30.7 pg (25.9-34.0); Mean Corpuscular Volume 97.2 fL (80.0-94.0); Mean Platelet Volume 11.6 fL (9.5-13.5); Monocytes Absolute Auto 0.6 10^3/uL (0.3-0.8); Monocytes Percent Auto 9.8 % (1.7-12.0); Neutrophils Absolute Auto 3.9 10^3/uL (1.4-6.5); Neutrophils Percent Auto 60.5 % (43.0-75.0); Platelet Count 132 10^3/uL (150-450); Red Blood Count 3.52 10^6/uL (4.70-6.10); Red Cell Distribution Width 14.7 % (11.0-15.0); White Blood Count 6.5 10^3/uL (4.0-11.0)
--- NOTE | 2024-01-06 15:31 | PC.NURSE ---
1515- after giving ammonia inhalent pt opens eyes wide and looks around and wrinkles nose, then closes eyes and appears to fall asleep.
[2024-01-06] MEDS: ONDANSETRON PF 4 MG/2 ML VIAL IV (15:35)
[2024-01-06 15:36] LABS: INR 1.02; Partial Thromboplastin Time 24.9 sec (22.3-36.2); Prothrombin Time 10.8 sec (9.0-11.6)
[2024-01-06] MEDS: LACTATED RINGER'S SOLUTION 1,000 ML 999 ML IV (15:37)
--- NOTE | 2024-01-06 15:49 | PC.NURSE ---
1545- Wound cultures obtained and labled as left taylor and left ankle. Both have green-yellow drainage. the ankle with more drainage. IVF order changed from 1000cc bolus to 100ml/hr
[2024-01-06 15:55] LABS: Alanine Aminotransferase 31 U/L (16-63); Albumin Globulin Ratio 0.9; Albumin Level 2.9 g/dL (3.4-5.0); Alkaline Phosphatase 83 U/L (46-116); Anion Gap 14.1; Aspartate Amino Transferase 18 U/L (15-37); BUN Creatinine Ratio 19.2; Bilirubin Total 0.3 mg/dL (0.2-1.0); Calcium 8.1 mg/dL (8.5-10.1); Carbon Dioxide 22.4 mmol/L (21.0-32.0); Chloride 104 mmol/L (98-107); Estimated GFR (African America 35 (>=60); Estimated GFR (Non-African Ame 29 (>=60); Globulin 3.4 g/dL; Glucose 122 mg/dL (74-106); Lactate/Lactic Acid 1.6 mmol/L (0.4-2.0); Potassium 5.5 mmol/L (3.5-5.1); Sodium 135 mmol/L (136-145); Total Protein 6.3 g/dL (6.4-8.2); Troponin I High Sensitivity 10.7 pg/mL (4.0-76.1)
[2024-01-06 16:02] LABS: Magnesium 2.4 mg/dL (1.8-2.4)
[2024-01-06] MEDS: LACTATED RINGER'S SOLUTION 1,000 ML 100 ML IV (16:06)
--- NOTE | 2024-01-06 16:15 | ED_ITS ---
HPI - General Adult General Chief complaint: Altered Mental Status Stated complaint: Altered Mental Status Time Seen by Provider: 01/06/24 15:08 Mode of arrival: ambulance History of Present Illness HPI narrative: Patient is a 83-year-old male who is presenting by EMS with bradycardia, hypotension, confusion and weakness. Patient was picked up at a local bar to his house. Patient was sitting on the stool when EMS arrived. Patient was slightly confused, weak, seemed to be more tired than usual. EMS stated that patient had a heart rate in the 50s, and since he was somewhat lethargic, confused, they gave a dose of atropine and it took patient's heart rate into the 60s but did not improve much. Patient is noted to be very hard of hearing. Patient states he does not drink alcohol, he was there having lunch and drinking DrRichardson Pepper. Patient does not smell of alcohol. Patient has no obvious signs of trauma, no obvious signs of apparent stroke. Nursing staff questioning possible facial droop. I do not appreciate any obvious neurological deficit initially. I was speaking very loudly speaking to the patient and he was following commands. We do not have any history on this individual initially. All systems are negative except as noted/marked. All systems reviewed and otherwise negative. Nurses note and vital signs reviewed and patient is not hypoxic. General: The patient appears mild distress secondary to somnolence, possibly lethargic. Patient is resting comfortably on cart. Patient is not toxic; possibly lethargic, or listless. Patient is very hard of hearing. Skin: Patient has 2 healing wounds to his right taylor and right lower foot, yellowish drainage noted, wound cultures will be done. Warm, dry, no pallor noted. There is no rash noted. No petechiae, purpura. Patient has normal cap refill to all 5 toes of each foot, done by myself. Head: Normocephalic, atraumatic, no cervical step-off, no grimace when palpating bilateral cervical spine. No scalp hematoma. Eye: Normal conjunctiva, no drainage, EOMI. PERRL Ears, Nose, Mouth, and Throat: oral mucosa is dry. Nares patent. Mouth without vesicles. Cardiovascular: Bradycardic regular Rate and Rhythm, no murmur, gallop, rub Respiratory: Patient is in no distress, no accessory muscle use, lungs are clear to auscultation, no wheezing, rales or rhonchi Back: non-tender, no CVA tenderness bilaterally to percussion. No CT LS midline pain GI: Obese, no tenderness to palpation, no masses appreciated. No rebound, guarding, or rigidity noted. No distention. Musculoskeletal: Patient has full range of motion of all of the extremities, no obvious signs of pain. Patient does appear to be generalized weak, no obvious new motor, sensory, or focal neurological deficits Neurological: A&O x3, soft-spoken speech, NIH 0; patient has generalized weakness, I do not appreciate facial droop, tongue midline, GCS of 14 for eyes being closed; patient follows commands, generalized weakness, I do not appreciate any obvious signs of acute stroke, patient needs restimulated several times during neurological testing to keep his eyes open and follow commands which he will perform accurately when he is watching and paying attention versus closing his eyes asleep. Psychiatric: Cooperative Related Data Home Medications Medication Instructions Recorded Confirmed lisinopril 10 mg tablet 10 mg PO DAILY 10/22/23 01/06/24 metformin 500 mg tablet 500 mg PO BID 10/22/23 01/06/24 donepezil 10 mg tablet 10 mg PO .QD 01/06/24 01/06/24 memantine 14 mg capsule 14 mg PO .QD 01/06/24 01/06/24 sprinkle,extended release 24hr sulfamethoxazole 800 1 tab PO BID 01/06/24 01/06/24 mg-trimethoprim 160 mg tablet Previous Rx's Medication Instructions Recorded clonidine HCl 0.1 mg tablet 0.1 mg PO BID #60 tabs 10/26/23 quetiapine 25 mg tablet 25 mg PO HS #30 tabs 10/26/23 clindamycin HCl 300 mg capsule 300 mg PO Q6H #60 caps 12/29/23 levofloxacin 750 mg tablet 750 mg PO Q24H #15 tabs 12/29/23 Allergies Allergy/AdvReac Type Severity Reaction Status Date / Time No Known Drug Allergies Allergy Verified 09/08/23 06:12 [facility] Medical History (Updated 01/06/24 @ 21:03 by Grady Harris MD) Ulcer of right leg ?L97.919 - Non-pressure chronic ulcer of unspecified part of right lower leg with unspecified severity (ICD-10) Altered mental status ?R41.82 - Altered mental status, unspecified (ICD-10) Weakness ?R53.1 - Weakness (ICD-10) Dementia ?F03.90 - Unspecified dementia, unspecified severity, without behavioral disturbance, psychotic disturbance, mood disturbance, and anxiety (ICD-10) Bradycardia ?R00.1 - Bradycardia, unspecified (ICD-10) Altered mental status ?R41.82 - Altered mental status, unspecified (ICD-10) Acute hyperglycemia ?R73.9 - Hyperglycemia, unspecified (ICD-10) Medical non-compliance ?Z91.199 - Patient's noncompliance with other medical treatment and regimen due to unspecified reason (ICD-10) Hearing loss ?H91.90 - Unspecified hearing loss, unspecified ear (ICD-10) Fall ?W19.XXXA - Unspecified fall, initial encounter (ICD-10) Diabetes ?E11.9 - Type 2 diabetes mellitus without complications (ICD-10) Leg fracture, right ?S82.91XA - Unspecified fracture of right lower leg, initial encounter for closed fracture (ICD-10) Surgical History (Updated 10/22/23 @ 15:01 by Shayna Miller) FH: CABG (coronary artery bypass surgery) ?Z82.49 - Family history of ischemic heart disease and other diseases of the circulatory system (ICD-10) Family History (Updated 10/22/23 @ 15:04 by Shayna Miller) Father Family history of cancer Social History Within the past year, how often did you have a drink containing alcohol: never Within the past year, how many standard drinks containing alcohol did you have on a typical day: 1 or 2 Within the past year, how often did you have six or more drinks on one occasion: never Total score: 0 Score interpretation: A score less than 4 is consistent with normal alcohol consumption. Smoking status: Never smoker Non-prescribed substance use: denies use Previous occupational history: retired Highest level of school completed/degree received: don't know Are you now , , , , never or living with a partner: In a typical week, how many times do you talk on the telephone with family, friends, or neighbors: twice per week How often do you get together with friends or relatives: twice per week How often do you attend samaritan or zoroastrian services: never Do you belong to any clubs or organizations such as samaritan groups unions, fraternal or athletic groups, or school groups: no Total score: 1 Score interpretation: A score of less than or equal to 1 indicates the most socially isolated. Little interest or pleasure in doing things: not at all Feeling down, depressed, or hopeless: not at all Feel stressed/tense/nervous/anxious/difficulty sleeping: not at all Exam Constitutional Vital Signs, click to edit/add: Last Vital Signs Temp 97.5 F L 01/06/24 20:50 Pulse 46 L 01/06/24 20:50 Resp 16 01/06/24 20:50 BP 131/60 01/06/24 20:50 Pulse Ox 92 L 01/06/24 20:50 O2 Del Method Room Air 01/06/24 20:50 Course Vital Signs Vital signs: Vital Signs Temperature 94.8 F L 01/06/24 15:03 Pulse Rate 54 L 01/06/24 15:03 Respiratory Rate 16 01/06/24 15:03 Blood Pressure 121/58 01/06/24 15:03 Pulse Oximetry 93 L 01/06/24 15:03 Oxygen Delivery Method Room Air 01/06/24 15:03 Temperature 97.5 F L 01/06/24 20:50 Pulse Rate 46 L 01/06/24 20:50 Respiratory Rate 16 01/06/24 20:50 Blood Pressure 131/60 01/06/24 20:50 Pulse Oximetry 92 L 01/06/24 20:50 Oxygen Delivery Method Room Air 01/06/24 20:50 Medical Decision Making [facility] Narrative Medical decision making narrative: Patient initially presented with bradycardia, patient was given atropine prior to arrival. This helped heart rate minimally. Patient was given IV fluids. Patient is hard of hearing. There is difficult to assess patient initially, not knowing his normal baseline. Stat CT of the brain was initially ordered for possibility of stroke. Nursing staff was initially questioning facial droop, I do not appreciate any facial droop, tongue deviation, or any acute extremity deficits, patient is somnolent, soft-spoken, so CT of the brain was done precautionary. After patient arrived, I did speak to the daughter approximately 20 minutes after patient arrived On the phone, she is driving into the Emergency Room. Patient's daughter was an excellent source of information. Patient has a baseline of Benjie bodies dementia. Patient is hard of hearing. Patient normally has a heart rate in the 50s. Patient was a home by himself, Adult Protective Services have been involved and they're trying to get patient to get assisted living. [facility]. Patient does not drink alcohol which patient told me and daughter agrees. Patient was one block away from the bar where he likes to go get lunch and have Dr. Berry. Patient does not smell of alcohol. Patient has been admitted once a month to Dr. Patel. Dr. Patel Nose the patient very well. Patient has no cell phone, has no way of communicating. All this information was obtained from patient's daughter. She'll be returned approximately [address] of the brain showed no acute findings. CT of the head and neck were canceled after I spoke to the daughter and obtain more history. Patient's are a blood pressure increased slightly with IV fluids. Patient has no obvious source of infection. Daughter stated patient's been on Bactrim for the past 3 days for right leg sores and wounds. Wound cultures were done, but there is no secondary signs of abscess, cellulitis, or significant infections noted to patient's right lower extremity. Patient will be admitted to Dr. Patel for further evaluation. [facility], they didn't call us back, and patient's daughter stated they really have patient admitted to [facility] at this time. The [facility] is aware of this. Patient and daughter and Dr. Patel her involve the [facility] trying to get patient assisted living privileges. Patient will be admitted for further evaluation, patient is slightly responding more after IV fluids. Patient's BUN/creatinine are slightly higher then his normal baseline when compared to Recent testing.. Lab Data Lab results reviewed: Yes I reviewed the patient's lab results Labs: Lab Results 01/06/24 01/06/24 Range/Units 15:09 17:25 WBC 6.5 (4.0-11.0) 10^3/uL RBC 3.52 L (4.70-6.10) 10^6/uL Hgb 10.8 L (14.0-18.0) g/dL Hct 34.2 L (42.0-54.0) % MCV 97.2 H (80.0-94.0) fL MCH 30.7 (25.9-34.0) pg MCHC 31.6 (29.9-35.2) g/dL RDW 14.7 (11.0-15.0) % Plt Count 132 L (150-450) 10^3/uL MPV 11.6 (9.5-13.5) fL Neut % (Auto) 60.5 (43.0-75.0) % Lymph % (Auto) 23.9 (20.5-60.0) % Addison % (Auto) 9.8 (1.7-12.0) % Eos % (Auto) 4.4 (0.9-7.0) % Baso % (Auto) 1.1 (0.2-2.0) % Neut # (Auto) 3.9 (1.4-6.5) 10^3/uL Lymph # (Auto) 1.6 (1.2-3.8) 10^3/uL Addison # (Auto) 0.6 (0.3-0.8) 10^3/uL Eos # (Auto) 0.3 (0.0-0.7) 10^3/uL Baso # (Auto) 0.1 (0.0-0.1) 10^3/uL Abs Immat Gran (auto) 0.02 (0.00-0.03) 10^3/uL Imm/Tot Granulo (auto) 0.3 (0.0-0.5) % PT 10.8 (9.0-11.6) sec INR 1.02 APTT 24.9 (22.3-36.2) sec Sodium 135 L (136-145) mmol/L Potassium 5.5 H (3.5-5.1) mmol/L Chloride 104 (98-107) mmol/L Carbon Dioxide 22.4 (21.0-32.0) mmol/L Anion Gap 14.1 BUN 42.0 H (7.0-18.0) mg/dL Creatinine 2.19 H (0.70-1.30) mg/dL Est GFR ( Amer) 35 L (>=60) Est GFR (Non-Af Amer) 29 L (>=60) BUN/Creatinine Ratio 19.2 Glucose 122 H (74-106) mg/dL Lactate 1.6 (0.4-2.0) mmol/L Calcium 8.1 L (8.5-10.1) mg/dL Magnesium 2.4 (1.8-2.4) mg/dL Total Bilirubin 0.3 (0.2-1.0) mg/dL AST 18 (15-37) U/L ALT 31 (16-63) U/L Alkaline Phosphatase 83 (46-116) U/L Total Creatine Kinase 131 (39-308) U/L Troponin I High Sens 10.7 (4.0-76.1) pg/mL Total Protein 6.3 L (6.4-8.2) g/dL Albumin 2.9 L (3.4-5.0) g/dL Globulin 3.4 g/dL Albumin/Globulin Ratio 0.9 Procalcitonin <0.05 (0.00-0.50) ng/mL Urine Color Lt. yellow (YELLOW) Urine Clarity Clear (CLEAR) Urine pH 6.5 (5.0-9.0) Ur Specific [place] 1.010 (1.005-1.025) Urine Protein Negative (NEG/TRACE) mg/dL Urine Glucose (UA) Negative (NEGATIVE) mg/dL Urine Ketones Negative (NEGATIVE) mg/dL Urine Occult Blood Trace-i (NEGATIVE) Urine Nitrite Negative (NEGATIVE) Urine Bilirubin Negative (NEGATIVE) Urine Urobilinogen 0.2 (0.2-1.0) EU/dL Ur Leukocyte Esterase Negative (NEGATIVE) Urine RBC 2-5 A (0-2) #/HPF Urine WBC 0-2 A (NONE SEEN) #/HPF Ur Squamous Epith Cells Rare (NONE/RARE) #/LPF Ur Transition Epith Cell Rare A (NONE SEEN) #/LPF Urine Crystals None seen (None Seen) #/HPF Urine Bacteria None seen (NONE SEEN) #/HPF Urine Casts None seen (NONE SEEN) #/LPF Urine Mucus None seen (NONE SEEN) Urine Opiates Screen Negative (NEGATIVE) Ur Buprenorphine Scrn Negative (NEGATIVE) Ur Oxycodone Screen Negative (NEGATIVE) Urine Methadone Screen Negative (NEGATIVE) Ur Barbiturates Screen Negative (NEGATIVE) U Tricyclic Antidepress Negative (NEGATIVE) Ur Phencyclidine Scrn Negative (NEGATIVE) Ur Amphetamines Screen Negative (NEGATIVE) U Methamphetamines Scrn Negative (NEGATIVE) U Benzodiazepines Scrn Negative (NEGATIVE) Urine Cocaine Screen Negative (NEGATIVE) U Cannabinoids Screen Negative (NEGATIVE) Ethanol Quant <3 mg/dL ECG Data Attestation: I personally reviewed and interpreted this ECG as follows: (EKG interpretation. Normal sinus rhythm at 54 beats a minute. Normal axis deviation. No acute ST elevation, no acute ectopy. QTc of 432 NC interval of 224, first-degree AV block) Discharge Plan Discharge Chief Complaint: Altered Mental Status Clinical Impression: SOPHIA (acute kidney injury), Confusion, Ulcer of right lower extremity, Dehydration Patient Disposition: Admitted As Inpatient Time of Disposition Decision: 17:10 Condition: Fair Discharge Date/Time: 01/06/24 17:47
[2024-01-06 17:13] LABS: PROCALCITONIN <0.05 ng/mL (0.00-0.50)
--- NOTE | 2024-01-06 17:37 | PC.NURSE ---
16 F greenberg catheter placed using sterile procedure, 750 mL of pale yellow urine, no odor, immediately drained. Pt voices relief, catheter remains patent and draining.
[2024-01-06 17:41] LABS: Creatine Kinase 131 U/L (39-308); Ethanol <3 mg/dL
--- OUTSIDE RECORDS SUMMARY | 2024-01-06 17:57 | XMS_ITS | CCD ---
Author Name Unknown Address [address] [place] [address] Organization [facility] Care Team Providers Care Health Coach Name Role Phone CHARISMA MCKEON Unavailable Unavailable CHARISMA MCKEON Unavailable Unavailable JONH PATEL Unavailable Unavailable JONH PATEL Unavailable Unavailable MD Jonh Patel Primary Care Provider [phone] MD Jonh Patel Attending Provider DR JONH PATEL Attending Unavailable VIRGILIO, DR BORJA Consulting Unavailable DR JONH PATEL Primary Care Unavailable DR JONH PATEL Admitting Unavailable MD Jonh Patel Primary Care Provider [phone] MD Grady Peters Attending Provider Grady Peters [...] indiceson 07-31 US ankle/arm indices [facility] Main [place] [address] [place] [address] Ultrasound Report Signed Patient: Navi Funes Jr MR#: [id number] : 1940 Acct:[id number] Age/Sex: 81 / M ADM Date: 07/30/22 Loc: Room: Type: [facility] Attending Dr: Grady Peters MD Ordering Provider: [...] Ruben Dumont MD07/31/2022 3:20 PM Dictation Location: [place] [address] Tech: Katt Baron Transcribed By: HANNAH 07/31/22 1520 Dictated By: Ruben Dumont MD 07/31/22 1519 Signed By: 07/31/22 152 [facility] US venous duplex LE BIon US venous duplex LE BI [facility] Main [place] [id number] Ultrasound Report Signed Patient: Navi Funes Jr MR#: [id number] : 1940 Acct:[id number] Age/Sex: 81 / M ADM Date: 07/30/22 Loc: Room: Type: [facility] Attending Dr: Grady Peters MD Ordering Provider: [...] MD 07/31/22 152 Signed By: 07/31/22 152 [facility] XR ankle RT min 3V*on 2021 XR ankle RT min 3V* [facility] Main [address] [address] XRay Report Signed Patient: Navi Funes Jr MR#: [id number] : 1940 Acct:[id number] Age/Sex: 81 / M ADM Date: 07/30/22 Loc: Room: Type: [facility] Attending Dr: Grady Peters MD Copies to: [...] King Jr., D.O.07/30/2022 4:33 PM Dictation Location: [place] [address] Transcribed By: [facility] 07/30/22 1633 Dictated By: Navi King Jr, DO 07/30/22 1632 Signed By: 07/30/22 1633 Normal [facility] Consultation Noteon 07-15-20 Consultation Note [id number] .[id number]:127 Normal [facility] HIPAA Privacy Documentson HIPAA Privacy Documents [id number]:127 Normal [facility] WOUND CULTUREon 06-20-2022 Bacteria identified Aer cx Nom (Unsp spec) Final report Normal [facility] Comment on above: Performed By: #### C XWND #### [facility] [address] [place] [address] [address] Eddie Gaitan Result 1 Comment Normal [facility] Comment on above: Result Comment: No g rowth in 36 - 48 hours. Performed By: #### C XWND #### [facility] [address] [place] [address] [address] Eddie Gaitan Physician Referralon 022 Physician Referral [id number]:127 Normal [facility] A1C with Estimated Average Bin hernandez 04-27-2022 Glucose [Mass/Vol] 151 mg/dL Normal [facility] Comment on above: Result Comment: PERF ORMED BY: [place] [address] PATHOLOGIST BANQUET STEWARDESS BRIDGETT MANZO M.D. Performed By: #### T 4T, TSH3, CBC, PSAS, T3F, A1C WT eA, CMP, LIPID #### [facility] [address] HbA1c (Bld) [Mass fraction] 6.9 % High 4.3-5.6 [facility] Comment on above: Result Comment: Incr eased risk for diabetes: 5.7 - 6.4 diabetes: >6.4 glycemic control for adults with diabetes: <7.0 Performed By: #### T 4T, TSH3, CBC, PSAS, T3F, A1C WTH eA, CMP, LIPID #### [facility] [address] Basophils Auto (Bld) [#/Vol] Ordered By: Jonh Patel on 04-27-2022 Basophils (Bld) [#/Vol] 0.1 10*3/uL 0.0-0.2 [facility] Basophils/100 WBC Auto (Bld) Ordered By: Jonh Patel on 04-27-2022 Basophils/100 WBC (Bld) 1.1 % [facility] Blood hemoglobin measurement (mass/volume)Ordered By: Jonh Patel on 04-27-2022 Hemoglobin (Bld) [Mass/Vol] 13.3 g/dL 13.0-17.0 [facility] Blood leukocytes automated c ount (number/volume)Ordered By: Jonh Patel on 04-27-2022 WBC (Bld) [#/Vol] 5.0 10*3/uL 4.5-11.0 [facility] Body fluid albumin measureme nt (mass/volume)Ordered By: Jonh Patel on 04-27-2022 Albumin (Body fld) [Mass/Vol] 3.6 g/dL 3.2-5.5 [facility] Cholesterol [Mass/volume] in Serum or PlasmaOrdered By: Jonh Patel on 04-27-2022 Cholesterol [Mass/Vol] 168 mg/dL 140-200 [facility] Comment on above: Chol less than 200 m g/dl low risk Chol 201-239 mg/dl borderline risk Chol 240 mg/dl and greater high risk Cholesterol in LDL Calc [Mas s/Vol]Ordered By: Jonh Patel on 04-27-2022 Cholesterol in LDL [Mass/Vol] 112 mg/dL 0-100 [facility] Comment on above: LDL ATP III CLASSIFI CATION LDL less than 100 mg/dL Optimal LDL 100-129 mg/dL Near or above optimal LDL 130-159 mg/dL Borderline high LDL 160-189 mg/dL High LDL greater than 189 mg/dL Very high Cholesterol in VLDL Calc [Ma ss/Vol]Ordered By: Jonh Patel on 04-27-2022 Cholesterol in VLDL [Mass/Vol] 17 mg/dL [facility] Complete Blood Count Auto Di ffon 04-27-2022 Basophils (Bld) [#/Vol] 0.1 10*3/uL Normal 0.0-0.2 [facility] Comment on above: Result Comment: PERF ORMED BY: [place] [address] PATHOLOGIST BANQUET STEWARDESS BRIDGETT MANZO M.D. Performed By: #### T 4T, TSH3, CBC, PSAS, T3F, A1C WTH eA, CMP, LIPID #### [facility] [address] [place] [address] [place] Basophils/100 WBC (Bld) 1.1 % Normal . [facility] Comment on above: Performed By: #### T 4T, TSH3, CBC, PSAS, T3F, A1C WTH eA, CMP, LIPID #### [facility] [address] [place] [address] [place] Eosinophils (Bld) [#/Vol] 0.3 10*3/uL Normal 0.0-0.45 [facility] Comment on above: Performed By: #### T 4T, TSH3, CBC, PSAS, T3F, A1C WTH eA, CMP, LIPID #### [facility] [address] [place] [address] [place] Eosinophils/100 WBC (Bld) 6.5 % Normal . [facility] Comment on above: Performed By: #### T 4T, TSH3, CBC, PSAS, T3F, A1C WTH eA, CMP, LIPID #### [address] Erythrocyte distribution width (RBC) [Ratio] 15.0 % High 12.0-14.8 [facility] Comment on above: Performed By: #### T 4T, TSH3, CBC, PSAS, T3F, A1C WTH eA, CMP, LIPID #### [address] Hematocrit (Bld) [Volume fraction] 39.9 % Normal 38.8-50.0 [facility] Comment on above: Performed By: #### T 4T, TSH3, CBC, PSAS, T3F, A1C WTH eA, CMP, LIPID #### [address] Hemoglobin (Bld) [Mass/Vol] 13.3 g/dL Normal 13.0-17.0 [facility] Comment on above: Performed By: #### T 4T, TSH3, CBC, PSAS, T3F, A1C WTH eA, CMP, LIPID #### [address] Lymphocytes (Bld) [#/Vol] 1.3 10*3/uL Normal 1.00-4.8 [facility] Comment on above: Performed By: #### T 4T, TSH3, CBC, PSAS, T3F, A1C WTH eA, CMP, LIPID #### [address] Lymphocytes/100 WBC (Bld) 25.6 % Normal . [facility] Comment on above: Performed By: #### T 4T, TSH3, CBC, PSAS, T3F, A1C WTH eA, CMP, LIPID #### [facility] [address] MCH (RBC) [Entitic mass] 31.2 pg Normal 27.5-35.2 [facility] Comment on above: Performed By: #### T 4T, TSH3, CBC, PSAS, T3F, A1C WTH eA, CMP, LIPID #### [facility] [address] MCV (RBC) [Entitic vol] 93.5 fL Normal 83.5-101 [facility] Comment on above: Performed By: #### T 4T, TSH3, CBC, PSAS, T3F, A1C WTH eA, CMP, LIPID #### [address] Mean Corpuscular HGB Conc 33.4 g/dL Normal 32.5-35.6 [facility] Comment on above: Performed By: #### T 4T, TSH3, CBC, PSAS, T3F, A1C WTH eA, CMP, LIPID #### [address] Monocytes (Bld) [#/Vol] 0.4 10*3/uL Normal 0.0-0.8 [facility] Comment on above: Performed By: #### T 4T, TSH3, CBC, PSAS, T3F, A1C WTH eA, CMP, LIPID #### [address] Monocytes/100 WBC (Bld) 8.3 % Normal . [facility] Comment on above: Performed By: #### T 4T, TSH3, CBC, PSAS, T3F, A1C WTH eA, CMP, LIPID #### [address] Neutrophils (Bld) [#/Vol] 2.9 10*3/uL Normal 1.8-7.7 [facility] Comment on above: Performed By: #### T 4T, TSH3, CBC, PSAS, T3F, A1C WTH eA, CMP, LIPID #### [facility] [address] [place] [address] [place] Neutrophils/100 WBC (Bld) 58.5 % Normal . [facility] Comment on above: Performed By: #### T 4T, TSH3, CBC, PSAS, T3F, A1C WTH eA, CMP, LIPID #### [facility] [address] [place] [address] [place] Nucleated RBC/100 WBC (Bld) [Ratio] 0.0 % Normal 0-0.5 [facility] Comment on above: Performed By: #### T 4T, TSH3, CBC, PSAS, T3F, A1C WTH eA, CMP, LIPID #### [facility] [address] [place] [address] [place] Platelet mean volume (Bld) [Entitic vol] 11.0 fL High 6.6-10.1 [facility] Comment on above: Performed By: #### T 4T, TSH3, CBC, PSAS, T3F, A1C WTH eA, CMP, LIPID #### [facility] [address] [place] [address] [place] Platelets (Bld) [#/Vol] 116 10*3/uL Low 150-450 [facility] Comment on above: Performed By: #### T 4T, TSH3, CBC, PSAS, T3F, A1C WTH eA, CMP, LIPID #### [facility] [address] [place] [address] [place] RBC (Bld) [#/Vol] 4.27 10*6/uL Normal 3.90-5.60 [facility] Comment on above: Performed By: #### T 4T, TSH3, CBC, PSAS, T3F, A1C WTH eA, CMP, LIPID #### [facility] [address] [place] [address] [place] WBC (Bld) [#/Vol] 5.0 10*3/uL Normal 4.5-11.0 [facility] Comment on above: Performed By: #### T 4T, TSH3, CBC, PSAS, T3F, A1C WTH eA, CMP, LIPID #### [facility] [address] Comprehensive Metabolic Pane alexandra 04-27-2022 Albumin [Mass/Vol] 3.6 g/dL Normal 3.2-5.5 [facility] Comment on above: Performed By: #### T 4T, TSH3, CBC, PSAS, T3F, A1C WTH eA, CMP, LIPID #### [facility] [address] Albumin/Globulin [Mass ratio] 1.3 {ratio} Normal [facility] Comment on above: Performed By: #### T 4T, TSH3, CBC, PSAS, T3F, A1C WTH eA, CMP, LIPID #### [facility] [address] ALP [Catalytic activity/Vol] 71 U/L Normal 32-92 [facility] Comment on above: Performed By: #### T 4T, TSH3, CBC, PSAS, T3F, A1C WTH eA, CMP, LIPID #### [facility] [address] ALT [Catalytic activity/Vol] 12 U/L Normal 10-60 [facility] Comment on above: Performed By: #### T 4T, TSH3, CBC, PSAS, T3F, A1C WTH eA, CMP, LIPID #### [facility] [address] [place] [id number] [facility] AST [Catalytic activity/Vol] 18 U/L Normal 10-42 [facility] Comment on above: Performed By: #### T 4T, TSH3, CBC, PSAS, T3F, A1C WTH eA, CMP, LIPID #### [facility] [address] [place] [address] [place] Bilirubin [Mass/Vol] 0.8 mg/dL Normal 0.3-1.2 [facility] Comment on above: Performed By: #### T 4T, TSH3, CBC, PSAS, T3F, A1C WTH eA, CMP, LIPID #### [facility] [address] [place] [address] [place] Calcium [Mass/Vol] 9.0 mg/dL Normal 8.2-10.2 [facility] Comment on above: Performed By: #### T 4T, TSH3, CBC, PSAS, T3F, A1C WTH eA, CMP, LIPID #### [facility] [address] Chloride [Moles/Vol] 104 mmol/L Normal 95-114 [facility] Comment on above: Performed By: #### T 4T, TSH3, CBC, PSAS, T3F, A1C WTH eA, CMP, LIPID #### [facility] [address] CO2 [Moles/Vol] 22.4 mmol/L Normal 22.0-30.0 [facility] Comment on above: Performed By: #### T 4T, TSH3, CBC, PSAS, T3F, A1C WTH eA, CMP, LIPID #### [facility] [address] Creatinine [Mass/Vol] 1.47 mg/dL High 0.64-1.27 [facility] Comment on above: Performed By: #### T 4T, TSH3, CBC, PSAS, T3F, A1C WTH eA, CMP, LIPID #### [facility] [address] Estimated GFR ( Evelyn 56 [facility] Comment on above: Result Comment: GFR estimated reference range: According to KDOQI guidelines, <60 ml/min/1.73m2 is sufficient to diagnose a patient with chronic kidney disease. Performed By: #### T 4T, TSH3, CBC, PSAS, T3F, A1C WTH eA, CMP, LIPID #### [facility] [address] Estimated GFR (Non- Am 46 [facility] Comment on above: Performed By: #### T 4T, TSH3, CBC, PSAS, T3F, A1C WTH eA, CMP, LIPID #### [facility] [address] Globulin (S) [Mass/Vol] 2.8 g/dL Normal [facility] Comment on above: Performed By: #### T 4T, TSH3, CBC, PSAS, T3F, A1C WTH eA, CMP, LIPID #### [facility] [address] Glucose [Mass/Vol] 139 mg/dL High 70-100 [facility] Comment on above: Result Comment: [facility] Glucose Reference Range is dependent on time and content of last meal. Glucose of more than 200 mg/dL in a nonstressed, ambulatory subject supports the diagnosis of Diabetes Mellitus. ADA recommended reference range Performed By: #### T 4T, TSH3, CBC, PSAS, T3F, A1C WTH eA, CMP, LIPID #### [facility] [address] Potassium [Moles/Vol] 4.4 mmol/L Normal 3.5-5.1 [facility] Comment on above: Performed By: #### T 4T, TSH3, CBC, PSAS, T3F, A1C WTH eA, CMP, LIPID #### [facility] [address] [place] [address] [place] Protein [Mass/Vol] 6.4 g/dL Normal 6.1-7.9 [facility] Comment on above: Performed By: #### T 4T, TSH3, CBC, PSAS, T3F, A1C WTH eA, CMP, LIPID #### [facility] [address] [place] [address] [place] Sodium [Moles/Vol] 136 mmol/L Normal 136-146 [facility] Comment on above: Performed By: #### T 4T, TSH3, CBC, PSAS, T3F, A1C WTH eA, CMP, LIPID #### [facility] [address] [place] [address] [place] Urea nitrogen [Mass/Vol] 23 mg/dL Normal 9-23 [facility] Comment on above: Performed By: #### T 4T, TSH3, CBC, PSAS, T3F, A1C WTH eA, CMP, LIPID #### [facility] [address] [place] [address] [place] Creatinine and Glomerular fi ltration rate.predicted panel (S/P/Bld)Ordered By: Jonh Patel on 04-27-2022 Creatinine [Mass/Vol] 1.47 mg/dL 0.64-1.27 [facility] Eosinophils Auto (Bld) [#/Vo l]Ordered By: Jonh Patel on 04-27-2022 Eosinophils (Bld) [#/Vol] 0.3 10*3/uL 0.0-0.45 [facility] Eosinophils/100 WBC Auto (Bl d)Ordered By: Jonh Patel on 04-27-2022 Eosinophils/100 WBC (Bld) 6.5 % [facility] Erythrocyte distribution wid th Auto (RBC) [Ratio]Ordered By: Jonh Patel on 04-27-2022 Erythrocyte distribution width (RBC) [Ratio] 15.0 % 12.0-14.8 [facility] Estimated glomerular filtrat ion rate (GFR) non- AmericanOrdered By: Jonh Patel on 04-27-2022 GFR/1.73 sq M.predicted among non-blacks MDRD (S/P/Bld) [Vol rate/Area] 46 mL/Min [facility] Globulin Calc (S) [Mass/Vol] Ordered By: Jonh Patel on 04-27-2022 Globulin (S) [Mass/Vol] 2.8 g/dL [facility] Glucose mean value [Mass/vol ume] in Blood Estimated from glycated hemoglobinOrdered By: Jonh Patel on 04-27-2022 Average glucose Estimated from glycated hemoglobin (Bld) [Mass/Vol] 151 mg/dL [facility] Hematocrit Auto (Bld) [Volum e fraction]Ordered By: Jonh Patel on 04-27-2022 Hematocrit (Bld) [Volume fraction] 39.9 % 38.8-50.0 [facility] Hemoglobin A1c percentageOrd ered By: Jonh Patel on 04-27-2022 HbA1c (Bld) [Mass fraction] 6.9 % 4.3-5.6 [facility] Comment on above: Increased risk for d iabetes: 5.7 - 6.4 diabetes: >6.4 glycemic control for adults with diabetes: <7.0 Laboratory - Hematology and Cell countsOrdered By: Jonh Patel on 04-27-2022 Nucleated RBC/100 WBC (Bld) [Ratio] 0.0 % 0-0.5 [facility] Lipid Panelon 04-27-2022 Cholesterol [Mass/Vol] 168 mg/dL Normal 140-200 [facility] Comment on above: Result Comment: Chol less than 200 mg/dl low risk Chol 201-239 mg/dl borderline risk Chol 240 mg/dl and greater high risk Performed By: #### T 4T, TSH3, CBC, PSAS, T3F, A1C WTH eA, CMP, LIPID #### [facility] [address] [place] [address] [place] Cholesterol in HDL [Mass/Vol] 38 mg/dL Normal 29-71 [facility] Comment on above: Result Comment: HDL CHOL ATP-III CLASSIFICATION Cardiovascular Risk HDL > or equal to 60 mg/dL LOW HDL < 40 mg/dL HIGH Performed By: #### T 4T, TSH3, CBC, PSAS, T3F, A1C WTH eA, CMP, LIPID #### [facility] [address] [place] [address] [place] Cholesterol.total/Tresa sterol in HDL [Mass ratio] 4.4 {ratio} Normal <5.0 [facility] Comment on above: Performed By: #### T 4T, TSH3, CBC, PSAS, T3F, A1C WTH eA, CMP, LIPID #### [facility] [address] [place] [address] [place] LDL Cholesterol,Calculated 112 mg/dL High 0-100 [facility] Comment on above: Result Comment: LDL ATP III CLASSIFICATION LDL less than 100 mg/dL Optimal LDL 100-129 mg/dL Near or above optimal LDL 130-159 mg/dL Borderline high LDL 160-189 mg/dL High LDL greater than 189 mg/dL Very high Performed By: #### T 4T, TSH3, CBC, PSAS, T3F, A1C WTH eA, CMP, LIPID #### [facility] [address] [place] [address] [place] Triglyceride w/Reflex 88 mg/dL Normal 35-149 [facility] Comment on above: Result Comment: TRIG ATP III CLASSIFICATION TRIG less than 150 mg/dL Normal TRIG 150-199 mg/dL Borderline high TRIG 200-500 mg/dL High TRIG greater than 500 mg/dL Very high Standard traceable to the Center for Disease Conrtrol and Prevention (CDC) test method. Performed By: #### T 4T, TSH3, CBC, PSAS, T3F, A1C WTH eA, CMP, LIPID #### [facility] [address] VLDL CHOLESTEROL 17 mg/dL Normal [facility] Comment on above: Performed By: #### T 4T, TSH3, CBC, PSAS, T3F, A1C WTH eA, CMP, LIPID #### [facility] [address] Lymphocytes Auto (Bld) [#/Vo l]Ordered By: Jonh Patel on 04-27-2022 Lymphocytes (Bld) [#/Vol] 1.3 10*3/uL 1.00-4.8 [facility] Lymphocytes/100 WBC Auto (Bl d)Ordered By: Jonh Patel on 04-27-2022 Lymphocytes/100 WBC (Bld) 25.6 % [facility] MCH Auto (RBC) [Entitic mass ]Ordered By: Jonh Patel on 04-27-2022 MCH (RBC) [Entitic mass] 31.2 pg 27.5-35.2 [facility] MCHC Auto (RBC) [Mass/Vol]Or dered By: Jonh Patel on 04-27-2022 MCHC (RBC) [Mass/Vol] 33.4 g/dL 32.5-35.6 [facility] MCV Auto (RBC) [Entitic vol] Ordered By: Jonh Patel on 04-27-2022 MCV (RBC) [Entitic vol] 93.5 fL 83.5-101 [facility] Monocytes Auto (Bld) [#/Vol] Ordered By: Jonh Patel on 04-27-2022 Monocytes (Bld) [#/Vol] 0.4 10*3/uL 0.0-0.8 [facility] Monocytes/100 WBC Auto (Bld) Ordered By: Jonh Patel on 04-27-2022 Monocytes/100 WBC (Bld) 8.3 % [facility] Neutrophils Auto (Bld) [#/Vo l]Ordered By: Jonh Patel on 04-27-2022 Neutrophils (Bld) [#/Vol] 2.9 10*3/uL 1.8-7.7 [facility] Neutrophils/100 WBC Auto (Bl d)Ordered By: Jonh Patel on 04-27-2022 Neutrophils/100 WBC (Bld) 58.5 % [facility] No Panel InformationOrdered By: Jonh Patel on 04-27-2022 Estimated GFR () 56 mL/Min [facility] Comment on above: GFR estimated refere nce range: According to KDOQI guidelines, <60 ml/min/1.73m2 is sufficient to diagnose a patient with chronic kidney disease. Pharmacy Creatinine Clearance (Chem N/A [facility] Prostate Specific Antigen Screen 0.860 ng/mL 0.000-4.000 [facility] PSA Screen (Yearly Only)on 0 04-27-2022 PSA Screen (Yearly Only) 0.860 ng/mL Normal 0.000-4.000 [facility] Comment on above: Order Comment: Is pa tient <50 yrs? Medicare does not pay <50.: Y Is Medicare the insurance?: Y Result Comment: PERF ORMED BY: [place] [address] PATHOLOGIST BANQUET STEWARDESS BRIDGETT MANZO M.D. Performed By: #### T 4T, TSH3, CBC, PSAS, T3F, A1C WTH eA, CMP, LIPID #### [facility] [address] Platelet mean volume Auto (B ld) [Entitic vol]Ordered By: Jonh Patel on 04-27-2022 Platelet mean volume (Bld) [Entitic vol] 11.0 fL 6.6-10.1 [facility] Platelets Auto (Bld) [#/Vol] Ordered By: Jonh Patel on 04-27-2022 Platelets (Bld) [#/Vol] 116 10*3/uL 150-450 [facility] Protein [Mass/volume] in Ser um or PlasmaOrdered By: Jonh Patel on 04-27-2022 Protein [Mass/Vol] 6.4 g/dL 6.1-7.9 [facility] RBC Auto (Bld) [#/Vol]Ordere d By: Jonh Patel on 04-27-2022 RBC (Bld) [#/Vol] 4.27 10*6/uL 3.90-5.60 [facility] Serum or plasma alanine garner otransferase measurement without P-5'-P (enzymatic activiOrdered By: Jonh Patel on 04-27-2022 ALT No additional P-5'-P [Catalytic activity/Vol] 12 U/L 10-60 [facility] Serum or plasma albumin/glob ulin mass ratioOrdered By: Jonh Patel on 04-27-2022 Albumin/Globulin [Mass ratio] 1.3 {ratio} [facility] Serum or plasma alkaline anna sphatase measurement (enzymatic activity/volume)Ordered By: Jonh Patel on 04-27-2022 ALP [Catalytic activity/Vol] 71 U/L 32-92 [facility] Serum or plasma aspartate am inotransferase measurement (enzymatic activity/volume)Ordered By: Jonh Patel on 04-27-2022 AST [Catalytic activity/Vol] 18 U/L 10-42 [facility] Serum or plasma calcium josiah urement (mass/volume)Ordered By: Jonh Patel on 04-27-2022 Calcium [Mass/Vol] 9.0 mg/dL 8.2-10.2 [facility] Serum or plasma chloride jerica surement (moles/volume)Ordered By: Jonh Patel on 04-27-2022 Chloride [Moles/Vol] 104 mmol/L 95-114 [facility] Serum or plasma glucose josiah urement (mass/volume)Ordered By: Jonh Patel on 04-27-2022 Glucose [Mass/Vol] 139 mg/dL 70-100 [facility] Comment on above: ADA recommended refe rence range Random Glucose Reference Range is dependent on time and content of last meal. Glucose of more than 200 mg/dL in a nonstressed, ambulatory subject supports the diagnosis of Diabetes Mellitus. Serum or plasma high density lipoprotein (HDL) cholesterol measurementOrdered By: Jonh Patel on 04-27-2022 Cholesterol in HDL [Mass/Vol] 38 mg/dL 29-71 [facility] Comment on above: HDL CHOL ATP-III CLA SSIFICATION Cardiovascular Risk HDL > or equal to 60 mg/dL LOW HDL < 40 mg/dL HIGH Serum or plasma potassium me asurement (moles/volume)Ordered By: Jonh Patel on 04-27-2022 Potassium [Moles/Vol] 4.4 mmol/L 3.5-5.1 [facility] Serum or plasma sodium measu rement (moles/volume)Ordered By: Jonh Patel on 04-27-2022 Sodium [Moles/Vol] 136 mmol/L 136-146 [facility] Serum or plasma thyroxine (T 4) measurement (mass/volume)Ordered By: Jonh Patel on 04-27-2022 T4 [Mass/Vol] 9.08 ug/dL 5.39-11.82 [facility] Serum or plasma total biliru bin measurement (mass/volume)Ordered By: Jonh Patel on 04-27-2022 Bilirubin [Mass/Vol] 0.8 mg/dL 0.3-1.2 [facility] Serum or plasma total carbon dioxide measurement (moles/volume)Ordered By: Jonh Patel on 04-27-2022 CO2 [Moles/Vol] 22.4 mmol/L 22.0-30.0 [facility] Serum or plasma total choles terol/high density lipoprotein (HDL) cholesterol mass ratOrdered By: Jonh Patel on 04-27-2022 Cholesterol.total/Tresa sterol in HDL [Mass ratio] 4.4 {ratio} [facility] Serum or plasma urea nitroge n measurement (mass/volume)Ordered By: Jonh Patel on 04-27-2022 Urea nitrogen [Mass/Vol] 23 mg/dL 9-23 [facility] Stool Occult Blood (Immuno)o n 04-27-2022 Stool Occult Blood (Immuno) Occult Blood (Immuno) Negative for Occult Blood by Immunochemical Methodology Reference range = Negative PERFORMED BY: [place] [address] PATHOLOGIST BANQUET STEWARDESS BRIDGETT MANZO M.D. Normal [facility] Comment on above: Performed By: #### O B(IMMUNO) #### [facility] [address] [place] [address] TSH DL <= 0.005 mIU/L QnOrde red By: Jonh Patel on 04-27-2022 TSH Qn 1.16 m[IU]/L 0.45-5.33 [facility] Thyroid Stimulating Hormoneo n 04-27-2022 TSH Qn 1.16 m[IU]/L Normal 0.45-5.33 [facility] Comment on above: Result Comment: PERF ORMED BY: [place] [address] PATHOLOGIST BANQUET STEWARDESS BRIDGETT MANZO M.D. Performed By: #### T 4T, TSH3, CBC, PSAS, T3F, A1C WTH eA, CMP, LIPID ####[place] [id number] [place] [id number] [facility] Thyroxine (T4) Totalon 04-27 T4 [Mass/Vol] 9.08 ug/dL Normal 5.39-11.82 [facility] Comment on above: Performed By: #### T 4T, TSH3, CBC, PSAS, T3F, A1C WTH eA, CMP, LIPID ####[place] [id number] [place] [id number] [facility] Triglyceride [Mass/volume] i n Serum or PlasmaOrdered By: Jonh Patel on 04-27-2022 Triglyceride [Mass/Vol] 88 mg/dL 35-149 [facility] Comment on above: TRIG ATP III CLASSIF ICATION TRIG less than 150 mg/dL Normal TRIG 150-199 mg/dL Borderline high TRIG 200-500 mg/dL High TRIG greater than 500 mg/dL Very high Standard traceable to the Center for Disease Conrtrol and Prevention (CDC) test method. Triiodothyronine (T3) Freeon 04-27-2022 Triiodothyronine (T3) Free 2.51 pg/mL Normal 2.50-3.90 [facility] Comment on above: Result Comment: PERF ORMED BY: [facility] [address] [place] [id number] PATHOLOGIST BANQUET STEWARDESS BRIDGETT MANZO M.D. Performed By: #### T 4T, TSH3, CBC, PSAS, T3F, A1C WTH eA, CMP, LIPID #### [facility] [address] Triiodothyronine (T3) Free [ Mass/volume] in Serum or PlasmaOrdered By: Jonh Patel on 04-27-2022 Free T3 [Mass/Vol] 2.51 pg/mL 2.50-3.90 [facility] Letter [facility] October 27, 2021 Jonh Patel, [address] [facility] [place] [address] [place] [address] Re: NAVI FUNES Date of : 1940 Thank you for your referral of Navi Funes who was seen on consultation on 10/23/2021, for nodule right taylor with underlying cellulitis. I have enclosed my consultation note for your review. I will be happy to follow Navi. Sincerely, Josiah Gallego MD General Surgery Normal [facility] Ambulatory Clinical Summaryo n 10-23-2021 Ambulatory Clinical Summary {[id number]}CD:[id number] Normal [facility] Physician Referralon 021 Physician Referral [id number]:127 Normal [facility] Vital Signs Date Time Vital Sign Value Performing Clinician Facility 08-10-2022 10:45-0400 Body height 177.8 cm Grady Peters Other Factual Other 08-10-2022 10:45-0400 Body mass index (BMI) [Ratio] 26.54 kg/m2 Grady Peters Other [facility] Other 08-10-2022 10:45-0400 Body temperature 97.3 [degF] Grady Peters Other Factual Other 08-10-2022 10:45-0400 Body weight 83.92 kg Grady Peters Other Factual Other 08-10-2022 10:45-0400 Diastolic blood pressure 72 mm[Hg] Grayd Peters Other Factual Other 08-10-2022 10:45-0400 SaO2% (BldA) [Mass fraction] 98 % Grady Peters Other Factual Other 08-10-2022 10:45-0400 Systolic blood pressure 146 mm[Hg] Grady Juarezredari Other Factual Other Encounters Encounter Date Encounter Type Care Provider Facility Start: 08-10-2022 End: 08-10-2022 ambulatory Grady Peters Other Factual Other Start: 08-10-2022 Office outpatient vi sit 25 minutes Grady Peters [facility] Start: 07-30-2022 End: 07-30-2022 ambulatory Grady Peters Facility:[facility] Start: 07-30-2022 End: 07-30-2022 Patient encounter procedure MD Jonh Patel Work Phone: [facility] [place] Start: 06-17-2022 End: 06-17-[address] JONH PATEL Facility: Start: 04-27-2022 End: 04-27-2022 ambulatory Jonh Patel Facility:[facility] Start: 04-27-2022 End: 04-27-2022 Patient encounter procedure MD Jonh Patel Work Phone: [facility] Start: 01-06-2017 End: 01-07-2017 Ambulatory CHARISMA MCKEON Facility:[facility] Procedures Date Procedure Procedure Detail Performing Clinician Start: 07-30-2022 X-ray of right ankle MD Jonh Patel Work Phone: Start: 04-27-2022 End: 04-27-2022 Screening for occult blood in feces MD Jonh Patel Work Phone: Plan of Treatment Date Care Activity Detail Author Start: 07-30-2022 Ankle brachial press ure index [facility] Start: 07-30-2022 Duplex scan of lower limb veins US venous duplex LE BI [facility] Start: 07-30-2022 US Lower extremity v ein - bilateral [facility] Work Phone: Payers Date Payer Category Payer Medicaid [id number] a 2022 Self-pay [id number] 1957 Unknown [id number] 1940 Unknown [id number] Unknown [facility] [id number] Unknown [id number] Unknown [id number] Social History Date Type Detail Facility Tobacco smoking status NHIS Unknown if ever smoked [facility] Work Phone: Start: 1940 Sex Assigned At Male F [facility] Sex Assigned At Sex Assigned At Bir th Factual Other Evaluation note 08-10-2022 Note Date & [...] this patient back on an as-needed basis. Fact[facility] Other Clinical Note 06-22-2022 Note Date & [...] to Vascular surgery for recommendations; patient requests [facility]. Ordered: E&M of Est. Patient Low 20-29 Min [id number] [facility] External Ambulatory Referral Follow-up No qualifying data [...] SARS-CoV-2 (COVID-19) Ad26 vaccine 03/19/2021 Recorded [facility] Comment on above: Result Comment: Elec tronically Signed By: CLAUDIA OG, Josiah Daley\Date and Time Signed: 06/22/22 10:14 EDT Clinical Note 10-23-2021 Note Date & Type Note Facility 10-23-2021 Note Chief Complaint consultation for right taylor nodule HPI Staff 81 year old male presents on consultation from Dr. Patel for nodule right tyalor with underlying cellulitis. Roughly one week ago, [...] SARS-CoV-2 (COVID-19) Ad26 vaccine 03/19/2021 Recorded [facility] Comment on above: Result Comment: Elec tronically Signed By: CLAUDIA OG, Josiah Daley\Date and Time Signed: 10/23/21 16:30 EST Evaluation note Note Date & Type Note Facility Evaluation note No assessment information availa [facility] Work Phone: History general Narrative - Reported Note Date & Type Note Facility History general Narrative - Reported Type Medical History hypercholesterolemia Medical History hypertension Medical History diabetes mallitus Surgical History CABG Surgical History Open reduction inter nal fixation right lower extremity fracture Hospitalization History see above Factual Other Summary Purpose Family History No Family [...] section and content) DATE CREATED AUTHOR 05/03/2018 [facility] DATE CREATED AUTHOR AUTHOR'S ORGANIZ ATION 06/20/2022 [facility] DATE CREATED AUTHOR AUTHOR'S ORGANIZ ATION 07/16/2022 [facility] DATE CREATED AUTHOR AUTHOR'S ORGANIZ ATION 12/23/2022 [facility] Care Teams (unrecognized sec tion and [...] TESTING; MARIAH AND FF V ENOUS AT [facility], Follow-up noninvasive studies FOR RECORDS PERTAINING TO [...] BE BASED ON THE PRIMARY CLINICAL RECORDS. [facility] [employer] provides no warranty or guarantee of the accuracy or completeness of information in this document.
[2024-01-06 18:19] LABS: Bilirubin Urine NEGATIVE (NEGATIVE); Blood Urine TRACE-I (NEGATIVE); Clarity Urine CLEAR (CLEAR); Color Urine LT. YELLOW (YELLOW); Glucose Urine UA NEGATIVE (NEGATIVE); Ketones Urine NEGATIVE (NEGATIVE); Leukocyte Esterase Urine NEGATIVE (NEGATIVE); Nitrite Urine NEGATIVE (NEGATIVE); Protein Urine NEGATIVE (NEG/TRACE); Urobilinogen Urine 0.2 EU/dL (0.2-1.0); pH Urine 6.5 (5.0-9.0)
[2024-01-06 18:34] LABS: Amphetamine Screen Urine NEGATIVE (NEGATIVE); Barbiturates Screen Urine NEGATIVE (NEGATIVE); Benzodiazepines Screen Urine NEGATIVE (NEGATIVE); Buprenorphine Screen Urine NEGATIVE (NEGATIVE); Cannabinoid Screen Urine NEGATIVE (NEGATIVE); Cocaine Screen Urine NEGATIVE (NEGATIVE); Methadone Screen Urine NEGATIVE (NEGATIVE); Methamphetamines Screen Urine NEGATIVE (NEGATIVE); Opiate Screen Urine NEGATIVE (NEGATIVE); Oxycodone Screen Urine NEGATIVE (NEGATIVE); Phencyclidine Screen Urine NEGATIVE (NEGATIVE); Tricyclic Antidepressant Urine NEGATIVE (NEGATIVE)
[2024-01-06 18:41] LABS: Bacteria Urine NONE SEEN #/HPF (NONE SEEN); Cast Seen? NONE SEEN #/LPF (NONE SEEN); Crystals Seen? None Seen #/HPF (None Seen); Mucus Urine NONE SEEN (NONE SEEN); Squamous Epithelial Cell Urine RARE #/LPF (NONE/RARE); Transitional Epi Cells Urine RARE #/LPF (NONE SEEN); WBC Urine 0-2 #/HPF (NONE SEEN)
[2024-01-06] MEDS: CLINDAMYCIN PHOSPHATE/D5W 600 MG/50 ML PIGGYBACK 100 MG IV (19:36)
[2024-01-06 21:00] LABS: Glucometer 167 mg/dL (74-106)
[2024-01-06] MEDS: PIPERACILLIN SODIUM/TAZOBACTAM 3.375 GM in 0.9 % SODIUM CHLORIDE 50 ML IV (21:21)
[2024-01-06] MEDS: INSULIN ASPART 300 UNIT/3 ML PEN SUBQ (21:25)
[2024-01-07] VITALS (10 sets, daily range): BP systolic 122–136; BP diastolic 44–66; PULSE 46–58; RESP 16; TEMP 36.3–36.7; O2SAT 92–97
[2024-01-07] MEDS: CLINDAMYCIN PHOSPHATE/D5W 600 MG/50 ML PIGGYBACK 100 MG IV ×2 (01:12→09:03)
[2024-01-07] MEDS: LACTATED RINGER'S SOLUTION 1,000 ML 100 ML IV (01:13)
[2024-01-07 05:09] LABS: Basophils Absolute Auto 0.1 10^3/uL (0.0-0.1); Eosinophils Absolute Auto 0.5 10^3/uL (0.0-0.7); Eosinophils Percent Auto 6.4 % (0.9-7.0); Hematocrit 33.4 % (42.0-54.0); Hemoglobin 10.8 g/dL (14.0-18.0); Immature Granulocytes Abs Auto 0.01 10^3/uL (0.00-0.03); Immature Granulocytes Pct Auto 0.1 % (0.0-0.5); Lymphocytes Absolute Auto 1.5 10^3/uL (1.2-3.8); Lymphocytes Percent Auto 21.2 % (20.5-60.0); Mean Corpuscular HGB Conc 32.3 g/dL (29.9-35.2); Mean Corpuscular Hemoglobin 30.9 pg (25.9-34.0); Mean Corpuscular Volume 95.4 fL (80.0-94.0); Mean Platelet Volume 11.7 fL (9.5-13.5); Monocytes Absolute Auto 0.7 10^3/uL (0.3-0.8); Monocytes Percent Auto 9.9 % (1.7-12.0); Neutrophils Absolute Auto 4.3 10^3/uL (1.4-6.5); Neutrophils Percent Auto 61.4 % (43.0-75.0); Platelet Count 129 10^3/uL (150-450); Red Cell Distribution Width 14.6 % (11.0-15.0)
[2024-01-07] MEDS: PIPERACILLIN SODIUM/TAZOBACTAM 3.375 GM in 0.9 % SODIUM CHLORIDE 50 ML IV (05:10)
[2024-01-07 05:54] LABS: Alanine Aminotransferase 28 U/L (16-63); Albumin Globulin Ratio 0.8; Albumin Level 2.6 g/dL (3.4-5.0); Alkaline Phosphatase 74 U/L (46-116); Anion Gap 13.4; Aspartate Amino Transferase 15 U/L (15-37); BUN Creatinine Ratio 17.9; Bilirubin Total 0.3 mg/dL (0.2-1.0); Calcium 8.3 mg/dL (8.5-10.1); Carbon Dioxide 24.3 mmol/L (21.0-32.0); Chloride 108 mmol/L (98-107); Estimated GFR (African America 40 (>=60); Estimated GFR (Non-African Ame 33 (>=60); Globulin 3.3 g/dL; Glucose 120 mg/dL (74-106); Potassium 5.7 mmol/L (3.5-5.1); Sodium 140 mmol/L (136-145); Total Protein 5.9 g/dL (6.4-8.2)
[2024-01-07] MEDS: MEMANTINE HCL 7 MG CAP XR 14 MG PO (09:03)
[2024-01-07] MEDS: CLONIDINE HCL 0.1 MG TABLET 0.100000000000000006 MG PO (09:03)
[2024-01-07] MEDS: METFORMIN HCL 500 MG TABLET PO (09:03)
[2024-01-07] MEDS: DONEPEZIL HCL 10 MG TABLET PO (09:03)
[2024-01-07] MEDS: LISINOPRIL 10 MG TABLET PO (09:03)
--- NOTE | 2024-01-07 10:02 | P.HP_ITS ---
H&P: HPI History of Present Illness Chief complaint: Altered Mental Status Weakness Confesion dehydrati Narrative: Patient seen and evaluated in the emergency room, altered mental status, significant hypotension, given fluids in ER with improvement. Observed overnight. I saw patient this morning he was back to his normal self. 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 with unspecified severity (ICD-10) Altered mental status ?R41.82 - Altered mental status, unspecified (ICD-10) Weakness ?R53.1 - Weakness (ICD-10) Dementia ?F03.90 - Unspecified dementia, unspecified severity, without behavioral disturbance, psychotic disturbance, mood disturbance, and anxiety (ICD-10) Bradycardia ?R00.1 - Bradycardia, unspecified (ICD-10) Altered mental status ?R41.82 - Altered mental status, unspecified (ICD-10) Acute hyperglycemia ?R73.9 - Hyperglycemia, unspecified (ICD-10) Medical non-compliance ?Z91.199 - Patient's noncompliance with other medical treatment and regimen due to unspecified reason (ICD-10) Hearing loss ?H91.90 - Unspecified hearing loss, unspecified ear (ICD-10) Fall ?W19.XXXA - Unspecified fall, initial encounter (ICD-10) Diabetes ?E11.9 - Type 2 diabetes mellitus without complications (ICD-10) Leg fracture, right ?S82.91XA - Unspecified fracture of right lower leg, initial encounter for closed fracture (ICD-10) Surgical History (Updated 10/22/23 @ 15:01 by Shayna Miller) FH: CABG (coronary artery bypass surgery) ?Z82.49 - Family history of ischemic heart disease and other diseases of the circulatory system (ICD-10) Family History (Updated 10/22/23 @ 15:04 by Shayna Miller) Father Family history of cancer Social History Within the past year, how often did you have a drink containing alcohol: never Within the past year, how many standard drinks containing alcohol did you have on a typical day: 1 or 2 Within the past year, how often did you have six or more drinks on one occasion: never Total score: 0 Score interpretation: A score less than 4 is consistent with normal alcohol consumption. Smoking status: Never smoker Non-prescribed substance use: denies use Previous occupational history: retired Highest level of school completed/degree received: don't know Are you now , , , , never or living with a partner: In a typical week, how many times do you talk on the telephone with family, friends, or neighbors: twice per week How often do you get together with friends or relatives: twice per week How often do you attend baptism or roman catholic services: never Do you belong to any clubs or organizations such as baptism groups unions, [employer] or athletic groups, or school groups: no Total score: 1 Score interpretation: A score of less than or equal to 1 indicates the most socially isolated. Little interest or pleasure in doing things: not at all Feeling down, depressed, or hopeless: not at all Feel stressed/tense/nervous/anxious/difficulty sleeping: not at all Meds Home Medications and Allergies Home Medications Medication Instructions Recorded Confirmed Type lisinopril 10 mg tablet 10 mg PO DAILY 10/22/23 01/06/24 History metformin 500 mg tablet 500 mg PO BID 10/22/23 01/06/24 History quetiapine 25 mg tablet 25 mg PO HS #30 tabs 10/26/23 01/06/24 Rx clindamycin HCl 300 mg capsule 300 mg PO Q6H #60 caps 12/29/23 01/06/24 Rx levofloxacin 750 mg tablet 750 mg PO Q24H #15 tabs 12/29/23 01/06/24 Rx donepezil 10 mg tablet 10 mg PO .QD 01/06/24 01/06/24 History memantine 14 mg capsule 14 mg PO .QD 01/06/24 01/06/24 History sprinkle,extended release 24hr sulfamethoxazole 800 1 tab PO BID 01/06/24 01/06/24 History mg-trimethoprim 160 mg tablet Allergies Allergy/AdvReac Type Severity Reaction Status Date / Time No Known Drug Allergies Allergy Verified 09/08/23 06:12 Exam Constitutional Vital Signs, click to edit/add: Last Vital Signs Temp 97.6 F 01/07/24 04:05 Pulse 54 L 01/07/24 08:23 Resp 16 01/07/24 08:23 BP 136/66 01/07/24 08:23 Pulse Ox 93 L 01/07/24 08:23 O2 Del Method Room Air 01/07/24 08:23 Documenting provider has reviewed patient's vital signs: yes Common normals: no apparent distress Chest Common normals: inspection of chest normal Respiratory Common normals: normal respiratory effort Cardio Common normals: regular rate and regular rhythm Extremity Common normals: abnormal to inspection (See wound care assessment, swelling much improved but persisting R leg) Results Labs Labs: Short CBC 01/06/24 01/07/24 Range/Units 15:09 04:28 WBC 6.5 7.0 (4.0-11.0) 10^3/uL Hgb 10.8 L 10.8 L (14.0-18.0) g/dL Hct 34.2 L 33.4 L (42.0-54.0) % Plt Count 132 L 129 L (150-450) 10^3/uL BMP 01/06/24 01/07/24 15:09 04:28 Sodium 135 L 140 Potassium 5.5 H 5.7 H Chloride 104 108 H Carbon Dioxide 22.4 24.3 BUN 42.0 H 35.0 H Creatinine 2.19 H 1.95 H Glucose 122 H 120 H Calcium 8.1 L 8.3 L Cardiac Enzymes 01/06/24 Range/Units 15:09 Total Creatine Kinase 131 (39-308) U/L Liver Function 01/06/24 01/07/24 Range/Units 15:09 04:28 Total Bilirubin 0.3 0.3 (0.2-1.0) mg/dL AST 18 15 (15-37) U/L ALT 31 28 (16-63) U/L Alkaline Phosphatase 83 74 (46-116) U/L Albumin 2.9 L 2.6 L (3.4-5.0) g/dL Urine 01/06/24 Range/Units 17:25 Urine Color Lt. yellow (YELLOW) Urine Clarity Clear (CLEAR) Urine pH 6.5 (5.0-9.0) Ur Specific [place] 1.010 (1.005-1.025) Urine Protein Negative (NEG/TRACE) mg/dL Urine Glucose (UA) Negative (NEGATIVE) mg/dL Assessment and Plan Assessment and Plan (1) Dehydration: (2) Ulcer of right lower extremity: (3) Confusion: (4) Weakness: (5) Dementia: Plan After discussing with family, patient took double his medications, this is going to be a long-term issue for him. Patient has significant dementia. Not following instructions. Defers on any other care at this time. He is back to his baseline so he will be discharged home in improving condition. His dehydration is improving. His hyperkalemia is persisting but not on any supplements and that should resolve over time. Patient insistent on going home. Medications see list. I will follow-up with patient in the office next week. Urinary Catheter Management Urinary Catheter Management Urethral: Cath placed during this visit: yes Urethral indwelling: No Insertion date: 01/06/24 Insertion time: 17:36
--- NOTE | 2024-01-07 10:02 | P.DS_ITS ---
DS: Providers Provider Date of admission: 01/06/24 17:47 Primary care physician: Savage Mcclendon MD Consults: 01/06/24 Consult to Store Receiving Specialist Routine Reason for consult:: Food/Nutrition 01/06/24 16:42 Consult to Wound Care Routine Consulting Provider: Ishmael Mars Reason for consultation: leg wound DS: Diagnosis Discharge Diagnosis (1) Dehydration: (2) Altered mental status: (3) Weakness: (4) Confusion: DS: Summary Hospital Course Hospital Course: After investigating it appears the patient took double his medications. That would result in his altered mental status, significant hypotension, acute renal injury, hyperkalemia. His hyperkalemia is persisting still today, creatinine is improved. At this point patient feels comfortable with going home. He is alert and oriented x 3. Instructed that he really should be in an assisted living facility so somebody can monitor his medications. Patient continues to defer on this advice. He can be discharged home this morning. He will see me in the office next week. Status at Discharge Overall status at discharge: patient is back to baseline Time Spent with Patient Time attestation: Total time spent providing and/or coordinating discharge services: Time spent: less than 30 minutes Exam Constitutional Vital Signs, click to edit/add: Last Vital Signs Temp 97.6 F 01/07/24 04:05 Pulse 54 L 01/07/24 08:23 Resp 16 01/07/24 08:23 BP 136/66 01/07/24 08:23 Pulse Ox 93 L 01/07/24 08:23 O2 Del Method Room Air 01/07/24 08:23 DS: Data Data Completed and Pending Labs on day of discharge: Labs from last 24 hours 01/07/24 01/06/24 01/06/24 04:28 20:59 17:25 WBC 7.0 RBC 3.50 L Hgb 10.8 L Hct 33.4 L MCV 95.4 H MCH 30.9 MCHC 32.3 RDW 14.6 Plt Count 129 L MPV 11.7 Neut % (Auto) 61.4 Lymph % (Auto) 21.2 [place] % (Auto) 9.9 Eos % (Auto) 6.4 Baso % (Auto) 1.0 Neut # (Auto) 4.3 Lymph # (Auto) 1.5 [place] # (Auto) 0.7 Eos # (Auto) 0.5 Baso # (Auto) 0.1 Abs Immat Gran (auto) 0.01 Imm/Tot Granulo (auto) 0.1 PT INR APTT Sodium 140 Potassium 5.7 H Chloride 108 H Carbon Dioxide 24.3 Anion Gap 13.4 BUN 35.0 H Creatinine 1.95 H Est GFR ( Amer) 40 L Est GFR (Non-Af Amer) 33 L BUN/Creatinine Ratio 17.9 Glucose 120 H Lactate Calcium 8.3 L Magnesium Total Bilirubin 0.3 AST 15 ALT 28 Alkaline Phosphatase 74 Total Creatine Kinase Troponin I High Sens Total Protein 5.9 L Albumin 2.6 L Globulin 3.3 Albumin/Globulin Ratio 0.8 Procalcitonin Urine Color Lt. yellow Urine Clarity Clear Urine pH 6.5 Ur Specific [place] 1.010 Urine Protein Negative Urine Glucose (UA) Negative Urine Ketones Negative Urine Occult Blood Trace-i Urine Nitrite Negative Urine Bilirubin Negative Urine Urobilinogen 0.2 Ur Leukocyte Esterase Negative Urine RBC 2-5 A Urine WBC 0-2 A Ur Squamous Epith Cells Rare Ur Transition Epith Cell Rare A Urine Crystals None seen Urine Bacteria None seen Urine Casts None seen Urine Mucus None seen Urine Opiates Screen Negative Ur Buprenorphine Scrn Negative Ur Oxycodone Screen Negative Urine Methadone Screen Negative Ur Barbiturates Screen Negative U Tricyclic Antidepress Negative Ur Phencyclidine Scrn Negative Ur Amphetamines Screen Negative U Methamphetamines Scrn Negative U Benzodiazepines Scrn Negative Urine Cocaine Screen Negative U Cannabinoids Screen Negative Ethanol Quant POC Glucose 167 H 01/06/24 15:09 WBC 6.5 RBC 3.52 L Hgb 10.8 L Hct 34.2 L MCV 97.2 H MCH 30.7 MCHC 31.6 RDW 14.7 Plt Count 132 L MPV 11.6 Neut % (Auto) 60.5 Lymph % (Auto) 23.9 [place] % (Auto) 9.8 Eos % (Auto) 4.4 Baso % (Auto) 1.1 Neut # (Auto) 3.9 Lymph # (Auto) 1.6 [place] # (Auto) 0.6 Eos # (Auto) 0.3 Baso # (Auto) 0.1 Abs Immat Gran (auto) 0.02 Imm/Tot Granulo (auto) 0.3 PT 10.8 INR 1.02 APTT 24.9 Sodium 135 L Potassium 5.5 H Chloride 104 Carbon Dioxide 22.4 Anion Gap 14.1 BUN 42.0 H Creatinine 2.19 H Est GFR ( Amer) 35 L Est GFR (Non-Af Amer) 29 L BUN/Creatinine Ratio 19.2 Glucose 122 H Lactate 1.6 Calcium 8.1 L Magnesium 2.4 Total Bilirubin 0.3 AST 18 ALT 31 Alkaline Phosphatase 83 Total Creatine Kinase 131 Troponin I High Sens 10.7 Total Protein 6.3 L Albumin 2.9 L Globulin 3.4 Albumin/Globulin Ratio 0.9 Procalcitonin <0.05 Urine Color Urine Clarity Urine pH Ur Specific [place] Urine Protein Urine Glucose (UA) Urine Ketones Urine Occult Blood Urine Nitrite Urine Bilirubin Urine Urobilinogen Ur Leukocyte Esterase Urine RBC Urine WBC Ur Squamous Epith Cells Ur Transition Epith Cell Urine Crystals Urine Bacteria Urine Casts Urine Mucus Urine Opiates Screen Ur Buprenorphine Scrn Ur Oxycodone Screen Urine Methadone Screen Ur Barbiturates Screen U Tricyclic Antidepress Ur Phencyclidine Scrn Ur Amphetamines Screen U Methamphetamines Scrn U Benzodiazepines Scrn Urine Cocaine Screen U Cannabinoids Screen Ethanol Quant <3 POC Glucose Discharge Plan Discharge Disposition: Home, Self-Care Condition: Fair Discharge Medications: Continued metformin 500 mg tablet 500 mg PO BID lisinopril 10 mg tablet 10 mg PO DAILY quetiapine 25 mg Tablet 25 mg PO HS Qty: 30 11RF clindamycin HCl 300 mg capsule 300 mg PO Q6H Qty: 60 0RF levofloxacin 750 mg tablet 750 mg PO Q24H Qty: 15 0RF donepezil 10 mg tablet 10 mg PO .QD memantine 14 mg capsule,sprinkle,ER 24hr 14 mg PO .QD sulfamethoxazole-trimethoprim 800-160 mg tablet 1 tab PO BID Discontinued clonidine HCl 0.1 mg Tablet 0.1 mg PO BID Qty: 60 11RF Activity: increase activity as tolerated Diet: advance to your usual diet Patient Instructions: Dehydration (DC) Forms: Portal Instructions Follow Up Appointments: please call dr mcclendon tuesday01/09/24 to schedule a follow up for within five to seven days [phone] Discharge Date/Time: 01/07/24 11:42
--- NOTE | 2024-01-10 16:27 | CM.DCFOLLOWU ---
1st attempt. No answer
--- NOTE | 2024-01-11 15:13 | CM.DCFOLLOWU ---
Second attempt at discharge follow up call. No answer at this time and unable to reach patient.
--- NOTE | 2024-01-12 14:03 | CM.DCFOLLOWU ---
3rd attempt. No answer
== END 2024-01-07 11:42 | disposition home or self-care (01) ==
LOC: ER 17:45 → MS 17:53
PROVIDERS: Admitting Provider Family Medicine; Emergency Provider Emergency Medicine; PCP Family Medicine; Visit Provider Family Medicine
DX: N17.9 Acute kidney failure, unspecified (principal); E87.5 Hyperkalemia; I95.9 Hypotension, unspecified; R41.82 Altered mental status, unspecified; Z91.148 Patient's other noncompliance with medication regimen for other reason; E86.0 Dehydration; R53.1 Weakness; L97.819 Non-pressure chronic ulcer of other part of right lower leg with unspecified severity; E11.9 Type 2 diabetes mellitus without complications; H91.90 Unspecified hearing loss, unspecified ear; F02.80 Dementia in other diseases classified elsewhere, unspecified severity, without behavioral disturbance, psychotic disturbance, mood disturbance, and anxiety; G31.83 Neurocognitive disorder with Lewy bodies; E66.9 Obesity, unspecified; Z68.26 Body mass index [BMI] 26.0-26.9, adult; Z79.899 Other long term (current) drug therapy; Z79.84 Long term (current) use of oral hypoglycemic drugs
CPT/HCPCS: 36415; 36416; 51702; 70450; 71045; 80053; 80307; 80320; 81001; 82550; 82948; 83605; 83735; 84145; 84484; 85025; 85610; 85730; 87040; 87070; 87086; 93005; 94667; 94761; 96361; 96365; 96366; 96367; 96368; 96375; 99285; G0378

== ENCOUNTER 2024-01-23 09:31 | Outpatient (OUT) | payer MEDICARE, SELFPAY ==
--- OUTSIDE RECORDS SUMMARY | 2024-01-23 09:46 | XMS_ITS | CCD ---
Author Name Unknown Address [id number] [place] [address] Organization [facility] Care Team Providers Care Drafting Layout Man Name Role Phone CHARISMA MCKEON Unavailable Unavailable CHARISMA MCKEON Unavailable Unavailable JONH PATEL Unavailable Unavailable JONH PATEL Unavailable Unavailable MD Jonh Patel Primary Care Provider [phone] MD Jonh Patel Attending Provider DR JONH PATEL Attending Unavailable DR JONH PATEL Consulting Unavailable DR JONH PATEL Primary Care Unavailable DR JONH PATEL Admitting Unavailable MD Jonh Patel Primary Care Provider [phone] MD Grady Peters Attending Provider Grady Peters Unavailable Jonh Patel Primary Care Unavailable Jonh Patel Attending Unavailable Jonh Patel Admitting Unavailable Grady Peters Admitting Unavailable Grady Peters Attending Unavailable Jonh Patel Primary Care Unavailable JONH PATEL Referring Unavailable JONH PATEL Primary Care Unavailable JONH PATEL Primary Care Unavailable INPATIENT, TELENEUROLOGY Consulting Unavail able JOSE ALBERTO DUARTE Consulting Unavailable Medications Current Medications Medication Drug Class(es) [...] RT LOWER LEG INITIAL] Onset: 06-17-2022 Episodic Residual codes; unclassified (1 source) Pain, unspecified; Translations: [Pain, unspecified] Onset: 01-07-2024 Episodic Unclassified (2 sources) Unknown / UNK(Unknown) Onset: 01-06-2017 Unclassified (1 source) 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; Translations: [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] Onset: 04-27-2022 Unclassified (1 source) tele neuro consult , dx altered mental status from [place] inpatient room 217 Onset: 10-24-2023 Past or Other Problems Problem Classification Problem [...] US ankle/arm indiceson 07-31 US ankle/arm indices [facility] [address] [place] [address] Ultrasound Report Signed Patient: Navi Funes Jr MR#: [id number] : 1940 Acct:[id number] Age/Sex: 81 / M ADM Date: 07/30/22 Loc: Room: Type: [facility] Attending Dr: Grady Peters MD Ordering [...] Ruben Dumont MD07/31/2022 3:20 PM Dictation Location: [facility]- Tech: Katt Baron Transcribed By: HANNAH 07/31/22 1520 Dictated By: Ruben Dumont MD 07/31/22 1519 Signed By: 07/31/22 1520 Normal [facility] US venous duplex LE BIon US venous duplex LE BI [facility] [address] [place] [address] Ultrasound Report Signed Patient: Navi Funes Jr MR#: [id number] : 1940 Acct:[id number] Age/Sex: 81 / M ADM Date: 07/30/22 Loc: Room: Type: [facility] Attending Dr: Grady Peters MD Ordering [...] Ruben Dumont MD07/31/2022 3:22 PM Dictation Location: [place] [address] Tech: Katt Vanessa Transcribed By: HANNAH 07/31/22 1522 Dictated By: Ruben Dumont MD 07/31/22 1521 Signed By: 07/31/22 1522 [facility] XR ankle RT min 3V*on 2021 XR ankle RT min 3V* [facility] [address] [place] [address] XRay Report Signed Patient: Navi Funes Jr MR#: [id number] : 1940 Acct:[id number] Age/Sex: 81 / M ADM Date: 07/30/22 Loc: Room: Type: [facility] Attending Dr: Grady Peters MD Copies [...] PROCESS. Impression dictated by: Navi King Jr., D.ORichardson07/30/2022 4:33 PM Dictation Location: [place] [address] Transcribed By: HANNAH 07/30/22 1633 Dictated By: Navi King Jr, DO 07/30/22 1632 Signed By: 07/30/22 1633 [facility] Consultation Noteon 07-15-20 Consultation Note [id number]:127 [facility] HIPAA Privacy Documentson HIPAA Privacy Documents [id number]:127 [facility] WOUND CULTUREon 06-20-2022 Bacteria identified Aer cx Nom (Unsp spec) Final report Normal [facility] Comment on above: Performed By: #### C XWND #### [facility] [address] [address] [address] Eddie Gaitan Result 1 Comment Normal [facility] Comment on above: Result Comment: No g rowth in 36 - 48 hours. Performed By: #### C XWND #### [facility] [address] [address] [address] Eddie Gaitan Physician Referralon 022 Physician Referral [id number]:127 Normal [facility] A1C with Estimated Average G mary 04-27-2022 Glucose [Mass/Vol] 151 mg/dL Normal [facility] Comment on above: Result Comment: PERF ORMED BY: [place] [address] PATHOLOGIST [employer] BRIDGETT MANZO M.D. Performed By: #### T 4T, TSH3, CBC, PSAS, T3F, A1C WT eA, CMP, LIPID #### [facility] [address] [place] [address] HbA1c (Bld) [Mass fraction] 6.9 % High 4.3-5.6 [facility] Comment on above: Result Comment: Incr eased risk for diabetes: 5.7 - 6.4 diabetes: >6.4 glycemic control for adults with diabetes: <7.0 Performed By: #### T 4T, TSH3, CBC, PSAS, T3F, A1C WTH eA, CMP, LIPID #### [facility] [address] [place] [address] [place] Basophils Auto (Bld) [#/Vol] Ordered By: Jonh Patel on 04-27-2022 Basophils (Bld) [#/Vol] 0.1 10*3/uL 0.0-0.2 [facility] Basophils/100 WBC Auto (Bld) Ordered By: Jonh Patel on 04-27-2022 Basophils/100 WBC (Bld) 1.1 % [facility] Blood hemoglobin measurement (mass/volume)Ordered By: Jonh Patel on 04-27-2022 Hemoglobin (Bld) [Mass/Vol] 13.3 g/dL 13.0-17.0 [facility] Blood leukocytes automated c ount (number/volume)Ordered By: Jonh Patel on 04-27-2022 WBC (Bld) [#/Vol] 5.0 10*3/uL 4.5-11.0 [facility] Body fluid albumin measureme nt (mass/volume)Ordered By: Jonh Patel on 04-27-2022 Albumin (Body fld) [Mass/Vol] 3.6 g/dL 3.2-5.5 [facility] Cholesterol [Mass/volume] in Serum or PlasmaOrdered By: Jonh Patel on 04-27-2022 Cholesterol [Mass/Vol] 168 mg/dL 140-200 [facility] Comment on above: Chol less than 200 m g/dl low risk Chol 201-239 mg/dl borderline risk Chol 240 mg/dl and greater high risk Cholesterol in LDL Calc [Mas s/Vol]Ordered By: Jonh Patel on 04-27-2022 Cholesterol in LDL [Mass/Vol] 112 mg/dL 0-100 [facility] Comment on above: LDL ATP III CLASSIFI CATION LDL less than 100 mg/dL Optimal LDL 100-129 mg/dL Near or above optimal LDL 130-159 mg/dL Borderline high LDL 160-189 mg/dL High LDL greater than 189 mg/dL Very high Cholesterol in VLDL Calc [Ma ss/Vol]Ordered By: Jonh Patel on 04-27-2022 Cholesterol in VLDL [Mass/Vol] 17 mg/dL [facility] Complete Blood Count Auto Di ffon 04-27-2022 Basophils (Bld) [#/Vol] 0.1 10*3/uL Normal 0.0-0.2 [facility] Comment on above: Result Comment: PERF ORMED BY: [facility] [address] [place] [address] PATHOLOGIST [employer] BRIDGETT MANZO M.D. Performed By: #### T 4T, TSH3, CBC, PSAS, T3F, A1C WTH eA, CMP, LIPID #### [facility] [address] Basophils/100 WBC (Bld) 1.1 % Normal . [facility] Comment on above: Performed By: #### T 4T, TSH3, CBC, PSAS, T3F, A1C WTH eA, CMP, LIPID #### [facility] [address] Eosinophils (Bld) [#/Vol] 0.3 10*3/uL Normal 0.0-0.45 [facility] Comment on above: Performed By: #### T 4T, TSH3, CBC, PSAS, T3F, A1C WTH eA, CMP, LIPID #### [facility] [address] Eosinophils/100 WBC (Bld) 6.5 % Normal . [facility] Comment on above: Performed By: #### T 4T, TSH3, CBC, PSAS, T3F, A1C WTH eA, CMP, LIPID #### [address] Erythrocyte distribution width (RBC) [Ratio] 15.0 % High 12.0-14.8 [facility] Comment on above: Performed By: #### T 4T, TSH3, CBC, PSAS, T3F, A1C WTH eA, CMP, LIPID #### [address] Hematocrit (Bld) [Volume fraction] 39.9 % Normal 38.8-50.0 [facility] Comment on above: Performed By: #### T 4T, TSH3, CBC, PSAS, T3F, A1C WTH eA, CMP, LIPID #### [address] Hemoglobin (Bld) [Mass/Vol] 13.3 g/dL Normal 13.0-17.0 [facility] Comment on above: Performed By: #### T 4T, TSH3, CBC, PSAS, T3F, A1C WTH eA, CMP, LIPID #### [address] [address] [place] Lymphocytes (Bld) [#/Vol] 1.3 10*3/uL Normal 1.00-4.8 [facility] Comment on above: Performed By: #### T 4T, TSH3, CBC, PSAS, T3F, A1C WTH eA, CMP, LIPID #### [address] Lymphocytes/100 WBC (Bld) 25.6 % Normal . [facility] Comment on above: Performed By: #### T 4T, TSH3, CBC, PSAS, T3F, A1C WTH eA, CMP, LIPID #### [address] MCH (RBC) [Entitic mass] 31.2 pg Normal 27.5-35.2 [facility] Comment on above: Performed By: #### T 4T, TSH3, CBC, PSAS, T3F, A1C WTH eA, CMP, LIPID #### [address] MCV (RBC) [Entitic vol] 93.5 fL Normal 83.5-101 F [facility] Comment on above: Performed By: #### T 4T, TSH3, CBC, PSAS, T3F, A1C WTH eA, CMP, LIPID #### [address] Mean Corpuscular HGB Conc 33.4 g/dL Normal 32.5-35.6 [facility] Comment on above: Performed By: #### T 4T, TSH3, CBC, PSAS, T3F, A1C WTH eA, CMP, LIPID #### [address] Monocytes (Bld) [#/Vol] 0.4 10*3/uL Normal 0.0-0.8 [facility] Comment on above: Performed By: #### T 4T, TSH3, CBC, PSAS, T3F, A1C WTH eA, CMP, LIPID #### [address] Monocytes/100 WBC (Bld) 8.3 % Normal . [facility] Comment on above: Performed By: #### T 4T, TSH3, CBC, PSAS, T3F, A1C WTH eA, CMP, LIPID #### [facility] [address] [place] [address] [place] Neutrophils (Bld) [#/Vol] 2.9 10*3/uL Normal 1.8-7.7 [facility] Comment on above: Performed By: #### T 4T, TSH3, CBC, PSAS, T3F, A1C WTH eA, CMP, LIPID #### [facility] [address] [place] [address] [place] Neutrophils/100 WBC (Bld) 58.5 % Normal . [facility] Comment on above: Performed By: #### T 4T, TSH3, CBC, PSAS, T3F, A1C WTH eA, CMP, LIPID #### [facility] [address] [place] [address] [place] Nucleated RBC/100 WBC (Bld) [Ratio] 0.0 % Normal 0-0.5 [facility] Comment on above: Performed By: #### T 4T, TSH3, CBC, PSAS, T3F, A1C WTH eA, CMP, LIPID #### [facility] [address] [place] [address] Platelet mean volume (Bld) [Entitic vol] 11.0 fL High 6.6-10.1 [facility] Comment on above: Performed By: #### T 4T, TSH3, CBC, PSAS, T3F, A1C WTH eA, CMP, LIPID #### [facility] [address] [place] [address] [place] Platelets (Bld) [#/Vol] 116 10*3/uL Low 150-450 [facility] Comment on above: Performed By: #### T 4T, TSH3, CBC, PSAS, T3F, A1C WTH eA, CMP, LIPID #### [facility] [address] [place] [address] [place] RBC (Bld) [#/Vol] 4.27 10*6/uL Normal 3.90-5.60 [facility] Comment on above: Performed By: #### T 4T, TSH3, CBC, PSAS, T3F, A1C WTH eA, CMP, LIPID #### [facility] [address] WBC (Bld) [#/Vol] 5.0 10*3/uL Normal 4.5-11.0 [facility] Comment on above: Performed By: #### T 4T, TSH3, CBC, PSAS, T3F, A1C WTH eA, CMP, LIPID #### [facility] [address] Comprehensive Metabolic Pane alexandra 04-27-2022 Albumin [Mass/Vol] 3.6 g/dL Normal 3.2-5.5 [facility] Comment on above: Performed By: #### T 4T, TSH3, CBC, PSAS, T3F, A1C WTH eA, CMP, LIPID #### [facility] [address] Albumin/Globulin [Mass ratio] 1.3 {ratio} Normal [facility] Comment on above: Performed By: #### T 4T, TSH3, CBC, PSAS, T3F, A1C WTH eA, CMP, LIPID #### [facility] [address] ALP [Catalytic activity/Vol] 71 U/L Normal 32-92 [facility] Comment on above: Performed By: #### T 4T, TSH3, CBC, PSAS, T3F, A1C WTH eA, CMP, LIPID #### [facility] [address] ALT [Catalytic activity/Vol] 12 U/L Normal 10-60 [facility] Comment on above: Performed By: #### T 4T, TSH3, CBC, PSAS, T3F, A1C WTH eA, CMP, LIPID #### [facility] [address] AST [Catalytic activity/Vol] 18 U/L Normal 10-42 [facility] Comment on above: Performed By: #### T 4T, TSH3, CBC, PSAS, T3F, A1C WTH eA, CMP, LIPID #### [facility] [address] Bilirubin [Mass/Vol] 0.8 mg/dL Normal 0.3-1.2 [facility] Comment on above: Performed By: #### T 4T, TSH3, CBC, PSAS, T3F, A1C WTH eA, CMP, LIPID #### [facility] [address] Calcium [Mass/Vol] 9.0 mg/dL Normal 8.2-10.2 [facility] Comment on above: Performed By: #### T 4T, TSH3, CBC, PSAS, T3F, A1C WTH eA, CMP, LIPID #### [facility] [address] Chloride [Moles/Vol] 104 mmol/L Normal 95-114 [facility] Comment on above: Performed By: #### T 4T, TSH3, CBC, PSAS, T3F, A1C WTH eA, CMP, LIPID #### [facility] [address] CO2 [Moles/Vol] 22.4 mmol/L Normal 22.0-30.0 [facility] Comment on above: Performed By: #### T 4T, TSH3, CBC, PSAS, T3F, A1C WTH eA, CMP, LIPID #### [facility] [address] Creatinine [Mass/Vol] 1.47 mg/dL High 0.64-1.27 [facility] Comment on above: Performed By: #### T 4T, TSH3, CBC, PSAS, T3F, A1C WTH eA, CMP, LIPID #### [facility] [address] Estimated GFR ( Evelyn 56 Normal [facility] Comment on above: Result Comment: GFR estimated reference range: According to KDOQI guidelines, <60 ml/min/1.73m2 is sufficient to diagnose a patient with chronic kidney disease. Performed By: #### T 4T, TSH3, CBC, PSAS, T3F, A1C WTH eA, CMP, LIPID #### [facility] [address] Estimated GFR (Non- Am 46 Normal [facility] Comment on above: Performed By: #### T 4T, TSH3, CBC, PSAS, T3F, A1C WTH eA, CMP, LIPID #### [facility] [address] Globulin (S) [Mass/Vol] 2.8 g/dL Normal F [facility] Comment on above: Performed By: #### T 4T, TSH3, CBC, PSAS, T3F, A1C WTH eA, CMP, LIPID #### [facility] [address] Glucose [Mass/Vol] 139 mg/dL High 70-100 [facility] Comment on above: Result Comment: [facility] Glucose Reference Range is dependent on time and content of last meal. Glucose of more than 200 mg/dL in a nonstressed, ambulatory subject supports the diagnosis of Diabetes Mellitus. ADA recommended reference range Performed By: #### T 4T, TSH3, CBC, PSAS, T3F, A1C WTH eA, CMP, LIPID #### [facility] [address] Potassium [Moles/Vol] 4.4 mmol/L Normal 3.5-5.1 [facility] Comment on above: Performed By: #### T 4T, TSH3, CBC, PSAS, T3F, A1C WTH eA, CMP, LIPID #### [facility] [address] Protein [Mass/Vol] 6.4 g/dL Normal 6.1-7.9 [facility] Comment on above: Performed By: #### T 4T, TSH3, CBC, PSAS, T3F, A1C WTH eA, CMP, LIPID #### [facility] [address] Sodium [Moles/Vol] 136 mmol/L Normal 136-146 [facility] Comment on above: Performed By: #### T 4T, TSH3, CBC, PSAS, T3F, A1C WTH eA, CMP, LIPID #### [facility] [address] [place] [address] [place] Urea nitrogen [Mass/Vol] 23 mg/dL Normal 9-23 [facility] Comment on above: Performed By: #### T 4T, TSH3, CBC, PSAS, T3F, A1C WTH eA, CMP, LIPID #### [facility] [address] [place] [address] [place] Creatinine and Glomerular fi ltration rate.predicted panel (S/P/Bld)Ordered By: Jonh Patel on 04-27-2022 Creatinine [Mass/Vol] 1.47 mg/dL 0.64-1.27 [facility] Eosinophils Auto (Bld) [#/Vo l]Ordered By: Jonh Patel on 04-27-2022 Eosinophils (Bld) [#/Vol] 0.3 10*3/uL 0.0-0.45 [facility] Eosinophils/100 WBC Auto (Bl d)Ordered By: Jonh Patel on 04-27-2022 Eosinophils/100 WBC (Bld) 6.5 % [facility] Erythrocyte distribution wid th Auto (RBC) [Ratio]Ordered By: Jonh Patel on 04-27-2022 Erythrocyte distribution width (RBC) [Ratio] 15.0 % 12.0-14.8 [facility] Estimated glomerular filtrat ion rate (GFR) non- AmericanOrdered By: Jonh Patel on 04-27-2022 GFR/1.73 sq M.predicted among non-blacks MDRD (S/P/Bld) [Vol rate/Area] 46 mL/Min [facility] Globulin Calc (S) [Mass/Vol] Ordered By: Jonh Patel on 04-27-2022 Globulin (S) [Mass/Vol] 2.8 g/dL F [facility] Glucose mean value [Mass/vol ume] in Blood Estimated from glycated hemoglobinOrdered By: Jonh Patel on 04-27-2022 Average glucose Estimated from glycated hemoglobin (Bld) [Mass/Vol] 151 mg/dL [facility] Hematocrit Auto (Bld) [Volum e fraction]Ordered By: Jonh Patel on 04-27-2022 Hematocrit (Bld) [Volume fraction] 39.9 % 38.8-50.0 [facility] Hemoglobin A1c percentageOrd ered By: Jonh Patel on 04-27-2022 HbA1c (Bld) [Mass fraction] 6.9 % 4.3-5.6 [facility] Comment on above: Increased risk for d iabetes: 5.7 - 6.4 diabetes: >6.4 glycemic control for adults with diabetes: <7.0 Laboratory - Hematology and Cell countsOrdered By: Jonh Patel on 04-27-2022 Nucleated RBC/100 WBC (Bld) [Ratio] 0.0 % 0-0.5 [facility] Lipid Panelon 04-27-2022 Cholesterol [Mass/Vol] 168 mg/dL Normal 140-200 [facility] Comment on above: Result Comment: Chol less than 200 mg/dl low risk Chol 201-239 mg/dl borderline risk Chol 240 mg/dl and greater high risk Performed By: #### T 4T, TSH3, CBC, PSAS, T3F, A1C WTH eA, CMP, LIPID #### [facility] [address] [place] [id number] [place] Cholesterol in HDL [Mass/Vol] 38 mg/dL Normal 29-71 [facility] Comment on above: Result Comment: HDL CHOL ATP-III CLASSIFICATION Cardiovascular Risk HDL > or equal to 60 mg/dL LOW HDL < 40 mg/dL HIGH Performed By: #### T 4T, TSH3, CBC, PSAS, T3F, A1C WTH eA, CMP, LIPID #### [facility] [address] [place] [address] [place] Cholesterol.total/Tresa sterol in HDL [Mass ratio] 4.4 {ratio} Normal <5.0 [facility] Comment on above: Performed By: #### T 4T, TSH3, CBC, PSAS, T3F, A1C WTH eA, CMP, LIPID #### [facility] [address] [place] [address] [place] LDL Cholesterol,Calculated 112 mg/dL High 0-100 [facility] Comment on above: Result Comment: LDL ATP III CLASSIFICATION LDL less than 100 mg/dL Optimal LDL 100-129 mg/dL Near or above optimal LDL 130-159 mg/dL Borderline high LDL 160-189 mg/dL High LDL greater than 189 mg/dL Very high Performed By: #### T 4T, TSH3, CBC, PSAS, T3F, A1C WTH eA, CMP, LIPID #### [facility] [address] Triglyceride w/Reflex 88 mg/dL Normal 35-149 [facility] Comment on above: Result Comment: TRIG ATP III CLASSIFICATION TRIG less than 150 mg/dL Normal TRIG 150-199 mg/dL Borderline high TRIG 200-500 mg/dL High TRIG greater than 500 mg/dL Very high Standard traceable to the Center for Disease Conrtrol and Prevention (CDC) test method. Performed By: #### T 4T, TSH3, CBC, PSAS, T3F, A1C WTH eA, CMP, LIPID #### [facility] [address] VLDL CHOLESTEROL 17 mg/dL Normal [facility] Comment on above: Performed By: #### T 4T, TSH3, CBC, PSAS, T3F, A1C WTH eA, CMP, LIPID #### [facility] [address] Lymphocytes Auto (Bld) [#/Vo l]Ordered By: Jonh Patel on 04-27-2022 Lymphocytes (Bld) [#/Vol] 1.3 10*3/uL 1.00-4.8 [facility] Lymphocytes/100 WBC Auto (Bl d)Ordered By: Jonh Patel on 04-27-2022 Lymphocytes/100 WBC (Bld) 25.6 % [facility] MCH Auto (RBC) [Entitic mass ]Ordered By: Jonh Patel on 04-27-2022 MCH (RBC) [Entitic mass] 31.2 pg 27.5-35.2 [facility] MCHC Auto (RBC) [Mass/Vol]Or dered By: Jonh Patel on 04-27-2022 MCHC (RBC) [Mass/Vol] 33.4 g/dL 32.5-35.6 [facility] MCV Auto (RBC) [Entitic vol] Ordered By: Jonh Jorge on 04-27-2022 MCV (RBC) [Entitic vol] 93.5 fL 83.5-101 F [facility] Monocytes Auto (Bld) [#/Vol] Ordered By: Jonh Patel on 04-27-2022 Monocytes (Bld) [#/Vol] 0.4 10*3/uL 0.0-0.8 [facility] Monocytes/100 WBC Auto (Bld) Ordered By: Jonh Jorge on 04-27-2022 Monocytes/100 WBC (Bld) 8.3 % [facility] Neutrophils Auto (Bld) [#/Vo l]Ordered By: Jonh Patel on 04-27-2022 Neutrophils (Bld) [#/Vol] 2.9 10*3/uL 1.8-7.7 [facility] Neutrophils/100 WBC Auto (Bl d)Ordered By: Jonh Patel on 04-27-2022 Neutrophils/100 WBC (Bld) 58.5 % [facility] No Panel InformationOrdered By: Jonh Patel on 04-27-2022 Estimated GFR () 56 mL/Min [facility] Comment on above: GFR estimated refere nce range: According to KDOQI guidelines, <60 ml/min/1.73m2 is sufficient to diagnose a patient with chronic kidney disease. Pharmacy Creatinine Clearance (Chem N/A [facility] Prostate Specific Antigen Screen 0.860 ng/mL 0.000-4.000 [facility] PSA Screen (Yearly Only)on 0 04-27-2022 PSA Screen (Yearly Only) 0.860 ng/mL Normal 0.000-4.000 [facility] Comment on above: Order Comment: Is pa tient <50 yrs? Medicare does not pay <50.: Y Is Medicare the insurance?: Y Result Comment: PERF ORMED BY: [facility] [address] [place] [address] PATHOLOGIST [employer] BRIDGETT MANZO M.D. Performed By: #### T 4T, TSH3, CBC, PSAS, T3F, A1C WTH eA, CMP, LIPID #### [facility] [address] Platelet mean volume Auto (B ld) [Entitic vol]Ordered By: Jonh Ptael on 04-27-2022 Platelet mean volume (Bld) [Entitic vol] 11.0 fL 6.6-10.1 [facility] Platelets Auto (Bld) [#/Vol] Ordered By: Jonh Patel on 04-27-2022 Platelets (Bld) [#/Vol] 116 10*3/uL 150-450 [facility] Protein [Mass/volume] in Ser um or PlasmaOrdered By: Jonh Patel on 04-27-2022 Protein [Mass/Vol] 6.4 g/dL 6.1-7.9 [facility] RBC Auto (Bld) [#/Vol]Ordere d By: Jonh Patel on 04-27-2022 RBC (Bld) [#/Vol] 4.27 10*6/uL 3.90-5.60 [facility] Serum or plasma alanine garner otransferase measurement without P-5'-P (enzymatic activiOrdered By: Jonh Patel on 04-27-2022 ALT No additional P-5'-P [Catalytic activity/Vol] 12 U/L 10-60 [facility] Serum or plasma albumin/glob ulin mass ratioOrdered By: Jonh Patel on 04-27-2022 Albumin/Globulin [Mass ratio] 1.3 {ratio} [facility] Serum or plasma alkaline anna sphatase measurement (enzymatic activity/volume)Ordered By: Jonh Patel on 04-27-2022 ALP [Catalytic activity/Vol] 71 U/L 32-92 [facility] Serum or plasma aspartate am inotransferase measurement (enzymatic activity/volume)Ordered By: Jonh Patel on 04-27-2022 AST [Catalytic activity/Vol] 18 U/L 10-42 [facility] Serum or plasma calcium josiah urement (mass/volume)Ordered By: Jonh Patel on 04-27-2022 Calcium [Mass/Vol] 9.0 mg/dL 8.2-10.2 [facility] Serum or plasma chloride jerica surement (moles/volume)Ordered By: Jonh Patel on 04-27-2022 Chloride [Moles/Vol] 104 mmol/L 95-114 [facility] Serum or plasma glucose josiah urement (mass/volume)Ordered By: Jonh Patel on 04-27-2022 Glucose [Mass/Vol] 139 mg/dL 70-100 [facility] Comment on above: ADA recommended refe rence range Random Glucose Reference Range is dependent on time and content of last meal. Glucose of more than 200 mg/dL in a nonstressed, ambulatory subject supports the diagnosis of Diabetes Mellitus. Serum or plasma high density lipoprotein (HDL) cholesterol measurementOrdered By: Jonh Patel on 04-27-2022 Cholesterol in HDL [Mass/Vol] 38 mg/dL 29-71 [facility] Comment on above: HDL CHOL ATP-III CLA SSIFICATION Cardiovascular Risk HDL > or equal to 60 mg/dL LOW HDL < 40 mg/dL HIGH Serum or plasma potassium me asurement (moles/volume)Ordered By: Jonh Patel on 04-27-2022 Potassium [Moles/Vol] 4.4 mmol/L 3.5-5.1 [facility] Serum or plasma sodium measu rement (moles/volume)Ordered By: Jonh Patel on 04-27-2022 Sodium [Moles/Vol] 136 mmol/L 136-146 [facility] Serum or plasma thyroxine (T 4) measurement (mass/volume)Ordered By: Jonh Patel on 04-27-2022 T4 [Mass/Vol] 9.08 ug/dL 5.39-11.82 [facility] Serum or plasma total biliru bin measurement (mass/volume)Ordered By: Jonh Patel on 04-27-2022 Bilirubin [Mass/Vol] 0.8 mg/dL 0.3-1.2 [facility] Serum or plasma total carbon dioxide measurement (moles/volume)Ordered By: Jonh Patel on 04-27-2022 CO2 [Moles/Vol] 22.4 mmol/L 22.0-30.0 [facility] Serum or plasma total choles terol/high density lipoprotein (HDL) cholesterol mass ratOrdered By: Jonh Patel on 04-27-2022 Cholesterol.total/Tresa sterol in HDL [Mass ratio] 4.4 {ratio} [facility] Serum or plasma urea nitroge n measurement (mass/volume)Ordered By: Jonh Patel on 04-27-2022 Urea nitrogen [Mass/Vol] 23 mg/dL 07-30 [facility] Stool Occult Blood (Immuno)o n 04-27-2022 Stool Occult Blood (Immuno) Occult Blood (Immuno) Negative for Occult Blood by Immunochemical Methodology Reference range = Negative PERFORMED BY: [address] [place] [address] PATHOLOGIST [employer]ARITY DEVELOPER BRIDGETT MANZO M.D. Normal [facility] Comment on above: Performed By: #### O B(IMMUNO) #### [facility] [address] [place] [address] TSH DL <= 0.005 mIU/L QnOrde red By: Jonh Realkimmy on 04-27-2022 TSH Qn 1.16 m[IU]/L 0.45-5.33 [facility] Thyroid Stimulating Hormoneo n 04-27-2022 TSH Qn 1.16 m[IU]/L Normal 0.45-5.33 [facility] Comment on above: Result Comment: PERF ORMED BY: [address] [place] [address] PATHOLOGIST [employer]ARITY DEVELOPER BRIDGETT MANZO M.D. Performed By: #### T 4T, TSH3, CBC, PSAS, T3F, A1C WTH eA, CMP, LIPID ####[facility] [id number] Thyroxine (T4) Totalon 04-27 T4 [Mass/Vol] 9.08 ug/dL Normal 5.39-11.82 [facility] Comment on above: Performed By: #### T 4T, TSH3, CBC, PSAS, T3F, A1C WTH eA, CMP, LIPID ####[facility] [address] [place] [address] [facility] Triglyceride [Mass/volume] i n Serum or PlasmaOrdered By: Jonh Patel on 04-27-2022 Triglyceride [Mass/Vol] 88 mg/dL 35-149 F [facility] Comment on above: TRIG ATP III CLASSIF ICATION TRIG less than 150 mg/dL Normal TRIG 150-199 mg/dL Borderline high TRIG 200-500 mg/dL High TRIG greater than 500 mg/dL Very high Standard traceable to the Center for Disease Conrtrol and Prevention (CDC) test method. Triiodothyronine (T3) Freeon 04-27-2022 Triiodothyronine (T3) Free 2.51 pg/mL Normal 2.50-3.90 [facility] Comment on above: Result Comment: PERF ORMED BY: [facility] [address] [place] [address] PATHOLOGIST [employer]ARITY DEVELOPER BRIDGETT MANZO M.D. Performed By: #### T 4T, TSH3, CBC, PSAS, T3F, A1C [facility] eA, CMP, LIPID #### [facility] [address] [place] [id number] [facility] Triiodothyronine (T3) Free [ Mass/volume] in Serum or PlasmaOrdered By: Jonh Patel on 04-27-2022 Free T3 [Mass/Vol] 2.51 pg/mL 2.50-3.90 [facility] Provider Letter [facility] October 27, 2021 Jonh Patel, [address] [place] [address] [place] [address] Re: NAVI FUNES Date of : 1940 Thank you for your referral of Navi Funes who was seen on consultation on 10/23/2021, for nodule right taylor with underlying cellulitis. I have enclosed my consultation note for your review. I will be happy to follow Navi. Sincerely, Josiah Gallego MD General Surgery [facility] Ambulatory Clinical Summaryo n 10-23-2021 Ambulatory Clinical Summary {[id number]}CD:[id number] [facility] Physician Referralon 021 Physician Referral [id number]:127 [facility] Vital Signs Date Time Vital Sign Value Performing Clinician Facility 08-10-2022 10:45-0400 Body height 177.8 cm Grady Peters Other [facility] Other 08-10-2022 10:45-0400 Body mass index (BMI) [Ratio] 26.54 kg/m2 Grady Peters Other [facility] Other 08-10-2022 10:45-0400 Body temperature 97.3 [degF] Grady Peters Other [facility] Other 08-10-2022 10:45-0400 Body weight 83.92 kg Grady Peters Other [facility] Other 08-10-2022 10:45-0400 Diastolic blood pressure 72 mm[Hg] Grady Peters Other [facility] Other 08-10-2022 10:45-0400 SaO2% (BldA) [Mass fraction] 98 % Grady Peters Other [facility] Other 08-10-2022 10:45-0400 Systolic blood pressure 146 mm[Hg] Grady Peters Other [facility] Other Encounters Encounter Date Encounter Type Care Provider Facility Start: 01-07-2024 ambulatory [facility] Start: 10-24-2023 End: 10-26-2023 Emergency department patient visit [facility] Start: 08-10-2022 End: 08-10-2022 ambulatory Grady Peters Other [facility] [employer] Other Start: 08-10-2022 Office outpatient vi sit 25 minutes Grady Peters [facility] Vascular Surgery Start: 07-30-2022 End: 07-30-2022 ambulatory Grady Peters Facility:[facility] Start: 07-30-2022 End: 07-30-2022 Patient encounter procedure MD Jonh Patel Work Phone: [facility]-Ultrasound [facility] [place] Start: 06-17-2022 End: 06-17-[address] JONH PATEL Facility: Start: 04-27-2022 End: 04-27-2022 ambulatory Jonh Patel Facility:[facility] Start: 04-27-2022 End: 04-27-2022 Patient encounter procedure MD Jonh Patel Work Phone: [facility]-Lab [facility] Start: 01-06-2017 End: 01-07-2017 Ambulatory CHARISMA [...] Start: 07-30-2022 Ankle brachial press ure index [facility] Start: 07-30-2022 Duplex scan of lower limb veins US venous duplex LE BI [facility] Start: 07-30-2022 US Lower extremity v ein - bilateral [facility] Work Phone: Payers Date Payer Category Payer Medicaid [id number] 2022 Self-pay [id number] 1957 Unknown [id number] 1940 Unknown [id number] 1940 Unknown [id number] 1940 Unknown [id number] Unknown [facility] [id number] Unknown [id number] Unknown [id number] Social History Date Type Detail Facility Tobacco smoking status NHIS Unknown if ever smoked [facility] Work Phone: Start: 1940 Sex Assigned At Male F [facility] Sex Assigned At Sex Assigned At Bir th [facility] Other Evaluation note 08-10-2022 Note Date & [...] this patient back on an as-needed basis. [facility] Other Clinical Note 06-22-2022 Note Date & [...] to Vascular surgery for recommendations; patient requests [facility]. Ordered: E&M of Est. Patient Low 20-29 Min [id number] [facility] External Ambulatory Referral Follow-up No qualifying data [...] SARS-CoV-2 (COVID-19) Ad26 vaccine 03/19/2021 Recorded [facility] Comment on above: Result Comment: Elec [...] SARS-CoV-2 (COVID-19) Ad26 vaccine 03/19/2021 Recorded [facility] Comment on above: Result Comment: Elec [...] lower extremity fracture Hospitalization History see above [facility] Other Summary Purpose Family History No Family [...] section and content) DATE CREATED AUTHOR 05/03/2018 [facility] DATE CREATED AUTHOR AUTHOR'S ORGANIZ ATION 06/20/2022 [facility] DATE CREATED AUTHOR AUTHOR'S ORGANIZ ATION 07/16/2022 Rivera Angelina [facility] DATE CREATED AUTHOR AUTHOR'S ORGANIZ ATION 12/23/2022 [facility] DATE CREATED AUTHOR AUTHOR'S ORGANIZ ATION 01/13/2024 [facility] Care Teams (unrecognized sec tion and content) Team Status: Inactive Member Role Status Dates Jonh Patel MD Primary Care Provider, Attending Leann yu Active Team Status: Active Member Role Status [...] TESTING; MARIAH AND FF V ENOUS AT [facility], Follow-up noninvasive studies FOR RECORDS PERTAINING TO [...] BE BASED ON THE PRIMARY CLINICAL RECORDS. [employer] provides no warranty or guarantee of the accuracy or completeness of information in this document.
[2024-01-23 10:17] LABS: Estimated Average Glucose 163 mg/dL; Glycohemoglobin A1C 7.3 % (4.5-6.2)
[2024-01-23 10:22] LABS: Chol HDL Ratio 4.9; Cholesterol 257 mg/dL (<=200); HDL Cholesterol 52 mg/dL (40-60); Triglycerides 91 mg/dL (<=150); VLDL CHOLESTEROL 18.2 mg/dL
[2024-01-23 11:00] LABS: Prostate Specific Antigen Scrn 0.99 ng/mL (<=4.00)
== END 2024-01-23 09:32 | disposition home or self-care (01) ==
LOC: LAB 09:31
PROVIDERS: PCP Family Medicine; Visit Provider Family Medicine
DX: I10 Essential (primary) hypertension (principal); E11.9 Type 2 diabetes mellitus without complications
CPT/HCPCS: 36415; 80061; 83036; G0103

== ENCOUNTER 2024-01-24 14:15 | Emergency (ER) | payer MEDICARE, SELFPAY ==
[2024-01-24 14:19] VITALS: PULSE 58; RESP 16; TEMP 36.4; O2SAT 100; BMI 27.1
[2024-01-24 14:26] VITALS: BP 180/69
--- NOTE | 2024-01-24 14:37 | ED_ITS ---
HPI - Wound/Laceration General Chief Complaint: Wound/Laceration Stated Complaint: LOWER EXTREMITY PAIN, RIGHT Time Seen by Provider: 01/24/24 14:28 Source: patient and family Mode of arrival: walk-in Limitations: other Limitations comment: HARD OF HEARING History of Present Illness HPI narrative: 83-year-old male presents because of a wound that has had on the inside of his right ankle for years. He apparently has missed at least 1 and perhaps more than 1 wound care clinic appointment. He has been on an antibiotic. Most of the history is obtained through his son-in-law who accompanies him. The patient is quite hard of hearing and does not wear his hearing aid. No drainage or fever. The patient does not want to lose his foot. He does not seem to have any new symptoms. Related Data Home Medications ?Medication ?Instructions ?Recorded ?Confirmed lisinopril 10 mg tablet 10 mg PO DAILY 10/22/23 01/06/24 metformin 500 mg tablet 500 mg PO BID 10/22/23 01/06/24 donepezil 10 mg tablet 10 mg PO .QD 01/06/24 01/06/24 memantine 14 mg capsule 14 mg PO .QD 01/06/24 01/06/24 sprinkle,extended release 24hr sulfamethoxazole 800 1 tab PO BID 01/06/24 01/06/24 mg-trimethoprim 160 mg tablet Previous Rx's ?Medication ?Instructions ?Recorded quetiapine 25 mg tablet 25 mg PO HS #30 tabs 10/26/23 clindamycin HCl 300 mg capsule 300 mg PO Q6H #60 caps 12/29/23 levofloxacin 750 mg tablet 750 mg PO Q24H #15 tabs 12/29/23 Allergies Allergy/AdvReac Type Severity Reaction Status Date / Time No Known Drug Allergies Allergy Verified 09/08/23 06:12 Review of Systems ROS Narrative A ten point review of systems is negative except as noted above. 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 leg with unspecified severity (ICD-10) Altered mental status ?R41.82 - Altered mental status, unspecified (ICD-10) Weakness ?R53.1 - Weakness (ICD-10) Dementia ?F03.90 - Unspecified dementia, unspecified severity, without behavioral disturbance, psychotic disturbance, mood disturbance, and anxiety (ICD-10) Bradycardia ?R00.1 - Bradycardia, unspecified (ICD-10) Altered mental status ?R41.82 - Altered mental status, unspecified (ICD-10) Acute hyperglycemia ?R73.9 - Hyperglycemia, unspecified (ICD-10) Medical non-compliance ?Z91.199 - Patient's noncompliance with other medical treatment and regimen due to unspecified reason (ICD-10) Hearing loss ?H91.90 - Unspecified hearing loss, unspecified ear (ICD-10) Fall ?W19.XXXA - Unspecified fall, initial encounter (ICD-10) Diabetes ?E11.9 - Type 2 diabetes mellitus without complications (ICD-10) Leg fracture, right ?S82.91XA - Unspecified fracture of right lower leg, initial encounter for closed fracture (ICD-10) Surgical History (Updated 10/22/23 @ 15:01 by Shayna Miller) FH: CABG (coronary artery bypass surgery) ?Z82.49 - Family history of ischemic heart disease and other diseases of the circulatory system (ICD-10) Family History (Updated 10/22/23 @ 15:04 by Shayna Miller) Father Family history of cancer Social History Within the past year, how often did you have a drink containing alcohol: never Within the past year, how many standard drinks containing alcohol did you have on a typical day: 1 or 2 Within the past year, how often did you have six or more drinks on one occasion: never Total score: 0 Score interpretation: A score less than 4 is consistent with normal alcohol consumption. Smoking status: Never smoker Non-prescribed substance use: denies use Previous occupational history: retired Highest level of school completed/degree received: don't know Are you now , , , , never or living with a partner: In a typical week, how many times do you talk on the telephone with family, friends, or neighbors: twice per week How often do you get together with friends or relatives: twice per week How often do you attend baptism or druze services: never Do you belong to any clubs or organizations such as baptism groups unions, fraternal or athletic groups, or school groups: no Total score: 1 Score interpretation: A score of less than or equal to 1 indicates the most socially isolated. Little interest or pleasure in doing things: not at all Feeling down, depressed, or hopeless: not at all Feel stressed/tense/nervous/anxious/difficulty sleeping: not at all Exam Narrative Exam Narrative: Nurses note and vital signs reviewed and patient is not hypoxic. General: The patient appears well and in no apparent distress. Patient is resting comfortably on cart. He is quite hard of hearing. Skin: Warm, dry, no pallor noted. There is no rash noted. Head: Normocephalic, atraumatic Eye: Normal conjunctiva, no drainage, EOMI. PERRL Ears, Nose, Mouth, and Throat: oral mucosa is moist. Nares patent. Cardiovascular: Regular Rate and Rhythm Respiratory: Patient is in no distress, no accessory muscle use, lungs are clear to auscultation, no wheezing, rales or rhonchi Back: non-tender GI: Soft and nontender Musculoskeletal: At the right medial malleolus there is a small wound that is not deep and is about 1 cm diameter. No drainage or abscess or surrounding erythema. There is no fluctuance. Neurological: Awake and alert Psychiatric: Cooperative Constitutional Vital Signs, click to edit/add: Last Vital Signs Temp 97.5 F L 01/24/24 14:19 Pulse 58 L 01/24/24 14:19 Resp 16 01/24/24 14:19 BP 180/69 H 01/24/24 14:26 Pulse Ox 100 01/24/24 14:19 Course Vital Signs Vital signs: Vital Signs Temperature 97.5 F L 01/24/24 14:19 Pulse Rate 58 L 01/24/24 14:19 Respiratory Rate 16 01/24/24 14:19 Pulse Oximetry 100 01/24/24 14:19 Temperature 97.5 F L 01/24/24 14:19 Pulse Rate 58 L 01/24/24 14:19 Respiratory Rate 16 01/24/24 14:19 Blood Pressure 180/69 H 01/24/24 14:26 Pulse Oximetry 100 01/24/24 14:19 MDM - Wound/Laceration MDM Narrative Medical decision making narrative: X-ray shows no acute findings and blood work is nonspecific. There does not seem to be an acute active infection but he is going to see Dr. Nguyen on January 29 at his already scheduled appointment. There is no indication for any further intervention at this point in the emergency department. Findings are discussed with his son-in-law. Differential Diagnosis Differential diagnosis: Likely abrasion, avulsion of skin and other (Chronic wound) Lab Data Attestation: I reviewed the patient's lab results. Labs: Lab Results 01/24/24 Range/Units 14:44 WBC 5.2 (4.0-11.0) 10^3/uL RBC 3.87 L (4.70-6.10) 10^6/uL Hgb 11.9 L (14.0-18.0) g/dL Hct 37.5 L (42.0-54.0) % MCV 96.9 H (80.0-94.0) fL MCH 30.7 (25.9-34.0) pg MCHC 31.7 (29.9-35.2) g/dL RDW 14.1 (11.0-15.0) % Plt Count 118 L (150-450) 10^3/uL MPV 11.6 (9.5-13.5) fL Neut % (Auto) 59.7 (43.0-75.0) % Lymph % (Auto) 24.6 (20.5-60.0) % [place] % (Auto) 8.1 (1.7-12.0) % Eos % (Auto) 6.4 (0.9-7.0) % Baso % (Auto) 1.0 (0.2-2.0) % Neut # (Auto) 3.1 (1.4-6.5) 10^3/uL Lymph # (Auto) 1.3 (1.2-3.8) 10^3/uL [place] # (Auto) 0.4 (0.3-0.8) 10^3/uL Eos # (Auto) 0.3 (0.0-0.7) 10^3/uL Baso # (Auto) 0.1 (0.0-0.1) 10^3/uL Abs Immat Gran (auto) 0.01 (0.00-0.03) 10^3/uL Imm/Tot Granulo (auto) 0.2 (0.0-0.5) % Sodium 136 (136-145) mmol/L Potassium 5.5 H (3.5-5.1) mmol/L Chloride 106 (98-107) mmol/L Carbon Dioxide 21.4 (21.0-32.0) mmol/L Anion Gap 14.1 BUN 36.0 H (7.0-18.0) mg/dL Creatinine 1.85 H (0.70-1.30) mg/dL Est GFR ( Amer) 43 L (>=60) Est GFR (Non-Af Amer) 35 L (>=60) BUN/Creatinine Ratio 19.5 Glucose 95 (74-106) mg/dL Calcium 8.7 (8.5-10.1) mg/dL Imaging Data Ankle x-ray: Radiologist's impression: ITS Impressions Ankle X-Ray 01/24/24 15:05 IMPRESSION: No convincing radiographic evidence for osteomyelitis. Electronically authenticated by: DULCE CHANDRA Date: 01/24/2024 15:26 Discharge Plan Discharge Stand Alone Forms: Portal Instructions Chief Complaint: Wound/Laceration Clinical Impression: Visit for wound check Patient Disposition: Home, Self-Care Time of Disposition Decision: 15:42 Condition: Good Mode of Transportation: Private Vehicle Prescriptions / Home Meds: No Action metformin 500 mg tablet 500 mg PO BID lisinopril 10 mg tablet 10 mg PO DAILY quetiapine 25 mg Tablet 25 mg PO HS Qty: 30 11RF clindamycin HCl 300 mg capsule 300 mg PO Q6H Qty: 60 0RF levofloxacin 750 mg tablet 750 mg PO Q24H Qty: 15 0RF donepezil 10 mg tablet 10 mg PO .QD memantine 14 mg capsule,sprinkle,ER 24hr 14 mg PO .QD sulfamethoxazole-trimethoprim 800-160 mg tablet 1 tab PO BID Print Language: Nepali Instructions: Wound Healing and Your Diet (ED) Additional Instructions: See Dr. Nguyen at your appointment on January 29. Referrals: Savage Patel MD [Primary Care Provider] - 1 week
[2024-01-24 14:56] LABS: Basophils Absolute Auto 0.1 10^3/uL (0.0-0.1); Eosinophils Absolute Auto 0.3 10^3/uL (0.0-0.7); Eosinophils Percent Auto 6.4 % (0.9-7.0); Hematocrit 37.5 % (42.0-54.0); Hemoglobin 11.9 g/dL (14.0-18.0); Immature Granulocytes Abs Auto 0.01 10^3/uL (0.00-0.03); Immature Granulocytes Pct Auto 0.2 % (0.0-0.5); Lymphocytes Absolute Auto 1.3 10^3/uL (1.2-3.8); Lymphocytes Percent Auto 24.6 % (20.5-60.0); Mean Corpuscular HGB Conc 31.7 g/dL (29.9-35.2); Mean Corpuscular Hemoglobin 30.7 pg (25.9-34.0); Mean Corpuscular Volume 96.9 fL (80.0-94.0); Mean Platelet Volume 11.6 fL (9.5-13.5); Monocytes Absolute Auto 0.4 10^3/uL (0.3-0.8); Monocytes Percent Auto 8.1 % (1.7-12.0); Neutrophils Absolute Auto 3.1 10^3/uL (1.4-6.5); Neutrophils Percent Auto 59.7 % (43.0-75.0); Platelet Count 118 10^3/uL (150-450); Red Blood Count 3.87 10^6/uL (4.70-6.10); Red Cell Distribution Width 14.1 % (11.0-15.0); White Blood Count 5.2 10^3/uL (4.0-11.0)
[2024-01-24 15:03] LABS: Anion Gap 14.1; BUN Creatinine Ratio 19.5; Calcium 8.7 mg/dL (8.5-10.1); Carbon Dioxide 21.4 mmol/L (21.0-32.0); Chloride 106 mmol/L (98-107); Estimated GFR (African America 43 (>=60); Estimated GFR (Non-African Ame 35 (>=60); Glucose 95 mg/dL (74-106); Potassium 5.5 mmol/L (3.5-5.1); Sodium 136 mmol/L (136-145)
--- OUTSIDE RECORDS SUMMARY | 2024-01-24 15:03 | XMS_ITS | CCD ---
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] US ankle/arm indiceson 07-31 US ankle/arm indices [place] [address] Ultrasound Report Signed Patient: Navi Funes Jr MR#: [id number] : 1940 Acct:[id number] Age/Sex: 81 / M ADM Date: 07/30/22 Loc: Room: Type: [facility] Attending Dr: Grady Peters MD Ordering [...] Ruben Dumont MD07/31/2022 3:20 PM Dictation Location: [id number] Tech: Katt Baron Transcribed By: HANNAH 07/31/22 1520 Dictated By: Ruben Dumont MD 07/31/22 1519 Signed By: 07/31/22 1520 Normal [facility] US venous duplex LE BIon US venous duplex LE BI [facility] [place] [address] [place] [address] Ultrasound Report Signed Patient: Navi Funes Jr MR#: [id number] : 1940 Acct:[id number] Age/Sex: 81 / M ADM Date: 07/30/22 Loc: Room: Type: [facility] Attending Dr: Grady Peters MD Ordering [...] Tech: Katt Mendez Transcribed By: HANNAH 07/31/22 1522 Dictated By: Ruben Dumont MD 07/31/22 1521 Signed By: 07/31/22 1522 [facility] XR ankle RT min 3V*on 2021 XR ankle RT min 3V* [facility] [place] [address] [place] [address] XRay Report Signed Patient: Navi Funes Jr MR#: [id number] : 1940 Acct:[id number] Age/Sex: 81 / M ADM Date: 07/30/22 Loc: Room: Type: [facility] Attending Dr: Grady Peters MD Copies to: [...] King Jr., D.O.07/30/2022 4:33 PM Dictation Location: [place] [address] Transcribed By: [facility] 07/30/22 1633 Dictated By: Navi King Jr, DO 07/30/22 1632 Signed By: 07/30/22 1633 [facility] Consultation Noteon 07-15-20 Consultation Note [id number]:127 Normal [facility] HIPAA Privacy Documentson HIPAA Privacy Documents [id number]:127 Normal [facility] WOUND CULTUREon 06-20-2022 Bacteria identified Aer cx Nom (Unsp spec) Final report Normal [facility] Comment on above: Performed By: #### C XWND #### [facility] [address] [address] [address] Eddie Gaitan Result 1 Comment Normal [facility] Comment on above: Result Comment: No g rowth in 36 - 48 hours. Performed By: #### C XWND #### [facility] [address] [address] [address] Eddie Gaitan Physician Referralon 022 Physician Referral [id number]:127 Normal [facility] A1C with Estimated Average G mary 04-27-2022 Glucose [Mass/Vol] 151 mg/dL Normal [facility] Comment on above: Result Comment: PERF ORMED BY: [place] [address] PATHOLOGIST COTTON WEIGHER BRIDGETT MANZO M.D. Performed By: #### T 4T, TSH3, CBC, PSAS, T3F, A1C WT eA, CMP, LIPID #### [facility] [address] [place] [address] HbA1c (Bld) [Mass fraction] 6.9 % High 4.3-5.6 [facility] Comment on above: Result Comment: Incr eased risk for diabetes: 5.7 - 6.4 diabetes: >6.4 glycemic control for adults with diabetes: <7.0 Performed By: #### T 4T, TSH3, CBC, PSAS, T3F, A1C WTH eA, CMP, LIPID #### [facility] [address] [place] [address] Basophils Auto (Bld) [#/Vol] Ordered By: Jonh Patel on 04-27-2022 Basophils (Bld) [#/Vol] 0.1 10*3/uL 0.0-0.2 [facility] Basophils/100 WBC Auto (Bld) Ordered By: Jonh Patel on 04-27-2022 Basophils/100 WBC (Bld) 1.1 % [facility] Blood hemoglobin measurement (mass/volume)Ordered By: Jonh Patel on 04-27-2022 Hemoglobin (Bld) [Mass/Vol] 13.3 g/dL 13.0-17.0 [facility] Blood leukocytes automated c ount (number/volume)Ordered By: Jonh Patel on 04-27-2022 WBC (Bld) [#/Vol] 5.0 10*3/uL 4.5-11.0 [facility] Body fluid albumin measureme nt (mass/volume)Ordered By: Jonh Patel on 04-27-2022 Albumin (Body fld) [Mass/Vol] 3.6 g/dL 3.2-5.5 [facility] Cholesterol [Mass/volume] in Serum or PlasmaOrdered By: Jonh Patel on 04-27-2022 Cholesterol [Mass/Vol] 168 mg/dL 140-200 [facility] Comment on above: Chol less than 200 m g/dl low risk Chol 201-239 mg/dl borderline risk Chol 240 mg/dl and greater high risk Cholesterol in LDL Calc [Mas s/Vol]Ordered By: Jonh Patel on 04-27-2022 Cholesterol in LDL [Mass/Vol] 112 mg/dL 0-100 [facility] Comment on above: LDL ATP III CLASSIFI CATION LDL less than 100 mg/dL Optimal LDL 100-129 mg/dL Near or above optimal LDL 130-159 mg/dL Borderline high LDL 160-189 mg/dL High LDL greater than 189 mg/dL Very high Cholesterol in VLDL Calc [Ma ss/Vol]Ordered By: Jonh Patel on 04-27-2022 Cholesterol in VLDL [Mass/Vol] 17 mg/dL [facility] Complete Blood Count Auto Di ffon 04-27-2022 Basophils (Bld) [#/Vol] 0.1 10*3/uL Normal 0.0-0.2 [facility] Comment on above: Result Comment: PERF ORMED BY: [place] [address] PATHOLOGIST COTTON WEIGHER BRIDGETT MANZO M.D. Performed By: #### T 4T, TSH3, CBC, PSAS, T3F, A1C WTH eA, CMP, LIPID #### [facility] [address] [place] [address] [place] Basophils/100 WBC (Bld) 1.1 % Normal . [facility] Comment on above: Performed By: #### T 4T, TSH3, CBC, PSAS, T3F, A1C WTH eA, CMP, LIPID #### [facility] [address] Eosinophils (Bld) [#/Vol] 0.3 10*3/uL Normal 0.0-0.45 [facility] Comment on above: Performed By: #### T 4T, TSH3, CBC, PSAS, T3F, A1C WTH eA, CMP, LIPID #### [facility] [address] Eosinophils/100 WBC (Bld) 6.5 % Normal . [facility] Comment on above: Performed By: #### T 4T, TSH3, CBC, PSAS, T3F, A1C WTH eA, CMP, LIPID #### [facility] [address] Erythrocyte distribution width (RBC) [Ratio] 15.0 % High 12.0-14.8 [facility] Comment on above: Performed By: #### T 4T, TSH3, CBC, PSAS, T3F, A1C WTH eA, CMP, LIPID #### [address] Hematocrit (Bld) [Volume fraction] 39.9 % Normal 38.8-50.0 [facility] Comment on above: Performed By: #### T 4T, TSH3, CBC, PSAS, T3F, A1C WTH eA, CMP, LIPID #### [facility] [address] Hemoglobin (Bld) [Mass/Vol] 13.3 g/dL Normal 13.0-17.0 [facility] Comment on above: Performed By: #### T 4T, TSH3, CBC, PSAS, T3F, A1C WTH eA, CMP, LIPID #### [address] Lymphocytes (Bld) [#/Vol] 1.3 10*3/uL Normal 1.00-4.8 [facility] Comment on above: Performed By: #### T 4T, TSH3, CBC, PSAS, T3F, A1C WTH eA, CMP, LIPID #### [facility] [address] Lymphocytes/100 WBC (Bld) 25.6 % Normal . [facility] Comment on above: Performed By: #### T 4T, TSH3, CBC, PSAS, T3F, A1C WTH eA, CMP, LIPID #### [facility] [address] MCH (RBC) [Entitic mass] 31.2 pg Normal 27.5-35.2 [facility] Comment on above: Performed By: #### T 4T, TSH3, CBC, PSAS, T3F, A1C WTH eA, CMP, LIPID #### [address] MCV (RBC) [Entitic vol] 93.5 fL Normal 83.5-101 [facility] Comment on above: Performed By: #### T 4T, TSH3, CBC, PSAS, T3F, A1C WTH eA, CMP, LIPID #### [address] Mean Corpuscular HGB Conc 33.4 g/dL Normal 32.5-35.6 [facility] Comment on above: Performed By: #### T 4T, TSH3, CBC, PSAS, T3F, A1C WTH eA, CMP, LIPID #### [address] Monocytes (Bld) [#/Vol] 0.4 10*3/uL Normal 0.0-0.8 [facility] Comment on above: Performed By: #### T 4T, TSH3, CBC, PSAS, T3F, A1C WTH eA, CMP, LIPID #### [address] Monocytes/100 WBC (Bld) 8.3 % Normal . [facility] Comment on above: Performed By: #### T 4T, TSH3, CBC, PSAS, T3F, A1C WTH eA, CMP, LIPID #### [facility] [address] [place] [address] [place] Neutrophils (Bld) [#/Vol] 2.9 10*3/uL Normal 1.8-7.7 [facility] Comment on above: Performed By: #### T 4T, TSH3, CBC, PSAS, T3F, A1C WTH eA, CMP, LIPID #### [address] Neutrophils/100 WBC (Bld) 58.5 % Normal . [facility] Comment on above: Performed By: #### T 4T, TSH3, CBC, PSAS, T3F, A1C WTH eA, CMP, LIPID #### [address] Nucleated RBC/100 WBC (Bld) [Ratio] 0.0 % Normal 0-0.5 [facility] Comment on above: Performed By: #### T 4T, TSH3, CBC, PSAS, T3F, A1C WTH eA, CMP, LIPID #### [address] Platelet mean volume (Bld) [Entitic vol] 11.0 fL High 6.6-10.1 [facility] Comment on above: Performed By: #### T 4T, TSH3, CBC, PSAS, T3F, A1C WTH eA, CMP, LIPID #### [facility] [address] [place] [address] [place] Platelets (Bld) [#/Vol] 116 10*3/uL Low 150-450 [facility] Comment on above: Performed By: #### T 4T, TSH3, CBC, PSAS, T3F, A1C WTH eA, CMP, LIPID #### [place] [address] [place] RBC (Bld) [#/Vol] 4.27 10*6/uL Normal 3.90-5.[address] [facility] Comment on above: Performed By: #### T 4T, TSH3, CBC, PSAS, T3F, A1C WTH eA, CMP, LIPID #### [address] WBC (Bld) [#/Vol] 5.0 10*3/uL Normal 4.5-11.0 [facility] Comment on above: Performed By: #### T 4T, TSH3, CBC, PSAS, T3F, A1C WTH eA, CMP, LIPID #### [facility] [address] Comprehensive Metabolic Pane alexandra 04-27-2022 Albumin [Mass/Vol] 3.6 g/dL Normal 3.2-5.5 [facility] Comment on above: Performed By: #### T 4T, TSH3, CBC, PSAS, T3F, A1C WTH eA, CMP, LIPID #### [address] Albumin/Globulin [Mass ratio] 1.3 {ratio} Normal [facility] Comment on above: Performed By: #### T 4T, TSH3, CBC, PSAS, T3F, A1C WTH eA, CMP, LIPID #### [address] ALP [Catalytic activity/Vol] 71 U/L Normal 32-92 [facility] Comment on above: Performed By: #### T 4T, TSH3, CBC, PSAS, T3F, A1C WTH eA, CMP, LIPID #### [address] ALT [Catalytic activity/Vol] 12 U/L Normal 10-60 [facility] Comment on above: Performed By: #### T 4T, TSH3, CBC, PSAS, T3F, A1C WTH eA, CMP, LIPID #### [address] AST [Catalytic activity/Vol] 18 U/L Normal 10-42 [facility] Comment on above: Performed By: #### T 4T, TSH3, CBC, PSAS, T3F, A1C WTH eA, CMP, LIPID #### [facility] [address] Bilirubin [Mass/Vol] 0.8 mg/dL Normal 0.3-1.2 [facility] Comment on above: Performed By: #### T 4T, TSH3, CBC, PSAS, T3F, A1C WTH eA, CMP, LIPID #### [facility] [address] Calcium [Mass/Vol] 9.0 mg/dL Normal 8.2-10.2 [facility] Comment on above: Performed By: #### T 4T, TSH3, CBC, PSAS, T3F, A1C WTH eA, CMP, LIPID #### [facility] [address] Chloride [Moles/Vol] 104 mmol/L Normal 95-114 [facility] Comment on above: Performed By: #### T 4T, TSH3, CBC, PSAS, T3F, A1C WTH eA, CMP, LIPID #### [facility] [address] CO2 [Moles/Vol] 22.4 mmol/L Normal 22.0-30.0 [place] Comment on above: Performed By: #### T 4T, TSH3, CBC, PSAS, T3F, A1C WTH eA, CMP, LIPID #### [facility] [address] Creatinine [Mass/Vol] 1.47 mg/dL High 0.64-1.[address] [facility] Comment on above: Performed By: #### T 4T, TSH3, CBC, PSAS, T3F, A1C WTH eA, CMP, LIPID #### [facility] [address] [place] [address] [place] Estimated GFR ( Evelyn 56 Normal [facility] Comment on above: Result Comment: GFR estimated reference range: According to KDOQI guidelines, <60 ml/min/1.73m2 is sufficient to diagnose a patient with chronic kidney disease. Performed By: #### T 4T, TSH3, CBC, PSAS, T3F, A1C WTH eA, CMP, LIPID #### [facility] [address] Estimated GFR (Non- Am 46 Normal [facility] Comment on above: Performed By: #### T 4T, TSH3, CBC, PSAS, T3F, A1C WTH eA, CMP, LIPID #### [facility] [address] Globulin (S) [Mass/Vol] 2.8 g/dL Normal [facility] Comment on above: Performed By: #### T 4T, TSH3, CBC, PSAS, T3F, A1C WTH eA, CMP, LIPID #### [facility] [address] Glucose [Mass/Vol] 139 mg/dL High 70-100 [facility] Comment on above: Result Comment: [place] Glucose Reference Range is dependent on time and content of last meal. Glucose of more than 200 mg/dL in a nonstressed, ambulatory subject supports the diagnosis of Diabetes Mellitus. ADA recommended reference range Performed By: #### T 4T, TSH3, CBC, PSAS, T3F, A1C WTH eA, CMP, LIPID #### [facility] [address] Potassium [Moles/Vol] 4.4 mmol/L Normal 3.5-5.[address] [facility] Comment on above: Performed By: #### T 4T, TSH3, CBC, PSAS, T3F, A1C WTH eA, CMP, LIPID #### [facility] [address] Protein [Mass/Vol] 6.4 g/dL Normal 6.1-7.9 [facility] Comment on above: Performed By: #### T 4T, TSH3, CBC, PSAS, T3F, A1C WTH eA, CMP, LIPID #### [facility] [address] Sodium [Moles/Vol] 136 mmol/L Normal 136-146 [facility] Comment on above: Performed By: #### T 4T, TSH3, CBC, PSAS, T3F, A1C WTH eA, CMP, LIPID #### [facility] [address] [place] [id number] [place] Urea nitrogen [Mass/Vol] 23 mg/dL Normal 9-23 [facility] Comment on above: Performed By: #### T 4T, TSH3, CBC, PSAS, T3F, A1C WTH eA, CMP, LIPID #### [facility] [address] [place] [id number] [place] Creatinine and Glomerular fi ltration rate.predicted panel (S/P/Bld)Ordered By: Jonh Patel on 04-27-2022 Creatinine [Mass/Vol] 1.47 mg/dL 0.64-1.[address] [facility] Eosinophils Auto (Bld) [#/Vo l]Ordered By: Jonh Patel on 04-27-2022 Eosinophils (Bld) [#/Vol] 0.3 10*3/uL 0.0-0.45 [facility] Eosinophils/100 WBC Auto (Bl d)Ordered By: Jonh Patel on 04-27-2022 Eosinophils/100 WBC (Bld) 6.5 % [facility] Erythrocyte distribution wid th Auto (RBC) [Ratio]Ordered By: Jonh Patel on 04-27-2022 Erythrocyte distribution width (RBC) [Ratio] 15.0 % 12.0-14.8 [facility] Estimated glomerular filtrat ion rate (GFR) non- AmericanOrdered By: Jonh Patel on 04-27-2022 GFR/1.73 sq M.predicted among non-blacks MDRD (S/P/Bld) [Vol rate/Area] 46 mL/Min [facility] Globulin Calc (S) [Mass/Vol] Ordered By: Jonh Patel on 04-27-2022 Globulin (S) [Mass/Vol] 2.8 g/dL [facility] Glucose mean value [Mass/vol ume] in Blood Estimated from glycated hemoglobinOrdered By: Jonh Patel on 04-27-2022 Average glucose Estimated from glycated hemoglobin (Bld) [Mass/Vol] 151 mg/dL [facility] Hematocrit Auto (Bld) [Volum e fraction]Ordered By: Jonh Patel on 04-27-2022 Hematocrit (Bld) [Volume fraction] 39.9 % 38.8-50.0 [facility] Hemoglobin A1c percentageOrd ered By: Jonh Patel on 04-27-2022 HbA1c (Bld) [Mass fraction] 6.9 % 4.3-5.6 [facility] Comment on above: Increased risk for d iabetes: 5.7 - 6.4 diabetes: >6.4 glycemic control for adults with diabetes: <7.0 Laboratory - Hematology and Cell countsOrdered By: Jonh Patel on 04-27-2022 Nucleated RBC/100 WBC (Bld) [Ratio] 0.0 % 0-0.5 [facility] Lipid Panelon 04-27-2022 Cholesterol [Mass/Vol] 168 mg/dL Normal 140-200 [facility] Comment on above: Result Comment: Chol less than 200 mg/dl low risk Chol 201-239 mg/dl borderline risk Chol 240 mg/dl and greater high risk Performed By: #### T 4T, TSH3, CBC, PSAS, T3F, A1C WTH eA, CMP, LIPID #### [facility] [address] [place] [id number] [place] Cholesterol in HDL [Mass/Vol] 38 mg/dL Normal 29-71 [facility] Comment on above: Result Comment: HDL CHOL ATP-III CLASSIFICATION Cardiovascular Risk HDL > or equal to 60 mg/dL LOW HDL < 40 mg/dL HIGH Performed By: #### T 4T, TSH3, CBC, PSAS, T3F, A1C WTH eA, CMP, LIPID #### [facility] [address] [place] [address] [place] Cholesterol.total/Tresa sterol in HDL [Mass ratio] 4.4 {ratio} Normal <5.0 [facility] Comment on above: Performed By: #### T 4T, TSH3, CBC, PSAS, T3F, A1C WTH eA, CMP, LIPID #### [facility] [address] [place] [address] [place] LDL Cholesterol,Calculated 112 mg/dL High 0-100 [facility] Comment on above: Result Comment: LDL ATP III CLASSIFICATION LDL less than 100 mg/dL Optimal LDL 100-129 mg/dL Near or above optimal LDL 130-159 mg/dL Borderline high LDL 160-189 mg/dL High LDL greater than 189 mg/dL Very high Performed By: #### T 4T, TSH3, CBC, PSAS, T3F, A1C WTH eA, CMP, LIPID #### [facility] [address] Triglyceride w/Reflex 88 mg/dL Normal 35-[address] [facility] Comment on above: Result Comment: TRIG ATP III CLASSIFICATION TRIG less than 150 mg/dL Normal TRIG 150-199 mg/dL Borderline high TRIG 200-500 mg/dL High TRIG greater than 500 mg/dL Very high Standard traceable to the Center for Disease Conrtrol and Prevention (CDC) test method. Performed By: #### T 4T, TSH3, CBC, PSAS, T3F, A1C WTH eA, CMP, LIPID #### [facility] [address] VLDL CHOLESTEROL 17 mg/dL Normal [place] Comment on above: Performed By: #### T 4T, TSH3, CBC, PSAS, T3F, A1C WTH eA, CMP, LIPID #### [facility] [address] Lymphocytes Auto (Bld) [#/Vo l]Ordered By: Jonh Patel on 04-27-2022 Lymphocytes (Bld) [#/Vol] 1.3 10*3/uL 1.00-4.8 [facility] Lymphocytes/100 WBC Auto (Bl d)Ordered By: Jonh Patel on 04-27-2022 Lymphocytes/100 WBC (Bld) 25.6 % [facility] MCH Auto (RBC) [Entitic mass ]Ordered By: Jonh aPtel on 04-27-2022 MCH (RBC) [Entitic mass] 31.2 pg 27.5-35.2 [facility] MCHC Auto (RBC) [Mass/Vol]Or dered By: Jonh Patel on 04-27-2022 MCHC (RBC) [Mass/Vol] 33.4 g/dL 32.5-35.[address] [facility] MCV Auto (RBC) [Entitic vol] Ordered By: Jonh Patel on 04-27-2022 MCV (RBC) [Entitic vol] 93.5 fL 83.5-101 [facility] Monocytes Auto (Bld) [#/Vol] Ordered By: Jonh Patel on 04-27-2022 Monocytes (Bld) [#/Vol] 0.4 10*3/uL 0.0-0.8 [facility] Monocytes/100 WBC Auto (Bld) Ordered By: Jonh Hokimmy on 04-27-2022 Monocytes/100 WBC (Bld) 8.3 % [facility] Neutrophils Auto (Bld) [#/Vo l]Ordered By: Jonh Realkimmy on 04-27-2022 Neutrophils (Bld) [#/Vol] 2.9 10*3/uL 1.8-7.7 [facility] Neutrophils/100 WBC Auto (Bl d)Ordered By: Jonh Patel on 04-27-2022 Neutrophils/100 WBC (Bld) 58.5 % [facility] No Panel InformationOrdered By: Jonh Hokimmy on 04-27-2022 Estimated GFR () 56 mL/Min [facility] Comment on above: GFR estimated refere nce range: According to KDOQI guidelines, <60 ml/min/1.73m2 is sufficient to diagnose a patient with chronic kidney disease. Pharmacy Creatinine Clearance (Chem N/A [facility] Prostate Specific Antigen Screen 0.860 ng/mL 0.000-4.000 [facility] PSA Screen (Yearly Only)on 0 04-27-2022 PSA Screen (Yearly Only) 0.860 ng/mL Normal 0.000-4.000 [facility] Comment on above: Order Comment: Is pa tient <50 yrs? Medicare does not pay <50.: Y Is Medicare the insurance?: Y Result Comment: PERF ORMED BY: [facility] [address] [place] [address] PATHOLOGIST COTTON WEIGHER BRIDGETT MANZO M.D. Performed By: #### T 4T, TSH3, CBC, PSAS, T3F, A1C WTH eA, CMP, LIPID #### [facility] [address] Platelet mean volume Auto (B ld) [Entitic vol]Ordered By: Jonh Patel on 04-27-2022 Platelet mean volume (Bld) [Entitic vol] 11.0 fL 6.6-10.1 [facility] Platelets Auto (Bld) [#/Vol] Ordered By: Jonh Patel on 04-27-2022 Platelets (Bld) [#/Vol] 116 10*3/uL 150-450 [facility] Protein [Mass/volume] in Ser um or PlasmaOrdered By: Jonh Patel on 04-27-2022 Protein [Mass/Vol] 6.4 g/dL 6.1-7.9 [facility] RBC Auto (Bld) [#/Vol]Ordere d By: Jonh Patel on 04-27-2022 RBC (Bld) [#/Vol] 4.27 10*6/uL 3.90-5.[address] [facility] Serum or plasma alanine garner otransferase measurement without P-5'-P (enzymatic activiOrdered By: Jonh Patel on 04-27-2022 ALT No additional P-5'-P [Catalytic activity/Vol] 12 U/L 10-60 [facility] Serum or plasma albumin/glob ulin mass ratioOrdered By: Jonh Patel on 04-27-2022 Albumin/Globulin [Mass ratio] 1.3 {ratio} [facility] Serum or plasma alkaline anna sphatase measurement (enzymatic activity/volume)Ordered By: Jonh Patel on 04-27-2022 ALP [Catalytic activity/Vol] 71 U/L 32-92 [facility] Serum or plasma aspartate am inotransferase measurement (enzymatic activity/volume)Ordered By: Jonh Patel on 04-27-2022 AST [Catalytic activity/Vol] 18 U/L 10-42 [facility] Serum or plasma calcium josiah urement (mass/volume)Ordered By: Jonh Patel on 04-27-2022 Calcium [Mass/Vol] 9.0 mg/dL 8.2-10.2 [facility] Serum or plasma chloride jerica surement (moles/volume)Ordered By: Jonh Patel on 04-27-2022 Chloride [Moles/Vol] 104 mmol/L 95-114 [facility] Serum or plasma glucose josiah urement (mass/volume)Ordered By: Jonh Patel on 04-27-2022 Glucose [Mass/Vol] 139 mg/dL 70-100 [facility] Comment on above: ADA recommended refe rence range Random Glucose Reference Range is dependent on time and content of last meal. Glucose of more than 200 mg/dL in a nonstressed, ambulatory subject supports the diagnosis of Diabetes Mellitus. Serum or plasma high density lipoprotein (HDL) cholesterol measurementOrdered By: Jonh Patel on 04-27-2022 Cholesterol in HDL [Mass/Vol] 38 mg/dL 29-71 [facility] Comment on above: HDL CHOL ATP-III CLA SSIFICATION Cardiovascular Risk HDL > or equal to 60 mg/dL LOW HDL < 40 mg/dL HIGH Serum or plasma potassium me asurement (moles/volume)Ordered By: Jonh Patel on 04-27-2022 Potassium [Moles/Vol] 4.4 mmol/L 3.5-5.[address] [facility] Serum or plasma sodium measu rement (moles/volume)Ordered By: Jonh Patel on 04-27-2022 Sodium [Moles/Vol] 136 mmol/L 136-146 [facility] Serum or plasma thyroxine (T 4) measurement (mass/volume)Ordered By: Jonh Patel on 04-27-2022 T4 [Mass/Vol] 9.08 ug/dL 5.39-11.82 [facility] Serum or plasma total biliru bin measurement (mass/volume)Ordered By: Jonh Patel on 04-27-2022 Bilirubin [Mass/Vol] 0.8 mg/dL 0.3-1.2 [facility] Serum or plasma total carbon dioxide measurement (moles/volume)Ordered By: Jonh Patel on 04-27-2022 CO2 [Moles/Vol] 22.4 mmol/L 22.0-30.0 [place] Serum or plasma total choles terol/high density lipoprotein (HDL) cholesterol mass ratOrdered By: Jonh Patel on 04-27-2022 Cholesterol.total/Tresa sterol in HDL [Mass ratio] 4.4 {ratio} [facility] Serum or plasma urea nitroge n measurement (mass/volume)Ordered By: Jonh Patel on 04-27-2022 Urea nitrogen [Mass/Vol] 23 mg/dL 07-30 [facility] Stool Occult Blood (Immuno)o n 04-27-2022 Stool Occult Blood (Immuno) Occult Blood (Immuno) Negative for Occult Blood by Immunochemical Methodology Reference range = Negative PERFORMED BY: [address] [place] [address] PATHOLOGIST COTTON WEIGHER BRIDGETT MANZO M.D. Normal [facility] Comment on above: Performed By: #### O B(IMMUNO) #### [facility] [address] [place], [place] [id number] [facility] TSH DL <= 0.005 mIU/L QnOrde red By: Jonh Patel on 04-27-2022 TSH Qn 1.16 m[IU]/L 0.45-5.33 [facility] Thyroid Stimulating Hormoneo n 04-27-2022 TSH Qn 1.16 m[IU]/L Normal 0.45-5.33 [facility] Comment on above: Result Comment: PERF ORMED BY: [address] [place] [address] PATHOLOGIST COTTON WEIGHER BRIDGETT MANZO M.D. Performed By: #### T 4T, TSH3, CBC, PSAS, T3F, A1C WTH eA, CMP, LIPID ####[address] Thyroxine (T4) Totalon 04-27 T4 [Mass/Vol] 9.08 ug/dL Normal 5.39-11.82 [facility] Comment on above: Performed By: #### T 4T, TSH3, CBC, PSAS, T3F, A1C WT eA, CMP, LIPID ####[address] Triglyceride [Mass/volume] i n Serum or PlasmaOrdered By: Jonh Realkimmy on 04-27-2022 Triglyceride [Mass/Vol] 88 mg/dL 35-149 [facility] Comment on above: TRIG ATP III CLASSIF ICATION TRIG less than 150 mg/dL Normal TRIG 150-199 mg/dL Borderline high TRIG 200-500 mg/dL High TRIG greater than 500 mg/dL Very high Standard traceable to the Center for Disease Conrtrol and Prevention (CDC) test method. Triiodothyronine (T3) Freeon 04-27-2022 Triiodothyronine (T3) Free 2.51 pg/mL Normal 2.50-3.90 [facility] Comment on above: Result Comment: PERF ORMED BY: [facility] [address] [place] [address] PATHOLOGIST COTTON WEIGHER BRIDGETT MANZO M.D. Performed By: #### T 4T, TSH3, CBC, PSAS, T3F, A1C WTH eA, CMP, LIPID #### [facility] [address] Triiodothyronine (T3) Free [ Mass/volume] in Serum or PlasmaOrdered By: Jonh Hoy on 04-27-2022 Free T3 [Mass/Vol] 2.51 pg/mL 2.50-3.90 [facility] Provider Letter FTon 10-[address] [facility] [place] 27, 2021 Jonh Jorge, [address] [facility] [place] [address] [place] [address] Re: NAVI FUNES Date of : 1940 Thank you for your referral of Navi Funes who was seen on consultation on 10/23/2021, for nodule right taylor with underlying cellulitis. I have enclosed my consultation note for your review. I will be happy to follow Navi. Sincerely, Josiah Gallego MD General Surgery Normal [facility] Ambulatory Clinical Summaryo n 10-23-2021 Ambulatory Clinical Summary {[id number] Normal [facility] Physician Referralon 021 Physician Referral [id number]:[id number] Normal [facility] Vital Signs Date Time Vital Sign Value Performing Clinician Facility 08-10-2022 10:45-0400 Body height 177.8 cm Grady Peters Other [facility] Other 08-10-2022 10:45-0400 Body mass index (BMI) [Ratio] 26.54 kg/m2 Grady Peters Other [facility] Other 08-10-2022 10:45-0400 Body temperature 97.3 [degF] Grady Peters Other [facility] Other 08-10-2022 10:45-0400 Body weight 83.92 kg Grady Peters Other [facility] Other 08-10-2022 10:45-0400 Diastolic blood pressure 72 mm[Hg] Grady Peters Other [facility] Other 08-10-2022 10:45-0400 SaO2% (BldA) [Mass fraction] 98 % Grady Peters Other [facility] Other 08-10-2022 10:45-0400 Systolic blood pressure 146 mm[Hg] Grady Peters Other [facility] Other Encounters Encounter Date Encounter Type Care Provider Facility Start: 01-07-[address] [facility] Start: 10-24-2023 End: 10-26-2023 Emergency department patient visit [facility] Start: 08-10-2022 End: 08-10-2022 ambulatory Grady Peters Other [facility] Other Start: 08-10-2022 Office outpatient vi sit 25 minutes Grady Peters [facility] Vascular Surgery Start: 07-30-2022 End: 07-30-2022 ambulatory Grady Peters Facility:[facility] Start: 07-30-2022 End: 07-30-2022 Patient encounter procedure MD Jonh Patel Work Phone: [facility]-Ul[facility]ound [facility] [place] Start: 06-17-2022 End: 06-17-[address] JONH PATEL Facility: Start: 04-27-2022 End: 04-27-2022 ambulatory Jonh Patel Facility:[facility] Start: 04-27-2022 End: 04-27-2022 Patient encounter procedure MD Jonh Patel Work Phone: [facility]-Lab [facility] Start: 01-06-2017 End: 01-07-2017 Ambulatory CHARISMA MCKEON Facility:[facility] Procedures Date Procedure Procedure Detail Performing Clinician Start: 07-30-2022 X-ray of right ankle MD Jonh Patel Work Phone: Start: 04-27-2022 End: 04-27-2022 Screening for occult blood in feces MD Jonh Patel Work Phone: Plan of Treatment Date Care Activity Detail Author Start: 07-30-2022 Ankle brachial press ure index [facility] Start: 07-30-2022 Duplex scan of lower limb veins US venous duplex LE BI [facility] Start: 07-30-2022 US Lower extremity v ein - bilateral [facility] Work Phone: Payers Date Payer Category Payer Medicaid [id number] 2022 Self-pay [id number] 1957 Unknown [id number] 1940 Unknown [id number] 1940 Unknown [id number] 1940 Unknown [id number] Unknown [facility] [id number] Unknown [id number] Unknown [id number] Social History Date Type Detail Facility Tobacco smoking status NHIS Unknown if ever smoked [facility] Work Phone: Start: 1940 Sex Assigned At Male F [facility] Sex Assigned At Sex Assigned At Bir th [employer] [facility] Other Evaluation note 08-10-2022 Note Date & [...] this patient back on an as-needed basis. [employer] [facility] Other Clinical Note 06-22-2022 Note Date & [...] to Vascular surgery for recommendations; patient requests [facility]. Ordered: E&M of Est. Patient Low 20-[id number] [facility] External Ambulatory Referral Follow-up No qualifying data [...] Recorded SARS-CoV-2 (COVID-19) Ad26 vaccine 03/19/2021 Recorded [facility] Comment on above: Result Comment: Taylor canas Signed By: CLAUDIA OG, Josiah Daley\Date and [...] Recorded SARS-CoV-2 (COVID-19) Ad26 vaccine 03/19/2021 Recorded [facility] Comment on above: Result Comment: Elec tronically Signed By: CLAUDIA OG, Josiah Frederick\.janeth\Date and Time Signed: 10/23/21 16:30 EST Evaluation note Note Date & Type Note Facility Evaluation note No assessment information availa [facility] Work Phone: History general Narrative - Reported Note Date & Type Note Facility History general Narrative - Reported Type Medical History hypercholesterolemia Medical History hypertension Medical History diabetes mallitus Surgical History CABG Surgical History Open reduction inter nal fixation right lower extremity fracture Hospitalization History see above [facility] Other Summary Purpose Family History No Family [...] section and content) DATE CREATED AUTHOR 05/03/2018 [facility] DATE CREATED AUTHOR AUTHOR'S ORGANIZ ATION 06/20/2022 [facility] DATE CREATED AUTHOR AUTHOR'S ORGANIZ ATION 07/16/2022 [facility] DATE CREATED AUTHOR AUTHOR'S ORGANIZ ATION 12/23/2022 [facility] DATE CREATED AUTHOR AUTHOR'S ORGANIZ ATION 01/13/2024 [facility] Care Teams (unrecognized sec tion [...] TESTING; MARIAH AND FF V ENOUS AT [facility], Follow-up noninvasive studies FOR RECORDS PERTAINING TO [...] BE BASED ON THE PRIMARY CLINICAL RECORDS. [employer] [facility]. provides no warranty or guarantee of the accuracy or completeness of information in this document.
--- NOTE | 2024-01-24 15:05 | XR_ITS ---
[place] [id number] Patient Name: KAPIL FUNES MRN: [id number] date: 1940 Sex: M Assigned Patient Location: ER Current Patient Location: ER Accession/Order Number: [id number] Exam Date: 01/24/2024 14:58 Report Date: 01/24/2024 15:26 At the request of: ELEANOR CHAPMAN Procedure: XR ankle RT min 3V EXAM: XR ankle RT min 3V TECHNIQUE: AP, lateral and oblique views right ankle HISTORY: Nonhealing wound, medial malleolus COMPARISON: None. FINDINGS: No acute fracture or dislocation. 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 Prior fransico fixation of the tibia. Old fracture deformity of the fibula. Soft tissue swelling over the ankle. Small superficial wound overlying the medial malleolus. XR/XR ankle RT min 3V IMPRESSION: No convincing radiographic evidence for osteomyelitis. Electronically authenticated by: DULCE CHANDRA Date: 01/24/2024 15:26
== END 2024-01-24 16:00 | disposition home or self-care (01) ==
PROVIDERS: Emergency Provider Emergency Medicine; PCP Family Medicine
DX: S90.911A Unspecified superficial injury of right ankle, initial encounter (principal); F03.90 Unspecified dementia, unspecified severity, without behavioral disturbance, psychotic disturbance, mood disturbance, and anxiety; H91.90 Unspecified hearing loss, unspecified ear; E11.9 Type 2 diabetes mellitus without complications; Z79.899 Other long term (current) drug therapy; Z79.84 Long term (current) use of oral hypoglycemic drugs
CPT/HCPCS: 36415; 73610; 80048; 85025; 99284

== ENCOUNTER 2024-01-30 15:48 | Outpatient (OUT) | payer MEDICARE, SELFPAY | END 2024-01-30 15:49 | disposition home or self-care (01) | LOC: WC 15:48 | PROVIDERS: PCP Family Medicine; Visit Provider Physician Assistant | DX: L97.312 Non-pressure chronic ulcer of right ankle with fat layer exposed (principal) | CPT/HCPCS: G0463 ==

== ENCOUNTER 2024-02-12 19:03 | Emergency (ER) | payer MEDICARE, SELFPAY ==
[2024-02-12 19:09] VITALS: BP 140/57; PULSE 64; TEMP 37.1; O2SAT 99; BMI 25.1
--- OUTSIDE RECORDS SUMMARY | 2024-02-12 19:09 | XMS_ITS | CCD ---
Author Organization [facility] Care Team Providers Care Rn Staff Name Role Phone CHARISMA CMKEON Unavailable Unavailable MIKECHARISMA Unavailable Unavailable JONH PATEL Unavailable Unavailable JONH PATEL Unavailable Unavailable MD Jonh Patel Primary Care Provider [phone] MD Jonh Patel Attending Provider [phone] JONH PATEL Attending Unavailable DR JONH PATEL Consulting Unavailable DR JONH PATEL Primary Care Unavailable DR JONH PATEL Admitting Unavailable MD Jonh Patel Primary Care Provider [phone] MD Grady Peters Attending Provider Grady Peters [...] consult , dx altered mental status from [place] inpatient room 217 Onset: 10-24-2023 Past or [...] US ankle/arm indiceson 07-31 US ankle/arm indices [facility] [place] [address] Ultrasound Report Signed Patient: Navi Funes Jr MR#: [id number] : 1940 Acct:[id number] Age/Sex: 81 / M ADM Date: 07/30/22 Loc: Room: Type: [facility] Attending Dr: Grady Peters MD Ordering Provider: [...] 07/31/22 1519 Signed By: 07/31/22 1520 Normal [facility] US venous duplex LE BIon US venous duplex LE BI [facility] Main [place] [address] [place] [address] Ultrasound Report Signed Patient: Navi Funes Jr MR#: [id number] : 1940 Acct:[id number] Age/Sex: 81 / M ADM Date: 07/30/22 Loc: Room: Type: [facility] Attending Dr: Grady Peters MD Ordering Provider: [...] MD 07/31/22 1521 Signed By: 07/31/22 1522 [facility] XR ankle RT min 3V*on 2021 XR ankle RT min 3V* [facility] Main [place] [address] [place] [id number] XRay Report Signed Patient: Navi Funes Jr MR#: [id number] : 1940 Acct:[id number] Age/Sex: 81 / M ADM Date: 07/30/22 Loc: Room: Type: [facility] Attending Dr: Grady Peters MD Copies [...] King Jr., D.O.07/30/2022 4:33 PM Dictation Location: [place] [address] Transcribed By: [facility] 07/30/22 1633 Dictated By: Navi King Jr, DO 07/30/22 1632 Signed By: 07/30/22 1633 [facility] Consultation Noteon 07-15-20 Consultation Note [id number] .[id number]:127 Normal [facility] HIPAA Privacy Documentson HIPAA Privacy Documents [id number]:127 Normal [facility] WOUND CULTUREon 06-20-2022 Bacteria identified Aer cx Nom (Unsp spec) Final report Normal [facility] Comment on above: Performed By: #### C XWND #### [facility] [address] [address] [address] Eddie Gaitan Result 1 Comment Normal [facility] Comment on above: Result Comment: No g rowth in 36 - 48 hours. Performed By: #### C XWND #### [facility] [address] [address] [address] Eddie Gaitan Physician Referralon 022 Physician Referral [id number]:127 Normal [facility] A1C with Estimated Average G mary 04-27-2022 Glucose [Mass/Vol] 151 mg/dL Normal [facility] Comment on above: Result Comment: PERF ORMED BY: [place] [address] PATHOLOGIST REFLEXOLOGIST BRIDGETT MANZO M.D. Performed By: #### T 4T, TSH3, CBC, PSAS, T3F, A1C WT eA, CMP, LIPID #### [facility] [address] [place] [address] HbA1c (Bld) [Mass fraction] 6.9 % High 4.3-5.6 [facility] Comment on above: Result Comment: Incr eased risk for diabetes: 5.7 - 6.4 diabetes: >6.4 glycemic control for adults with diabetes: <7.0 Performed By: #### T 4T, TSH3, CBC, PSAS, T3F, A1C WTH eA, CMP, LIPID #### [facility] [address] [place] [address] Basophils Auto (Bld) [#/Vol] Ordered By: Jonh Patel on 04-27-2022 Basophils (Bld) [#/Vol] 0.1 10*3/uL 0.0-0.2 [facility] Basophils/100 WBC Auto (Bld) Ordered By: Jonh Patel on 04-27-2022 Basophils/100 WBC (Bld) 1.1 % [facility] Blood hemoglobin measurement (mass/volume)Ordered By: Jonh Patel on 04-27-2022 Hemoglobin (Bld) [Mass/Vol] 13.3 g/dL 13.0-17.0 [facility] Blood leukocytes automated c ount (number/volume)Ordered By: Jonh Patel on 04-27-2022 WBC (Bld) [#/Vol] 5.0 10*3/uL 4.5-11.0 [facility] Body fluid albumin measureme nt (mass/volume)Ordered By: Jonh Patel on 04-27-2022 Albumin (Body fld) [Mass/Vol] 3.6 g/dL 3.2-5.5 [facility] Cholesterol [Mass/volume] in Serum or PlasmaOrdered By: Jonh Patel on 04-27-2022 Cholesterol [Mass/Vol] 168 mg/dL 140-200 [facility] Comment on above: Chol less than 200 m g/dl low risk Chol 201-239 mg/dl borderline risk Chol 240 mg/dl and greater high risk Cholesterol in LDL Calc [Mas s/Vol]Ordered By: Jonh Patel on 04-27-2022 Cholesterol in LDL [Mass/Vol] 112 mg/dL 0-100 [facility] Comment on above: LDL ATP III CLASSIFI CATION LDL less than 100 mg/dL Optimal LDL 100-129 mg/dL Near or above optimal LDL 130-159 mg/dL Borderline high LDL 160-189 mg/dL High LDL greater than 189 mg/dL Very high Cholesterol in VLDL Calc [Ma ss/Vol]Ordered By: Jonh Patel on 04-27-2022 Cholesterol in VLDL [Mass/Vol] 17 mg/dL [facility] Complete Blood Count Auto Di ffon 04-27-2022 Basophils (Bld) [#/Vol] 0.1 10*3/uL Normal 0.0-0.2 [facility] Comment on above: Result Comment: PERF ORMED BY: [place] [address] PATHOLOGIST REFLEXOLOGIST BRIDGETT MANZO M.D. Performed By: #### T 4T, TSH3, CBC, PSAS, T3F, A1C WTH eA, CMP, LIPID #### [facility] [address] [place] [address] [place] Basophils/100 WBC (Bld) 1.1 % Normal . [facility] Comment on above: Performed By: #### T 4T, TSH3, CBC, PSAS, T3F, A1C WTH eA, CMP, LIPID #### [facility] [address] Eosinophils (Bld) [#/Vol] 0.3 10*3/uL Normal 0.0-0.45 [facility] Comment on above: Performed By: #### T 4T, TSH3, CBC, PSAS, T3F, A1C WTH eA, CMP, LIPID #### [facility] [address] Eosinophils/100 WBC (Bld) 6.5 % Normal . [facility] Comment on above: Performed By: #### T 4T, TSH3, CBC, PSAS, T3F, A1C WTH eA, CMP, LIPID #### [facility] [address] Erythrocyte distribution width (RBC) [Ratio] 15.0 % High 12.0-14.8 [facility] Comment on above: Performed By: #### T 4T, TSH3, CBC, PSAS, T3F, A1C WTH eA, CMP, LIPID #### [address] Hematocrit (Bld) [Volume fraction] 39.9 % Normal 38.8-50.0 [facility] Comment on above: Performed By: #### T 4T, TSH3, CBC, PSAS, T3F, A1C WTH eA, CMP, LIPID #### [facility] [address] Hemoglobin (Bld) [Mass/Vol] 13.3 g/dL Normal 13.0-17.0 [facility] Comment on above: Performed By: #### T 4T, TSH3, CBC, PSAS, T3F, A1C WTH eA, CMP, LIPID #### [address] Lymphocytes (Bld) [#/Vol] 1.3 10*3/uL Normal 1.00-4.8 [facility] Comment on above: Performed By: #### T 4T, TSH3, CBC, PSAS, T3F, A1C WTH eA, CMP, LIPID #### [facility] [address] Lymphocytes/100 WBC (Bld) 25.6 % Normal . [facility] Comment on above: Performed By: #### T 4T, TSH3, CBC, PSAS, T3F, A1C WTH eA, CMP, LIPID #### [facility] [address] MCH (RBC) [Entitic mass] 31.2 pg Normal 27.5-35.2 [facility] Comment on above: Performed By: #### T 4T, TSH3, CBC, PSAS, T3F, A1C WTH eA, CMP, LIPID #### [address] MCV (RBC) [Entitic vol] 93.5 fL Normal 83.5-101 [facility] Comment on above: Performed By: #### T 4T, TSH3, CBC, PSAS, T3F, A1C WTH eA, CMP, LIPID #### [address] Mean Corpuscular HGB Conc 33.4 g/dL Normal 32.5-35.6 [facility] Comment on above: Performed By: #### T 4T, TSH3, CBC, PSAS, T3F, A1C WTH eA, CMP, LIPID #### [address] Monocytes (Bld) [#/Vol] 0.4 10*3/uL Normal 0.0-0.8 [facility] Comment on above: Performed By: #### T 4T, TSH3, CBC, PSAS, T3F, A1C WTH eA, CMP, LIPID #### [address] Monocytes/100 WBC (Bld) 8.3 % Normal . [facility] Comment on above: Performed By: #### T 4T, TSH3, CBC, PSAS, T3F, A1C WTH eA, CMP, LIPID #### [facility] [address] [place] [address] [place] Neutrophils (Bld) [#/Vol] 2.9 10*3/uL Normal 1.8-7.7 [facility] Comment on above: Performed By: #### T 4T, TSH3, CBC, PSAS, T3F, A1C WTH eA, CMP, LIPID #### [address] Neutrophils/100 WBC (Bld) 58.5 % Normal . [facility] Comment on above: Performed By: #### T 4T, TSH3, CBC, PSAS, T3F, A1C WTH eA, CMP, LIPID #### [address] Nucleated RBC/100 WBC (Bld) [Ratio] 0.0 % Normal 0-0.5 [facility] Comment on above: Performed By: #### T 4T, TSH3, CBC, PSAS, T3F, A1C WTH eA, CMP, LIPID #### [address] Platelet mean volume (Bld) [Entitic vol] 11.0 fL High 6.6-10.1 [facility] Comment on above: Performed By: #### T 4T, TSH3, CBC, PSAS, T3F, A1C WTH eA, CMP, LIPID #### [facility] [address] [place] [address] [place] Platelets (Bld) [#/Vol] 116 10*3/uL Low 150-450 [facility] Comment on above: Performed By: #### T 4T, TSH3, CBC, PSAS, T3F, A1C WTH eA, CMP, LIPID #### [place] [address] [place] RBC (Bld) [#/Vol] 4.27 10*6/uL Normal 3.90-5.60 [facility] Comment on above: Performed By: #### T 4T, TSH3, CBC, PSAS, T3F, A1C WTH eA, CMP, LIPID #### [address] WBC (Bld) [#/Vol] 5.0 10*3/uL Normal 4.5-11.0 [facility] Comment on above: Performed By: #### T 4T, TSH3, CBC, PSAS, T3F, A1C WTH eA, CMP, LIPID #### [facility] [address] Comprehensive Metabolic Pane alexandra 04-27-2022 Albumin [Mass/Vol] 3.6 g/dL Normal 3.2-5.5 [facility] Comment on above: Performed By: #### T 4T, TSH3, CBC, PSAS, T3F, A1C WTH eA, CMP, LIPID #### [address] Albumin/Globulin [Mass ratio] 1.3 {ratio} Normal [facility] Comment on above: Performed By: #### T 4T, TSH3, CBC, PSAS, T3F, A1C WTH eA, CMP, LIPID #### [address] ALP [Catalytic activity/Vol] 71 U/L Normal 32-92 [facility] Comment on above: Performed By: #### T 4T, TSH3, CBC, PSAS, T3F, A1C WTH eA, CMP, LIPID #### [address] ALT [Catalytic activity/Vol] 12 U/L Normal 10-60 [facility] Comment on above: Performed By: #### T 4T, TSH3, CBC, PSAS, T3F, A1C WTH eA, CMP, LIPID #### [address] AST [Catalytic activity/Vol] 18 U/L Normal 10-42 [facility] Comment on above: Performed By: #### T 4T, TSH3, CBC, PSAS, T3F, A1C WTH eA, CMP, LIPID #### [facility] [address] Bilirubin [Mass/Vol] 0.8 mg/dL Normal 0.3-1.2 [facility] Comment on above: Performed By: #### T 4T, TSH3, CBC, PSAS, T3F, A1C WTH eA, CMP, LIPID #### [facility] [address] Calcium [Mass/Vol] 9.0 mg/dL Normal 8.2-10.2 [facility] Comment on above: Performed By: #### T 4T, TSH3, CBC, PSAS, T3F, A1C WTH eA, CMP, LIPID #### [facility] [address] Chloride [Moles/Vol] 104 mmol/L Normal 95-114 [facility] Comment on above: Performed By: #### T 4T, TSH3, CBC, PSAS, T3F, A1C WTH eA, CMP, LIPID #### [facility] [address] CO2 [Moles/Vol] 22.4 mmol/L Normal 22.0-30.0 [facility] Comment on above: Performed By: #### T 4T, TSH3, CBC, PSAS, T3F, A1C WTH eA, CMP, LIPID #### [facility] [address] Creatinine [Mass/Vol] 1.47 mg/dL High 0.64-1.27 [facility] Comment on above: Performed By: #### T 4T, TSH3, CBC, PSAS, T3F, A1C WTH eA, CMP, LIPID #### [facility] [address] [place] [address] [place] Estimated GFR ( Evelyn 56 Normal [facility] Comment on above: Result Comment: GFR estimated reference range: According to KDOQI guidelines, <60 ml/min/1.73m2 is sufficient to diagnose a patient with chronic kidney disease. Performed By: #### T 4T, TSH3, CBC, PSAS, T3F, A1C WTH eA, CMP, LIPID #### [facility] [address] Estimated GFR (Non- Am 46 Normal [facility] Comment on above: Performed By: #### T 4T, TSH3, CBC, PSAS, T3F, A1C WTH eA, CMP, LIPID #### [facility] [address] Globulin (S) [Mass/Vol] 2.8 g/dL Normal [facility] Comment on above: Performed By: #### T 4T, TSH3, CBC, PSAS, T3F, A1C WTH eA, CMP, LIPID #### [facility] [address] Glucose [Mass/Vol] 139 mg/dL High 70-100 [facility] Comment on above: Result Comment: [place] Glucose Reference Range is dependent on time and content of last meal. Glucose of more than 200 mg/dL in a nonstressed, ambulatory subject supports the diagnosis of Diabetes Mellitus. ADA recommended reference range Performed By: #### T 4T, TSH3, CBC, PSAS, T3F, A1C WTH eA, CMP, LIPID #### [facility] [address] Potassium [Moles/Vol] 4.4 mmol/L Normal 3.5-5.1 [facility] Comment on above: Performed By: #### T 4T, TSH3, CBC, PSAS, T3F, A1C WTH eA, CMP, LIPID #### [facility] [address] Protein [Mass/Vol] 6.4 g/dL Normal 6.1-7.9 [facility] Comment on above: Performed By: #### T 4T, TSH3, CBC, PSAS, T3F, A1C WTH eA, CMP, LIPID #### [facility] [address] Sodium [Moles/Vol] 136 mmol/L Normal 136-146 [facility] Comment on above: Performed By: #### T 4T, TSH3, CBC, PSAS, T3F, A1C WTH eA, CMP, LIPID #### [facility] [address] [id number] [place] Urea nitrogen [Mass/Vol] 23 mg/dL Normal 9-23 [facility] Comment on above: Performed By: #### T 4T, TSH3, CBC, PSAS, T3F, A1C WTH eA, CMP, LIPID #### [facility] [address] [id number] [place] Creatinine and Glomerular fi ltration rate.predicted panel (S/P/Bld)Ordered By: Jonh Patel on 04-27-2022 Creatinine [Mass/Vol] 1.47 mg/dL 0.64-1.27 [facility] Eosinophils Auto (Bld) [#/Vo l]Ordered By: Jonh Patel on 04-27-2022 Eosinophils (Bld) [#/Vol] 0.3 10*3/uL 0.0-0.45 [facility] Eosinophils/100 WBC Auto (Bl d)Ordered By: Jonh Patel on 04-27-2022 Eosinophils/100 WBC (Bld) 6.5 % [facility] Erythrocyte distribution wid th Auto (RBC) [Ratio]Ordered By: Jonh Patel on 04-27-2022 Erythrocyte distribution width (RBC) [Ratio] 15.0 % 12.0-14.8 [facility] Estimated glomerular filtrat ion rate (GFR) non- AmericanOrdered By: Jonh Patel on 04-27-2022 GFR/1.73 sq M.predicted among non-blacks MDRD (S/P/Bld) [Vol rate/Area] 46 mL/Min [facility] Globulin Calc (S) [Mass/Vol] Ordered By: Jonh Patel on 04-27-2022 Globulin (S) [Mass/Vol] 2.8 g/dL [facility] Glucose mean value [Mass/vol ume] in Blood Estimated from glycated hemoglobinOrdered By: Jonh Patel on 04-27-2022 Average glucose Estimated from glycated hemoglobin (Bld) [Mass/Vol] 151 mg/dL [facility] Hematocrit Auto (Bld) [Volum e fraction]Ordered By: Jonh Patel on 04-27-2022 Hematocrit (Bld) [Volume fraction] 39.9 % 38.8-50.0 [facility] Hemoglobin A1c percentageOrd ered By: Jonh Patel on 04-27-2022 HbA1c (Bld) [Mass fraction] 6.9 % 4.3-5.6 [facility] Comment on above: Increased risk for d iabetes: 5.7 - 6.4 diabetes: >6.4 glycemic control for adults with diabetes: <7.0 Laboratory - Hematology and Cell countsOrdered By: Jonh Patel on 04-27-2022 Nucleated RBC/100 WBC (Bld) [Ratio] 0.0 % 0-0.5 [facility] Lipid Panelon 04-27-2022 Cholesterol [Mass/Vol] 168 mg/dL Normal 140-200 [facility] Comment on above: Result Comment: Chol less than 200 mg/dl low risk Chol 201-239 mg/dl borderline risk Chol 240 mg/dl and greater high risk Performed By: #### T 4T, TSH3, CBC, PSAS, T3F, A1C WTH eA, CMP, LIPID #### [facility] [address] [id number] [place] Cholesterol in HDL [Mass/Vol] 38 mg/dL Normal 29-71 [facility] Comment on above: Result Comment: HDL CHOL ATP-III CLASSIFICATION Cardiovascular Risk HDL > or equal to 60 mg/dL LOW HDL < 40 mg/dL HIGH Performed By: #### T 4T, TSH3, CBC, PSAS, T3F, A1C WTH eA, CMP, LIPID #### [facility] [address] [place] [address] [place] Cholesterol.total/Tresa sterol in HDL [Mass ratio] 4.4 {ratio} Normal <5.0 [facility] Comment on above: Performed By: #### T 4T, TSH3, CBC, PSAS, T3F, A1C WTH eA, CMP, LIPID #### [facility] [address] [place] [address] [place] LDL Cholesterol,Calculated 112 mg/dL High 0-100 [facility] Comment on above: Result Comment: LDL ATP III CLASSIFICATION LDL less than 100 mg/dL Optimal LDL 100-129 mg/dL Near or above optimal LDL 130-159 mg/dL Borderline high LDL 160-189 mg/dL High LDL greater than 189 mg/dL Very high Performed By: #### T 4T, TSH3, CBC, PSAS, T3F, A1C WTH eA, CMP, LIPID #### [facility] [address] Triglyceride w/Reflex 88 mg/dL Normal 35-149 [facility] Comment on above: Result Comment: TRIG ATP III CLASSIFICATION TRIG less than 150 mg/dL Normal TRIG 150-199 mg/dL Borderline high TRIG 200-500 mg/dL High TRIG greater than 500 mg/dL Very high Standard traceable to the Center for Disease Conrtrol and Prevention (CDC) test method. Performed By: #### T 4T, TSH3, CBC, PSAS, T3F, A1C WTH eA, CMP, LIPID #### [facility] [address] VLDL CHOLESTEROL 17 mg/dL Normal [facility] Comment on above: Performed By: #### T 4T, TSH3, CBC, PSAS, T3F, A1C WTH eA, CMP, LIPID #### [facility] [address] Lymphocytes Auto (Bld) [#/Vo l]Ordered By: Jonh Patel on 04-27-2022 Lymphocytes (Bld) [#/Vol] 1.3 10*3/uL 1.00-4.8 [facility] Lymphocytes/100 WBC Auto (Bl d)Ordered By: Jonh Patel on 04-27-2022 Lymphocytes/100 WBC (Bld) 25.6 % [facility] MCH Auto (RBC) [Entitic mass ]Ordered By: Jonh Patel on 04-27-2022 MCH (RBC) [Entitic mass] 31.2 pg 27.5-35.2 [facility] MCHC Auto (RBC) [Mass/Vol]Or dered By: Jonh Patel on 04-27-2022 MCHC (RBC) [Mass/Vol] 33.4 g/dL 32.5-35.6 [facility] MCV Auto (RBC) [Entitic vol] Ordered By: Jonh Patel on 04-27-2022 MCV (RBC) [Entitic vol] 93.5 fL 83.5-101 [facility] Monocytes Auto (Bld) [#/Vol] Ordered By: Jonh Patel on 04-27-2022 Monocytes (Bld) [#/Vol] 0.4 10*3/uL 0.0-0.8 [facility] Monocytes/100 WBC Auto (Bld) Ordered By: Jonh Hokimmy on 04-27-2022 Monocytes/100 WBC (Bld) 8.3 % [facility] Neutrophils Auto (Bld) [#/Vo l]Ordered By: Jonh Realkimmy on 04-27-2022 Neutrophils (Bld) [#/Vol] 2.9 10*3/uL 1.8-7.7 [facility] Neutrophils/100 WBC Auto (Bl d)Ordered By: Jonh Patel on 04-27-2022 Neutrophils/100 WBC (Bld) 58.5 % [facility] No Panel InformationOrdered By: Jonh Hokimmy on 04-27-2022 Estimated GFR () 56 mL/Min [facility] Comment on above: GFR estimated refere nce range: According to KDOQI guidelines, <60 ml/min/1.73m2 is sufficient to diagnose a patient with chronic kidney disease. Pharmacy Creatinine Clearance (Chem N/A [facility] Prostate Specific Antigen Screen 0.860 ng/mL 0.000-4.000 [facility] PSA Screen (Yearly Only)on 0 04-27-2022 PSA Screen (Yearly Only) 0.860 ng/mL Normal 0.000-4.000 [facility] Comment on above: Order Comment: Is pa tient <50 yrs? Medicare does not pay <50.: Y Is Medicare the insurance?: Y Result Comment: PERF ORMED BY: [facility] [address] [place] [address] PATHOLOGIST REFLEXOLOGIST BRIDGETT MANZO M.D. Performed By: #### T 4T, TSH3, CBC, PSAS, T3F, A1C WTH eA, CMP, LIPID #### [facility] [address] Platelet mean volume Auto (B ld) [Entitic vol]Ordered By: Jonh Patel on 04-27-2022 Platelet mean volume (Bld) [Entitic vol] 11.0 fL 6.6-10.1 [facility] Platelets Auto (Bld) [#/Vol] Ordered By: Jonh Patel on 04-27-2022 Platelets (Bld) [#/Vol] 116 10*3/uL 150-450 [facility] Protein [Mass/volume] in Ser um or PlasmaOrdered By: Jonh Patel on 04-27-2022 Protein [Mass/Vol] 6.4 g/dL 6.1-7.9 [facility] RBC Auto (Bld) [#/Vol]Ordere d By: Jonh Patel on 04-27-2022 RBC (Bld) [#/Vol] 4.27 10*6/uL 3.90-5.60 [facility] Serum or plasma alanine garner otransferase measurement without P-5'-P (enzymatic activiOrdered By: Jonh Patel on 04-27-2022 ALT No additional P-5'-P [Catalytic activity/Vol] 12 U/L 10-60 [facility] Serum or plasma albumin/glob ulin mass ratioOrdered By: Jonh Patel on 04-27-2022 Albumin/Globulin [Mass ratio] 1.3 {ratio} [facility] Serum or plasma alkaline anna sphatase measurement (enzymatic activity/volume)Ordered By: Jonh Patel on 04-27-2022 ALP [Catalytic activity/Vol] 71 U/L 32-92 [facility] Serum or plasma aspartate am inotransferase measurement (enzymatic activity/volume)Ordered By: Jonh Patel on 04-27-2022 AST [Catalytic activity/Vol] 18 U/L 10-42 [facility] Serum or plasma calcium josiah urement (mass/volume)Ordered By: Jonh Patel on 04-27-2022 Calcium [Mass/Vol] 9.0 mg/dL 8.2-10.2 [facility] Serum or plasma chloride jerica surement (moles/volume)Ordered By: Jonh Patel on 04-27-2022 Chloride [Moles/Vol] 104 mmol/L 95-114 [facility] Serum or plasma glucose josiah urement (mass/volume)Ordered By: Jonh Patel on 04-27-2022 Glucose [Mass/Vol] 139 mg/dL 70-100 [facility] Comment on above: ADA recommended refe rence range Random Glucose Reference Range is dependent on time and content of last meal. Glucose of more than 200 mg/dL in a nonstressed, ambulatory subject supports the diagnosis of Diabetes Mellitus. Serum or plasma high density lipoprotein (HDL) cholesterol measurementOrdered By: Jonh Patel on 04-27-2022 Cholesterol in HDL [Mass/Vol] 38 mg/dL 29-71 [facility] Comment on above: HDL CHOL ATP-III CLA SSIFICATION Cardiovascular Risk HDL > or equal to 60 mg/dL LOW HDL < 40 mg/dL HIGH Serum or plasma potassium me asurement (moles/volume)Ordered By: Jonh Patel on 04-27-2022 Potassium [Moles/Vol] 4.4 mmol/L 3.5-5.1 [facility] Serum or plasma sodium measu rement (moles/volume)Ordered By: Jonh Patel on 04-27-2022 Sodium [Moles/Vol] 136 mmol/L 136-146 [facility] Serum or plasma thyroxine (T 4) measurement (mass/volume)Ordered By: Jonh Patel on 04-27-2022 T4 [Mass/Vol] 9.08 ug/dL 5.39-11.82 [facility] Serum or plasma total biliru bin measurement (mass/volume)Ordered By: Jonh Patel on 04-27-2022 Bilirubin [Mass/Vol] 0.8 mg/dL 0.3-1.2 [facility] Serum or plasma total carbon dioxide measurement (moles/volume)Ordered By: Jonh Patel on 04-27-2022 CO2 [Moles/Vol] 22.4 mmol/L 22.0-30.0 [facility] Serum or plasma total choles terol/high density lipoprotein (HDL) cholesterol mass ratOrdered By: Jonh Patel on 04-27-2022 Cholesterol.total/Tresa sterol in HDL [Mass ratio] 4.4 {ratio} [facility] Serum or plasma urea nitroge n measurement (mass/volume)Ordered By: Jonh Patel on 04-27-2022 Urea nitrogen [Mass/Vol] 23 mg/dL 07-30 [facility] Stool Occult Blood (Immuno)o n 04-27-2022 Stool Occult Blood (Immuno) Occult Blood (Immuno) Negative for Occult Blood by Immunochemical Methodology Reference range = Negative PERFORMED BY: [address] [place] [address] PATHOLOGIST REFLEXOLOGIST BRIDGETT MANZO M.D. Normal [facility] Comment on above: Performed By: #### O B(IMMUNO) #### [facility] [address] [place], [place] [id number] [facility] TSH DL <= 0.005 mIU/L QnOrde red By: Jonh Patel on 04-27-2022 TSH Qn 1.16 m[IU]/L 0.45-5.33 [facility] Thyroid Stimulating Hormoneo n 04-27-2022 TSH Qn 1.16 m[IU]/L Normal 0.45-5.33 [facility] Comment on above: Result Comment: PERF ORMED BY: [address] [place] [address] PATHOLOGIST REFLEXOLOGIST BRIDGETT MANZO M.D. Performed By: #### T 4T, TSH3, CBC, PSAS, T3F, A1C WTH eA, CMP, LIPID ####[address] Thyroxine (T4) Totalon 04-27 T4 [Mass/Vol] 9.08 ug/dL Normal 5.39-11.82 [facility] Comment on above: Performed By: #### T 4T, TSH3, CBC, PSAS, T3F, A1C WT eA, CMP, LIPID ####[address] Triglyceride [Mass/volume] i n Serum or PlasmaOrdered By: Jonh Realkimmy on 04-27-2022 Triglyceride [Mass/Vol] 88 mg/dL 35-149 [facility] Comment on above: TRIG ATP III CLASSIF ICATION TRIG less than 150 mg/dL Normal TRIG 150-199 mg/dL Borderline high TRIG 200-500 mg/dL High TRIG greater than 500 mg/dL Very high Standard traceable to the Center for Disease Conrtrol and Prevention (CDC) test method. Triiodothyronine (T3) Freeon 04-27-2022 Triiodothyronine (T3) Free 2.51 pg/mL Normal 2.50-3.90 [facility] Comment on above: Result Comment: PERF ORMED BY: [facility] [address] [place] [address] PATHOLOGIST REFLEXOLOGIST BRIDGETT MANZO M.D. Performed By: #### T 4T, TSH3, CBC, PSAS, T3F, A1C WTH eA, CMP, LIPID #### [facility] [address] Triiodothyronine (T3) Free [ Mass/volume] in Serum or PlasmaOrdered By: Jonh Hoy on 04-27-2022 Free T3 [Mass/Vol] 2.51 pg/mL 2.50-3.90 [facility] Provider Letter FTon 10-27 Provider Letter [facility] October 27, 2021 Jonh Jorge, [address] [place] [address] [place] [address] Re: NAVI FUNES Date of : 1940 Thank you for your referral of Navi Funes who was seen on consultation on 10/23/2021, for nodule right taylor with underlying cellulitis. I have enclosed my consultation note for your review. I will be happy to follow Navi. Sincerely, Josiah Gallego MD General Surgery Normal [facility] Ambulatory Clinical Summaryo n 10-23-2021 Ambulatory Clinical Summary {[id number] Normal [facility] Physician Referralon 021 Physician Referral [id number]:[id number] Normal [facility] Vital Signs Date Time Vital Sign Value Performing Clinician Facility 08-10-2022 10:45-0400 Body height 177.8 cm Grady Peters Other [facility] Other 08-10-2022 10:45-0400 Body mass index (BMI) [Ratio] 26.54 kg/m2 Grady Peters Other [facility] Other 08-10-2022 10:45-0400 Body temperature 97.3 [degF] Grady Peters Other [facility] Other 08-10-2022 10:45-0400 Body weight 83.92 kg Grady Peters Other [facility] Other 08-10-2022 10:45-0400 Diastolic blood pressure 72 mm[Hg] Grady Peters Other [facility] Other 08-10-2022 10:45-0400 SaO2% (BldA) [Mass fraction] 98 % Grady Peters Other [facility] Other 08-10-2022 10:45-0400 Systolic blood pressure 146 mm[Hg] Grady Peters Other [facility] Other Encounters Encounter Date Encounter Type Care Provider Facility Start: 01-07-2024 ambulatory [facility] Start: 10-24-2023 End: 10-26-2023 Emergency department patient visit [facility] Start: 08-10-2022 End: 08-10-2022 ambulatory Grady Peters Other [facility] [employer] Other Start: 08-10-2022 Office outpatient vi sit 25 minutes Grady Peters [facility] Vascular Surgery Start: 07-30-2022 End: 07-30-2022 ambulatory Grady Peters Facility:[facility] Start: 07-30-2022 End: 07-30-2022 Patient encounter procedure MD Jonh Patel Work Phone: [facility]-Ultrasound [facility] [place] Start: 06-17-2022 End: 06-17-[address] JONH PATEL Facility: Start: 04-27-2022 End: 04-27-2022 ambulatory Jonh Patel Facility:[facility] Start: 04-27-2022 End: 04-27-2022 Patient encounter procedure MD Jonh Patel Work Phone: [facility] Start: 01-06-2017 End: 01-07-2017 Ambulatory CHARISMA MCKEON Facility:[facility] Procedures Date Procedure Procedure Detail Performing Clinician Start: 07-30-2022 X-ray of right ankle MD Jonh Patel Work Phone: Start: 04-27-2022 End: 04-27-2022 Screening for occult blood in feces MD Jonh Patel Work Phone: Plan of Treatment Date Care Activity Detail Author Start: 07-30-2022 Ankle brachial press ure index [facility] Start: 07-30-2022 Duplex scan of lower limb veins US venous duplex LE BI [facility] Start: 07-30-2022 US Lower extremity v ein - bilateral [facility] Work Phone: Payers Date Payer Category Payer Medicaid [id number] a 2022 Self-pay [id number] 1957 Unknown [id number] 1940 Unknown [id number] 1940 Unknown [id number] 1940 Unknown [id number] Unknown [facility] [id number] Unknown [id number] Unknown [id number] Social History Date Type Detail Facility Tobacco smoking status NHIS Unknown if ever smoked [facility] Work Phone: Start: 1940 Sex Assigned At Male F [facility] Sex Assigned At Sex Assigned At Bir th [facility] Other Evaluation note 08-10-2022 Note Date & [...] this patient back on an as-needed basis. [facility] Other Clinical Note 06-22-2022 Note Date & [...] to Vascular surgery for recommendations; patient requests [facility]. Ordered: E&M of Est. Patient Low 20-29 Min [id number] [facility] External Ambulatory Referral Follow-up No qualifying data [...] Recorded SARS-CoV-2 (COVID-19) Ad26 vaccine 03/19/2021 Recorded [facility] Comment on above: Result Comment: Taylor canas [...] Recorded SARS-CoV-2 (COVID-19) Ad26 vaccine 03/19/2021 Recorded [facility] Comment on above: Result Comment: Elec tronically Signed By: CLAUDIA OG, Josiah Frederick\.janeth\Date and Time Signed: 10/23/21 16:30 EST Evaluation note Note Date & Type Note Facility Evaluation note No assessment information availa [facility] Work Phone: History general Narrative - Reported Note Date & Type Note Facility History general Narrative - Reported Type Medical History hypercholesterolemia Medical History hypertension Medical History diabetes mallitus Surgical History CABG Surgical History Open reduction inter nal fixation right lower extremity fracture Hospitalization History see above [employer] Other Summary Purpose Family History No Family [...] and content) DATE CREATED AUTHOR 05/03/2018 [facility] DATE CREATED AUTHOR AUTHOR'S ORGANIZ ATION 06/20/2022 [facility] DATE CREATED AUTHOR AUTHOR'S ORGANIZ ATION 07/16/2022 Rivera Pola [facility] DATE CREATED AUTHOR AUTHOR'S ORGANIZ ATION 12/23/2022 [facility] DATE CREATED AUTHOR AUTHOR'S ORGANIZ ATION 01/13/2024 [facility] Care Teams (unrecognized sec tion [...] TESTING; MARIAH AND FF V ENOUS AT [facility], Follow-up noninvasive studies FOR RECORDS PERTAINING TO [...] BE BASED ON THE PRIMARY CLINICAL RECORDS. [employer] [facility]. provides no warranty or guarantee of the accuracy or completeness of information in this document.
--- NOTE | 2024-02-12 19:33 | ED.WOUNDLAC1 ---
HPI - Wound/Laceration General Chief Complaint: Wound/Laceration Stated Complaint: LE INJURY Time Seen by Provider: 02/12/24 19:28 Source: patient and family Mode of arrival: walk-in Limitations: no limitations History of Present Illness HPI narrative: chronic swelling RLE. Today mis step while stepping up cement stair and scraped his right taylor. Now presents for evaluation. Denies other injury. Last tetanus shot 6 years ago. denies numbness or weakness of the RLE Onset (ago): hour(s) Related Data Home Medications ?Medication ?Instructions ?Recorded ?Confirmed lisinopril 10 mg tablet 10 mg PO DAILY 10/22/23 02/12/24 metformin 500 mg tablet 500 mg PO BID 10/22/23 02/12/24 donepezil 10 mg tablet 10 mg PO .QD 01/06/24 02/12/24 memantine 14 mg capsule 14 mg PO .QD 01/06/24 02/12/24 sprinkle,extended release 24hr Previous Rx's ?Medication ?Instructions ?Recorded quetiapine 25 mg tablet 25 mg PO HS #30 tabs 10/26/23 Allergies Allergy/AdvReac Type Severity Reaction Status Date / Time No Known Drug Allergies Allergy Verified 02/12/24 19:12 Review of Systems ROS Status of ROS 10 or more systems reviewed and unremarkable except as noted in history and below [facility] Medical History (Updated 02/12/24 @ 19:37 by Harvey Hall MD) Dehydration ?E86.0 - Dehydration (ICD-10) Ulcer of right lower extremity ?L97.919 - Non-pressure chronic ulcer of unspecified part of right lower leg with unspecified severity (ICD-10) Confusion ?R41.0 - Disorientation, unspecified (ICD-10) SOPHIA (acute kidney injury) ?N17.9 - Acute kidney failure, unspecified (ICD-10) Ulcer of right leg ?L97.919 - Non-pressure chronic ulcer of unspecified part of right lower leg with unspecified severity (ICD-10) Altered mental status ?R41.82 - Altered mental status, unspecified (ICD-10) Weakness ?R53.1 - Weakness (ICD-10) Dementia ?F03.90 - Unspecified dementia, unspecified severity, without behavioral disturbance, psychotic disturbance, mood disturbance, and anxiety (ICD-10) Bradycardia ?R00.1 - Bradycardia, unspecified (ICD-10) Altered mental status ?R41.82 - Altered mental status, unspecified (ICD-10) Acute hyperglycemia ?R73.9 - Hyperglycemia, unspecified (ICD-10) Medical non-compliance ?Z91.199 - Patient's noncompliance with other medical treatment and regimen due to unspecified reason (ICD-10) Hearing loss ?H91.90 - Unspecified hearing loss, unspecified ear (ICD-10) Fall ?W19.XXXA - Unspecified fall, initial encounter (ICD-10) Diabetes ?E11.9 - Type 2 diabetes mellitus without complications (ICD-10) Leg fracture, right ?S82.91XA - Unspecified fracture of right lower leg, initial encounter for closed fracture (ICD-10) Surgical History (Updated 10/22/23 @ 15:01 by Shayna Miller) FH: CABG (coronary artery bypass surgery) ?Z82.49 - Family history of ischemic heart disease and other diseases of the circulatory system (ICD-10) Family History (Updated 10/22/23 @ 15:04 by Shayna Miller) Father Family history of cancer Social History Within the past year, how often did you have a drink containing alcohol: never Within the past year, how many standard drinks containing alcohol did you have on a typical day: 1 or 2 Within the past year, how often did you have six or more drinks on one occasion: never Total score: 0 Score interpretation: A score less than 4 is consistent with normal alcohol consumption. Smoking status: Never smoker Non-prescribed substance use: denies use Previous occupational history: retired Highest level of school completed/degree received: don't know Are you now , , , , never or living with a partner: In a typical week, how many times do you talk on the telephone with family, friends, or neighbors: twice per week How often do you get together with friends or relatives: twice per week How often do you attend confucianist or tenriism services: never Do you belong to any clubs or organizations such as confucianist groups unions, fraternal or athletic groups, or school groups: no Total score: 1 Score interpretation: A score of less than or equal to 1 indicates the most socially isolated. Little interest or pleasure in doing things: not at all Feeling down, depressed, or hopeless: not at all Feel stressed/tense/nervous/anxious/difficulty sleeping: not at all Exam Constitutional Vital Signs, click to edit/add: Last Vital Signs Temp 98.8 F 02/12/24 19:09 Pulse 80 02/12/24 19:50 Resp 18 02/12/24 19:50 BP 136/66 02/12/24 19:50 Pulse Ox 99 02/12/24 19:50 O2 Del Method Room Air 02/12/24 19:50 Common normals: no apparent distress, average body habitus, oriented x3, healthy appearing, alert and well nourished HENMT Common normals: normocephalic and head/scalp atraumatic Eye Common normals: EOMs intact bilaterally and conjunctivae normal Respiratory Common normals: normal respiratory effort, no retractions and no use of accessory muscles Cardio Common normals: regular rate, regular rhythm, S1 normal heart sound and S2 normal heart sound Extremity General: normal exam except as noted Other: right taylor with superficial paper flap lac. 3-4cm. edema RLE. trace-1+ no surrounding erythema. No active bleeding Neuro Common normals: oriented x3, CN's II-XII intact bilaterally, moves all extremities, no focal motor deficits and no sensory deficits noted (hard of hearing) Psych Appearance: grossly normal Course Vital Signs Vital signs: Vital Signs Temperature 98.8 F 02/12/24 19:09 Pulse Rate 64 02/12/24 19:09 Respiratory Rate 18 02/12/24 19:09 Blood Pressure 140/57 02/12/24 19:09 Pulse Oximetry 99 02/12/24 19:09 Oxygen Delivery Method Room Air 02/12/24 19:09 Temperature 98.8 F 02/12/24 19:09 Pulse Rate 80 02/12/24 19:50 Respiratory Rate 18 02/12/24 19:50 Blood Pressure 136/66 02/12/24 19:50 Pulse Oximetry 99 02/12/24 19:50 Oxygen Delivery Method Room Air 02/12/24 19:50 Discharge Plan Discharge Stand Alone Forms: Portal Instructions Chief Complaint: Wound/Laceration Clinical Impression: Laceration Patient Disposition: Home, Self-Care Condition: Good Mode of Transportation: Private Vehicle Prescriptions / Home Meds: No Action metformin 500 mg tablet 500 mg PO BID lisinopril 10 mg tablet 10 mg PO DAILY Hold Instructions: Doctor's Order quetiapine 25 mg Tablet 25 mg PO HS Qty: 30 11RF donepezil 10 mg tablet 10 mg PO .QD memantine 14 mg capsule,sprinkle,ER 24hr 14 mg PO .QD Print Language: Pashto Instructions: Laceration (ED) Additional Instructions: follow up with Dr Patel in next 1-2 days Referrals: Savage Patel MD [Primary Care Provider] - 1 week Discharge Date/Time: 02/12/24 19:50
--- NOTE | 2024-02-12 19:37 | ED_ITS ---
HPI - Wound/Laceration General Chief Complaint: Wound/Laceration Stated Complaint: LE INJURY Time Seen by Provider: 02/12/24 19:28 Source: patient and family Mode of arrival: walk-in Limitations: no limitations History of Present Illness HPI narrative: patient at park with family. Stepping up a cement stair and scraped his right taylor sustaining a paper cut flap lac of the leg. No other injury Related Data Home Medications ?Medication ?Instructions ?Recorded ?Confirmed lisinopril 10 mg tablet 10 mg PO DAILY 10/22/23 02/12/24 metformin 500 mg tablet 500 mg PO BID 10/22/23 02/12/24 donepezil 10 mg tablet 10 mg PO .QD 01/06/24 02/12/24 memantine 14 mg capsule 14 mg PO .QD 01/06/24 02/12/24 sprinkle,extended release 24hr Previous Rx's ?Medication ?Instructions ?Recorded quetiapine 25 mg tablet 25 mg PO HS #30 tabs 10/26/23 Allergies Allergy/AdvReac Type Severity Reaction Status Date / Time No Known Drug Allergies Allergy Verified 02/12/24 19:12 Review of Systems ROS Status of ROS 10 or more systems reviewed and unremark able except as noted in history and below [facility] Medical History (Updated 02/12/24 @ 19:37 by Harvey Hall MD) Dehydration ?E86.0 - Dehydration (ICD-10) Ulcer of right lower extremity ?L97.919 - Non-pressure chronic ulcer of unspecified part of right lower leg with unspecified severity (ICD-10) Confusion ?R41.0 - Disorientation, unspecified (ICD-10) SOPHIA (acute kidney injury) ?N17.9 - Acute kidney failure, unspecified (ICD-10) Ulcer of right leg ?L97.919 - Non-pressure chronic ulcer of unspecified part of right lower leg with unspecified severity (ICD-10) Altered mental status ?R41.82 - Altered mental status, unspecified (ICD-10) Weakness ?R53.1 - Weakness (ICD-10) Dementia ?F03.90 - Unspecified dementia, unspecified severity, without behavioral disturbance, psychotic disturbance, mood disturbance, and anxiety (ICD-10) Bradycardia ?R00.1 - Bradycardia, unspecified (ICD-10) Altered mental status ?R41.82 - Altered mental status, unspecified (ICD-10) Acute hyperglycemia ?R73.9 - Hyperglycemia, unspecified (ICD-10) Medical non-compliance ?Z91.199 - Patient's noncompliance with other medical treatment and regimen due to unspecified reason (ICD-10) Hearing loss ?H91.90 - Unspecified hearing loss, unspecified ear (ICD-10) Fall ?W19.XXXA - Unspecified fall, initial encounter (ICD-10) Diabetes ?E11.9 - Type 2 diabetes mellitus without complications (ICD-10) Leg fracture, right ?S82.91XA - Unspecified fracture of right lower leg, initial encounter for closed fracture (ICD-10) Surgical History (Updated 10/22/23 @ 15:01 by Shayna Miller) FH: CABG (coronary artery bypass surgery) ?Z82.49 - Family history of ischemic heart disease and other diseases of the circulatory system (ICD-10) Family History (Updated 10/22/23 @ 15:04 by Shayna Miller) Father Family history of cancer Social History Within the past year, how often did you have a drink containing alcohol: never Within the past year, how many standard drinks containing alcohol did you have on a typical day: 1 or 2 Within the past year, how often did you have six or more drinks on one occasion: never Total score: 0 Score interpretation: A score less than 4 is consistent with normal alcohol consumption. Smoking status: Never smoker Non-prescribed substance use: denies use Previous occupational history: retired Highest level of school completed/degree received: don't know Are you now , , , , never or living with a partner: In a typical week, how many times do you talk on the telephone with family, friends, or neighbors: twice per week How often do you get together with friends or relatives: twice per week How often do you attend mandaeism or pentecostalism services: never Do you belong to any clubs or organizations such as mandaeism groups unions, fraternal or athletic groups, or school groups: no Total score: 1 Score interpretation: A score of less than or equal to 1 indicates the most socially isolated. Little interest or pleasure in doing things: not at all Feeling down, depressed, or hopeless: not at all Feel stressed/tense/nervous/anxious/difficulty sleeping: not at all Exam Constitutional Vital Signs, click to edit/add: Last Vital Signs Temp 98.8 F 02/12/24 19:09 Pulse 64 02/12/24 19:09 Resp 18 02/12/24 19:09 BP 140/57 02/12/24 19:09 Pulse Ox 99 02/12/24 19:09 O2 Del Method Room Air 02/12/24 19:09 Common normals: no apparent distress, average body habitus, healthy appearing, alert and well nourished Eye Common normals: EOMs intact bilaterally and conjunctivae normal Respiratory Common normals: normal respiratory effort, no retractions, no use of accessory muscles and clear to auscultation bilaterally Cardio Common normals: regular rate, regular rhythm, S1 normal heart sound and S2 normal heart sound Extremity General: normal exam except as noted Other: superficial paper flap lac 3-4 cm right taylor. no surrounding erythema . no active bleeding Neuro Common normals: CN's II-XII intact bilaterally, moves all extremities, no focal motor deficits and no sensory deficits noted (hard of hearing) Psych Appearance: grossly normal Course Vital Signs Vital signs: Vital Signs Temperature 98.8 F 02/12/24 19:09 Pulse Rate 64 02/12/24 19:09 Respiratory Rate 18 02/12/24 19:09 Blood Pressure 140/57 02/12/24 19:09 Pulse Oximetry 99 02/12/24 19:09 Oxygen Delivery Method Room Air 02/12/24 19:09 Temperature 98.8 F 02/12/24 19:09 Pulse Rate 64 02/12/24 19:09 Respiratory Rate 18 02/12/24 19:09 Blood Pressure 140/57 02/12/24 19:09 Pulse Oximetry 99 02/12/24 19:09 Oxygen Delivery Method Room Air 02/12/24 19:09 MDM - Wound/Laceration MDM Narrative Medical decision making narrative: patient presents with a paper flap lac right taylor. Wound cleaned by nursing. Patient lacerated taylor thru his jeans when he scraped his taylor on cement stair. Steri strips applied by nursing. Tetanus administered and patient discharged home to follow up with his doctor Discharge Plan Discharge Stand Alone Forms: Portal Instructions Chief Complaint: Wound/Laceration Clinical Impression: Laceration Patient Disposition: Home, Self-Care Prescriptions / Home Meds: No Action metformin 500 mg tablet 500 mg PO BID lisinopril 10 mg tablet 10 mg PO DAILY Hold Instructions: Doctor's Order quetiapine 25 mg Tablet 25 mg PO HS Qty: 30 11RF donepezil 10 mg tablet 10 mg PO .QD memantine 14 mg capsule,sprinkle,ER 24hr 14 mg PO .QD Print Language: Brazilian Instructions: Laceration (ED) Additional Instructions: follow up with Dr Patel in next 1-2 days Referrals: Savage Patel MD [Primary Care Provider] - 1 week
[2024-02-12] MEDS: ADACEL DIPH,PERTUSS(ACELL),TET VAC/PF 0.5 ML ADULT SYRINGE IM (19:40)
[2024-02-12 19:50] VITALS: BP 136/66; PULSE 80; O2SAT 99
== END 2024-02-12 19:50 | disposition home or self-care (01) ==
PROVIDERS: Emergency Provider Internal Medicine; PCP Family Medicine
DX: S81.811A Laceration without foreign body, right lower leg, initial encounter (principal); Z23 Encounter for immunization; W22.8XXA Striking against or struck by other objects, initial encounter; E11.9 Type 2 diabetes mellitus without complications; Z79.84 Long term (current) use of oral hypoglycemic drugs; Z79.899 Other long term (current) drug therapy; F03.90 Unspecified dementia, unspecified severity, without behavioral disturbance, psychotic disturbance, mood disturbance, and anxiety; H91.90 Unspecified hearing loss, unspecified ear
CPT/HCPCS: 90471; 90715; 99283

== ENCOUNTER 2024-02-14 14:10 | Outpatient (OUT) | payer MEDICARE, SELFPAY | END 2024-02-14 14:11 | disposition home or self-care (01) | LOC: WC 14:10 | PROVIDERS: PCP Family Medicine; Visit Provider Podiatrist Foot & Ankle Surgery | DX: L97.312 Non-pressure chronic ulcer of right ankle with fat layer exposed (principal); R60.0 Localized edema; S81.811A Laceration without foreign body, right lower leg, initial encounter | CPT/HCPCS: G0463 ==

== ENCOUNTER 2024-02-20 15:49 | Outpatient (OUT) | payer MEDICARE, SELFPAY ==
--- OUTSIDE RECORDS SUMMARY | 2024-02-20 16:30 | XMS_ITS | CCD ---
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] US ankle/arm indiceson 07-31 US ankle/arm indices [facility] [place] [address] Ultrasound Report Signed Patient: Navi Funes Jr MR#: [id number] : 1940 Acct:[id number] Age/Sex: 81 / M ADM Date: 07/30/22 Loc: Room: Type: [facility] Attending Dr: Grady Peters MD [...] 07/31/22 1519 Signed By: 07/31/22 1520 Normal [facility] US venous duplex LE BIon US venous duplex LE BI [facility] [place] [address] [place] [address] Ultrasound Report Signed Patient: Navi Funes Jr MR#: [id number] : 1940 Acct:[id number] Age/Sex: 81 / M ADM Date: 07/30/22 Loc: Room: Type: [facility] Attending Dr: Grady Peters MD [...] MD 07/31/22 1521 Signed By: 07/31/22 1522 [facility] XR ankle RT min 3V*on 2021 XR ankle RT min 3V* [facility] [place] [address] [place] [id number] XRay Report Signed Patient: Navi Funes Jr MR#: [id number] : 1940 Acct:[id number] Age/Sex: 81 / M ADM Date: 07/30/22 Loc: Room: Type: [facility] Attending Dr: Grady Peters MD Copies to: Grady Peters MD Ordering Provider: Grady ePters MD Date of Service: 07/30/22 XR/XR ankle [...] King Jr., D.O.07/30/2022 4:33 PM Dictation Location: [place] [address] Transcribed By: [facility] 07/30/22 1633 Dictated By: Navi King Jr, DO 07/30/22 1632 Signed By: 07/30/22 1633 [facility] Consultation Noteon 07-15-20 Consultation Note [id number]:127 Normal [facility] HIPAA Privacy Documentson HIPAA Privacy Documents [id number]:127 Normal [facility] WOUND CULTUREon 06-20-2022 Bacteria identified Aer cx Nom (Unsp spec) Final report Normal [facility] Comment on above: Performed By: #### C XWND #### [facility] [address] [address] [address] Eddie Gaitan Result 1 Comment Normal [facility] Comment on above: Result Comment: No g rowth in 36 - 48 hours. Performed By: #### C XWND #### [facility] [address] [address] [address] Eddie Gaitan Physician Referralon 022 Physician Referral [id number]:127 Normal [facility] A1C with Estimated Average G mary 04-27-2022 Glucose [Mass/Vol] 151 mg/dL Normal [facility] Comment on above: Result Comment: PERF ORMED BY: [place] [address] PATHOLOGIST ENGLISH COMPOSITION INSTRUCTOR BRIDGETT MANZO M.D. Performed By: #### T 4T, TSH3, CBC, PSAS, T3F, A1C WT eA, CMP, LIPID #### [facility] [address] [place] [address] HbA1c (Bld) [Mass fraction] 6.9 % High 4.3-5.6 [facility] Comment on above: Result Comment: Incr eased risk for diabetes: 5.7 - 6.4 diabetes: >6.4 glycemic control for adults with diabetes: <7.0 Performed By: #### T 4T, TSH3, CBC, PSAS, T3F, A1C WTH eA, CMP, LIPID #### [facility] [address] [place] [address] Basophils Auto (Bld) [#/Vol] Ordered By: Jonh Patel on 04-27-2022 Basophils (Bld) [#/Vol] 0.1 10*3/uL 0.0-0.2 [facility] Basophils/100 WBC Auto (Bld) Ordered By: Jonh Patel on 04-27-2022 Basophils/100 WBC (Bld) 1.1 % [facility] Blood hemoglobin measurement (mass/volume)Ordered By: Jonh Patel on 04-27-2022 Hemoglobin (Bld) [Mass/Vol] 13.3 g/dL 13.0-17.0 [facility] Blood leukocytes automated c ount (number/volume)Ordered By: John Patel on 04-27-2022 WBC (Bld) [#/Vol] 5.0 10*3/uL 4.5-11.0 [facility] Body fluid albumin measureme nt (mass/volume)Ordered By: Jonh Patel on 04-27-2022 Albumin (Body fld) [Mass/Vol] 3.6 g/dL 3.2-5.5 [facility] Cholesterol [Mass/volume] in Serum or PlasmaOrdered By: Jonh Patel on 04-27-2022 Cholesterol [Mass/Vol] 168 mg/dL 140-200 [facility] Comment on above: Chol less than 200 m g/dl low risk Chol 201-239 mg/dl borderline risk Chol 240 mg/dl and greater high risk Cholesterol in LDL Calc [Mas s/Vol]Ordered By: Jonh Patel on 04-27-2022 Cholesterol in LDL [Mass/Vol] 112 mg/dL 0-100 [facility] Comment on above: LDL ATP III CLASSIFI CATION LDL less than 100 mg/dL Optimal LDL 100-129 mg/dL Near or above optimal LDL 130-159 mg/dL Borderline high LDL 160-189 mg/dL High LDL greater than 189 mg/dL Very high Cholesterol in VLDL Calc [Ma ss/Vol]Ordered By: Jonh Patel on 04-27-2022 Cholesterol in VLDL [Mass/Vol] 17 mg/dL [facility] Complete Blood Count Auto Di ffon 04-27-2022 Basophils (Bld) [#/Vol] 0.1 10*3/uL Normal 0.0-0.2 [facility] Comment on above: Result Comment: PERF ORMED BY: [place] [address] PATHOLOGIST ENGLISH COMPOSITION INSTRUCTOR BRIDGETT MANZO M.D. Performed By: #### T 4T, TSH3, CBC, PSAS, T3F, A1C WTH eA, CMP, LIPID #### [facility] [address] [place] [address] [place] Basophils/100 WBC (Bld) 1.1 % Normal . [facility] Comment on above: Performed By: #### T 4T, TSH3, CBC, PSAS, T3F, A1C WTH eA, CMP, LIPID #### [facility] [address] Eosinophils (Bld) [#/Vol] 0.3 10*3/uL Normal 0.0-0.45 [facility] Comment on above: Performed By: #### T 4T, TSH3, CBC, PSAS, T3F, A1C WTH eA, CMP, LIPID #### [facility] [address] Eosinophils/100 WBC (Bld) 6.5 % Normal . [facility] Comment on above: Performed By: #### T 4T, TSH3, CBC, PSAS, T3F, A1C WTH eA, CMP, LIPID #### [facility] [address] Erythrocyte distribution width (RBC) [Ratio] 15.0 % High 12.0-14.8 [facility] Comment on above: Performed By: #### T 4T, TSH3, CBC, PSAS, T3F, A1C WTH eA, CMP, LIPID #### [address] Hematocrit (Bld) [Volume fraction] 39.9 % Normal 38.8-50.0 [facility] Comment on above: Performed By: #### T 4T, TSH3, CBC, PSAS, T3F, A1C WTH eA, CMP, LIPID #### [facility] [address] Hemoglobin (Bld) [Mass/Vol] 13.3 g/dL Normal 13.0-17.0 [facility] Comment on above: Performed By: #### T 4T, TSH3, CBC, PSAS, T3F, A1C WTH eA, CMP, LIPID #### [address] Lymphocytes (Bld) [#/Vol] 1.3 10*3/uL Normal 1.00-4.8 [facility] Comment on above: Performed By: #### T 4T, TSH3, CBC, PSAS, T3F, A1C WTH eA, CMP, LIPID #### [facility] [address] Lymphocytes/100 WBC (Bld) 25.6 % Normal . [facility] Comment on above: Performed By: #### T 4T, TSH3, CBC, PSAS, T3F, A1C WTH eA, CMP, LIPID #### [facility] [address] MCH (RBC) [Entitic mass] 31.2 pg Normal 27.5-35.2 [facility] Comment on above: Performed By: #### T 4T, TSH3, CBC, PSAS, T3F, A1C WTH eA, CMP, LIPID #### [address] MCV (RBC) [Entitic vol] 93.5 fL Normal 83.5-101 [facility] Comment on above: Performed By: #### T 4T, TSH3, CBC, PSAS, T3F, A1C WTH eA, CMP, LIPID #### [address] Mean Corpuscular HGB Conc 33.4 g/dL Normal 32.5-35.6 [facility] Comment on above: Performed By: #### T 4T, TSH3, CBC, PSAS, T3F, A1C WTH eA, CMP, LIPID #### [address] Monocytes (Bld) [#/Vol] 0.4 10*3/uL Normal 0.0-0.8 [facility] Comment on above: Performed By: #### T 4T, TSH3, CBC, PSAS, T3F, A1C WTH eA, CMP, LIPID #### [address] Monocytes/100 WBC (Bld) 8.3 % Normal . [facility] Comment on above: Performed By: #### T 4T, TSH3, CBC, PSAS, T3F, A1C WTH eA, CMP, LIPID #### [facility] [address] [place] [address] [place] Neutrophils (Bld) [#/Vol] 2.9 10*3/uL Normal 1.8-7.7 [facility] Comment on above: Performed By: #### T 4T, TSH3, CBC, PSAS, T3F, A1C WTH eA, CMP, LIPID #### [address] Neutrophils/100 WBC (Bld) 58.5 % Normal . [facility] Comment on above: Performed By: #### T 4T, TSH3, CBC, PSAS, T3F, A1C WTH eA, CMP, LIPID #### [address] Nucleated RBC/100 WBC (Bld) [Ratio] 0.0 % Normal 0-0.5 [facility] Comment on above: Performed By: #### T 4T, TSH3, CBC, PSAS, T3F, A1C WTH eA, CMP, LIPID #### [address] Platelet mean volume (Bld) [Entitic vol] 11.0 fL High 6.6-10.1 [facility] Comment on above: Performed By: #### T 4T, TSH3, CBC, PSAS, T3F, A1C WTH eA, CMP, LIPID #### [facility] [address] [place] [address] [place] Platelets (Bld) [#/Vol] 116 10*3/uL Low 150-450 [facility] Comment on above: Performed By: #### T 4T, TSH3, CBC, PSAS, T3F, A1C WTH eA, CMP, LIPID #### [place] [address] [place] RBC (Bld) [#/Vol] 4.27 10*6/uL Normal 3.90-5.60 [facility] Comment on above: Performed By: #### T 4T, TSH3, CBC, PSAS, T3F, A1C WTH eA, CMP, LIPID #### [address] WBC (Bld) [#/Vol] 5.0 10*3/uL Normal 4.5-11.0 [facility] Comment on above: Performed By: #### T 4T, TSH3, CBC, PSAS, T3F, A1C WTH eA, CMP, LIPID #### [facility] [address] Comprehensive Metabolic Pane alexandra 04-27-2022 Albumin [Mass/Vol] 3.6 g/dL Normal 3.2-5.5 [facility] Comment on above: Performed By: #### T 4T, TSH3, CBC, PSAS, T3F, A1C WTH eA, CMP, LIPID #### [address] Albumin/Globulin [Mass ratio] 1.3 {ratio} Normal [facility] Comment on above: Performed By: #### T 4T, TSH3, CBC, PSAS, T3F, A1C WTH eA, CMP, LIPID #### [address] ALP [Catalytic activity/Vol] 71 U/L Normal 32-92 [facility] Comment on above: Performed By: #### T 4T, TSH3, CBC, PSAS, T3F, A1C WTH eA, CMP, LIPID #### [address] ALT [Catalytic activity/Vol] 12 U/L Normal 10-60 [facility] Comment on above: Performed By: #### T 4T, TSH3, CBC, PSAS, T3F, A1C WTH eA, CMP, LIPID #### [address] AST [Catalytic activity/Vol] 18 U/L Normal 10-42 [facility] Comment on above: Performed By: #### T 4T, TSH3, CBC, PSAS, T3F, A1C WTH eA, CMP, LIPID #### [facility] [address] Bilirubin [Mass/Vol] 0.8 mg/dL Normal 0.3-1.2 [facility] Comment on above: Performed By: #### T 4T, TSH3, CBC, PSAS, T3F, A1C WTH eA, CMP, LIPID #### [facility] [address] Calcium [Mass/Vol] 9.0 mg/dL Normal 8.2-10.2 [facility] Comment on above: Performed By: #### T 4T, TSH3, CBC, PSAS, T3F, A1C WTH eA, CMP, LIPID #### [facility] [address] Chloride [Moles/Vol] 104 mmol/L Normal 95-114 [facility] Comment on above: Performed By: #### T 4T, TSH3, CBC, PSAS, T3F, A1C WTH eA, CMP, LIPID #### [facility] [address] CO2 [Moles/Vol] 22.4 mmol/L Normal 22.0-30.0 [facility] Comment on above: Performed By: #### T 4T, TSH3, CBC, PSAS, T3F, A1C WTH eA, CMP, LIPID #### [facility] [address] Creatinine [Mass/Vol] 1.47 mg/dL High 0.64-1.27 [facility] Comment on above: Performed By: #### T 4T, TSH3, CBC, PSAS, T3F, A1C WTH eA, CMP, LIPID #### [facility] [address] [place] [address] [place] Estimated GFR ( Evelyn 56 Normal [facility] Comment on above: Result Comment: GFR estimated reference range: According to KDOQI guidelines, <60 ml/min/1.73m2 is sufficient to diagnose a patient with chronic kidney disease. Performed By: #### T 4T, TSH3, CBC, PSAS, T3F, A1C WTH eA, CMP, LIPID #### [facility] [address] Estimated GFR (Non- Am 46 Normal [facility] Comment on above: Performed By: #### T 4T, TSH3, CBC, PSAS, T3F, A1C WTH eA, CMP, LIPID #### [facility] [address] Globulin (S) [Mass/Vol] 2.8 g/dL Normal [facility] Comment on above: Performed By: #### T 4T, TSH3, CBC, PSAS, T3F, A1C WTH eA, CMP, LIPID #### [facility] [address] Glucose [Mass/Vol] 139 mg/dL High 70-100 [facility] Comment on above: Result Comment: [place] Glucose Reference Range is dependent on time and content of last meal. Glucose of more than 200 mg/dL in a nonstressed, ambulatory subject supports the diagnosis of Diabetes Mellitus. ADA recommended reference range Performed By: #### T 4T, TSH3, CBC, PSAS, T3F, A1C WTH eA, CMP, LIPID #### [facility] [address] Potassium [Moles/Vol] 4.4 mmol/L Normal 3.5-5.1 [facility] Comment on above: Performed By: #### T 4T, TSH3, CBC, PSAS, T3F, A1C WTH eA, CMP, LIPID #### [facility] [address] Protein [Mass/Vol] 6.4 g/dL Normal 6.1-7.9 [facility] Comment on above: Performed By: #### T 4T, TSH3, CBC, PSAS, T3F, A1C WTH eA, CMP, LIPID #### [facility] [address] Sodium [Moles/Vol] 136 mmol/L Normal 136-146 [facility] Comment on above: Performed By: #### T 4T, TSH3, CBC, PSAS, T3F, A1C WTH eA, CMP, LIPID #### [facility] [address] [place] [id number] [place] Urea nitrogen [Mass/Vol] 23 mg/dL Normal 9-23 [facility] Comment on above: Performed By: #### T 4T, TSH3, CBC, PSAS, T3F, A1C WTH eA, CMP, LIPID #### [facility] [address] [place] [id number] [place] Creatinine and Glomerular fi ltration rate.predicted panel (S/P/Bld)Ordered By: Jonh Patel on 04-27-2022 Creatinine [Mass/Vol] 1.47 mg/dL 0.64-1.27 [facility] Eosinophils Auto (Bld) [#/Vo l]Ordered By: Jonh Patel on 04-27-2022 Eosinophils (Bld) [#/Vol] 0.3 10*3/uL 0.0-0.45 [facility] Eosinophils/100 WBC Auto (Bl d)Ordered By: Jonh Patel on 04-27-2022 Eosinophils/100 WBC (Bld) 6.5 % [facility] Erythrocyte distribution wid th Auto (RBC) [Ratio]Ordered By: Jonh Patel on 04-27-2022 Erythrocyte distribution width (RBC) [Ratio] 15.0 % 12.0-14.8 [facility] Estimated glomerular filtrat ion rate (GFR) non- AmericanOrdered By: Jonh Patel on 04-27-2022 GFR/1.73 sq M.predicted among non-blacks MDRD (S/P/Bld) [Vol rate/Area] 46 mL/Min [facility] Globulin Calc (S) [Mass/Vol] Ordered By: Jonh Patel on 04-27-2022 Globulin (S) [Mass/Vol] 2.8 g/dL [facility] Glucose mean value [Mass/vol ume] in Blood Estimated from glycated hemoglobinOrdered By: Jonh Patel on 04-27-2022 Average glucose Estimated from glycated hemoglobin (Bld) [Mass/Vol] 151 mg/dL [facility] Hematocrit Auto (Bld) [Volum e fraction]Ordered By: Jonh Patel on 04-27-2022 Hematocrit (Bld) [Volume fraction] 39.9 % 38.8-50.0 [facility] Hemoglobin A1c percentageOrd ered By: Jonh Patel on 04-27-2022 HbA1c (Bld) [Mass fraction] 6.9 % 4.3-5.6 [facility] Comment on above: Increased risk for d iabetes: 5.7 - 6.4 diabetes: >6.4 glycemic control for adults with diabetes: <7.0 Laboratory - Hematology and Cell countsOrdered By: Jonh Patel on 04-27-2022 Nucleated RBC/100 WBC (Bld) [Ratio] 0.0 % 0-0.5 [facility] Lipid Panelon 04-27-2022 Cholesterol [Mass/Vol] 168 mg/dL Normal 140-200 [facility] Comment on above: Result Comment: Chol less than 200 mg/dl low risk Chol 201-239 mg/dl borderline risk Chol 240 mg/dl and greater high risk Performed By: #### T 4T, TSH3, CBC, PSAS, T3F, A1C WTH eA, CMP, LIPID #### [facility] [address] [place] [id number] [place] Cholesterol in HDL [Mass/Vol] 38 mg/dL Normal 29-71 [facility] Comment on above: Result Comment: HDL CHOL ATP-III CLASSIFICATION Cardiovascular Risk HDL > or equal to 60 mg/dL LOW HDL < 40 mg/dL HIGH Performed By: #### T 4T, TSH3, CBC, PSAS, T3F, A1C WTH eA, CMP, LIPID #### [facility] [address] [place] [address] [place] Cholesterol.total/Tresa sterol in HDL [Mass ratio] 4.4 {ratio} Normal <5.0 [facility] Comment on above: Performed By: #### T 4T, TSH3, CBC, PSAS, T3F, A1C WTH eA, CMP, LIPID #### [facility] [address] [place] [address] [place] LDL Cholesterol,Calculated 112 mg/dL High 0-100 [facility] Comment on above: Result Comment: LDL ATP III CLASSIFICATION LDL less than 100 mg/dL Optimal LDL 100-129 mg/dL Near or above optimal LDL 130-159 mg/dL Borderline high LDL 160-189 mg/dL High LDL greater than 189 mg/dL Very high Performed By: #### T 4T, TSH3, CBC, PSAS, T3F, A1C WTH eA, CMP, LIPID #### [facility] [address] Triglyceride w/Reflex 88 mg/dL Normal 35-149 [facility] Comment on above: Result Comment: TRIG ATP III CLASSIFICATION TRIG less than 150 mg/dL Normal TRIG 150-199 mg/dL Borderline high TRIG 200-500 mg/dL High TRIG greater than 500 mg/dL Very high Standard traceable to the Center for Disease Conrtrol and Prevention (CDC) test method. Performed By: #### T 4T, TSH3, CBC, PSAS, T3F, A1C WTH eA, CMP, LIPID #### [facility] [address] VLDL CHOLESTEROL 17 mg/dL Normal [facility] Comment on above: Performed By: #### T 4T, TSH3, CBC, PSAS, T3F, A1C WTH eA, CMP, LIPID #### [facility] [address] Lymphocytes Auto (Bld) [#/Vo l]Ordered By: Jonh Patel on 04-27-2022 Lymphocytes (Bld) [#/Vol] 1.3 10*3/uL 1.00-4.8 [facility] Lymphocytes/100 WBC Auto (Bl d)Ordered By: Jonh Patel on 04-27-2022 Lymphocytes/100 WBC (Bld) 25.6 % [facility] MCH Auto (RBC) [Entitic mass ]Ordered By: Jonh Patel on 04-27-2022 MCH (RBC) [Entitic mass] 31.2 pg 27.5-35.2 [facility] MCHC Auto (RBC) [Mass/Vol]Or dered By: Jonh Patel on 04-27-2022 MCHC (RBC) [Mass/Vol] 33.4 g/dL 32.5-35.6 [facility] MCV Auto (RBC) [Entitic vol] Ordered By: Jonh Patel on 04-27-2022 MCV (RBC) [Entitic vol] 93.5 fL 83.5-101 [facility] Monocytes Auto (Bld) [#/Vol] Ordered By: Jonh Patel on 04-27-2022 Monocytes (Bld) [#/Vol] 0.4 10*3/uL 0.0-0.8 [facility] Monocytes/100 WBC Auto (Bld) Ordered By: Jonh Hokimmy on 04-27-2022 Monocytes/100 WBC (Bld) 8.3 % [facility] Neutrophils Auto (Bld) [#/Vo l]Ordered By: Jonh Realkimmy on 04-27-2022 Neutrophils (Bld) [#/Vol] 2.9 10*3/uL 1.8-7.7 [facility] Neutrophils/100 WBC Auto (Bl d)Ordered By: Jonh Patel on 04-27-2022 Neutrophils/100 WBC (Bld) 58.5 % [facility] No Panel InformationOrdered By: Jonh Hokimmy on 04-27-2022 Estimated GFR () 56 mL/Min [facility] Comment on above: GFR estimated refere nce range: According to KDOQI guidelines, <60 ml/min/1.73m2 is sufficient to diagnose a patient with chronic kidney disease. Pharmacy Creatinine Clearance (Chem N/A [facility] Prostate Specific Antigen Screen 0.860 ng/mL 0.000-4.000 [facility] PSA Screen (Yearly Only)on 0 04-27-2022 PSA Screen (Yearly Only) 0.860 ng/mL Normal 0.000-4.000 [facility] Comment on above: Order Comment: Is pa tient <50 yrs? Medicare does not pay <50.: Y Is Medicare the insurance?: Y Result Comment: PERF ORMED BY: [facility] [address] [place] [address] PATHOLOGIST ENGLISH [employer]ITION INSTRUCTOR BRIDGETT MANZO M.D. Performed By: #### T 4T, TSH3, CBC, PSAS, T3F, A1C WTH eA, CMP, LIPID #### [facility] [address] Platelet mean volume Auto (B ld) [Entitic vol]Ordered By: Jonh Patel on 04-27-2022 Platelet mean volume (Bld) [Entitic vol] 11.0 fL 6.6-10.1 [facility] Platelets Auto (Bld) [#/Vol] Ordered By: Jonh Patel on 04-27-2022 Platelets (Bld) [#/Vol] 116 10*3/uL 150-450 [facility] Protein [Mass/volume] in Ser um or PlasmaOrdered By: Jonh Patel on 04-27-2022 Protein [Mass/Vol] 6.4 g/dL 6.1-7.9 [facility] RBC Auto (Bld) [#/Vol]Ordere d By: Jonh Patel on 04-27-2022 RBC (Bld) [#/Vol] 4.27 10*6/uL 3.90-5.60 [facility] Serum or plasma alanine garner otransferase measurement without P-5'-P (enzymatic activiOrdered By: Jonh Patel on 04-27-2022 ALT No additional P-5'-P [Catalytic activity/Vol] 12 U/L 10-60 [facility] Serum or plasma albumin/glob ulin mass ratioOrdered By: Jonh Patel on 04-27-2022 Albumin/Globulin [Mass ratio] 1.3 {ratio} [facility] Serum or plasma alkaline anna sphatase measurement (enzymatic activity/volume)Ordered By: Jonh Patel on 04-27-2022 ALP [Catalytic activity/Vol] 71 U/L 32-92 [facility] Serum or plasma aspartate am inotransferase measurement (enzymatic activity/volume)Ordered By: Jonh Patel on 04-27-2022 AST [Catalytic activity/Vol] 18 U/L 10-42 [facility] Serum or plasma calcium josiah urement (mass/volume)Ordered By: Jonh Patel on 04-27-2022 Calcium [Mass/Vol] 9.0 mg/dL 8.2-10.2 [facility] Serum or plasma chloride jerica surement (moles/volume)Ordered By: Jonh Patel on 04-27-2022 Chloride [Moles/Vol] 104 mmol/L 95-114 [facility] Serum or plasma glucose josiah urement (mass/volume)Ordered By: Jonh Patel on 04-27-2022 Glucose [Mass/Vol] 139 mg/dL 70-100 [facility] Comment on above: ADA recommended refe rence range Random Glucose Reference Range is dependent on time and content of last meal. Glucose of more than 200 mg/dL in a nonstressed, ambulatory subject supports the diagnosis of Diabetes Mellitus. Serum or plasma high density lipoprotein (HDL) cholesterol measurementOrdered By: Jonh Patel on 04-27-2022 Cholesterol in HDL [Mass/Vol] 38 mg/dL 29-71 [facility] Comment on above: HDL CHOL ATP-III CLA SSIFICATION Cardiovascular Risk HDL > or equal to 60 mg/dL LOW HDL < 40 mg/dL HIGH Serum or plasma potassium me asurement (moles/volume)Ordered By: Jonh Patel on 04-27-2022 Potassium [Moles/Vol] 4.4 mmol/L 3.5-5.1 [facility] Serum or plasma sodium measu rement (moles/volume)Ordered By: Jonh Patel on 04-27-2022 Sodium [Moles/Vol] 136 mmol/L 136-146 [facility] Serum or plasma thyroxine (T 4) measurement (mass/volume)Ordered By: Jonh Patel on 04-27-2022 T4 [Mass/Vol] 9.08 ug/dL 5.39-11.82 [facility] Serum or plasma total biliru bin measurement (mass/volume)Ordered By: Jonh Patel on 04-27-2022 Bilirubin [Mass/Vol] 0.8 mg/dL 0.3-1.2 [facility] Serum or plasma total carbon dioxide measurement (moles/volume)Ordered By: Jonh Patel on 04-27-2022 CO2 [Moles/Vol] 22.4 mmol/L 22.0-30.0 [facility] Serum or plasma total choles terol/high density lipoprotein (HDL) cholesterol mass ratOrdered By: Jonh Patel on 04-27-2022 Cholesterol.total/Tresa sterol in HDL [Mass ratio] 4.4 {ratio} [facility] Serum or plasma urea nitroge n measurement (mass/volume)Ordered By: Jonh Patel on 04-27-2022 Urea nitrogen [Mass/Vol] 23 mg/dL 07-30 [facility] Stool Occult Blood (Immuno)o n 04-27-2022 Stool Occult Blood (Immuno) Occult Blood (Immuno) Negative for Occult Blood by Immunochemical Methodology Reference range = Negative PERFORMED BY: [address] [place] [address] PATHOLOGIST ENGLISH COMPOSITION INSTRUCTOR BRIDGETT MANZO M.D. Normal [facility] Comment on above: Performed By: #### O B(IMMUNO) #### [facility] [address] [place], [place] [id number] [facility] TSH DL <= 0.005 mIU/L QnOrde red By: Jonh Patel on 04-27-2022 TSH Qn 1.16 m[IU]/L 0.45-5.33 [facility] Thyroid Stimulating Hormoneo n 04-27-2022 TSH Qn 1.16 m[IU]/L Normal 0.45-5.33 [facility] Comment on above: Result Comment: PERF ORMED BY: [address] [place] [address] PATHOLOGIST ENGLISH COMPOSITION INSTRUCTOR BRIDGETT MANZO M.D. Performed By: #### T 4T, TSH3, CBC, PSAS, T3F, A1C WTH eA, CMP, LIPID ####[address] Thyroxine (T4) Totalon 04-27 T4 [Mass/Vol] 9.08 ug/dL Normal 5.39-11.82 [facility] Comment on above: Performed By: #### T 4T, TSH3, CBC, PSAS, T3F, A1C WT eA, CMP, LIPID ####[address] Triglyceride [Mass/volume] i n Serum or PlasmaOrdered By: Jonh Realkimmy on 04-27-2022 Triglyceride [Mass/Vol] 88 mg/dL 35-149 F [facility] Comment on above: TRIG ATP III CLASSIF ICATION TRIG less than 150 mg/dL Normal TRIG 150-199 mg/dL Borderline high TRIG 200-500 mg/dL High TRIG greater than 500 mg/dL Very high Standard traceable to the Center for Disease Conrtrol and Prevention (CDC) test method. Triiodothyronine (T3) Freeon 04-27-2022 Triiodothyronine (T3) Free 2.51 pg/mL Normal 2.50-3.90 [facility] Comment on above: Result Comment: PERF ORMED BY: [facility] [address] [place] [address] PATHOLOGIST ENGLISH COMPOSITION INSTRUCTOR BRIDGETT MANZO M.D. Performed By: #### T 4T, TSH3, CBC, PSAS, T3F, A1C WTH eA, CMP, LIPID #### [facility] [address] Triiodothyronine (T3) Free [ Mass/volume] in Serum or PlasmaOrdered By: Jonh Hoy on 04-27-2022 Free T3 [Mass/Vol] 2.51 pg/mL 2.50-3.90 [facility] Provider Letter FTon 10-27 Provider Letter [facility] October 27, 2021 Jonh Jorge, [address] [place] [address] Re: NAVI FUNES Date of : 1940 Thank you for your referral of Navi Funes who was seen on consultation on 10/23/2021, for nodule right taylor with underlying cellulitis. I have enclosed my consultation note for your review. I will be happy to follow Navi. Sincerely, Josiah Gallego MD General Surgery Normal [facility] Ambulatory Clinical Summaryo n 10-23-2021 Ambulatory Clinical Summary {[id number]}CD:[id number] Normal [facility] Physician Referralon 021 Physician Referral [id number]:127 Normal [facility] Vital Signs Date Time Vital Sign Value Performing Clinician Facility 08-10-2022 10:45-0400 Body height 177.8 cm Grady Peters Other [facility] Other 08-10-2022 10:45-0400 Body mass index (BMI) [Ratio] 26.54 kg/m2 Grady Peters Other [facility] Other 08-10-2022 10:45-0400 Body temperature 97.3 [degF] Grady Peters Other [facility] Other 08-10-2022 10:45-0400 Body weight 83.92 kg Grady Peters Other [facility] Other 08-10-2022 10:45-0400 Diastolic blood pressure 72 mm[Hg] Grady Peters Other [facility] Other 08-10-2022 10:45-0400 SaO2% (BldA) [Mass fraction] 98 % Grady Peters Other [facility] Other 08-10-2022 10:45-0400 Systolic blood pressure 146 mm[Hg] Grady Peters Other [facility] Other Encounters Encounter Date Encounter Type Care Provider Facility Start: 01-07-2024 ambulatory [facility] Start: 10-24-2023 End: 10-26-2023 Emergency department patient visit [facility] Start: 08-10-2022 End: 08-10-2022 ambulatory Grady Peters Other [facility] Other Start: 08-10-2022 Office outpatient vi sit 25 minutes Grady Peters [facility] Start: 07-30-2022 End: 07-30-2022 ambulatory Grady Peters Facility:[facility] Start: 07-30-2022 End: 07-30-2022 Patient encounter procedure MD Jonh Patel Work Phone: [facility] [place] Start: 06-17-2022 End: 06-17-[address] JONH PATEL Facility: Start: 04-27-2022 End: 04-27-2022 ambulatory Jonh Patel Facility:[facility] Start: 04-27-2022 End: 04-27-2022 Patient encounter procedure MD Jonh Patel Work Phone: [facility] Start: 01-06-2017 End: 01-07-2017 Ambulatory CHARISMA MCKEON Facility:[facility] Procedures Date Procedure Procedure Detail Performing Clinician Start: 07-30-2022 X-ray of right ankle MD Jonh Patel Work Phone: Start: 04-27-2022 End: 04-27-2022 Screening for occult blood in feces MD Jonh Patel Work Phone: Plan of Treatment Date Care Activity Detail Author Start: 07-30-2022 Ankle brachial press ure index [facility] Start: 07-30-2022 Duplex scan of lower limb veins US venous duplex LE BI [facility] Start: 07-30-2022 US Lower extremity v ein - bilateral [facility] Work Phone: Payers Date Payer Category Payer Medicaid [id number] 2022 Self-pay [id number] 1957 Unknown [id number] 1940 Unknown [id number] 1940 Unknown [id number] 1940 Unknown [id number] Unknown [facility] [id number] Unknown [id number] Unknown [id number] Social History Date Type Detail Facility Tobacco smoking status NHIS Unknown if ever smoked [facility] Work Phone: Start: 1940 Sex Assigned At Male F [facility] Sex Assigned At Sex Assigned At Bir th [facility] Other Evaluation note 08-10-2022 Note Date & [...] this patient back on an as-needed basis. [facility] Other Clinical Note 06-22-2022 Note Date & [...] to Vascular surgery for recommendations; patient requests [facility]. Ordered: E&M of Est. Patient Low 20-29 Min [id number] [facility] External Ambulatory Referral Follow-up [...] Recorded SARS-CoV-2 (COVID-19) Ad26 vaccine 03/19/2021 Recorded [facility] Comment on above: Result Comment: Taylor [...] Recorded SARS-CoV-2 (COVID-19) Ad26 vaccine 03/19/2021 Recorded [facility] Comment on above: Result Comment: Elec tronically Signed By: CLAUDIA OG, Josiah Frederick\.janeth\Date and Time Signed: 10/23/21 16:30 EST Evaluation note Note Date & Type Note Facility Evaluation note No assessment information availa [facility] Work Phone: History general Narrative - Reported Note Date & Type Note Facility History general Narrative - Reported Type Medical History hypercholesterolemia Medical History hypertension Medical History diabetes mallitus Surgical History CABG Surgical History Open reduction inter nal fixation right lower extremity fracture Hospitalization History see above [facility] [employer] Other Summary Purpose Family History No Family [...] and content) DATE CREATED AUTHOR 05/03/2018 [facility] DATE CREATED AUTHOR AUTHOR'S ORGANIZ ATION 06/20/2022 [facility] DATE CREATED AUTHOR AUTHOR'S ORGANIZ ATION 07/16/2022 Rivera Pola [facility] DATE CREATED AUTHOR AUTHOR'S ORGANIZ ATION 12/23/2022 [facility] DATE CREATED AUTHOR AUTHOR'S ORGANIZ ATION 01/13/2024 [facility] Care Teams (unrecognized sec tion [...] TESTING; MARIAH AND FF V ENOUS AT [facility], Follow-up noninvasive studies FOR RECORDS PERTAINING TO [...] BE BASED ON THE PRIMARY CLINICAL RECORDS. [facility] [employer] [facility]. provides no warranty or guarantee of the accuracy or completeness of information in this document.
== END 2024-02-20 15:50 | disposition home or self-care (01) ==
LOC: WC 15:49
PROVIDERS: PCP Family Medicine; Visit Provider Physician Assistant
DX: L97.312 Non-pressure chronic ulcer of right ankle with fat layer exposed (principal); S81.811A Laceration without foreign body, right lower leg, initial encounter
CPT/HCPCS: A6213; G0463

== ENCOUNTER 2024-05-03 10:44 | Emergency (ER) | payer MEDICARE, SELFPAY ==
[2024-05-03] VITALS (7 sets, daily range): BP systolic 136; BP diastolic 61; PULSE 46–55; TEMP 36.5; O2SAT 97–100; BMI 26.0
--- OUTSIDE RECORDS SUMMARY | 2024-05-03 12:07 | XMS_ITS ---
Patient Summarization (C-CDA 2.1 CCD) Created on: May 03, 2024 NAVI FUNES JR. : 1940 Sex: Undifferentiated Author Organization Sample organization Care Team Providers Care Pocket Secretary Assembler Name Role Phone MIKECHARISMA Unavailable Unavailable MIKE CHARISMA Unavailable Unavailable JONH PATEL Unavailable Unavailable JONH PATEL Unavailable Unavailable MD Jonh Patel Primary Care Provider [phone] MD Jonh Patel Attending Provider [phone] JONH PATEL Attending Unavailable DR JONH PATEL Consulting Unavailable DR JONH PATEL Primary Care Unavailable DR JONH PATEL Admitting Unavailable MD Jonh Patel Primary Care Provider [phone] MD Grady Petres Attending Provider Grady Peters Unavailable Jonh Patel Primary Care Unavailable Jonh Patel Attending Unavailable Jonh Patel Admitting Unavailable Grady Peters Admitting Unavailable Grady Peters Attending Unavailable Jonh Patel Primary Care Unavailable JONH PATEL Referring Unavailable JONH PATEL Primary Care Unavailable JONH PATEL Primary Care Unavailable INPATIENT, TELENEUROLOGY Consulting Unavail JOSE ALBERTO Freedman Consulting Unavailable Encounters Encounter Date Encounter Type Care Provider Facility Start: 01-07-[address] [facility] Start: 10-24-2023 End: 10-26-2023 Emergency department patient visit JONH M [facility] Start: 08-10-2022 End: 08-10-2022 ambulatory Grady Peters Other [employer] Other Start: 08-10-2022 Office outpatient vi sit 25 minutes Grady Peters [facility] Vascular Surgery Start: 07-30-2022 End: 07-30-2022 ambulatory Grady Peters Facility:[facility] Start: 07-30-2022 End: 07-30-2022 Patient encounter procedure MD Jonh Patel Work Phone: [facility] Main [place] Start: 06-17-2022 End: 06-17-[address] JONH PATEL Facility: Start: 04-27-2022 End: 04-27-2022 ambulatory Jonh Patel Facility:[facility] Start: 04-27-2022 End: 04-27-2022 Patient encounter procedure MD Jonh Patel Work Phone: [facility] Start: 01-06-2017 End: 01-07-2017 Ambulatory CHARISMA MCKEON Facility:[facility] Medications Current Medications Medication Drug Class(es) Dates [...] 1 tablet in the evening Orally Active Payers Date Payer Category Payer Medicaid [id number] a 2022 Self-pay [id number] b 1957 Unknown [id number] 1940 Unknown [id number] 1940 Unknown [id number] 1940 Unknown [id number] Unknown [facility] [id number] 7 Unknown [id number] Unknown [id number] Plan of Treatment Date Care Activity Detail Author Start: 07-30-2022 Ankle brachial press ure index [facility] Start: 07-30-2022 Duplex scan of lower limb veins US venous duplex LE BI [facility] Start: 07-30-2022 US Lower extremity v ein - bilateral [facility] Work Phone: Problems Active Problems Problem Classification Problem Date [...] consult , dx altered mental status from [facility] inpatient room 217 Onset: 10-24-2023 Past or [...] specified disorders of veins] Onset: 07-30-2022 Episodic Procedures Date Procedure Procedure Detail Performing Clinician Start: 07-30-2022 X-ray of right ankle MD Jonh Patel Work Phone: Start: 04-27-2022 End: 04-27-2022 Screening for occult blood in feces MD Jonh Patel Work Phone: Results Test Name Value Interpretation Reference Range Facility US ankle/arm indiceson 07-31 US ankle/arm indices [facility] Main [address] [address] Ultrasound Report Signed Patient: Navi Funes Jr MR#: [id number] : 1940 Acct:[id number] Age/Sex: 81 / M ADM Date: 07/30/22 Loc: Room: Type: DEP CLI Attending Dr: Grady Peters MD Ordering Provider: [...] Ruben Dumont MD07/31/2022 3:20 PM Dictation Location: [place] [address] Tech: Katt Baron Transcribed By: HANNAH 07/31/22 1520 Dictated By: Ruben Dumont MD 07/31/22 1519 Signed By: 07/31/22 1520 Normal [facility] US venous duplex LE BIon US venous duplex LE BI [facility] Main [address] [address] Ultrasound Report Signed Patient: Navi Funes Jr MR#: [id number] : 1940 Acct:[id number] Age/Sex: 81 / M ADM Date: 07/30/22 Loc: Room: Type: DEP CLI Attending Dr: Grady Peters MD Ordering Provider: [...] Ruben Dumont MD07/31/2022 3:22 PM [facility] Tech: Katt Mendez Transcribed By: HANNAH 07/31/22 1522 Dictated By: Ruben Dumont MD 07/31/22 1521 Signed By: 07/31/22 1522 Normal [facility] XR ankle RT min 3V*on 2021 XR ankle RT min 3V* [facility] [place] [address] XRay Report Signed Patient: Navi Funes Jr MR#: [id number] : 1940 Acct:[id number] Age/Sex: 81 / M ADM Date: 07/30/22 Loc: Room: Type: [facility] CLI Attending Dr: Grady Peters MD Copies to: [...] King Jr., D.O.07/30/2022 4:33 PM Dictation Location: [place] [address] Transcribed By: [facility] 07/30/22 1633 Dictated By: Navi King Jr DO 07/30/22 1632 Signed By: 07/30/22 1633 Normal [facility] Consultation Noteon 07-15-20 Consultation Note [id number] .[id number]:127 Normal [facility] HIPAA Privacy Documentson HIPAA Privacy Documents [id number]:127 Normal [facility] WOUND CULTUREon 06-20-2022 Bacteria identified Aer cx Nom (Unsp spec) Final report Normal [facility] Comment on above: Performed By: #### C XWND #### [facility] [address] [place] [address] [address] Eddie Gaitan Result 1 Comment Normal [facility] Comment on above: Result Comment: No g rowth in 36 - 48 hours. Performed By: #### C XWND #### [facility] [address] [address] [address] Eddie Gaitan Physician Referralon 022 Physician Referral [id number]:127 Normal [facility] A1C with Estimated Average G geraldlauryn 04-27-2022 Glucose [Mass/Vol] 151 mg/dL Normal [facility] Comment on above: Result Comment: PERF ORMED BY: [facility] [address] [place] [address] PATHOLOGIST TOOL HONING MACHINE SET UP OPERATOR BRIDGETT MANZO M.D. Performed By: #### T 4T, TSH3, CBC, PSAS, T3F, A1C WTH eA, CMP, LIPID #### [facility] [address] HbA1c (Bld) [Mass fraction] 6.9 % High 4.3-5.6 [facility] Comment on above: Result Comment: Incr eased risk for diabetes: 5.7 - 6.4 diabetes: >6.4 glycemic control for adults with diabetes: <7.0 Performed By: #### T 4T, TSH3, CBC, PSAS, T3F, A1C WTH eA, CMP, LIPID #### [facility] [address] [place] [id number] [facility] Basophils Auto (Bld) [#/Vol] Ordered By: Jonh Patel on 04-27-2022 Basophils (Bld) [#/Vol] 0.1 10*3/uL 0.0-0.2 [facility] Basophils/100 WBC Auto (Bld) Ordered By: Jonh Patel on 04-27-2022 Basophils/100 WBC (Bld) 1.1 % [facility] Blood hemoglobin measurement (mass/volume)Ordered By: Jonh Patel on 04-27-2022 Hemoglobin (Bld) [Mass/Vol] 13.3 g/dL 13.0-17.0 [facility] Blood leukocytes automated c ount (number/volume)Ordered By: Jonh Patel on 04-27-2022 WBC (Bld) [#/Vol] 5.0 10*3/uL 4.5-11.0 [facility] Body fluid albumin measureme nt (mass/volume)Ordered By: Jonh Patel on 04-27-2022 Albumin (Body fld) [Mass/Vol] 3.6 g/dL 3.2-5.5 [facility] Cholesterol [Mass/volume] in Serum or PlasmaOrdered By: Jonh Patel on 04-27-2022 Cholesterol [Mass/Vol] 168 mg/dL 140-200 [facility] Comment on above: Chol less than 200 m g/dl low risk Chol 201-239 mg/dl borderline risk Chol 240 mg/dl and greater high risk Cholesterol in LDL Calc [Mas s/Vol]Ordered By: Jonh Patel on 04-27-2022 Cholesterol in LDL [Mass/Vol] 112 mg/dL 0-100 [facility] Comment on above: LDL ATP III CLASSIFI CATION LDL less than 100 mg/dL Optimal LDL 100-129 mg/dL Near or above optimal LDL 130-159 mg/dL Borderline high LDL 160-189 mg/dL High LDL greater than 189 mg/dL Very high Cholesterol in VLDL Calc [Ma ss/Vol]Ordered By: Jonh Patel on 04-27-2022 Cholesterol in VLDL [Mass/Vol] 17 mg/dL [facility] Complete Blood Count Auto Di ffon 04-27-2022 Basophils (Bld) [#/Vol] 0.1 10*3/uL Normal 0.0-0.2 [facility] Comment on above: Result Comment: PERF ORMED BY: [place] [address] PATHOLOGIST TOOL HONING MACHINE SET UP OPERATOR BRIDGETT MANZO M.D. Performed By: #### T 4T, TSH3, CBC, PSAS, T3F, A1C WTH eA, CMP, LIPID #### [facility] [address] [place] [address] [place] Basophils/100 WBC (Bld) 1.1 % Normal . [facility] Comment on above: Performed By: #### T 4T, TSH3, CBC, PSAS, T3F, A1C WTH eA, CMP, LIPID #### [facility] [address] [place] [address] [place] Eosinophils (Bld) [#/Vol] 0.3 10*3/uL Normal 0.0-0.45 [facility] Comment on above: Performed By: #### T 4T, TSH3, CBC, PSAS, T3F, A1C WTH eA, CMP, LIPID #### [facility] [address] [place] [address] [place] Eosinophils/100 WBC (Bld) 6.5 % Normal . [facility] Comment on above: Performed By: #### T 4T, TSH3, CBC, PSAS, T3F, A1C WTH eA, CMP, LIPID #### [facility] [address] [place] [address] [place] Erythrocyte distribution width (RBC) [Ratio] 15.0 % High 12.0-14.8 [facility] Comment on above: Performed By: #### T 4T, TSH3, CBC, PSAS, T3F, A1C WTH eA, CMP, LIPID #### [facility] [address] Hematocrit (Bld) [Volume fraction] 39.9 % Normal 38.8-50.0 [facility] Comment on above: Performed By: #### T 4T, TSH3, CBC, PSAS, T3F, A1C WTH eA, CMP, LIPID #### [facility] [address] Hemoglobin (Bld) [Mass/Vol] 13.3 g/dL Normal 13.0-17.0 [facility] Comment on above: Performed By: #### T 4T, TSH3, CBC, PSAS, T3F, A1C WTH eA, CMP, LIPID #### [address] Lymphocytes (Bld) [#/Vol] 1.3 10*3/uL Normal 1.00-4.8 [facility] Comment on above: Performed By: #### T 4T, TSH3, CBC, PSAS, T3F, A1C WTH eA, CMP, LIPID #### [address] Lymphocytes/100 WBC (Bld) 25.6 % Normal . [facility] Comment on above: Performed By: #### T 4T, TSH3, CBC, PSAS, T3F, A1C WTH eA, CMP, LIPID #### [address] MCH (RBC) [Entitic mass] 31.2 pg Normal 27.5-35.2 [facility] Comment on above: Performed By: #### T 4T, TSH3, CBC, PSAS, T3F, A1C WTH eA, CMP, LIPID #### [address] MCV (RBC) [Entitic vol] 93.5 fL Normal 83.5-101 [facility] Comment on above: Performed By: #### T 4T, TSH3, CBC, PSAS, T3F, A1C WTH eA, CMP, LIPID #### [facility] [address] [place] [address] [place] Mean Corpuscular HGB Conc 33.4 g/dL Normal 32.5-35.6 [facility] Comment on above: Performed By: #### T 4T, TSH3, CBC, PSAS, T3F, A1C WTH eA, CMP, LIPID #### [facility] [address] [place] [address] [place] Monocytes (Bld) [#/Vol] 0.4 10*3/uL Normal 0.0-0.8 [facility] Comment on above: Performed By: #### T 4T, TSH3, CBC, PSAS, T3F, A1C WTH eA, CMP, LIPID #### [facility] [address] [place] [address] [place] Monocytes/100 WBC (Bld) 8.3 % Normal . [facility] Comment on above: Performed By: #### T 4T, TSH3, CBC, PSAS, T3F, A1C WTH eA, CMP, LIPID #### [facility] [address] [place] [address] [place] Neutrophils (Bld) [#/Vol] 2.9 10*3/uL Normal 1.8-7.7 [facility] Comment on above: Performed By: #### T 4T, TSH3, CBC, PSAS, T3F, A1C WTH eA, CMP, LIPID #### [facility] [address] [place] [address] [place] Neutrophils/100 WBC (Bld) 58.5 % Normal . [facility] Comment on above: Performed By: #### T 4T, TSH3, CBC, PSAS, T3F, A1C WTH eA, CMP, LIPID #### [facility] [address] [place] [address] [place] Nucleated RBC/100 WBC (Bld) [Ratio] 0.0 % Normal 0-0.5 [facility] Comment on above: Performed By: #### T 4T, TSH3, CBC, PSAS, T3F, A1C WTH eA, CMP, LIPID #### [facility] [address] Platelet mean volume (Bld) [Entitic vol] 11.0 fL High 6.6-10.1 [facility] Comment on above: Performed By: #### T 4T, TSH3, CBC, PSAS, T3F, A1C WTH eA, CMP, LIPID #### [facility] [address] Platelets (Bld) [#/Vol] 116 10*3/uL Low 150-450 [facility] Comment on above: Performed By: #### T 4T, TSH3, CBC, PSAS, T3F, A1C WTH eA, CMP, LIPID #### [address] RBC (Bld) [#/Vol] 4.27 10*6/uL Normal 3.90-5.60 [facility] Comment on above: Performed By: #### T 4T, TSH3, CBC, PSAS, T3F, A1C WTH eA, CMP, LIPID #### [facility] [address] WBC (Bld) [#/Vol] 5.0 10*3/uL Normal 4.5-11.0 [facility] Comment on above: Performed By: #### T 4T, TSH3, CBC, PSAS, T3F, A1C WTH eA, CMP, LIPID #### [facility] [address] Comprehensive Metabolic Pane alexandra 04-27-2022 Albumin [Mass/Vol] 3.6 g/dL Normal 3.2-5.5 [facility] Comment on above: Performed By: #### T 4T, TSH3, CBC, PSAS, T3F, A1C WTH eA, CMP, LIPID #### [address] Albumin/Globulin [Mass ratio] 1.3 {ratio} Normal [facility] Comment on above: Performed By: #### T 4T, TSH3, CBC, PSAS, T3F, A1C WTH eA, CMP, LIPID #### [facility] [address] ALP [Catalytic activity/Vol] 71 U/L Normal 32-92 [facility] Comment on above: Performed By: #### T 4T, TSH3, CBC, PSAS, T3F, A1C WTH eA, CMP, LIPID #### [facility] [address] ALT [Catalytic activity/Vol] 12 U/L Normal 10-60 [facility] Comment on above: Performed By: #### T 4T, TSH3, CBC, PSAS, T3F, A1C WTH eA, CMP, LIPID #### [facility] [address] AST [Catalytic activity/Vol] 18 U/L Normal 10-42 [facility] Comment on above: Performed By: #### T 4T, TSH3, CBC, PSAS, T3F, A1C WTH eA, CMP, LIPID #### [facility] [address] Bilirubin [Mass/Vol] 0.8 mg/dL Normal 0.3-1.2 [facility] Comment on above: Performed By: #### T 4T, TSH3, CBC, PSAS, T3F, A1C WTH eA, CMP, LIPID #### [facility] [address] Calcium [Mass/Vol] 9.0 mg/dL Normal 8.2-10.2 [facility] Comment on above: Performed By: #### T 4T, TSH3, CBC, PSAS, T3F, A1C WTH eA, CMP, LIPID #### [facility] [address] [place] [address] [place] Chloride [Moles/Vol] 104 mmol/L Normal 95-114 [facility] Comment on above: Performed By: #### T 4T, TSH3, CBC, PSAS, T3F, A1C WTH eA, CMP, LIPID #### [facility] [address] CO2 [Moles/Vol] 22.4 mmol/L Normal 22.0-30.0 [facility] Comment on above: Performed By: #### T 4T, TSH3, CBC, PSAS, T3F, A1C WTH eA, CMP, LIPID #### [facility] [address] Creatinine [Mass/Vol] 1.47 mg/dL High 0.64-1.27 [facility] Comment on above: Performed By: #### T 4T, TSH3, CBC, PSAS, T3F, A1C WTH eA, CMP, LIPID #### [facility] [address] Estimated GFR ( Evelyn 56 [facility] Comment on above: Result Comment: GFR estimated reference range: According to KDOQI guidelines, <60 ml/min/1.73m2 is sufficient to diagnose a patient with chronic kidney disease. Performed By: #### T 4T, TSH3, CBC, PSAS, T3F, A1C WTH eA, CMP, LIPID #### [facility] [address] Estimated GFR (Non- Am 46 [facility] Comment on above: Performed By: #### T 4T, TSH3, CBC, PSAS, T3F, A1C WTH eA, CMP, LIPID #### [facility] [address] Globulin (S) [Mass/Vol] 2.8 g/dL Normal [facility] Comment on above: Performed By: #### T 4T, TSH3, CBC, PSAS, T3F, A1C WTH eA, CMP, LIPID #### [facility] [address] Glucose [Mass/Vol] 139 mg/dL High 70-100 [facility] Comment on above: Result Comment: Baxter om Glucose Reference Range is dependent on time and content of last meal. Glucose of more than 200 mg/dL in a nonstressed, ambulatory subject supports the diagnosis of Diabetes Mellitus. ADA recommended reference range Performed By: #### T 4T, TSH3, CBC, PSAS, T3F, A1C WTH eA, CMP, LIPID #### [facility] [address] Potassium [Moles/Vol] 4.4 mmol/L Normal 3.5-5.1 [facility] Comment on above: Performed By: #### T 4T, TSH3, CBC, PSAS, T3F, A1C WTH eA, CMP, LIPID #### [facility] [address] Protein [Mass/Vol] 6.4 g/dL Normal 6.1-7.9 [facility] Comment on above: Performed By: #### T 4T, TSH3, CBC, PSAS, T3F, A1C WTH eA, CMP, LIPID #### [facility] [address] Sodium [Moles/Vol] 136 mmol/L Normal 136-146 [facility] Comment on above: Performed By: #### T 4T, TSH3, CBC, PSAS, T3F, A1C WTH eA, CMP, LIPID #### [facility] [address] [place] [address] [place] Urea nitrogen [Mass/Vol] 23 mg/dL Normal 9-23 [facility] Comment on above: Performed By: #### T 4T, TSH3, CBC, PSAS, T3F, A1C WTH eA, CMP, LIPID #### [facility] [address] [place] [address] [place] Creatinine and Glomerular fi ltration rate.predicted panel (S/P/Bld)Ordered By: Jonh Patel on 04-27-2022 Creatinine [Mass/Vol] 1.47 mg/dL 0.64-1.27 [facility] Eosinophils Auto (Bld) [#/Vo l]Ordered By: Jonh Patel on 04-27-2022 Eosinophils (Bld) [#/Vol] 0.3 10*3/uL 0.0-0.45 [facility] Eosinophils/100 WBC Auto (Bl d)Ordered By: Jonh Patel on 04-27-2022 Eosinophils/100 WBC (Bld) 6.5 % [facility] Erythrocyte distribution wid th Auto (RBC) [Ratio]Ordered By: Jonh Patel on 04-27-2022 Erythrocyte distribution width (RBC) [Ratio] 15.0 % 12.0-14.8 [facility] Estimated glomerular filtrat ion rate (GFR) non- AmericanOrdered By: Jonh Patel on 04-27-2022 GFR/1.73 sq M.predicted among non-blacks MDRD (S/P/Bld) [Vol rate/Area] 46 mL/Min [facility] Globulin Calc (S) [Mass/Vol] Ordered By: Jonh Patel on 04-27-2022 Globulin (S) [Mass/Vol] 2.8 g/dL [facility] Glucose mean value [Mass/vol ume] in Blood Estimated from glycated hemoglobinOrdered By: Jonh Patel on 04-27-2022 Average glucose Estimated from glycated hemoglobin (Bld) [Mass/Vol] 151 mg/dL [facility] Hematocrit Auto (Bld) [Volum e fraction]Ordered By: Jonh Patel on 04-27-2022 Hematocrit (Bld) [Volume fraction] 39.9 % 38.8-50.0 [facility] Hemoglobin A1c percentageOrd ered By: Jonh Patel on 04-27-2022 HbA1c (Bld) [Mass fraction] 6.9 % 4.3-5.6 [facility] Comment on above: Increased risk for d iabetes: 5.7 - 6.4 diabetes: >6.4 glycemic control for adults with diabetes: <7.0 Laboratory - Hematology and Cell countsOrdered By: Jonh Patel on 04-27-2022 Nucleated RBC/100 WBC (Bld) [Ratio] 0.0 % 0-0.5 [facility] Lipid Panelon 04-27-2022 Cholesterol [Mass/Vol] 168 mg/dL Normal 140-200 [facility] Comment on above: Result Comment: Chol less than 200 mg/dl low risk Chol 201-239 mg/dl borderline risk Chol 240 mg/dl and greater high risk Performed By: #### T 4T, TSH3, CBC, PSAS, T3F, A1C WTH eA, CMP, LIPID #### [facility] [address] [place] [address] [place] Cholesterol in HDL [Mass/Vol] 38 mg/dL Normal 29-71 [facility] Comment on above: Result Comment: HDL CHOL ATP-III CLASSIFICATION Cardiovascular Risk HDL > or equal to 60 mg/dL LOW HDL < 40 mg/dL HIGH Performed By: #### T 4T, TSH3, CBC, PSAS, T3F, A1C WTH eA, CMP, LIPID #### [facility] [address] [place] [id number] [facility] Cholesterol.total/Tresa sterol in HDL [Mass ratio] 4.4 {ratio} Normal <5.0 [facility] Comment on above: Performed By: #### T 4T, TSH3, CBC, PSAS, T3F, A1C WTH eA, CMP, LIPID #### [facility] [address] LDL Cholesterol,Calculated 112 mg/dL High 0-100 [facility] Comment on above: Result Comment: LDL ATP III CLASSIFICATION LDL less than 100 mg/dL Optimal LDL 100-129 mg/dL Near or above optimal LDL 130-159 mg/dL Borderline high LDL 160-189 mg/dL High LDL greater than 189 mg/dL Very high Performed By: #### T 4T, TSH3, CBC, PSAS, T3F, A1C WTH eA, CMP, LIPID #### [facility] [address] [place] [id number] [facility] Triglyceride w/Reflex 88 mg/dL Normal 35-149 [facility] Comment on above: Result Comment: TRIG ATP III CLASSIFICATION TRIG less than 150 mg/dL Normal TRIG 150-199 mg/dL Borderline high TRIG 200-500 mg/dL High TRIG greater than 500 mg/dL Very high Standard traceable to the Center for Disease Conrtrol and Prevention (CDC) test method. Performed By: #### T 4T, TSH3, CBC, PSAS, T3F, A1C WTH eA, CMP, LIPID #### [facility] [address] [place] [id number] [facility] VLDL CHOLESTEROL 17 mg/dL Normal [facility] Comment on above: Performed By: #### T 4T, TSH3, CBC, PSAS, T3F, A1C WTH eA, CMP, LIPID #### [facility] [address] Lymphocytes Auto (Bld) [#/Vo l]Ordered By: Jonh Patel on 04-27-2022 Lymphocytes (Bld) [#/Vol] 1.3 10*3/uL 1.00-4.8 [facility] Lymphocytes/100 WBC Auto (Bl d)Ordered By: Jonh Patel on 04-27-2022 Lymphocytes/100 WBC (Bld) 25.6 % [facility] MCH Auto (RBC) [Entitic mass ]Ordered By: Jonh Patel on 04-27-2022 MCH (RBC) [Entitic mass] 31.2 pg 27.5-35.2 [facility] MCHC Auto (RBC) [Mass/Vol]Or dered By: Jonh Patel on 04-27-2022 MCHC (RBC) [Mass/Vol] 33.4 g/dL 32.5-35.6 [facility] MCV Auto (RBC) [Entitic vol] Ordered By: Jonh Patel on 04-27-2022 MCV (RBC) [Entitic vol] 93.5 fL 83.5-101 [facility] Monocytes Auto (Bld) [#/Vol] Ordered By: Jonh Patel on 04-27-2022 Monocytes (Bld) [#/Vol] 0.4 10*3/uL 0.0-0.8 [facility] Monocytes/100 WBC Auto (Bld) Ordered By: Jonh Patel on 04-27-2022 Monocytes/100 WBC (Bld) 8.3 % [facility] Neutrophils Auto (Bld) [#/Vo l]Ordered By: Jonh Patel on 04-27-2022 Neutrophils (Bld) [#/Vol] 2.9 10*3/uL 1.8-7.7 [facility] Neutrophils/100 WBC Auto (Bl d)Ordered By: Jonh Patel on 04-27-2022 Neutrophils/100 WBC (Bld) 58.5 % [facility] No Panel InformationOrdered By: Jonh Patle on 04-27-2022 Estimated GFR () 56 mL/Min [facility] Comment on above: GFR estimated refere nce range: According to KDOQI guidelines, <60 ml/min/1.73m2 is sufficient to diagnose a patient with chronic kidney disease. Pharmacy Creatinine Clearance (Chem N/A [facility] Prostate Specific Antigen Screen 0.860 ng/mL 0.000-4.000 [facility] PSA Screen (Yearly Only)on 0 04-27-2022 PSA Screen (Yearly Only) 0.860 ng/mL Normal 0.000-4.000 [facility] Comment on above: Order Comment: Is pa tient <50 yrs? Medicare does not pay <50.: Y Is Medicare the insurance?: Y Result Comment: PERF ORMED BY: [place] [address] PATHOLOGIST TOOL HONING MACHINE SET UP OPERATOR BRIDGETT MANZO M.D. Performed By: #### T 4T, TSH3, CBC, PSAS, T3F, A1C WTH eA, CMP, LIPID #### [facility] [address] Platelet mean volume Auto (B ld) [Entitic vol]Ordered By: Jonh Patel on 04-27-2022 Platelet mean volume (Bld) [Entitic vol] 11.0 fL 6.6-10.1 [facility] Platelets Auto (Bld) [#/Vol] Ordered By: Jonh Patel on 04-27-2022 Platelets (Bld) [#/Vol] 116 10*3/uL 150-450 [facility] Protein [Mass/volume] in Ser um or PlasmaOrdered By: Jonh Patel on 04-27-2022 Protein [Mass/Vol] 6.4 g/dL 6.1-7.9 [facility] RBC Auto (Bld) [#/Vol]Ordere d By: Jonh Ptael on 04-27-2022 RBC (Bld) [#/Vol] 4.27 10*6/uL 3.90-5.60 [facility] Serum or plasma alanine garner otransferase measurement without P-5'-P (enzymatic activiOrdered By: Jonh Patel on 04-27-2022 ALT No additional P-5'-P [Catalytic activity/Vol] 12 U/L 10-60 [facility] Serum or plasma albumin/glob ulin mass ratioOrdered By: Jonh Patel on 04-27-2022 Albumin/Globulin [Mass ratio] 1.3 {ratio} [facility] Serum or plasma alkaline anna sphatase measurement (enzymatic activity/volume)Ordered By: Jonh Patel on 04-27-2022 ALP [Catalytic activity/Vol] 71 U/L 32-92 [facility] Serum or plasma aspartate am inotransferase measurement (enzymatic activity/volume)Ordered By: Jonh Patel on 04-27-2022 AST [Catalytic activity/Vol] 18 U/L 10-42 [facility] Serum or plasma calcium josiah urement (mass/volume)Ordered By: Jonh Patel on 04-27-2022 Calcium [Mass/Vol] 9.0 mg/dL 8.2-10.2 [facility] Serum or plasma chloride jerica surement (moles/volume)Ordered By: Jonh Patel on 04-27-2022 Chloride [Moles/Vol] 104 mmol/L 95-114 [facility] Serum or plasma glucose josiah urement (mass/volume)Ordered By: Jonh Patel on 04-27-2022 Glucose [Mass/Vol] 139 mg/dL 70-100 [facility] Comment on above: ADA recommended refe rence range Random Glucose Reference Range is dependent on time and content of last meal. Glucose of more than 200 mg/dL in a nonstressed, ambulatory subject supports the diagnosis of Diabetes Mellitus. Serum or plasma high density lipoprotein (HDL) cholesterol measurementOrdered By: Jonh Patel on 04-27-2022 Cholesterol in HDL [Mass/Vol] 38 mg/dL 29-71 [facility] Comment on above: HDL CHOL ATP-III CLA SSIFICATION Cardiovascular Risk HDL > or equal to 60 mg/dL LOW HDL < 40 mg/dL HIGH Serum or plasma potassium me asurement (moles/volume)Ordered By: Jonh Patel on 04-27-2022 Potassium [Moles/Vol] 4.4 mmol/L 3.5-5.1 [facility] Serum or plasma sodium measu rement (moles/volume)Ordered By: Jonh Patel on 04-27-2022 Sodium [Moles/Vol] 136 mmol/L 136-146 [facility] Serum or plasma thyroxine (T 4) measurement (mass/volume)Ordered By: Jonh Patel on 04-27-2022 T4 [Mass/Vol] 9.08 ug/dL 5.39-11.82 [facility] Serum or plasma total biliru bin measurement (mass/volume)Ordered By: Jonh Patel on 04-27-2022 Bilirubin [Mass/Vol] 0.8 mg/dL 0.3-1.2 [facility] Serum or plasma total carbon dioxide measurement (moles/volume)Ordered By: Jonh Patel on 04-27-2022 CO2 [Moles/Vol] 22.4 mmol/L 22.0-30.0 [facility] Serum or plasma total choles terol/high density lipoprotein (HDL) cholesterol mass ratOrdered By: Jonh Patel on 04-27-2022 Cholesterol.total/Tresa sterol in HDL [Mass ratio] 4.4 {ratio} [facility] Serum or plasma urea nitroge n measurement (mass/volume)Ordered By: Jonh Patel on 04-27-2022 Urea nitrogen [Mass/Vol] 23 mg/dL 9 [facility] Stool Occult Blood (Immuno)o n 04-27-2022 Stool Occult Blood (Immuno) Occult Blood (Immuno) Negative for Occult Blood by Immunochemical Methodology Reference range = Negative PERFORMED BY: [place] [address] PATHOLOGIST TOOL HONING MACHINE SET UP OPERATOR BRIDGETT MANZO M.D. Normal [facility] Comment on above: Performed By: #### O B(IMMUNO) #### [facility] [address] TSH DL <= 0.005 mIU/L QnOrde red By: Jonh Patel on 04-27-2022 TSH Qn 1.16 m[IU]/L 0.45-5.33 [facility] Thyroid Stimulating Hormoneo n 04-27-2022 TSH Qn 1.16 m[IU]/L Normal 0.45-5.33 [facility] Comment on above: Result Comment: PERF ORMED BY: [facility] [address] [place] [address] PATHOLOGIST TOOL HONING MACHINE SET UP OPERATOR BRIDGETT MANZO M.D. Performed By: #### T 4T, TSH3, CBC, PSAS, T3F, A1C WTH eA, CMP, LIPID ####[place] [id number] [place] [id number] [facility] Thyroxine (T4) Totalon 04-27 T4 [Mass/Vol] 9.08 ug/dL Normal 5.39-11.82 [facility] Comment on above: Performed By: #### T 4T, TSH3, CBC, PSAS, T3F, A1C WTH eA, CMP, LIPID ####[facility] [id number] [place] [id number] [facility] Triglyceride [Mass/volume] i n Serum or PlasmaOrdered By: Jonh Patel on 04-27-2022 Triglyceride [Mass/Vol] 88 mg/dL 35-149 [facility] Comment on above: TRIG ATP III CLASSIF ICATION TRIG less than 150 mg/dL Normal TRIG 150-199 mg/dL Borderline high TRIG 200-500 mg/dL High TRIG greater than 500 mg/dL Very high Standard traceable to the Center for Disease Conrtrol and Prevention (CDC) test method. Triiodothyronine (T3) Freeon 04-27-2022 Triiodothyronine (T3) Free 2.51 pg/mL Normal 2.50-3.90 [facility] Comment on above: Result Comment: PERF ORMED BY: [facility] [address] [place] [address] PATHOLOGIST TOOL HONING MACHINE SET UP OPERATOR BRIDGETT MANZO M.D. Performed By: #### T 4T, TSH3, CBC, PSAS, T3F, A1C WTH eA, CMP, LIPID #### [facility] [address] [place] [id number] [facility] Triiodothyronine (T3) Free [ Mass/volume] in Serum or PlasmaOrdered By: Jonh Patel on 04-27-2022 Free T3 [Mass/Vol] 2.51 pg/mL 2.50-3.90 [facility] Letter [facility] October 27, 2021 Jonh Patel, [address] [place] [address] [place] [address] Re: NAVI FUNES Date of : 1940 Thank you for your referral of Navi Funes who was seen on consultation on 10/23/2021, for nodule right taylor with underlying cellulitis. I have enclosed my consultation note for your review. I will be happy to follow Navi. Sincerely, Josiah Gallego MD General Surgery [facility] Ambulatory Clinical Summaryo n 10-23-2021 Ambulatory Clinical Summary {[id number]}CD:[id number] [facility] Physician Referralon 021 Physician Referral [id number] .[id number]:127 [facility] Social History Date Type Detail Facility Start: 1940 Sex Assigned At Male [facility] Tobacco smoking status NHIS Unknown if ever smoked [facility] Work Phone: Sex Assigned At Sex Assigned At Bir th [facility] Other Vital Signs Date Time Vital Sign Value Performing Clinician Facility 08-10-2022 10:45-0400 Body height 177.8 cm Grady Peters Other [facility] Other 08-10-2022 10:45-0400 Body mass index (BMI) [Ratio] 26.54 kg/m2 Grady Peters Other [facility] Other 08-10-2022 10:45-0400 Body temperature 97.3 [degF] Grady Peters Other [facility] Other 08-10-2022 10:45-0400 Body weight 83.92 kg Grady Peters Other [facility] Other 08-10-2022 10:45-0400 Diastolic blood pressure 72 mm[Hg] Grady Peters Other [facility] Other 08-10-2022 10:45-0400 SaO2% (BldA) [Mass fraction] 98 % Grady Peters Other [facility] Other 08-10-2022 10:45-0400 Systolic blood pressure 146 mm[Hg] Grady Peters Other [facility] Other Evaluation note 08-10-2022 Note Date & [...] this patient back on an as-needed basis. [facility] Other Clinical Note 06-22-2022 Note Date & [...] Vascular surgery for recommendations; patient requests [facility]. Ordered: E&M of Est. Patient Low 20-29 Min [id number] [facility] External Ambulatory Referral Follow-up No qualifying data [...] Recorded SARS-CoV-2 (COVID-19) Ad26 vaccine 03/19/2021 Recorded [facility] Comment on above: Result Comment: Taylor [...] Recorded SARS-CoV-2 (COVID-19) Ad26 vaccine 03/19/2021 Recorded [facility] Comment on above: Result Comment: Elec tronically Signed By: CLAUDIA OG, Josiah Frederick\.janeth\Date and Time Signed: 10/23/21 16:30 EST Evaluation note Note Date & Type Note Facility Evaluation note No assessment information availa [facility] Work Phone: History general Narrative - Reported Note Date & Type Note Facility History general Narrative - Reported Type Medical History hypercholesterolemia Medical History hypertension Medical History diabetes mallitus Surgical History CABG Surgical History Open reduction inter nal fixation right lower extremity fracture Hospitalization History see above [facility] Other Summary Purpose Family History No Family [...] and content) DATE CREATED AUTHOR 05/03/2018 [facility] DATE CREATED AUTHOR AUTHOR'S ORGANIZ ATION [facility]/20/2022 [facility] DATE CREATED AUTHOR AUTHOR'S ORGANIZ ATION 07/16/2022 [place] [facility] DATE CREATED AUTHOR AUTHOR'S ORGANIZ ATION 12/23/2022 [facility] DATE CREATED AUTHOR AUTHOR'S ORGANIZ ATION 01/13/2024 [facility] Care Teams (unrecognized sec tion [...] MARIAH AND FF V ENOUS AT [facility], Follow-up noninvasive studies FOR RECORDS PERTAINING TO [...] BE BASED ON THE PRIMARY CLINICAL RECORDS. [facility]. provides no warranty or guarantee of the accuracy or completeness of information in this document.
--- NOTE | 2024-05-03 12:45 | ECG_ITS ---
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
--- NOTE | 2024-05-03 13:00 | CT_ITS ---
The [address] [address] Patient Name: KAPIL FUNES MRN: [id number] date: 1940 Sex: M Assigned Patient Location: ER Current Patient Location: ER Accession/Order Number: [id number] Exam Date: 05/03/2024 12:53 Report Date: 05/03/2024 13:36 At the request of: AQUILES LOMELI Procedure: CT head/brain wo con EXAM: CT head/brain wo con HISTORY: Confusion COMPARISON: CT brain 01/06/2024 TECHNIQUE: Axial CT scans through the head were obtained without IV contrast administration. Dose reduction techniques were achieved by using: automated exposure control and/or adjustment of mA and /or kV according to patient size and/or use of iterative reconstruction technique. FINDINGS: There is no evidence of acute intracranial hemorrhage or abnormal extra-axial fluid collection. No mass effect or midline shift is seen. There is no evidence of large acute territorial infarction. There is no hydrocephalus. There is enlargement of the ventricles and sulci, consistent with age appropriate cerebral atrophy. Moderate decreased attenuation of the supratentorial white matter, likely represents chronic microvascular ischemia. 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 Physiologic mineralization of bilateral basal ganglia. No definite acute fracture is identified. Soft tissues are unremarkable. The visualized orbits show no abnormality. The visualized paranasal sinuses show no air-fluid level. Mastoid air cells are clear. CT/CT head/brain wo con IMPRESSION: No CT evidence of acute intracranial abnormality. If there is sufficient clinical concern for acute brain parenchymal pathology, consider MRI for further evaluation. Moderate chronic microvascular ischemia and involutional changes. Electronically authenticated by: ALFREDA UNLU Date: 05/03/2024 13:36
--- NOTE | 2024-05-03 13:00 | XR_ITS ---
[address] [address] Patient Name: KAPIL FUNES MRN: [id number] date: 1940 Sex: M Assigned Patient Location: ER Current Patient Location: ER Accession/Order Number: [id number] Exam Date: 05/03/2024 12:53 Report Date: 05/03/2024 13:15 At the request of: AQUILES LOMELI Procedure: XR chest 1V EXAMINATION: XR chest 1V HISTORY: Confusion COMPARISON: 01/06/2024 TECHNIQUE: AP portable FINDINGS: LUNGS: Low lung volumes. Mild bibasilar opacities, stable. No new focal parenchymal infiltrates. Stable left basilar nodule, size and density suggests a granuloma VASCULATURE: No increased pulmonary vasculature. PLEURA: No pneumothorax, effusion, or pleural thickening. CARDIAC: No cardiomegaly or cardiac silhouette abnormality. MEDIASTINUM: No visible mass or adenopathy. Aortic atherosclerosis. Median sternotomy wires BONES: No fracture or visible bone lesion. OTHER: Negative. XR/XR chest 1V IMPRESSION: Mild bibasilar atelectasis Electronically authenticated by: JABIER SCHULTZ Date: 05/03/2024 13:15
[2024-05-03 14:11] LABS: PCO2 VBG 42.3 mmHg (40.0-52.0); pH VBG 7.348 (7.330-7.430)
[2024-05-03 14:15] LABS: Bilirubin Urine NEGATIVE (NEGATIVE); Blood Urine NEGATIVE (NEGATIVE); Clarity Urine CLEAR (CLEAR); Color Urine LT. YELLOW (YELLOW); Glucose Urine UA 500 mg/dL (NEGATIVE); Ketones Urine NEGATIVE (NEGATIVE); Leukocyte Esterase Urine NEGATIVE (NEGATIVE); Nitrite Urine NEGATIVE (NEGATIVE); Protein Urine TRACE mg/dL (NEG/TRACE); Specific Gravity Urine 1.025 (1.005-1.025); Urobilinogen Urine 0.2 EU/dL (0.2-1.0)
[2024-05-03 14:19] LABS: Basophils Absolute Auto 0.1 10^3/uL (0.0-0.1); Basophils Percent Auto 1.2 % (0.2-2.0); Eosinophils Absolute Auto 0.3 10^3/uL (0.0-0.7); Eosinophils Percent Auto 4.7 % (0.9-7.0); Hematocrit 36.8 % (42.0-54.0); Hemoglobin 11.9 g/dL (14.0-18.0); Immature Granulocytes Abs Auto 0.02 10^3/uL (0.00-0.03); Immature Granulocytes Pct Auto 0.3 % (0.0-0.5); Lymphocytes Absolute Auto 1.5 10^3/uL (1.2-3.8); Lymphocytes Percent Auto 26.3 % (20.5-60.0); Mean Corpuscular HGB Conc 32.3 g/dL (29.9-35.2); Mean Corpuscular Hemoglobin 31.5 pg (25.9-34.0); Mean Corpuscular Volume 97.4 fL (80.0-94.0); Monocytes Absolute Auto 0.6 10^3/uL (0.3-0.8); Monocytes Percent Auto 10.6 % (1.7-12.0); Neutrophils Absolute Auto 3.3 10^3/uL (1.4-6.5); Neutrophils Percent Auto 56.9 % (43.0-75.0); Platelet Count 125 10^3/uL (150-450); Red Blood Count 3.78 10^6/uL (4.70-6.10); Red Cell Distribution Width 12.9 % (11.0-15.0); White Blood Count 5.7 10^3/uL (4.0-11.0)
[2024-05-03 14:21] LABS: Alanine Aminotransferase 21 U/L (16-63); Albumin Level 3.5 g/dL (3.4-5.0); Alkaline Phosphatase 94 U/L (46-116); Anion Gap 11.6; Aspartate Amino Transferase 17 U/L (15-37); BUN Creatinine Ratio 19.7; Bilirubin Total 0.4 mg/dL (0.2-1.0); Calcium 8.5 mg/dL (8.5-10.1); Carbon Dioxide 27.3 mmol/L (21.0-32.0); Chloride 107 mmol/L (98-107); Estimated GFR (African America 56 (>=60); Estimated GFR (Non-African Ame 46 (>=60); Globulin 3.5 g/dL; Glucose 207 mg/dL (74-106); Potassium 4.9 mmol/L (3.5-5.1); Sodium 141 mmol/L (136-145)
[2024-05-03 14:22] LABS: Urine Microscopic Indicated NO
[2024-05-03 14:23] LABS: Lactate/Lactic Acid 1.7 mmol/L (0.4-2.0)
[2024-05-03 14:30] LABS: Thyroid Stimulating Hormone 1.084 uIU/mL (0.358-3.740); Troponin I High Sensitivity 17.2 pg/mL (4.0-76.1)
== END 2024-05-03 15:53 | disposition home or self-care (01) ==
PROVIDERS: Emergency Provider Emergency Medicine Emergency Medical Services; PCP Family Medicine
DX: Z09 Encounter for follow-up examination after completed treatment for conditions other than malignant neoplasm (principal); F03.90 Unspecified dementia, unspecified severity, without behavioral disturbance, psychotic disturbance, mood disturbance, and anxiety
CPT/HCPCS: 36415; 70450; 71045; 80053; 81003; 82800; 83605; 84443; 84484; 85025; 87040; 93005; 99285

== ENCOUNTER 2024-08-06 12:18 | Outpatient (OUT) | payer MEDICARE, SELFPAY ==
--- NOTE | 2024-08-06 | US_ITS ---
The [place] [id number] Patient Name: KAPIL FUNES MRN: [id number] date: 1940 Sex: M Assigned Patient Location: RAD Current Patient Location: RAD Accession/Order Number: [id number] Exam Date: 08/06/2024 12:28 Report Date: 08/06/2024 13:25 At the request of: JONH POOLE Procedure: US venous doppler LE RT EXAMINATION: US venous doppler LE RT HISTORY: Edema R60.9 ; right leg swelling COMPARISON: No relevant comparison available. FINDINGS: REGION: Right lower extremity THROMBI: None. COMPRESSIBILITY: Normal compressibility. FLOW: Normal waveform and antegrade flow between 5 and 20 cm/s. OTHER: Prominent subcutaneous edema within lower right leg. US/US venous doppler LE RT IMPRESSION: 1. No deep vein thrombus within the right lower extremity. Electronically authenticated by: NIDA TAPIA Date: 08/06/2024 13:25
--- OUTSIDE RECORDS SUMMARY | 2024-08-06 12:28 | XMS_ITS | CCD ---
Author Organization [facility] Inform ion Partnership [facility] Care Team Providers Care Pipeline Controller Name Role Phone CHARISMA MCKEON Unavailable Unavailable CHARISMA MCKEON Unavailable Unavailable JONH PATEL Unavailable Unavailable JONH PATEL Unavailable Unavailable MD Jonh Patel Primary Care Provider [phone] MD Jonh Patel Attending Provider [phone] JONH PATEL Attending Unavailable DR JONH PATEL Consulting Unavailable DR JONH PATEL Primary Care Unavailable DR JONH PATEL Admitting Unavailable MD Jonh Patel Primary Care Provider [phone] MD Grady Peters Attending Provider Grady Peters Unavailable Jonh Patel Primary Care Unavailable Jonh Patel Attending Unavailable Jonh Patel Admitting Unavailable Grady Peters Admitting Unavailable Grady Peters Attending Unavailable Jonh Patel Primary Care Unavailable JONH PATEL Referring Unavailable JONH PATEL Primary Care Unavailable JONH PATEL Primary Care Unavailable INPATIENT, TELENEUROLOGY Consulting Unavail able JOSE ALBERTO DUARTE Consulting Unavailable JONH PATEL Primary Care Unavailable RON MAZARIEGOS Attending Unavailable Medications Current Medications Medication Drug Class(es) [...] unspecified; Translations: [Pain, unspecified] Onset: 01-07-2024 Episodic Skin and subcutaneous tissue infections (2 sources) Cellulitis of right lower limb; Translations: [Cellulitis] Onset: 07-21-2024 Episodic Unclassified (2 sources) Unknown / UNK(Unknown) Onset: 01-06-2017 Unclassified (1 source) 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; Translations: [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] Onset: 04-27-2022 Unclassified (1 source) tele neuro consult , dx altered mental status from [place] inpatient room 217 Onset: 10-24-2023 Unclassified (1 source) Foot Swelling Onset: 07-21-2024 Unclassified (1 source) Infection Onset: 07-21-2024 Past or Other Problems Problem Classification Problem [...] Test Name Value Interpretation Reference Range Facility BLOOD CULTUREon 07-21-2024 Bacteria identified Aer cx Nom (Bld) CULTURE RESULTS NO GROWTH 5 DAYS Normal [facility] Bacteria identified Aer cx Nom (Bld) CULTURE RESULTS NO GROWTH 5 DAYS Normal [facility] CBC AND AUTO DIFFon 07-21-20 24 ABSOLUTE BASOPHIL 0.1 X10E9/L Normal 0.0-0.2 [facility] Comment on above: Performed By: #### C MP, CBCA #### [facility] ([id number]) [address] [place] [address] ABSOLUTE NEUTROPHIL 3.5 X10E9/L Normal 1.5-6.6 [facility] Comment on above: Performed By: #### C MP, CBCA #### [facility] ([id number]) [address] [place] [address] 74764 Basophils/100 WBC (Bld) 1.0 % Normal [facility] Comment on above: Performed By: #### C MP, CBCA #### [facility] ([id number]) [address] [place] [address] 82647 Eosinophils (Bld) [#/Vol] 0.3 10*3/uL Normal 0.0-0.4 [facility] Comment on above: Performed By: #### C MP, CBCA #### [facility] ([id number]) [address] [place] [address] 46608 Eosinophils/100 WBC (Bld) 5.7 % Normal [facility] Comment on above: Performed By: #### C MP, CBCA #### [facility] ([id number]) [address] [place] [address] 26006 Erythrocyte distribution width (RBC) [Ratio] 15.3 % High 11.5-15.0 [facility] Comment on above: Performed By: #### C MP, CBCA #### [facility] ([id number]) [address] [place] [address] 77168 Hematocrit (Bld) [Volume fraction] 35.6 % Low 39-49 [facility] Comment on above: Performed By: #### C MP, CBCA #### [facility] ([id number]) [address] [place] [address] 83200 Hemoglobin (Bld) [Mass/Vol] 12.0 g/dL Low 13.0-17.0 [facility] Comment on above: Performed By: #### C MP, CBCA #### [facility] ([id number]) [address] [place] [address] 53153 Lymphocytes (Bld) [#/Vol] 1.6 10*3/uL Normal 1.0-3.5 [facility] Comment on above: Performed By: #### C MP, CBCA #### [facility] ([id number]) [address] [place] [address] 90257 Lymphocytes/100 WBC (Bld) 25.9 % Normal [facility] Comment on above: Performed By: #### C MP, CBCA #### [facility] ([id number]) [address] [place] [address] 70695 MCH (RBC) [Entitic mass] 31.6 pg Normal 27-34 [facility] Comment on above: Performed By: #### C FATOU, CBCA #### [facility] ([id number]) [address] [place] [address] 05580 MCHC (RBC) [Mass/Vol] 33.8 g/dL Normal 32-36 [facility] Comment on above: Performed By: #### C MP, CBCA #### [facility] ([id number]) [address] [place] [address] 49566 MCV (RBC) [Entitic vol] 94 fL Normal 80-100 [facility] Comment on above: Performed By: #### C MP, CBCA #### [facility] ([id number]) [address] [place] [address] 15316 Monocytes (Bld) [#/Vol] 0.7 10*3/uL Normal 0-0.9 [facility] Comment on above: Performed By: #### C MP, CBCA #### [facility] ([id number]) [address] [place] [address] 79482 Monocytes/100 WBC (Bld) 10.8 % Normal [facility] Comment on above: Performed By: #### C MP, CBCA #### [facility] ([id number]) [address] [place] [address] 78685 Neutrophils/100 WBC (Bld) 56.6 % Normal [facility] Comment on above: Performed By: #### C MP, CBCA #### [facility] ([id number]) [address] [place] [address] 95388 Platelet mean volume (Bld) [Entitic vol] 9.7 fL Normal 7-12 [facility] Comment on above: Performed By: #### C MP, CBCA #### [facility] ([id number]) [address] [place] [address] 18344 Platelets (Bld) [#/Vol] 116 10*3/uL Low 150-450 [facility] Comment on above: Performed By: #### C MP, CBCA #### [facility] ([id number]) [address] [place] [address] 31985 RBC COUNT 3.80 X10E12/L Low 4.10-5.70 [facility] Comment on above: Performed By: #### C MP, CBCA #### [facility] ([id number]) [address] [place] [address] 42519 WBC (Bld) [#/Vol] 6.1 10*3/uL Normal 4.0-11.0 [facility] Comment on above: Performed By: #### C MP, CBCA #### [facility] ([id number]) [address] [place] [address] 02182 COMPREHENSIVE METABOLIC PANE Ronaldo 07-21-2024 Albumin [Mass/Vol] 3.8 g/dL Normal 3.2-5.3 [facility] Comment on above: Performed By: #### C MP, CBCA #### [facility] ([id number]) [address] [place] [address] 37351 ALP [Catalytic activity/Vol] 75 U/L Normal 39-130 [facility] Comment on above: Performed By: #### C FATOU, CBCA #### [facility] ([id number]) [address] [place] [address] 24163 ALT [Catalytic activity/Vol] 12 U/L Normal 0-40 [facility] Comment on above: Performed By: #### C FATOU, CBCA #### [facility] ([id number]) [address] [place] [address] 14426 Anion gap [Moles/Vol] 7 mmol/L Normal 5-15 [facility] Comment on above: Performed By: #### C FATOU, CBCA #### [facility] ([id number]) [address] [place] [address] 65228 AST [Catalytic activity/Vol] 17 U/L Normal 0-41 [facility] Comment on above: Performed By: #### C FATOU CBCA #### [facility] ([id number]) [address] [place] [address] 17953 Bilirubin [Mass/Vol] 0.6 mg/dL Normal 0.3-1.2 [facility] Comment on above: Performed By: #### C FATOU CBCA #### [facility] ([id number]) [address] [place] [address] 66193 Calcium [Mass/Vol] 8.5 mg/dL Normal 8.5-10.5 [facility] Comment on above: Performed By: #### C FATOU, CBCA #### [facility] ([id number]) [address] [place] [address] 83720 Chloride [Moles/Vol] 107 mmol/L Normal 98-109 [facility] Comment on above: Performed By: #### C FATOU, CBCA #### [facility] ([id number]) [address] [place] [address] 78683 CO2 [Moles/Vol] 25 mmol/L Normal 22-32 [facility] Comment on above: Performed By: #### C CARLOS LAINEZ #### [facility] ([id number]) [address] [place] [address] 89863 Creatinine [Mass/Vol] 1.44 mg/dL High 0.70-1.20 [facility] Comment on above: Result Comment: METH OD TRACEABLE TO IDMS STANDARD Performed By: #### C CARLOS LAINEZ #### [facility] ([id number]) [address] [place] [address] 19827 GFR/1.73 sq M.predicted among non-blacks MDRD (S/P/Bld) [Vol rate/Area] 49 mL/min/{1.73_m2} Low >59 [facility] Comment on above: Result Comment: Reported eGFR is based on the CKD-EPI 1 equation that does not use a race coefficient. Performed By: #### C CARLOS LAINEZ #### [facility] ([id number]) [address] [place] [address] 01021 Glucose [Mass/Vol] 215 mg/dL High 65-99 [facility] Comment on above: Performed By: #### C CARLOS LAINEZ #### [facility] ([id number]) [address] [place] [address] 68058 Potassium [Moles/Vol] 4.2 mmol/L Normal 3.5-5.0 [facility] Comment on above: Performed By: #### C CARLOS LAINEZ #### [facility] ([id number]) [address] [place] [address] 30167 Protein [Mass/Vol] 6.6 g/dL Normal 6.0-8.0 [facility] Comment on above: Performed By: #### C MP, CBCA #### [facility] ([id number]) [address] [place] [address] Sodium [Moles/Vol] 139 mmol/L Normal 134-146 [facility] Comment on above: Performed By: #### C MP, CBCA #### [facility] ([id number]) [address] [place] [address] Urea nitrogen [Mass/Vol] 25 mg/dL Normal 5-27 [facility] Comment on above: Performed By: #### C FATOU, CBCA #### [facility] ([id number]) [address] [place] [address] 74337 US ankle/arm indiceson 07-31 US ankle/arm indices [facility] Main [place] [address] [place] [address] Ultrasound Report Signed Patient: Navi Funes Jr MR#: [id number] : 1940 Acct:[id number] Age/Sex: 81 / M ADM Date: 07/30/22 Loc: Room: Type: [facility] Attending Dr: Grady Peters MD Ordering [...] Transcribed By: HANNAH 07/31/22 1520 Dictated By: uRben Dumont MD 07/31/22 1519 Signed By: 07/31/22 1520 [facility] US venous duplex LE BIon US venous duplex LE BI [place] [address] Ultrasound Report Signed Patient: Navi Funes Jr MR#: [id number] : 1940 Acct:[id number] Age/Sex: 81 / M ADM Date: 07/30/22 Loc: Room: Type: [facility] Attending Dr: Grady Peters MD Ordering [...] MD 07/31/22 152 Signed By: 07/31/22 152 [facility] XR ankle RT min 3V*on 2021 XR ankle RT min 3V* [facility] Main [place] 2015170 XRay Report Signed Patient: Navi Funes Jr MR#: [id number] : 1940 Acct:[id number] Age/Sex: 81 / M ADM Date: 07/30/22 Loc: Room: Type: [facility] Attending Dr: Grady Peters MD Copies [...] King Jr., D.ORichardson07/30/2022 4:33 PM Dictation Location: [place] [address] Transcribed By: [facility] 07/30/22 1633 Dictated By: Navi King Jr DO 07/30/22 1632 Signed By: 07/30/22 1633 [facility] Consultation Noteon 07-15-20 Consultation Note [id number] .[id number]:127 Normal [facility] HIPAA Privacy Documentson HIPAA Privacy Documents [id number]:127 Normal [facility] WOUND CULTUREon 06-20-2022 Bacteria identified Aer cx Nom (Unsp spec) Final report Normal [facility] Comment on above: Performed By: #### C XWND #### [facility] [address] [place] [address] Dr. Eddie Gaitan Result 1 Comment Normal [facility] Comment on above: Result Comment: No g rowth in 36 - 48 hours. Performed By: #### C XWND #### [facility] [address] [place] [address] Dr. Eddie Gaitan Physician Referralon 022 Physician Referral [id number] .[id number]:127 Normal [facility] A1C with Estimated Average Bin hernandez 04-27-2022 Glucose [Mass/Vol] 151 mg/dL Normal [facility] Comment on above: Result Comment: PERF ORMED BY: [place] [address] PATH[address] [employer] ATTENDANT BRIDGETT MANZO M.D. Performed By: #### T 4T, TSH3, CBC, PSAS, T3F, A1C WT eA, CMP, LIPID #### [facility] [address] HbA1c (Bld) [Mass fraction] 6.9 % High 4.3-5.6 [facility] Comment on above: Result Comment: Incr eased risk for diabetes: 5.7 - 6.4 diabetes: >6.4 glycemic control for adults with diabetes: <7.0 Performed By: #### T 4T, TSH3, CBC, PSAS, T3F, A1C WTH eA, CMP, LIPID #### [facility] [address] Basophils Auto (Bld) [#/Vol] Ordered By: Jonh Patel on 04-27-2022 Basophils (Bld) [#/Vol] 0.1 10*3/uL 0.0-0.2 [facility] Basophils/100 WBC Auto (Bld) Ordered By: Jonh Patel on 04-27-2022 Basophils/100 WBC (Bld) 1.1 % [facility] Blood hemoglobin measurement (mass/volume)Ordered By: Jonh Patel on 04-27-2022 Hemoglobin (Bld) [Mass/Vol] 13.3 g/dL 13.0-17.0 [facility] Blood leukocytes automated c ount (number/volume)Ordered By: Jonh Patel on 04-27-2022 WBC (Bld) [#/Vol] 5.0 10*3/uL 4.5-11.[address] [facility] Body fluid albumin measureme nt (mass/volume)Ordered By: Jonh Patel on 04-27-2022 Albumin (Body fld) [Mass/Vol] 3.6 g/dL 3.2-5.5 [facility] Cholesterol [Mass/volume] in Serum or PlasmaOrdered By: Jonh Patel on 04-27-2022 Cholesterol [Mass/Vol] 168 mg/dL 140-200 [facility] Comment on above: Chol less than 200 m g/dl low risk Chol 201-239 mg/dl borderline risk Chol 240 mg/dl and greater high risk Cholesterol in LDL Calc [Mas s/Vol]Ordered By: Jonh Patel on 04-27-2022 Cholesterol in LDL [Mass/Vol] 112 mg/dL 0-100 [facility] Comment on above: LDL ATP III CLASSIFI CATION LDL less than 100 mg/dL Optimal LDL 100-129 mg/dL Near or above optimal LDL 130-159 mg/dL Borderline high LDL 160-189 mg/dL High LDL greater than 189 mg/dL Very high Cholesterol in VLDL Calc [Ma ss/Vol]Ordered By: Jonh Patel on 04-27-2022 Cholesterol in VLDL [Mass/Vol] 17 mg/dL [facility] Complete Blood Count Auto Di ffon 04-27-2022 Basophils (Bld) [#/Vol] 0.1 10*3/uL Normal 0.0-0.2 [facility] Comment on above: Result Comment: PERF ORMED BY: [place] [address] [address] [employer] ATTENDANT BRIDGETT MANZO M.D. Performed By: #### T 4T, TSH3, CBC, PSAS, T3F, A1C WTH eA, CMP, LIPID #### [facility] [address] [place] [address] [place] Basophils/100 WBC (Bld) 1.1 % Normal . [facility] Comment on above: Performed By: #### T 4T, TSH3, CBC, PSAS, T3F, A1C WTH eA, CMP, LIPID #### [facility] [address] [place] [address] [place] Eosinophils (Bld) [#/Vol] 0.3 10*3/uL Normal 0.0-0.45 [facility] Comment on above: Performed By: #### T 4T, TSH3, CBC, PSAS, T3F, A1C WTH eA, CMP, LIPID #### [place] [address] [place] Eosinophils/100 WBC (Bld) 6.5 % Normal . [facility] Comment on above: Performed By: #### T 4T, TSH3, CBC, PSAS, T3F, A1C WTH eA, CMP, LIPID #### [address] Erythrocyte distribution width (RBC) [Ratio] 15.0 % High 12.0-14.8 [facility] Comment on above: Performed By: #### T 4T, TSH3, CBC, PSAS, T3F, A1C WTH eA, CMP, LIPID #### [address] Hematocrit (Bld) [Volume fraction] 39.9 % Normal 38.8-50.0 [facility] Comment on above: Performed By: #### T 4T, TSH3, CBC, PSAS, T3F, A1C WTH eA, CMP, LIPID #### [place] [address] [place] Hemoglobin (Bld) [Mass/Vol] 13.3 g/dL Normal 13.0-17.0 [facility] Comment on above: Performed By: #### T 4T, TSH3, CBC, PSAS, T3F, A1C WTH eA, CMP, LIPID #### [place] [address] [place] Lymphocytes (Bld) [#/Vol] 1.3 10*3/uL Normal 1.00-4.8 [facility] Comment on above: Performed By: #### T 4T, TSH3, CBC, PSAS, T3F, A1C WTH eA, CMP, LIPID #### [place] [address] [place] Lymphocytes/100 WBC (Bld) 25.6 % Normal . [facility] Comment on above: Performed By: #### T 4T, TSH3, CBC, PSAS, T3F, A1C WTH eA, CMP, LIPID #### [facility] [address] MCH (RBC) [Entitic mass] 31.2 pg Normal 27.5-35.2 [facility] Comment on above: Performed By: #### T 4T, TSH3, CBC, PSAS, T3F, A1C WTH eA, CMP, LIPID #### [facility] [address] MCV (RBC) [Entitic vol] 93.5 fL Normal 83.5-101 [facility] Comment on above: Performed By: #### T 4T, TSH3, CBC, PSAS, T3F, A1C WTH eA, CMP, LIPID #### [address] Mean Corpuscular HGB Conc 33.4 g/dL Normal 32.5-35.6 [facility] Comment on above: Performed By: #### T 4T, TSH3, CBC, PSAS, T3F, A1C WTH eA, CMP, LIPID #### [address] Monocytes (Bld) [#/Vol] 0.4 10*3/uL Normal 0.0-0.8 [facility] Comment on above: Performed By: #### T 4T, TSH3, CBC, PSAS, T3F, A1C WTH eA, CMP, LIPID #### [address] Monocytes/100 WBC (Bld) 8.3 % Normal . [facility] Comment on above: Performed By: #### T 4T, TSH3, CBC, PSAS, T3F, A1C WTH eA, CMP, LIPID #### [address] Neutrophils (Bld) [#/Vol] 2.9 10*3/uL Normal 1.8-7.7 [facility] Comment on above: Performed By: #### T 4T, TSH3, CBC, PSAS, T3F, A1C WTH eA, CMP, LIPID #### [facility] [address] [place] [address] [place] Neutrophils/100 WBC (Bld) 58.5 % Normal . [facility] Comment on above: Performed By: #### T 4T, TSH3, CBC, PSAS, T3F, A1C WTH eA, CMP, LIPID #### [facility] [address] [place] [address] [place] Nucleated RBC/100 WBC (Bld) [Ratio] 0.0 % Normal 0-0.5 [facility] Comment on above: Performed By: #### T 4T, TSH3, CBC, PSAS, T3F, A1C WTH eA, CMP, LIPID #### [facility] [address] Platelet mean volume (Bld) [Entitic vol] 11.0 fL High 6.6-10.1 [facility] Comment on above: Performed By: #### T 4T, TSH3, CBC, PSAS, T3F, A1C WTH eA, CMP, LIPID #### [facility] [address] [place] [address] [place] Platelets (Bld) [#/Vol] 116 10*3/uL Low 150-450 [facility] Comment on above: Performed By: #### T 4T, TSH3, CBC, PSAS, T3F, A1C WTH eA, CMP, LIPID #### [facility] [address] [place] [address] [place] RBC (Bld) [#/Vol] 4.27 10*6/uL Normal 3.90-5.60 [facility] Comment on above: Performed By: #### T 4T, TSH3, CBC, PSAS, T3F, A1C WTH eA, CMP, LIPID #### [facility] [address] [place] [address] [place] WBC (Bld) [#/Vol] 5.0 10*3/uL Normal 4.5-11.[address] [facility] Comment on above: Performed By: #### T 4T, TSH3, CBC, PSAS, T3F, A1C WTH eA, CMP, LIPID #### [facility] [address] Comprehensive Metabolic Pane ronaldo 04-27-2022 Albumin [Mass/Vol] 3.6 g/dL Normal 3.2-5.[address] [facility] Comment on above: Performed By: #### T 4T, TSH3, CBC, PSAS, T3F, A1C WTH eA, CMP, LIPID #### [facility] [address] Albumin/Globulin [Mass ratio] 1.3 {ratio} Normal [facility] Comment on above: Performed By: #### T 4T, TSH3, CBC, PSAS, T3F, A1C WTH eA, CMP, LIPID #### [facility] [address] ALP [Catalytic activity/Vol] 71 U/L Normal 32-92 [facility] Comment on above: Performed By: #### T 4T, TSH3, CBC, PSAS, T3F, A1C WTH eA, CMP, LIPID #### [facility] [address] ALT [Catalytic activity/Vol] 12 U/L Normal 10-60 [facility] Comment on above: Performed By: #### T 4T, TSH3, CBC, PSAS, T3F, A1C WTH eA, CMP, LIPID #### [facility] [address] AST [Catalytic activity/Vol] 18 U/L Normal 10-42 [facility] Comment on above: Performed By: #### T 4T, TSH3, CBC, PSAS, T3F, A1C WTH eA, CMP, LIPID #### [facility] [address] [place] [address] [place] Bilirubin [Mass/Vol] 0.8 mg/dL Normal 0.3-1.2 [facility] Comment on above: Performed By: #### T 4T, TSH3, CBC, PSAS, T3F, A1C WTH eA, CMP, LIPID #### [facility] [address] [place] [address] [place] Calcium [Mass/Vol] 9.0 mg/dL Normal 8.2-10.[address] [facility] Comment on above: Performed By: #### T 4T, TSH3, CBC, PSAS, T3F, A1C WTH eA, CMP, LIPID #### [facility] [address] Chloride [Moles/Vol] 104 mmol/L Normal 95-114 [facility] Comment on above: Performed By: #### T 4T, TSH3, CBC, PSAS, T3F, A1C WTH eA, CMP, LIPID #### [facility] [address] CO2 [Moles/Vol] 22.4 mmol/L Normal 22.0-30.0 [facility] Comment on above: Performed By: #### T 4T, TSH3, CBC, PSAS, T3F, A1C WTH eA, CMP, LIPID #### [facility] [address] Creatinine [Mass/Vol] 1.47 mg/dL High 0.64-1.27 [facility] Comment on above: Performed By: #### T 4T, TSH3, CBC, PSAS, T3F, A1C WTH eA, CMP, LIPID #### [facility] [address] Estimated GFR ( Evelyn 56 [facility] Comment on above: Result Comment: GFR estimated reference range: According to KDOQI guidelines, <60 ml/min/1.73m2 is sufficient to diagnose a patient with chronic kidney disease. Performed By: #### T 4T, TSH3, CBC, PSAS, T3F, A1C WTH eA, CMP, LIPID #### [facility] [address] [place] [address] [place] Estimated GFR (Non- Am 46 [facility] Comment on above: Performed By: #### T 4T, TSH3, CBC, PSAS, T3F, A1C WTH eA, CMP, LIPID #### [facility] [address] [place] [address] [place] Globulin (S) [Mass/Vol] 2.8 g/dL Normal [facility] Comment on above: Performed By: #### T 4T, TSH3, CBC, PSAS, T3F, A1C WTH eA, CMP, LIPID #### [facility] [address] [place] [address] [place] Glucose [Mass/Vol] 139 mg/dL High 70-[address] [facility] Comment on above: Result Comment: [facility] Glucose Reference Range is dependent on time and content of last meal. Glucose of more than 200 mg/dL in a nonstressed, ambulatory subject supports the diagnosis of Diabetes Mellitus. ADA recommended reference range Performed By: #### T 4T, TSH3, CBC, PSAS, T3F, A1C WTH eA, CMP, LIPID #### [facility] [address] [place] [address] [place] Potassium [Moles/Vol] 4.4 mmol/L Normal 3.5-5.1 [facility] Comment on above: Performed By: #### T 4T, TSH3, CBC, PSAS, T3F, A1C WTH eA, CMP, LIPID #### [facility] [address] [place] [address] [place] Protein [Mass/Vol] 6.4 g/dL Normal 6.1-7.[address] [facility] Comment on above: Performed By: #### T 4T, TSH3, CBC, PSAS, T3F, A1C WTH eA, CMP, LIPID #### [facility] [address] [place] [address] [place] Sodium [Moles/Vol] 136 mmol/L Normal 136-[address] [facility] Comment on above: Performed By: #### T 4T, TSH3, CBC, PSAS, T3F, A1C WTH eA, CMP, LIPID #### [facility] [address] [place] [address] [place] Urea nitrogen [Mass/Vol] 23 mg/dL Normal 9-23 [facility] Comment on above: Performed By: #### T 4T, TSH3, CBC, PSAS, T3F, A1C WTH eA, CMP, LIPID #### [facility] [address] [id number] [facility] Creatinine and Glomerular fi ltration rate.predicted panel (S/P/Bld)Ordered By: Jonh Patel on 04-27-2022 Creatinine [Mass/Vol] 1.47 mg/dL 0.64-1.27 [facility] Eosinophils Auto (Bld) [#/Vo l]Ordered By: Jonh Patel on 04-27-2022 Eosinophils (Bld) [#/Vol] 0.3 10*3/uL 0.0-0.45 [facility] Eosinophils/100 WBC Auto (Bl d)Ordered By: Jonh Patel on 04-27-2022 Eosinophils/100 WBC (Bld) 6.5 % [facility] Erythrocyte distribution wid th Auto (RBC) [Ratio]Ordered By: Jonh Patel on 04-27-2022 Erythrocyte distribution width (RBC) [Ratio] 15.0 % 12.0-14.8 [facility] Estimated glomerular filtrat ion rate (GFR) non- AmericanOrdered By: Jonh Patel on 04-27-2022 GFR/1.73 sq M.predicted among non-blacks MDRD (S/P/Bld) [Vol rate/Area] 46 mL/Min [facility] Globulin Calc (S) [Mass/Vol] Ordered By: Jonh Patel on 04-27-2022 Globulin (S) [Mass/Vol] 2.8 g/dL [facility] Glucose mean value [Mass/vol ume] in Blood Estimated from glycated hemoglobinOrdered By: Jonh Patel on 04-27-2022 Average glucose Estimated from glycated hemoglobin (Bld) [Mass/Vol] 151 mg/dL [facility] Hematocrit Auto (Bld) [Volum e fraction]Ordered By: Jonh Patel on 04-27-2022 Hematocrit (Bld) [Volume fraction] 39.9 % 38.8-50.0 [facility] Hemoglobin A1c percentageOrd ered By: Jonh Patel on 04-27-2022 HbA1c (Bld) [Mass fraction] 6.9 % 4.3-5.6 [facility] Comment on above: Increased risk for d iabetes: 5.7 - 6.4 diabetes: >6.4 glycemic control for adults with diabetes: <7.0 Laboratory - Hematology and Cell countsOrdered By: Jonh Patel on 04-27-2022 Nucleated RBC/100 WBC (Bld) [Ratio] 0.0 % 0-0.5 [facility] Lipid Panelon 04-27-2022 Cholesterol [Mass/Vol] 168 mg/dL Normal 140-200 [facility] Comment on above: Result Comment: Chol less than 200 mg/dl low risk Chol 201-239 mg/dl borderline risk Chol 240 mg/dl and greater high risk Performed By: #### T 4T, TSH3, CBC, PSAS, T3F, A1C WTH eA, CMP, LIPID #### [facility] [address] [place] [address] [place] Cholesterol in HDL [Mass/Vol] 38 mg/dL Normal 29-71 [facility] Comment on above: Result Comment: HDL CHOL ATP-III CLASSIFICATION Cardiovascular Risk HDL > or equal to 60 mg/dL LOW HDL < 40 mg/dL HIGH Performed By: #### T 4T, TSH3, CBC, PSAS, T3F, A1C WTH eA, CMP, LIPID #### [facility] [address] [place] [address] [place] Cholesterol.total/Tresa sterol in HDL [Mass ratio] 4.4 {ratio} Normal <5.0 [facility] Comment on above: Performed By: #### T 4T, TSH3, CBC, PSAS, T3F, A1C WTH eA, CMP, LIPID #### [facility] [address] [place] [address] [place] LDL Cholesterol,Calculated 112 mg/dL High 0-100 [facility] Comment on above: Result Comment: LDL ATP III CLASSIFICATION LDL less than 100 mg/dL Optimal LDL 100-129 mg/dL Near or above optimal LDL 130-159 mg/dL Borderline high LDL 160-189 mg/dL High LDL greater than 189 mg/dL Very high Performed By: #### T 4T, TSH3, CBC, PSAS, T3F, A1C WTH eA, CMP, LIPID #### [facility] [address] [place] [address] [place] Triglyceride w/Reflex 88 mg/dL Normal 35-149 [facility] Comment on above: Result Comment: TRIG ATP III CLASSIFICATION TRIG less than 150 mg/dL Normal TRIG 150-199 mg/dL Borderline high TRIG 200-500 mg/dL High TRIG greater than 500 mg/dL Very high Standard traceable to the Center for Disease Conrtrol and Prevention (CDC) test method. Performed By: #### T 4T, TSH3, CBC, PSAS, T3F, A1C WTH eA, CMP, LIPID #### [facility] [address] VLDL CHOLESTEROL 17 mg/dL Normal [facility] Comment on above: Performed By: #### T 4T, TSH3, CBC, PSAS, T3F, A1C WTH eA, CMP, LIPID #### [facility] [address] Lymphocytes Auto (Bld) [#/Vo l]Ordered By: Jonh Patel on 04-27-2022 Lymphocytes (Bld) [#/Vol] 1.3 10*3/uL 1.00-4.8 [facility] Lymphocytes/100 WBC Auto (Bl d)Ordered By: Jonh Patel on 04-27-2022 Lymphocytes/100 WBC (Bld) 25.6 % [facility] MCH Auto (RBC) [Entitic mass ]Ordered By: Jonh Patel on 04-27-2022 MCH (RBC) [Entitic mass] 31.2 pg 27.5-35.2 [facility] MCHC Auto (RBC) [Mass/Vol]Or dered By: Jonh Patel on 04-27-2022 MCHC (RBC) [Mass/Vol] 33.4 g/dL 32.5-35.6 [facility] MCV Auto (RBC) [Entitic vol] Ordered By: Jonh Patel on 04-27-2022 MCV (RBC) [Entitic vol] 93.5 fL 83.5-101 [facility] Monocytes Auto (Bld) [#/Vol] Ordered By: Jonh Patel on 04-27-2022 Monocytes (Bld) [#/Vol] 0.4 10*3/uL 0.0-0.8 [facility] Monocytes/100 WBC Auto (Bld) Ordered By: Jonh Patel on 04-27-2022 Monocytes/100 WBC (Bld) 8.3 % [facility] Neutrophils Auto (Bld) [#/Vo l]Ordered By: Jonh Jorge on 04-27-2022 Neutrophils (Bld) [#/Vol] 2.9 10*3/uL 1.8-7.7 [facility] Neutrophils/100 WBC Auto (Bl d)Ordered By: Jonh Patel on 04-27-2022 Neutrophils/100 WBC (Bld) 58.5 % [facility] No Panel InformationOrdered By: Jonh Patel on 04-27-2022 Estimated GFR () 56 mL/Min [facility] Comment on above: GFR estimated refere nce range: According to KDOQI guidelines, <60 ml/min/1.73m2 is sufficient to diagnose a patient with chronic kidney disease. Pharmacy Creatinine Clearance (Chem N/A [facility] Prostate Specific Antigen Screen 0.860 ng/mL 0.000-4.000 [facility] PSA Screen (Yearly Only)on 0 04-27-2022 PSA Screen (Yearly Only) 0.860 ng/mL Normal 0.000-4.000 [facility] Comment on above: Order Comment: Is pa tient <50 yrs? Medicare does not pay <50.: Y Is Medicare the insurance?: Y Result Comment: PERF ORMED BY: [place] [address] PATHOLOGIST [employer] ATTENDANT BRIDGETT MANZO M.D. Performed By: #### T 4T, TSH3, CBC, PSAS, T3F, A1C WTH eA, CMP, LIPID #### [facility] [address] Platelet mean volume Auto (B ld) [Entitic vol]Ordered By: Jonh Patel on 04-27-2022 Platelet mean volume (Bld) [Entitic vol] 11.0 fL 6.6-10.1 [facility] Platelets Auto (Bld) [#/Vol] Ordered By: Jonh Patel on 04-27-2022 Platelets (Bld) [#/Vol] 116 10*3/uL 150-450 [facility] Protein [Mass/volume] in Ser um or PlasmaOrdered By: Jonh Patel on 04-27-2022 Protein [Mass/Vol] 6.4 g/dL 6.1-7.[address] [facility] RBC Auto (Bld) [#/Vol]Ordere d By: Jonh Patel on 04-27-2022 RBC (Bld) [#/Vol] 4.27 10*6/uL 3.90-5.60 [facility] Serum or plasma alanine garner otransferase measurement without P-5'-P (enzymatic activiOrdered By: Jonh Patel on 04-27-2022 ALT No additional P-5'-P [Catalytic activity/Vol] 12 U/L 10-60 [facility] Serum or plasma albumin/glob ulin mass ratioOrdered By: Jonh Patel on 04-27-2022 Albumin/Globulin [Mass ratio] 1.3 {ratio} [facility] Serum or plasma alkaline anna sphatase measurement (enzymatic activity/volume)Ordered By: Jonh Patel on 04-27-2022 ALP [Catalytic activity/Vol] 71 U/L 32-92 [facility] Serum or plasma aspartate am inotransferase measurement (enzymatic activity/volume)Ordered By: Jonh Patel on 04-27-2022 AST [Catalytic activity/Vol] 18 U/L 10-42 [facility] Serum or plasma calcium josiah urement (mass/volume)Ordered By: Jonh Patel on 04-27-2022 Calcium [Mass/Vol] 9.0 mg/dL 8.2-10.[address] [facility] Serum or plasma chloride jerica surement (moles/volume)Ordered By: Jonh Patel on 04-27-2022 Chloride [Moles/Vol] 104 mmol/L 95-114 [facility] Serum or plasma glucose josiah urement (mass/volume)Ordered By: Jonh Patel on 04-27-2022 Glucose [Mass/Vol] 139 mg/dL 70-[address] [facility] Comment on above: ADA recommended refe rence range Random Glucose Reference Range is dependent on time and content of last meal. Glucose of more than 200 mg/dL in a nonstressed, ambulatory subject supports the diagnosis of Diabetes Mellitus. Serum or plasma high density lipoprotein (HDL) cholesterol measurementOrdered By: Jonh Patel on 04-27-2022 Cholesterol in HDL [Mass/Vol] 38 mg/dL 29-71 [facility] Comment on above: HDL CHOL ATP-III CLA SSIFICATION Cardiovascular Risk HDL > or equal to 60 mg/dL LOW HDL < 40 mg/dL HIGH Serum or plasma potassium me asurement (moles/volume)Ordered By: Jonh Patel on 04-27-2022 Potassium [Moles/Vol] 4.4 mmol/L 3.5-5.1 [facility] Serum or plasma sodium measu rement (moles/volume)Ordered By: Jonh Patel on 04-27-2022 Sodium [Moles/Vol] 136 mmol/L 136-[address] [facility] Serum or plasma thyroxine (T 4) measurement (mass/volume)Ordered By: Jonh Patel on 04-27-2022 T4 [Mass/Vol] 9.08 ug/dL 5.39-11.82 [facility] Serum or plasma total biliru bin measurement (mass/volume)Ordered By: Jonh Patel on 04-27-2022 Bilirubin [Mass/Vol] 0.8 mg/dL 0.3-1.2 [facility] Serum or plasma total carbon dioxide measurement (moles/volume)Ordered By: Jonh Patel on 04-27-2022 CO2 [Moles/Vol] 22.4 mmol/L 22.0-30.0 [facility] Serum or plasma total choles terol/high density lipoprotein (HDL) cholesterol mass ratOrdered By: Jonh Patel on 04-27-2022 Cholesterol.total/Tresa sterol in HDL [Mass ratio] 4.4 {ratio} [facility] Serum or plasma urea nitroge n measurement (mass/volume)Ordered By: Jonh Patel on 04-27-2022 Urea nitrogen [Mass/Vol] 23 mg/dL 07-30 [facility] Stool Occult Blood (Immuno)o n 04-27-2022 Stool Occult Blood (Immuno) Occult Blood (Immuno) Negative for Occult Blood by Immunochemical Methodology Reference range = Negative PERFORMED BY: [address] [place] [address] PATHOLOGIST [employer] ATTENDANT BRIDGETT MANZO M.D. Normal [facility] Comment on above: Performed By: #### O B(IMMUNO) #### [facility] [address] [place] [address] TSH DL <= 0.005 mIU/L QnOrde red By: Jonh Patel on 04-27-2022 TSH Qn 1.16 m[IU]/L 0.45-5.33 [facility] Thyroid Stimulating Hormoneo n 04-27-2022 TSH Qn 1.16 m[IU]/L Normal 0.45-5.33 [facility] Comment on above: Result Comment: PERF ORMED BY: [address] [place] [address] PATHOLOGIST [employer] ATTENDANT BRIDGETT MANZO M.D. Performed By: #### T 4T, TSH3, CBC, PSAS, T3F, A1C WTH eA, CMP, LIPID ####[place] [id number] [place] [id number] [facility] Thyroxine (T4) Totalon 04-27 T4 [Mass/Vol] 9.08 ug/dL Normal 5.39-11.82 [facility] Comment on above: Performed By: #### T 4T, TSH3, CBC, PSAS, T3F, A1C WTH eA, CMP, LIPID ####[facility] [address] [place] [id number] [facility] Triglyceride [Mass/volume] i n Serum or PlasmaOrdered By: Jonh Patel on 04-27-2022 Triglyceride [Mass/Vol] 88 mg/dL 35-149 [facility] Comment on above: TRIG ATP III CLASSIF ICATION TRIG less than 150 mg/dL Normal TRIG 150-199 mg/dL Borderline high TRIG 200-500 mg/dL High TRIG greater than 500 mg/dL Very high Standard traceable to the Center for Disease Conrtrol and Prevention (CDC) test method. Triiodothyronine (T3) Freeon 04-27-2022 Triiodothyronine (T3) Free 2.51 pg/mL Normal 2.50-3.90 [facility] Comment on above: Result Comment: PERF ORMED BY: [facility] [address] [place] [address] PATHOLOGIST [employer] ATTENDANT BRIDGETT MANZO M.D. Performed By: #### T 4T, TSH3, CBC, PSAS, T3F, A1C WTH eA, CMP, LIPID #### [facility] [address] Triiodothyronine (T3) Free [ Mass/volume] in Serum or PlasmaOrdered By: Jonh Patel on 04-27-2022 Free T3 [Mass/Vol] 2.51 pg/mL 2.50-3.[address] [facility] October 27, 2021 Jonh Patel, [address] [facility] [place] [address] Re: NAVI FUNES Date of : 1940 Thank you for your referral of Navi Funes who was seen on consultation on 10/23/2021, for nodule right taylor with underlying cellulitis. I have enclosed my consultation note for your review. I will be happy to follow Navi. Sincerely, Josiah Gallego MD General Surgery Normal [facility] Ambulatory Clinical Summaryo n 10-23-2021 Ambulatory Clinical Summary {[id number]}CD:[id number] Normal [facility] Physician Referralon 021 Physician Referral [id number] .[id number]:127 Normal [facility] Vital Signs Date Time Vital Sign Value Performing Clinician Facility 08-10-2022 10:45-0400 Body height 177.8 cm Grady Peters Other [email or web address] Other 08-10-2022 10:45-0400 Body mass index (BMI) [Ratio] 26.54 kg/m2 Grady Peters Other [email or web address] Other 08-10-2022 10:45-0400 Body temperature 97.3 [degF] Grady Peters Other [email or web address] Other 08-10-2022 10:45-0400 Body weight 83.92 kg Grady Peters Other [email or web address] Other 08-10-2022 10:45-0400 Diastolic blood pressure 72 mm[Hg] Grady Peters Other [email or web address] Other 08-10-2022 10:45-0400 SaO2% (BldA) [Mass fraction] 98 % Grady Peters Other [email or web address] Other 08-10-2022 10:45-0400 Systolic blood pressure 146 mm[Hg] Grady Peters Other [email or web address] Other Encounters Encounter Date Encounter Type Care Provider Facility Start: 07-21-2024 End: 07-21-2024 Emergency department patient visit [facility] Start: 01-07-2024 ambulatory [facility] Start: 10-24-2023 End: 10-26-2023 Emergency department patient visit [facility] Start: 08-10-2022 End: 08-10-2022 ambulatory Grady Peters Other [email or web address] Other Start: 08-10-2022 Office outpatient vi sit 25 minutes Grady Peters [facility] Vascular Surgery Start: 07-30-2022 End: 07-30-2022 ambulatory Grady Juarezredari Facility:[facility] Start: 07-30-2022 End: 07-30-2022 Patient encounter procedure MD Jonh Patel Work Phone: [facility] [place] Start: 06-17-2022 End: 06-17-[address] JONH PATEL Facility: Start: 04-27-2022 End: 04-27-2022 ambulatory Jonh Patel Facility:[facility] Start: 04-27-2022 End: 04-27-2022 Patient encounter procedure MD Jonh Patel Work Phone: [facility] Start: 01-06-2017 End: 01-07-2017 Ambulatory CHARISMA MCKEON Facility:[facility] Procedures Date Procedure Procedure Detail Performing Clinician Start: 07-30-2022 X-ray of right ankle MD Jonh Patel Work Phone: Start: 04-27-2022 End: 04-27-2022 Screening for occult blood in feces MD Jonh Patel Work Phone: Plan of Treatment Date Care Activity Detail Author Start: 07-30-2022 Ankle brachial press ure index [facility] Start: 07-30-2022 Duplex scan of lower limb veins US venous duplex LE BI [facility] Start: 07-30-2022 US Lower extremity v ein - bilateral [facility] Work Phone: Payers Date Payer Category Payer Medicaid [id number] 2022 Self-pay [id number] 1957 Unknown [id number] 1940 Unknown [id number] 1940 Unknown [id number] 1940 Unknown [id number] 1940 Unknown [id number] Unknown [facility] [id number] Unknown [id number] Unknown [id number] Social History Date Type Detail Facility Tobacco smoking status SDIS Unknown if ever smoked [facility] Work Phone: Start: 1940 Sex Assigned At Male F [facility] Sex Assigned At Sex Assigned At Bir th [email or web address] Other Evaluation note 08-10-2022 Note Date & [...] this patient back on an as-needed basis. [email or web address] Other Clinical Note 06-22-2022 Note Date & [...] to Vascular surgery for recommendations; patient requests [facility]. Ordered: E&M of Est. Patient Low 20-29 Min [id number] [facility] External [...] Elec tronically Signed By: CLAUDIA OG, Josiah Frederick\negrita\Date and Time Signed: 10/23/21 16:30 EST Evaluation note Note Date & Type Note Facility Evaluation note No assessment information availa [facility] Work Phone: History general Narrative - Reported Note Date & Type Note Facility History general Narrative - Reported Type Medical History hypercholesterolemia Medical History hypertension Medical History diabetes mallitus Surgical History CABG Surgical History Open reduction inter nal fixation right lower extremity fracture Hospitalization History see above [email or web address] Other Summary Purpose Family History No Family [...] and content) DATE CREATED AUTHOR 05/03/2018 [facility] DATE CREATED AUTHOR AUTHOR'S ORGANIZ ATION 06/20/2022 [facility] DATE CREATED AUTHOR AUTHOR'S ORGANIZ ATION 07/16/2022 [facility] DATE CREATED AUTHOR AUTHOR'S ORGANIZ ATION 12/23/2022 [facility] DATE CREATED AUTHOR AUTHOR'S ORGANIZ ATION 01/13/2024 [facility] DATE CREATED AUTHOR AUTHOR'S ORGANIZ ATION 07/28/[address] [facility] Care Teams (unrecognized sec tion and [...] TESTING; MARIAH AND FF V EN[facility] AT [facility], Follow-up noninvasive studies FOR RECORDS PERTAINING TO [...] BE BASED ON THE PRIMARY CLINICAL RECORDS. Must See [place] [facility]. provides no warranty or guarantee of the accuracy or completeness of information in this document.
== END 2024-08-06 12:19 | disposition home or self-care (01) ==
LOC: RAD 12:22
PROVIDERS: PCP Family Medicine; Visit Provider Family Medicine
DX: R60.0 Localized edema (principal); R60.9 Edema, unspecified
CPT/HCPCS: 93971

== ENCOUNTER 2024-10-12 11:52 | Emergency (ER) | payer MEDICARE, SELFPAY ==
[2024-10-12] VITALS (61 sets, daily range): BP systolic 96–178; BP diastolic 37–72; PULSE 54–102; TEMP 36.6; O2SAT 79–99; BMI 25.1
--- NOTE | 2024-10-12 12:07 | ECG_ITS ---
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
--- NOTE | 2024-10-12 12:07 | CT_ITS ---
The [address] [address] Patient Name: KAPIL FUNES MRN: [id number] date: 1940 Sex: M Assigned Patient Location: ER Current Patient Location: ER Accession/Order Number: [id number] Exam Date: 10/12/2024 12:11 Report Date: 10/12/2024 13:29 At the request of: ELEANOR CHAPMAN Procedure: CT head/brain wo con EXAM: CT head/brain wo con HISTORY: Behavior change COMPARISON: CT head 05/03/2024. TECHNIQUE: Axial noncontrast CT imaging of the head was performed with coronal and sagittal reformats. This CT exam was performed using one or more of the following dose reduction techniques: Automated exposure control, adjustment of the MA and/or kV according to patient size, or use of iterative reconstruction technique. FINDINGS: Calvarium/skull base: No evidence of acute fracture or destructive lesion. Paranasal sinuses: No air fluid levels. Brain: No acute intracranial hemorrhage. No acute large vascular territory infarct. 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 Stable mild patchy hypoattenuation involving the supratentorial white matter. While nonspecific is most commonly relates to sequela of small vessel disease. Similar moderate parenchymal volume loss. Likely tiny remote lacunar infarct of the right caudate and inferior aspect of the left external capsule stable from prior. No mass lesion or mass effect. No hydrocephalus. CT/CT head/brain wo con IMPRESSION: No acute intracranial process. Stable chronic changes described above. Electronically authenticated by: TALISHA LICONA Date: 10/12/2024 13:29
--- NOTE | 2024-10-12 12:07 | ED_ITS ---
HPI HPI - General Adult General Chief complaint: Altered Mental Status Stated complaint: ALTERED MENTAL STATUS Time Seen by Provider: 10/12/24 11:55 Source: other Source information: ems Mode of arrival: ambulance Limitations: altered mental status History of Present Illness HPI narrative: 84-year-old male presents for behavioral issue. He apparently went to the police station and was talking about violence and shooting people. He was brought here by paramedics after they were contacted by police. The patient is really not sure why he is here, he states he is here to get a checkup. He does not seem to have any physical complaints. He lives by himself Related Data Home Medications ?Medication ?Instructions ?Recorded ?Confirmed lisinopril 10 mg tablet 10 mg PO DAILY 10/22/23 02/12/24 metformin 500 mg tablet 500 mg PO BID 10/22/23 02/12/24 donepezil 10 mg tablet 10 mg PO .QD 01/06/24 02/12/24 memantine 14 mg capsule 14 mg PO .QD 01/06/24 02/12/24 sprinkle,extended release 24hr Previous Rx's ?Medication ?Instructions ?Recorded quetiapine 25 mg tablet 25 mg PO HS #30 tabs 10/26/23 Allergies Allergy/AdvReac Type Severity Reaction Status Date / Time No Known Drug Allergies Allergy Verified 10/12/24 11:59 Opioid HPI Opioid Management Most Recent Opioid Data: Last Pain Intensity 0 10/24/23 10:00 10/24/23 Ur Phencyclidine Scrn Negative (NEGATIVE) 10/12/24 12:24 120 04/30 Review of Systems ROS Narrative A ten point review of systems is negative except as noted above. [facility] Medical History (Updated 10/12/24 @ 18:41 by Osito Figueroa MD) Dehydration ?E86.0 - Dehydration (ICD-10) Ulcer of right lower extremity ?L97.919 - Non-pressure chronic ulcer of unspecified part of right lower leg with unspecified severity (ICD-10) Confusion ?R41.0 - Disorientation, unspecified (ICD-10) SOPHIA (acute kidney injury) ?N17.9 - Acute kidney failure, unspecified (ICD-10) Ulcer of right leg ?L97.919 - Non-pressure chronic ulcer of unspecified part of right lower leg with unspecified severity (ICD-10) Altered mental status ?R41.82 - Altered mental status, unspecified (ICD-10) Weakness ?R53.1 - Weakness (ICD-10) Dementia ?F03.90 - Unspecified dementia, unspecified severity, without behavioral disturbance, psychotic disturbance, mood disturbance, and anxiety (ICD-10) Bradycardia ?R00.1 - Bradycardia, unspecified (ICD-10) Altered mental status ?R41.82 - Altered mental status, unspecified (ICD-10) Acute hyperglycemia ?R73.9 - Hyperglycemia, unspecified (ICD-10) Medical non-compliance ?Z91.199 - Patient's noncompliance with other medical treatment and regimen due to unspecified reason (ICD-10) Hearing loss ?H91.90 - Unspecified hearing loss, unspecified ear (ICD-10) Fall ?W19.XXXA - Unspecified fall, initial encounter (ICD-10) Diabetes ?E11.9 - Type 2 diabetes mellitus without complications (ICD-10) Leg fracture, right ?S82.91XA - Unspecified fracture of right lower leg, initial encounter for closed fracture (ICD-10) Surgical History (Updated 10/22/23 @ 15:01 by Shayna Miller) FH: CABG (coronary artery bypass surgery) ?Z82.49 - Family history of ischemic heart disease and other diseases of the circulatory system (ICD-10) Family History (Updated 10/22/23 @ 15:04 by Shayna Miller) Father Family history of cancer Social History Within the past year, how often did you have a drink containing alcohol: never Within the past year, how many standard drinks containing alcohol did you have on a typical day: 1 or 2 Within the past year, how often did you have six or more drinks on one occasion: never Total score: 0 Score interpretation: A score less than 4 is consistent with normal alcohol consumption. Smoking status: Never smoker Non-prescribed substance use: denies use Previous occupational history: retired Highest level of school completed/degree received: don't know Are you now , , , , never or living with a partner: In a typical week, how many times do you talk on the telephone with family, friends, or neighbors: twice per week How often do you get together with friends or relatives: twice per week How often do you attend yazidi or confucianism services: never Do you belong to any clubs or organizations such as yazidi groups unions, fraternal or athletic groups, or school groups: no Total score: 1 Score interpretation: A score of less than or equal to 1 indicates the most socially isolated. Little interest or pleasure in doing things: not at all Feeling down, depressed, or hopeless: not at all Feel stressed/tense/nervous/anxious/difficulty sleeping: not at all Exam Narrative Exam Narrative: Nurses note and vital signs reviewed and patient is not hypoxic. General: The patient appears in no apparent distress. Patient is resting comfortably on cart. Skin: Warm, dry, no pallor noted. There is no rash noted. Head: Normocephalic, atraumatic Eye: Normal conjunctiva, no drainage Ears, Nose, Mouth, and Throat: oral mucosa is moist. Nares patent. Cardiovascular: Regular Rate and Rhythm Respiratory: Patient is in no distress, no accessory muscle use, lungs are clear to auscultation, no wheezing, rales or rhonchi Back: non-tender GI: Soft and nontender Musculoskeletal: The patient has no evidence of calf tenderness, no pitting edema, symmetrical pulses noted bilaterally Neurological: He is awake and alert. He knows that he is in a hospital but does not know which one. He does not know why he is here and he does know the year. Psychiatric: Cooperative Constitutional Vital Signs, click to edit/add: Last Vital Signs Temp 97.8 F 10/12/24 11:59 Pulse 64 10/12/24 17:40 Resp 25 H 10/12/24 17:51 BP 138/48 L 10/12/24 18:14 Pulse Ox 97 10/12/24 18:14 O2 Del Method Room Air 10/12/24 11:59 Course Vital Signs Vital signs: Vital Signs Temperature 97.8 F 10/12/24 11:59 Pulse Rate 58 L 10/12/24 11:59 Respiratory Rate 16 10/12/24 11:59 Blood Pressure 178/64 H 10/12/24 11:59 Pulse Oximetry 98 10/12/24 11:59 Oxygen Delivery Method Room Air 10/12/24 11:59 Temperature 97.8 F 10/12/24 11:59 Pulse Rate 64 10/12/24 17:40 Respiratory Rate 25 H 10/12/24 17:51 Blood Pressure 138/48 L 10/12/24 18:14 Pulse Oximetry 97 10/12/24 18:14 Oxygen Delivery Method Room Air 10/12/24 11:59 Medical Decision Making MDM Narrative Medical decision making narrative: The patient is medically clear. He appears to have not been taking his metformin because his blood sugar was elevated. He was given IV fluids and IV insulin and his blood sugar has come down appropriately. He is being in terviewed by mental health services and they are decision is pending at the time of this dictation. The patient is signed out to subsequent physician. Differential Diagnosis Differential Diagnosis: Behavior concern, dementia Lab Data Lab results reviewed: Yes I reviewed the patient's lab results Labs: Lab Results 10/12/24 10/12/24 10/12/24 Range/Units 12:24 12:32 14:19 WBC 6.7 (4.0-11.0) 10^3/uL RBC 3.87 L (4.70-6.10) 10^6/uL Hgb 12.1 L (14.0-18.0) g/dL Hct 36.2 L (42.0-54.0) % MCV 93.5 (80.0-94.0) fL MCH 31.3 (25.9-34.0) pg MCHC 33.4 (29.9-35.2) g/dL RDW 13.2 (11.0-15.0) % Plt Count 123 L (150-450) 10^3/uL MPV 12.5 (9.5-13.5) fL Neut % (Auto) 72.8 (43.0-75.0) % Lymph % (Auto) 14.8 L (20.5-60.0) % [place] % (Auto) 9.3 (1.7-12.0) % Eos % (Auto) 2.1 (0.9-7.0) % Baso % (Auto) 0.9 (0.2-2.0) % Neut # (Auto) 4.9 (1.4-6.5) 10^3/uL Lymph # (Auto) 1.0 L (1.2-3.8) 10^3/uL [place] # (Auto) 0.6 (0.3-0.8) 10^3/uL Eos # (Auto) 0.1 (0.0-0.7) 10^3/uL Baso # (Auto) 0.1 (0.0-0.1) 10^3/uL Abs Immat Gran (auto) 0.01 (0.00-0.03) 10^3/uL Imm/Tot Granulo (auto) 0.1 (0.0-0.5) % Sodium 136 (136-145) mmol/L Potassium 4.9 (3.5-5.1) mmol/L Chloride 99 (98-107) mmol/L Carbon Dioxide 29.5 (21.0-32.0) mmol/L Anion Gap 12.4 BUN 30.0 H (7.0-18.0) mg/dL Creatinine 1.78 H (0.70-1.30) mg/dL Est GFR ( Amer) 45 L (>=60 mL/min/1.73m^2) Est GFR (Non-Af Amer) 37 L (>=60 mL/min/1.73m^2) BUN/Creatinine Ratio 16.9 Glucose 669 H* (74-106) mg/dL Calcium 8.7 (8.5-10.1) mg/dL Urine Color Lt. yellow (YELLOW) Urine Clarity Clear (CLEAR) Urine pH 6.0 (5.0-9.0) Ur Specific [place] 1.015 (1.005-1.025) Urine Protein 30 A (NEG/TRACE) mg/dL Urine Glucose (UA) >=1000 A (NEGATIVE) mg/dL Urine Ketones Negative (NEGATIVE) mg/dL Urine Occult Blood Negative (NEGATIVE) Urine Nitrite Negative (NEGATIVE) Urine Bilirubin Negative (NEGATIVE) Urine Urobilinogen 0.2 (0.2-1.0) EU/dL Ur Leukocyte Esterase Negative (NEGATIVE) Urine RBC 0-2 (0-2) #/HPF Urine WBC 0-2 A (NONE SEEN) #/HPF Ur Squamous Epith Cells Rare (NONE/RARE) #/LPF Urine Crystals None seen (None Seen) #/HPF Urine Bacteria None seen (NONE SEEN) #/HPF Urine Casts None seen (NONE SEEN) #/LPF Urine Mucus None seen (NONE SEEN) Salicylates <2.8 (<=19.9) mg/dL Urine Opiates Screen Negative (NEGATIVE) Ur Buprenorphine Scrn Negative (NEGATIVE) Ur Oxycodone Screen Negative (NEGATIVE) Urine Methadone Screen Negative (NEGATIVE) Acetaminophen <2.0 L (10.0-30.0) ug/mL Ur Barbiturates Screen Negative (NEGATIVE) U Tricyclic Antidepress Negative (NEGATIVE) Ur Phencyclidine Scrn Negative (NEGATIVE) Ur Amphetamines Screen Negative (NEGATIVE) U Methamphetamines Scrn Negative (NEGATIVE) U Benzodiazepines Scrn Negative (NEGATIVE) Urine Cocaine Screen Negative (NEGATIVE) U Cannabinoids Screen Negative (NEGATIVE) Ethanol Quant <3 mg/dL POC Glucose 339 H (74-106) mg/dL 10/12/24 Range/Units 15:21 WBC (4.0-11.0) 10^3/uL RBC (4.70-6.10) 10^6/uL Hgb (14.0-18.0) g/dL Hct (42.0-54.0) % MCV (80.0-94.0) fL MCH (25.9-34.0) pg MCHC (29.9-35.2) g/dL RDW (11.0-15.0) % Plt Count (150-450) 10^3/uL MPV (9.5-13.5) fL Neut % (Auto) (43.0-75.0) % Lymph % (Auto) (20.5-60.0) % [place] % (Auto) (1.7-12.0) % Eos % (Auto) (0.9-7.0) % Baso % (Auto) (0.2-2.0) % Neut # (Auto) (1.4-6.5) 10^3/uL Lymph # (Auto) (1.2-3.8) 10^3/uL [place] # (Auto) (0.3-0.8) 10^3/uL Eos # (Auto) (0.0-0.7) 10^3/uL Baso # (Auto) (0.0-0.1) 10^3/uL Abs Immat Gran (auto) (0.00-0.03) 10^3/uL Imm/Tot Granulo (auto) (0.0-0.5) % Sodium (136-145) mmol/L Potassium (3.5-5.1) mmol/L Chloride (98-107) mmol/L Carbon Dioxide (21.0-32.0) mmol/L Anion Gap BUN (7.0-18.0) mg/dL Creatinine (0.70-1.30) mg/dL Est GFR ( Amer) (>=60 mL/min/1.73m^2) Est GFR (Non-Af Amer) (>=60 mL/min/1.73m^2) BUN/Creatinine Ratio Glucose (74-106) mg/dL Calcium (8.5-10.1) mg/dL Urine Color (YELLOW) Urine Clarity (CLEAR) Urine pH (5.0-9.0) Ur Specific [place] (1.005-1.025) Urine Protein (NEG/TRACE) mg/dL Urine Glucose (UA) (NEGATIVE) mg/dL Urine Ketones (NEGATIVE) mg/dL Urine Occult Blood (NEGATIVE) Urine Nitrite (NEGATIVE) Urine Bilirubin (NEGATIVE) Urine Urobilinogen (0.2-1.0) EU/dL Ur Leukocyte Esterase (NEGATIVE) Urine RBC (0-2) #/HPF Urine WBC (NONE SEEN) #/HPF Ur Squamous Epith Cells (NONE/RARE) #/LPF Urine Crystals (None Seen) #/HPF Urine Bacteria (NONE SEEN) #/HPF Urine Casts (NONE SEEN) #/LPF Urine Mucus (NONE SEEN) Salicylates (<=19.9) mg/dL Urine Opiates Screen (NEGATIVE) Ur Buprenorphine Scrn (NEGATIVE) Ur Oxycodone Screen (NEGATIVE) Urine Methadone Screen (NEGATIVE) Acetaminophen (10.0-30.0) ug/mL Ur Barbiturates Screen (NEGATIVE) U Tricyclic Antidepress (NEGATIVE) Ur Phencyclidine Scrn (NEGATIVE) Ur Amphetamines Screen (NEGATIVE) U Methamphetamines Scrn (NEGATIVE) U Benzodiazepines Scrn (NEGATIVE) Urine Cocaine Screen (NEGATIVE) U Cannabinoids Screen (NEGATIVE) Ethanol Quant mg/dL POC Glucose 152 H (74-106) mg/dL Imaging Data CT scan - head: Radiologist's impression: ITS Impressions Head CT 10/12/24 12:07 IMPRESSION: No acute intracranial process. Stable chronic changes described above. Electronically authenticated by: TALISHA LICONA Date: 10/12/2024 13:29 ECG Data Attestation: I personally reviewed and interpreted this ECG as follows: (EKG on my interpretation shows normal sinus rhythm with rate of 53 and no acute change. First-degree AV block present.) Critical Care Time Critical Care Time Critical Care Time: Yes Total Critical Care Time: 35 Attestation: Due to the high probability of sudden and clinically significant deterioration in the patient's condition he/she required the highest level of my preparedness to intervene urgently I provided critical care time including documentation time, medication orders and management, reevaluation, vital sign assessment, ordering and reviewing of lab tests, ordering and reviewing of x-ray studies, and admission orders. Aggregate critical care time is 35 minutes including only time during which I was engaged in work directly related to his/her care and did not include time spent treating other patients simultaneously. Discharge Plan Discharge Patient Disposition: Still a Patient
[2024-10-12 12:56] LABS: Basophils Absolute Auto 0.1 10^3/uL (0.0-0.1); Basophils Percent Auto 0.9 % (0.2-2.0); Eosinophils Absolute Auto 0.1 10^3/uL (0.0-0.7); Eosinophils Percent Auto 2.1 % (0.9-7.0); Hematocrit 36.2 % (42.0-54.0); Hemoglobin 12.1 g/dL (14.0-18.0); Immature Granulocytes Abs Auto 0.01 10^3/uL (0.00-0.03); Immature Granulocytes Pct Auto 0.1 % (0.0-0.5); Lymphocytes Percent Auto 14.8 % (20.5-60.0); Mean Corpuscular HGB Conc 33.4 g/dL (29.9-35.2); Mean Corpuscular Hemoglobin 31.3 pg (25.9-34.0); Mean Corpuscular Volume 93.5 fL (80.0-94.0); Mean Platelet Volume 12.5 fL (9.5-13.5); Monocytes Absolute Auto 0.6 10^3/uL (0.3-0.8); Monocytes Percent Auto 9.3 % (1.7-12.0); Neutrophils Absolute Auto 4.9 10^3/uL (1.4-6.5); Neutrophils Percent Auto 72.8 % (43.0-75.0); Platelet Count 123 10^3/uL (150-450); Red Blood Count 3.87 10^6/uL (4.70-6.10); Red Cell Distribution Width 13.2 % (11.0-15.0); White Blood Count 6.7 10^3/uL (4.0-11.0)
[2024-10-12 12:57] LABS: Bilirubin Urine NEGATIVE (NEGATIVE); Blood Urine NEGATIVE (NEGATIVE); Clarity Urine CLEAR (CLEAR); Color Urine LT. YELLOW (YELLOW); Glucose Urine UA >=1000 mg/dL (NEGATIVE); Ketones Urine NEGATIVE (NEGATIVE); Leukocyte Esterase Urine NEGATIVE (NEGATIVE); Nitrite Urine NEGATIVE (NEGATIVE); Protein Urine 30 mg/dL (NEG/TRACE); Specific Gravity Urine 1.015 (1.005-1.025); Urobilinogen Urine 0.2 EU/dL (0.2-1.0)
[2024-10-12 13:09] LABS: Anion Gap 12.4; BUN Creatinine Ratio 16.9; Calcium 8.7 mg/dL (8.5-10.1); Carbon Dioxide 29.5 mmol/L (21.0-32.0); Chloride 99 mmol/L (98-107); Estimated GFR (African America 45 (>=60 mL/min/1.73m^2); Estimated GFR (Non-African Ame 37 (>=60 mL/min/1.73m^2); Potassium 4.9 mmol/L (3.5-5.1); Salicylate <2.8 mg/dL (<=19.9); Sodium 136 mmol/L (136-145)
[2024-10-12 13:13] LABS: Acetaminophen <2.0 ug/mL (10.0-30.0); Ethanol <3 mg/dL
[2024-10-12 13:15] LABS: Bacteria Urine NONE SEEN #/HPF (NONE SEEN); Cast Seen? NONE SEEN #/LPF (NONE SEEN); Crystals Seen? None Seen #/HPF (None Seen); Mucus Urine NONE SEEN (NONE SEEN); RBC Urine 0-2 #/HPF (0-2); Squamous Epithelial Cell Urine RARE #/LPF (NONE/RARE); WBC Urine 0-2 #/HPF (NONE SEEN)
[2024-10-12 13:16] LABS: Glucose 669 mg/dL (74-106)
[2024-10-12 13:20] LABS: Amphetamine Screen Urine NEGATIVE (NEGATIVE); Barbiturates Screen Urine NEGATIVE (NEGATIVE); Benzodiazepines Screen Urine NEGATIVE (NEGATIVE); Buprenorphine Screen Urine NEGATIVE (NEGATIVE); Cannabinoid Screen Urine NEGATIVE (NEGATIVE); Cocaine Screen Urine NEGATIVE (NEGATIVE); Methadone Screen Urine NEGATIVE (NEGATIVE); Methamphetamines Screen Urine NEGATIVE (NEGATIVE); Opiate Screen Urine NEGATIVE (NEGATIVE); Oxycodone Screen Urine NEGATIVE (NEGATIVE); Phencyclidine Screen Urine NEGATIVE (NEGATIVE); Tricyclic Antidepressant Urine NEGATIVE (NEGATIVE)
[2024-10-12] MEDS: 0.9 % SODIUM CHLORIDE 1,000 ML 1000 ML IV (13:31)
[2024-10-12] MEDS: INSULIN REGULAR, HUMAN (100 UNIT/ML) 10 ML MDV 10 UNIT IV (13:31)
[2024-10-12 14:21] LABS: Glucometer 339 mg/dL (74-106)
[2024-10-12 15:23] LABS: Glucometer 152 mg/dL (74-106)
--- NOTE | 2024-10-12 18:01 | PC.NURSE ---
Talked with Luz from [facility] -- she will be calling pt's daughter to get more info
--- NOTE | 2024-10-12 20:10 | PC.NURSE ---
Luz from [facility] called with update. patient referral sent to [facility] and awaiting their answer. patient had large bowel movement using bedpan. patient given new gown and new blankets applied
[2024-10-12 21:54] LABS: Influenza Virus A Antigen Negative; Influenza Virus B Antigen Negative; Internal Control Within Normal Limits; SARS-CoV-2 Ag NEGATIVE (NEGATIVE)
--- NOTE | 2024-10-12 22:12 | PC.NURSE ---
Gave information to [facility] regarding patient's medical history-will call back when they decide if they are able to accept him or not
--- NOTE | 2024-10-12 23:13 | ED.AMS1 ---
HPI - Altered Mental Status General Chief Complaint: Altered Mental Status Stated Complaint: ALTERED MENTAL STATUS Time Seen by Provider: 10/12/24 11:55 Source: other Source comment: ems Mode of arrival: ambulance Limitations: altered mental status Related Data Home Medications ?Medication ?Instructions ?Recorded ?Confirmed lisinopril 10 mg tablet 10 mg PO DAILY 10/22/23 02/12/24 metformin 500 mg tablet 500 mg PO BID 10/22/23 02/12/24 donepezil 10 mg tablet 10 mg PO .QD 01/06/24 02/12/24 memantine 14 mg capsule 14 mg PO .QD 01/06/24 02/12/24 sprinkle,extended release 24hr Previous Rx's ?Medication ?Instructions ?Recorded quetiapine 25 mg tablet 25 mg PO HS #30 tabs 10/26/23 Allergies Allergy/AdvReac Type Severity Reaction Status Date / Time No Known Drug Allergies Allergy Verified 10/12/24 11:59 [facility] Medical History (Updated 10/12/24 @ 18:41 by Osito Figueroa MD) Dehydration ?E86.0 - Dehydration (ICD-10) Ulcer of right lower extremity ?L97.919 - Non-pressure chronic ulcer of unspecified part of right lower leg with unspecified severity (ICD-10) Confusion ?R41.0 - Disorientation, unspecified (ICD-10) SOPHIA (acute kidney injury) ?N17.9 - Acute kidney failure, unspecified (ICD-10) Ulcer of right leg ?L97.919 - Non-pressure chronic ulcer of unspecified part of right lower leg with unspecified severity (ICD-10) Altered mental status ?R41.82 - Altered mental status, unspecified (ICD-10) Weakness ?R53.1 - Weakness (ICD-10) Dementia ?F03.90 - Unspecified dementia, unspecified severity, without behavioral disturbance, psychotic disturbance, mood disturbance, and anxiety (ICD-10) Bradycardia ?R00.1 - Bradycardia, unspecified (ICD-10) Altered mental status ?R41.82 - Altered mental status, unspecified (ICD-10) Acute hyperglycemia ?R73.9 - Hyperglycemia, unspecified (ICD-10) Medical non-compliance ?Z91.199 - Patient's noncompliance with other medical treatment and regimen due to unspecified reason (ICD-10) Hearing loss ?H91.90 - Unspecified hearing loss, unspecified ear (ICD-10) Fall ?W19.XXXA - Unspecified fall, initial encounter (ICD-10) Diabetes ?E11.9 - Type 2 diabetes mellitus without complications (ICD-10) Leg fracture, right ?S82.91XA - Unspecified fracture of right lower leg, initial encounter for closed fracture (ICD-10) Surgical History (Updated 10/22/23 @ 15:01 by Shayna Miller) FH: CABG (coronary artery bypass surgery) ?Z82.49 - Family history of ischemic heart disease and other diseases of the circulatory system (ICD-10) Family History (Updated 10/22/23 @ 15:04 by Shayna Miller) Father Family history of cancer Social History Within the past year, how often did you have a drink containing alcohol: never Within the past year, how many standard drinks containing alcohol did you have on a typical day: 1 or 2 Within the past year, how often did you have six or more drinks on one occasion: never Total score: 0 Score interpretation: A score less than 4 is consistent with normal alcohol consumption. Smoking status: Never smoker Non-prescribed substance use: denies use Previous occupational history: retired Highest level of school completed/degree received: don't know Are you now , , , , never or living with a partner: In a typical week, how many times do you talk on the telephone with family, friends, or neighbors: twice per week How often do you get together with friends or relatives: twice per week How often do you attend jehovah's witness or oriental orthodox services: never Do you belong to any clubs or organizations such as jehovah's witness groups unions, fraternal or athletic groups, or school groups: no Total score: 1 Score interpretation: A score of less than or equal to 1 indicates the most socially isolated. Little interest or pleasure in doing things: not at all Feeling down, depressed, or hopeless: not at all Feel stressed/tense/nervous/anxious/difficulty sleeping: not at all Exam Constitutional Vital Signs, click to edit/add: Last Vital Signs Temp 97.8 F 10/12/24 11:59 Pulse 64 10/12/24 17:40 Resp 25 H 10/12/24 17:51 BP 138/48 L 10/12/24 18:14 Pulse Ox 97 10/12/24 18:14 O2 Del Method Room Air 10/12/24 11:59 Course Vital Signs Vital signs: Vital Signs Temperature 97.8 F 10/12/24 11:59 Pulse Rate 58 L 10/12/24 11:59 Respiratory Rate 16 10/12/24 11:59 Blood Pressure 178/64 H 10/12/24 11:59 Pulse Oximetry 98 10/12/24 11:59 Oxygen Delivery Method Room Air 10/12/24 11:59 Temperature 97.8 F 10/12/24 11:59 Pulse Rate 64 10/12/24 17:40 Respiratory Rate 25 H 10/12/24 17:51 Blood Pressure 138/48 L 10/12/24 18:14 Pulse Oximetry 97 10/12/24 18:14 Oxygen Delivery Method Room Air 10/12/24 11:59 MDM - Altered Mental Status Lab Data Labs: Lab Results 10/12/24 10/12/24 10/12/24 Range/Units 12:24 12:32 14:19 WBC 6.7 (4.0-11.0) 10^3/uL RBC 3.87 L (4.70-6.10) 10^6/uL Hgb 12.1 L (14.0-18.0) g/dL Hct 36.2 L (42.0-54.0) % MCV 93.5 (80.0-94.0) fL MCH 31.3 (25.9-34.0) pg MCHC 33.4 (29.9-35.2) g/dL RDW 13.2 (11.0-15.0) % Plt Count 123 L (150-450) 10^3/uL MPV 12.5 (9.5-13.5) fL Neut % (Auto) 72.8 (43.0-75.0) % Lymph % (Auto) 14.8 L (20.5-60.0) % [place] % (Auto) 9.3 (1.7-12.0) % Eos % (Auto) 2.1 (0.9-7.0) % Baso % (Auto) 0.9 (0.2-2.0) % Neut # (Auto) 4.9 (1.4-6.5) 10^3/uL Lymph # (Auto) 1.0 L (1.2-3.8) 10^3/uL [place] # (Auto) 0.6 (0.3-0.8) 10^3/uL Eos # (Auto) 0.1 (0.0-0.7) 10^3/uL Baso # (Auto) 0.1 (0.0-0.1) 10^3/uL Abs Immat Gran (auto) 0.01 (0.00-0.03) 10^3/uL Imm/Tot Granulo (auto) 0.1 (0.0-0.5) % Sodium 136 (136-145) mmol/L Potassium 4.9 (3.5-5.1) mmol/L Chloride 99 (98-107) mmol/L Carbon Dioxide 29.5 (21.0-32.0) mmol/L Anion Gap 12.4 BUN 30.0 H (7.0-18.0) mg/dL Creatinine 1.78 H (0.70-1.30) mg/dL Est GFR ( Amer) 45 L (>=60 mL/min/1.73m^2) Est GFR (Non-Af Amer) 37 L (>=60 mL/min/1.73m^2) BUN/Creatinine Ratio 16.9 Glucose 669 H* (74-106) mg/dL Calcium 8.7 (8.5-10.1) mg/dL Urine Color Lt. yellow (YELLOW) Urine Clarity Clear (CLEAR) Urine pH 6.0 (5.0-9.0) Ur Specific [place] 1.015 (1.005-1.025) Urine Protein 30 A (NEG/TRACE) mg/dL Urine Glucose (UA) >=1000 A (NEGATIVE) mg/dL Urine Ketones Negative (NEGATIVE) mg/dL Urine Occult Blood Negative (NEGATIVE) Urine Nitrite Negative (NEGATIVE) Urine Bilirubin Negative (NEGATIVE) Urine Urobilinogen 0.2 (0.2-1.0) EU/dL Ur Leukocyte Esterase Negative (NEGATIVE) Urine RBC 0-2 (0-2) #/HPF Urine WBC 0-2 A (NONE SEEN) #/HPF Ur Squamous Epith Cells Rare (NONE/RARE) #/LPF Urine Crystals None seen (None Seen) #/HPF Urine Bacteria None seen (NONE SEEN) #/HPF Urine Casts None seen (NONE SEEN) #/LPF Urine Mucus None seen (NONE SEEN) Salicylates <2.8 (<=19.9) mg/dL Urine Opiates Screen Negative (NEGATIVE) Ur Buprenorphine Scrn Negative (NEGATIVE) Ur Oxycodone Screen Negative (NEGATIVE) Urine Methadone Screen Negative (NEGATIVE) Acetaminophen <2.0 L (10.0-30.0) ug/mL Ur Barbiturates Screen Negative (NEGATIVE) U Tricyclic Antidepress Negative (NEGATIVE) Ur Phencyclidine Scrn Negative (NEGATIVE) Ur Amphetamines Screen Negative (NEGATIVE) U Methamphetamines Scrn Negative (NEGATIVE) U Benzodiazepines Scrn Negative (NEGATIVE) Urine Cocaine Screen Negative (NEGATIVE) U Cannabinoids Screen Negative (NEGATIVE) Ethanol Quant <3 mg/dL Influenza Type A Ag Influenza Type B Ag SARS-CoV-2 Ag (CV2AG) (NEGATIVE) POC Glucose 339 H (74-106) mg/dL 10/12/24 10/12/24 Range/Units 15:21 20:58 WBC (4.0-11.0) 10^3/uL RBC (4.70-6.10) 10^6/uL Hgb (14.0-18.0) g/dL Hct (42.0-54.0) % MCV (80.0-94.0) fL MCH (25.9-34.0) pg MCHC (29.9-35.2) g/dL RDW (11.0-15.0) % Plt Count (150-450) 10^3/uL MPV (9.5-13.5) fL Neut % (Auto) (43.0-75.0) % Lymph % (Auto) (20.5-60.0) % [place] % (Auto) (1.7-12.0) % Eos % (Auto) (0.9-7.0) % Baso % (Auto) (0.2-2.0) % Neut # (Auto) (1.4-6.5) 10^3/uL Lymph # (Auto) (1.2-3.8) 10^3/uL [place] # (Auto) (0.3-0.8) 10^3/uL Eos # (Auto) (0.0-0.7) 10^3/uL Baso # (Auto) (0.0-0.1) 10^3/uL Abs Immat Gran (auto) (0.00-0.03) 10^3/uL Imm/Tot Granulo (auto) (0.0-0.5) % Sodium (136-145) mmol/L Potassium (3.5-5.1) mmol/L Chloride (98-107) mmol/L Carbon Dioxide (21.0-32.0) mmol/L Anion Gap BUN (7.0-18.0) mg/dL Creatinine (0.70-1.30) mg/dL Est GFR ( Amer) (>=60 mL/min/1.73m^2) Est GFR (Non-Af Amer) (>=60 mL/min/1.73m^2) BUN/Creatinine Ratio Glucose (74-106) mg/dL Calcium (8.5-10.1) mg/dL Urine Color (YELLOW) Urine Clarity (CLEAR) Urine pH (5.0-9.0) Ur Specific [place] (1.005-1.025) Urine Protein (NEG/TRACE) mg/dL Urine Glucose (UA) (NEGATIVE) mg/dL Urine Ketones (NEGATIVE) mg/dL Urine Occult Blood (NEGATIVE) Urine Nitrite (NEGATIVE) Urine Bilirubin (NEGATIVE) Urine Urobilinogen (0.2-1.0) EU/dL Ur Leukocyte Esterase (NEGATIVE) Urine RBC (0-2) #/HPF Urine WBC (NONE SEEN) #/HPF Ur Squamous Epith Cells (NONE/RARE) #/LPF Urine Crystals (None Seen) #/HPF Urine Bacteria (NONE SEEN) #/HPF Urine Casts (NONE SEEN) #/LPF Urine Mucus (NONE SEEN) Salicylates (<=19.9) mg/dL Urine Opiates Screen (NEGATIVE) Ur Buprenorphine Scrn (NEGATIVE) Ur Oxycodone Screen (NEGATIVE) Urine Methadone Screen (NEGATIVE) Acetaminophen (10.0-30.0) ug/mL Ur Barbiturates Screen (NEGATIVE) U Tricyclic Antidepress (NEGATIVE) Ur Phencyclidine Scrn (NEGATIVE) Ur Amphetamines Screen (NEGATIVE) U Methamphetamines Scrn (NEGATIVE) U Benzodiazepines Scrn (NEGATIVE) Urine Cocaine Screen (NEGATIVE) U Cannabinoids Screen (NEGATIVE) Ethanol Quant mg/dL Influenza Type A Ag Negative Influenza Type B Ag Negative SARS-CoV-2 Ag (CV2AG) Negative (NEGATIVE) POC Glucose 152 H (74-106) mg/dL Discharge Plan Discharge Chief Complaint: Altered Mental Status Clinical Impression: Behavior disturbance [facility]position[facility] Time of Disposition Decision: 23:14 Discharge location: [facility]. Accepted by Dr. Flannery. Condition: Fair Prescriptions / Home Meds: No Action metformin 500 mg tablet 500 mg PO BID lisinopril 10 mg tablet 10 mg PO DAILY quetiapine 25 mg Tablet 25 mg PO HS Qty: 30 11RF donepezil 10 mg tablet 10 mg PO .QD memantine 14 mg capsule,sprinkle,ER 24hr 14 mg PO .QD Print Language: Yoruba Referrals: Savage Patel MD [Primary Care Provider] - 1 week
[2024-10-13] VITALS: BP 119/52
--- NOTE | 2024-10-13 00:28 | PC.NURSE ---
patient report called to Cal HARRIS at [facility]. Patient being admitted under Dr. Flannery to the [address] [place] [address]. patient report also given to [facility] day car staff. patient stable at time of transfer
== END 2024-10-13 00:34 | disposition short-term general hospital (02) ==
PROVIDERS: Physician Assistant; Emergency Provider Emergency Medicine; PCP Family Medicine
DX: F91.9 Conduct disorder, unspecified (principal); Z20.822 Contact with and (suspected) exposure to COVID-19; Z79.899 Other long term (current) drug therapy
CPT/HCPCS: 36415; 70450; 80048; 80179; 80307; 80320; 80329; 81001; 82948; 85025; 87804; 87811; 93005; 96360; 96361; 99285; J1817